=== PATIENT | female | born 1970 | race Caucasian/White ===

== ENCOUNTER 2017-11-25 00:37 | Emergency (ER) | payer OTHER, SELFPAY ==
[2017-11-25 00:40] VITALS: BP 124/89; PULSE 50; RESP 16; TEMP 36.8; O2SAT 100
--- NOTE | 2017-11-25 00:48 | EKG12_ITS ---
Test Reason : CP Blood Pressure : / mmHG Vent. Rate : 053 BPM Atrial Rate : 053 BPM P-R Int : 156 ms QRS Dur : 078 ms QT Int : 462 ms P-R-T Axes : 051 024 029 degrees QTc Int : 433 ms Sinus bradycardia Otherwise normal ECG Confirmed by SUZI AGUAYO, TULIO ([id number]), editor newspaper NAS WESLEY ([id number]) on 11/30/2017 3:16:07 PM Referred By: KENYON Confirmed By:TULIO ARCHER MD
--- NOTE | 2017-11-25 00:48 | RAD_ITS ---
STUDY: X-RAY CHEST REASON FOR EXAM: Female, 47 years old. Chest pain TECHNIQUE: Single frontal view of the chest. COMPARISON: 11/16/2016 FINDINGS: The lungs are clear and expanded. There is no demonstrated pleural abnormality. Normal size heart. Normal mediastinum and sandy. Normal visualized pulmonary arteries. Normal visualized aortic arch and descending thoracic aorta. Normal visualized thoracic spine. Normal visualized ribs, clavicles, and shoulders. There is no demonstrated abnormality of the visualized soft tissue structures of the upper abdomen. RAD/Chest 1 View (Portable) IMPRESSION: Normal x-ray examination of the chest. Electronically Signed: Chris Gaston MD at 2:32 EDT Tel , Service support ,
[2017-11-25 00:55] LABS: Absolute Lymphocyte Count 3.39 X10^3/ul (0.83-4.51); Absolute Neutrophil Count 5.1 X10^3/uL (2.0-7.7); Basophil# 0.03 X10^3/uL; Basophil% 0.3 % (0-1); Eosinophil# 0.18 X10^3/uL; Eosinophils% 1.9 % (0-5); Hematocrit 39.1 % (37-47); Hemoglobin 12.8 g/dl (12.0-15.0); Lymphocyte # 3.39 X10^3/ul (4.0); Lymphocyte % 35.8 % (19-41); Mean Corp Hgb Conc 32.7 g/gl (32-36); Mean Corpuscular Hgb 29.8 pg (27.0-32.0); Mean Corpuscular Volume 91.1 fL (81-99); Mean Platelet Vol. 9.3 fl (6.2-12.0); Monocyte# 0.71 X10^3/uL; Monocyte% 7.5 % (0-10); Neutrophil # 5.13 X10^3/uL (2.7-7.7); Neutrophil % 54.1 % (47-70); Platelet Count 265 K/mm3 (150-450); RBC Distribution Width CV 13.3 % (11.6-14.6); RBC Distribution Width SD 43.9 fl (35.1-43.9); Red Blood Count 4.29 M/mm3 (4.2-5.4); White Blood Count 9.5 K/mm3 (4.4-11.0)
[2017-11-25 00:56] LABS: POSITIVE COUNT NO; POSITIVE DIFFERENTIAL NO; POSITIVE MORPHOLOGY NO
--- NOTE | 2017-11-25 01:08 | ED.DCSUM_ITS ---
- ER Visit Summary Date of Service: 11/25/17 Chief Complaint: [] Chest pain with possible anxiety attack History of Present Illness: The patient is a 47 F presents with chest squeezing left-sided for last 7 hours. 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 She has had continuous discomfort that is mild. Worsened by nothing. Associated some mild dyspnea and mild cough. She has mild anxiety. She has had this multiple times in the past. She had a pulmonary embolism in 2006 postsurgical. She has had multiple ER visits for chest pain including an admission. Her last stress test was -3 years ago. Her last 2 CTAs of her chest in the last couple years have been negative. She also feels some discomfort in her back. She denies any cardiac risk factors except for occasional smoking. She took 2 baby aspirin at home. Physical Examination: Vital signs reviewed General: Well-nourished well-developed Head: Normocephalic atraumatic Eyes: Pupils equal round and reactive to light extraocular movements intact ENT: TMs clear no hemotympanum no trauma Neck: Nontender full range of motion Cardiovascular: Regular rate rhythm no murmurs normal S1-S2 Respiratory: No distress clear to auscultation bilaterally chest nontender Abdomen: Soft nontender nondistended normal bowel sounds no masses Back: Nontender no CVA tenderness Extremities: Nontender active range of motion ?4 extremities no trauma Skin: Normal color no trauma Neuro alert oriented cranial nerves II through XII intact normal strength sensation reflexes Test Results: [] Emergency Department Course and Treatment: [] EKG shows sinus at 53 with T-wave inversion V2. D-dimer elevated at 1.2. However this is always elevated. Her previous was 2.6 and 1.8 respectively. Troponin negative. Chemistry normal. CBC normal. Chest x-ray and CT of the chest show nothing acute. At this time I noticed that the patient's d-dimer is always elevated. I think this will be always elevated likely secondary to her MS. She has had multiple cardiac rule outs with positive D-dimers. I feel we should probably stop checking this as it will always be negative causing her to get an unnecessary CT angios. She has not had tachycardia or hypoxia. I feel this could be costochondritis or pleurisy. On reevaluation she feels much better. She will be discharged. I do not feel this is cardiac. She has had pain for multiple hours with a normal troponin. Treatment Plan: [] Disposition: [] Impression: [] Noncardiac chest pain This note was generated with [employer] dictation software. It may contain incorrect words, spelling, and punctuation that were not noted in review of the chart prior to signing ED Disposition - Plan for ED Patient: Chief Complaint: Chest Pain Referrals: Morelia Denton MD [Primary Care Provider] -
--- NOTE | 2017-11-25 01:09 | ED.RN ---
DR. PRESCOTT AWARE OF ELEVATED DDIMER OF 1.2
[2017-11-25 01:19] LABS: Anion Gap 7 (5-15); BUN 15 mg/dL (7-18); BUN/Creat Ratio 19.9 RATIO (10-20); Calcium,Total 9.1 mg/dL (8.5-10.1); Chloride 107 mmol/L (98-107); Creatinine, Serum 0.75 mg/dL (0.55-1.02); EST Glomerular Filtration Rate 88 mL/min (>60); Est Glom Filt Rate - Afr Amer 107 mL/min (>60); Glucose 97 mg/dL (74-106); Potassium 3.6 mmol/L (3.5-5.1); Sodium Level 141 mmol/L (136-145)
[2017-11-25] MEDS: Morphine 4 MG/ML Syringe IV (01:22)
--- NOTE | 2017-11-25 01:24 | CT_ITS ---
STUDY: CTA CHEST REASON FOR EXAM: Female, 47 years old. Chest pain RADIATION DOSAGE (If Supplied By Facility): CTDIvol = ( 11.76 ) mGy, DLP = ( 426.94 ) mGycm TECHNIQUE: The examination was performed with the intravenous administration of 100 ml of Isovue 370 contrast material. Post-processing of the angiographic images was performed, with multiplanar reformation and 3D reconstruction. Individualized dose optimization techniques were used for this CT. COMPARISON: 01/29/2016 FINDINGS: Normal enhancement of the main pulmonary artery and right and left pulmonary arteries. Normal enhancement of the bilateral peripheral pulmonary arteries. There is no demonstrated pulmonary embolism. Normal thoracic aorta and visualized great vessels. There is no demonstrated aortic dissection. Normal heart and pericardium. Normal mediastinum. Normal hilar regions. Normal visualized trachea and bronchi. The lungs are well expanded. Normal pulmonary parenchyma. Normal pleura. Normal chest wall structures. Normal osseous structures. Normal visualized upper abdomen. CT/CTA Chest W/WO Contrast IMPRESSION: Normal CTA chest examination, without a demonstrated pulmonary embolism or arterial dissection. Electronically Signed: Chris Gaston MD at 2:45 EDT Tel , Service support ,
--- NOTE | 2017-11-25 03:10 | ED.DEP ---
ED Disposition - Plan for ED Patient: Disposition: Home or Assisted Living Chief Complaint: Chest Pain Instructions: ED Chest Pain NonCardiac Referrals: Morelia Denton MD [Primary Care Provider] -
[2017-11-25 03:35] VITALS: BP 109/78; PULSE 54; RESP 15; O2SAT 95
== END 2017-11-25 03:36 | disposition home or self-care (01) ==
PROVIDERS: Emergency Provider Emergency Medicine; Family Provider Internal Medicine; PCP Internal Medicine
DX: R07.89 Other chest pain (principal); F41.9 Anxiety disorder, unspecified; R74.8 Abnormal levels of other serum enzymes; Z79.899 Other long term (current) drug therapy; F17.200 Nicotine dependence, unspecified, uncomplicated; Z86.711 Personal history of pulmonary embolism
CPT/HCPCS: 71045; 71275; 80048; 84484; 85025; 85379; 93005; 96374; 99284; Q9967; A4216

== ENCOUNTER 2018-03-18 16:53 | Emergency (ER) | payer OTHER, SELFPAY ==
[2018-03-18 16:54] VITALS: BP 127/73; PULSE 87; RESP 17; TEMP 37.1; O2SAT 96; BMI 33.3
--- NOTE | 2018-03-18 17:23 | ED.VISSUMM ---
- ER Visit Summary Date of Service: 03/18/18 Chief Complaint: Cough, sore throat, dysuria History of Present Illness: The patient is a 47 F who presents the above symptoms. She states she has had 2 weeks of cough, shortness of breath, cold-like symptoms. She has been trying Mucinex, NyQuil and albuterol inhaler at home but not getting any better. She has had nasal congestion. Her cough is productive. She is been on antibiotics for 1 week for urinary tract infection. She states that this is ciprofloxacin. She has not had a fever. Physical Examination: Vital signs reviewed. HEENT exam unremarkable. Heart is regular rate and rhythm. Lungs have faint expiratory wheezing. Abdomen soft and nontender. Neurologic exam normal. Test Results: Chest x-ray reveals cardiomegaly with no other acute findings. Urinalysis is negative for infection Emergency Department Course and Treatment: Patient has no evidence of pneumonia. Her UTI is clearing. She was given albuterol here. I will give her a dose of Decadron to help with her symptoms. Patient's antibiotics will be changed from ciprofloxacin to doxycycline. She will follow-up with her primary care physician. Treatment Plan: [] Disposition: Discharge Impression: Acute bronchitis This note was generated with [employer]) dictation software. It may contain incorrect words, spelling, and punctuation that were not noted in review of the chart prior to signing ED Disposition - Plan for ED Patient: Disposition: Home or Assisted Living Chief Complaint: Cold Sx Instructions: ED Upper Resp Infec Abx Tx Prescriptions: Doxycycline Monohydrate 100 mg PO BID #14 cap Referrals: Morelia Denton MD [Primary Care Provider] -
--- NOTE | 2018-03-18 17:25 | RAD_ITS ---
STUDY: X-RAY CHEST REASON FOR EXAM: Female, 47 years old. Chest pain with cough and shortness of breath. TECHNIQUE: Frontal and lateral views of the chest. COMPARISON: November 25, 2017 FINDINGS: The lungs are clear and expanded. There is no demonstrated pleural abnormality. There is stable borderline cardiomegaly. Normal mediastinum and sandy. Normal visualized pulmonary arteries. Normal visualized aortic arch and descending thoracic aorta. Normal visualized thoracic spine. Normal visualized ribs, clavicles, and shoulders. There is no demonstrated abnormality of the visualized soft tissue structures of the upper abdomen. RAD/Chest PA and Lateral IMPRESSION: Stable borderline cardiomegaly. No acute pathology. Electronically Signed: Carlos Faustin MD at 17:54 EDT , Service support ,
[2018-03-18] MEDS: Albuterol 2.5 MG/3 ML VIAL.NEB. INHALATION (17:41)
[2018-03-18 17:42] LABS: Bacteria 0 SEEN /hpf (None Seen); Mucous, Urine 0 SEEN /hpf (<or=2+); Red Blood Cells-Urine 0 SEEN /hpf (0-5); Squamous Epithelial Cells - UA 0 SEEN /hpf (5-10); White Blood Cells 0 SEEN /hpf (0-5)
[2018-03-18 17:43] VITALS: PULSE 76; RESP 20
[2018-03-18 17:48] LABS: Color, Urine Yellow (Yellow); Glucose, Dipstick Normal (Normal); Ketone-Dipstick Negative (Negative); Leukocyte Esterase-Dipstick 25 /ul (Negative); Nitrite-Dipstick Negative (Negative); Occult Blood-Urine Negative /ul (Negative); Protein-Dipstick Negative (Negative); Urine Bilirubin Dipstick Negative (Negative); Urine Clarity Clear (Clear); Urine Urobilinogen Normal (Normal)
--- NOTE | 2018-03-18 18:08 | ED.DEP ---
ED Disposition - Plan for ED Patient: Disposition: Home or Assisted Living Chief Complaint: Cold Sx Instructions: ED Upper Resp Infec Abx Tx Prescriptions: Doxycycline Monohydrate 100 mg PO BID #14 cap Referrals: Morelia Denton MD [Primary Care Provider] -
== END 2018-03-18 18:46 | disposition home or self-care (01) ==
PROVIDERS: Emergency Provider Emergency Medicine; Family Provider Internal Medicine; PCP Internal Medicine
DX: J20.9 Acute bronchitis, unspecified (principal); N39.0 Urinary tract infection, site not specified; I51.7 Cardiomegaly; Z72.0 Tobacco use; Z79.899 Other long term (current) drug therapy
CPT/HCPCS: 71046; 81001; 94640; 99283

== ENCOUNTER 2018-11-06 01:43 | Emergency (ER) | payer BC, SELFPAY ==
[2018-11-06 01:44] VITALS: BP 138/84; PULSE 94; RESP 18; TEMP 36.8; O2SAT 97; BMI 36.6
--- NOTE | 2018-11-06 02:01 | EKG12_ITS ---
Test Reason : CP Blood Pressure : / mmHG Vent. Rate : 062 BPM Atrial Rate : 062 BPM P-R Int : 156 ms QRS Dur : 086 ms QT Int : 422 ms P-R-T Axes : 030 013 020 degrees QTc Int : 428 ms Normal sinus rhythm Normal ECG Confirmed by SUZI AGUAYO, TULIO ([id number]), telegraph editor BENJAMIN PRADO ([id number]) on 11/08/2018 9:15:51 AM Referred By: CHEN Confirmed By:TULIO ARCHER MD
[2018-11-06 02:05] VITALS: O2SAT 97
--- NOTE | 2018-11-06 02:08 | RAD_ITS ---
HISTORY: CHEST PAIN EXAM: XR Chest 1 View COMPARISON: 03/18/18 CXR FINDINGS: LINES/DEVICES: None. LUNGS: No consolidation, edema or effusion. No pneumothorax. Mild elevation right hemidiaphragm unchanged. MEDIASTINUM AND CARDIOVASCULAR STRUCTURES: Cardiac silhouette not enlarged. Central airways and mediastinal contour are unremarkable. BONES AND SOFT TISSUES: Unremarkable. RAD/Chest 1 View (Portable) IMPRESSION: No radiographic evidence of acute cardiopulmonary disease. at 0234 Reported and signed by: Rafael Waldron MD Electronically Signed: Rafael Waldron, at 2:33 EDT Tel , Service support ,
[2018-11-06] MEDS: Ketorolac 30 MG/ML Syringe IV (02:11)
--- NOTE | 2018-11-06 02:11 | ED.DCSUM_ITS ---
- ER Visit Summary Date of Service: 11/06/18 Chief Complaint: Right lower chest pain History of Present Illness: The patient is a 48 F history of MS, pleurisy and prior pulmonary emboli after surgery. Patient states she has right lower chest pain for approximately last week. Plan shortness of breath. Denies any hemoptysis. The triage complaint was abdominal pain patient states that not abdominal pain it is right lower chest pain. She denies any fever. She denies any food intolerances. Physical Examination: Vital signs are stable and afebrile. Pulse ox 97%. No distress. HEENT exam unremarkable. Neck nontender. No lymphadenopathy. No JVD. Lungs clear to auscultation bilaterally. Heart regular rate and rhythm no murmur. Rate about 90. Abdomen is soft and nontender. Normal bowel sounds no peritoneal signs. No Hutchison sign. Patient moving all 4 extremities. Calves are nontender without edema or cords. Both upper and lower extremities neurovascular intact. Normal range of motion. Neurologically she is awake alert with no focal motor deficits. Test Results: Chest x-ray portable one view no acute abnormality read by myself and radiologist. EKG sinus rhythm rate 62 no acute signs of [place] or ischemia. CBC normal. Chemistry normal. Liver enzymes and lipase normal. Troponin normal. D-dimer slightly elevated at 1.29. A CTA of the chest has been ordered. CTA chest was read as normal. No PE no dissection. No acute abnormalities. Read by the radiologist reviewed by me. Emergency Department Course and Treatment: Patient has right lower chest pain that may be something simple as pleurisy. She is very concerned that the PET she had PE postoperatively before. She has had 2 CTAs in the last several years which were negative. Her d-dimer is typically elevated. She will be given Toradol for pain. Repeat exam patient is doing well at 2:51 AM. She was still having right-sided chest pain so she was also given morphine and Zofran. Repeat exam at 03 50 9 AM patient is doing well. As I suspected the work-up was negative. Clinically I do not think she has a pulmonary embolus. She has had a history of pleurisy in the past and will be treated with anti-inflammatories. Treatment Plan: Motrin for pain 600 mg 3 times a day with food. Follow-up if not improving. Disposition: Discharge Impression: Right chest pain of uncertain etiology History of pulmonary emboli and history of prior pleurisy This note was generated with [employer] dictation software. It may contain incorrect words, spelling, and punctuation that were not noted in review of the chart prior to signing ED Disposition - Plan for ED Patient: Referrals: Morelia Denton MD [Primary Care Provider] -
[2018-11-06 02:25] VITALS: BP 114/69; PULSE 73; RESP 20; O2SAT 98
[2018-11-06 02:42] LABS: Absolute Lymphocyte Count 3.51 X10^3/ul (0.83-4.51); Absolute Neutrophil Count 4.6 X10^3/uL (2.0-7.7); Basophil# 0.05 X10^3/uL; Basophil% 0.5 % (0-1); D-Dimer Quantitative (DVT/PE) 1.29 FEU/ug/m (0.27-0.49); Eosinophil# 0.27 X10^3/uL; Eosinophils% 2.9 % (0-5); Hemoglobin 13.1 g/dl (12.0-15.0); Lymphocyte # 3.51 X10^3/ul (4.0); Mean Corp Hgb Conc 33.6 g/gl (32-36); Mean Corpuscular Hgb 29.4 pg (27.0-32.0); Mean Corpuscular Volume 87.6 fL (81-99); Mean Platelet Vol. 9.9 fl (6.2-12.0); Monocyte# 0.76 X10^3/uL; Monocyte% 8.2 % (0-10); Neutrophil # 4.63 X10^3/uL (2.7-7.7); Neutrophil % 50.2 % (47-70); Platelet Count 275 K/mm3 (150-450); RBC Distribution Width CV 13.4 % (11.6-14.6); RBC Distribution Width SD 43.1 fl (35.1-43.9); Red Blood Count 4.45 M/mm3 (4.2-5.4); White Blood Count 9.2 K/mm3 (4.4-11.0)
[2018-11-06 02:44] LABS: Differential Indicated SCAN CRITERIA MET; POSITIVE COUNT NO; POSITIVE DIFFERENTIAL NO; POSITIVE MORPHOLOGY YES
[2018-11-06 02:48] LABS: AST(SGOT) 20 U/L (15-37); Alanine Aminotransfer ALT/SGPT 26 U/L (13-56); Alkaline Phosphatase 79 U/L (45-117); Anion Gap 9 (5-15); BUN 20 mg/dL (7-18); BUN/Creat Ratio 28.3 RATIO (10-20); Bilirubin, Direct 0.09 mg/dL (0.00-0.30); Calcium,Total 9.1 mg/dL (8.5-10.1); Chloride 104 mmol/L (98-107); Creatinine, Serum 0.71 mg/dL (0.55-1.02); EST Glomerular Filtration Rate 94 mL/min (>60); Est Glom Filt Rate - Afr Amer 114 mL/min (>60); Globulin 3.9 g/dL (2.2-4.2); Glucose 89 mg/dL (74-106); Lipase 107 U/L (73-393); Potassium 3.7 mmol/L (3.5-5.1); Protein, Total 7.9 g/dL (6.4-8.2); Sodium Level 138 mmol/L (136-145)
--- NOTE | 2018-11-06 02:49 | CT_ITS ---
HISTORY: RT LOWER CP, ELEVATED D-DIMER, HX PE EXAMINATION: CTA Chest WO/W Contrast TECHNIQUE: Helically acquired images were obtained of the chest following IV contrast as per pulmonary angiogram protocol with 3D reconstructions. A radiation dose optimization technique was used for this scan. IV Contrast dosage and agent: 100 Isovue 370 COMPARISON: 11/25/17 CTA chest. FINDINGS: UPPER ABDOMEN: No acute pathology. PULMONARY ARTERIES: Normal in caliber. No pulmonary embolism. AORTA AND GREAT VESSELS: Normal in caliber. No evidence of dissection. HEART AND PERICARDIUM: Heart size is normal. There is no pericardial effusion. No signs of right heart strain. MEDIASTINUM AND ALAN: There is no mediastinal or hilar adenopathy. Esophagus is unremarkable. There is no hiatal hernia. OTHER SOFT TISSUES: Included thyroid gland is unremarkable. There is no axillary, supraclavicular or lower cervical adenopathy. LUNGS AND LARGE AIRWAYS: No pneumonia, pulmonary edema, or pneumothorax. Mild dependent atelectasis lung bases, subsegmental and incidental. Mild elevation right hemidiaphragm. Mild subpleural emphysema lung apices. PLEURA: Unremarkable. No pleural effusion or thickening. BONES: No suspicious lytic or blastic abnormality observed. CT/CTA Chest W/WO Contrast IMPRESSION: No pulmonary embolus or acute finding. Individualized dose optimization techniques were used for this CT. at 0340 Reported and signed by: Rafael Waldron MD Electronically Signed: Rafael Waldron, at 3:39 EDT Tel , Service support ,
[2018-11-06] MEDS: 0.9% Normal Saline 1,000 ML 999 ML IV (03:02)
[2018-11-06] MEDS: Ondansetron 4 MG/2 ML Vial IV (03:02)
[2018-11-06] MEDS: morphine 8 MG/ML Syringe 6 MG IV (03:03)
[2018-11-06 03:05] VITALS: BP 107/67; PULSE 68; RESP 15; O2SAT 98
[2018-11-06 03:09] LABS: Differential Comment SCANNED; Platelet Estimate ADEQUATE (ADEQ)
--- NOTE | 2018-11-06 04:02 | DCINST.ED_ITS ---
ED Disposition - Plan for ED Patient: Disposition: Home or Assisted Living Instructions: ED Chest Pain Pleurisy Referrals: Morelia Denton MD [Primary Care Provider] - 1 Week if not improving Additional Instructions: All your labs, chest x-ray, EKG and CAT scan chest were normal. No signs of a blood clot. I suspect your chest pain is secondary to pleurisy. Motrin 600 mg 3 times a day with food for pain. Otherwise follow-up with your stacie teague.
[2018-11-06 04:23] VITALS: BP 111/59; PULSE 62; RESP 15; O2SAT 97
== END 2018-11-06 04:24 | disposition home or self-care (01) ==
PROVIDERS: Emergency Provider Emergency Medicine; Family Provider Internal Medicine; PCP Internal Medicine
DX: R07.89 Other chest pain (principal); Z86.711 Personal history of pulmonary embolism; F17.210 Nicotine dependence, cigarettes, uncomplicated
CPT/HCPCS: 71045; 71275; 80048; 80076; 83690; 84484; 85025; 85379; 93005; 96361; 96374; 96375; 99284; J7030; Q9967; A4216; J2405

== ENCOUNTER → 2020-03-10 17:35 | Outpatient (CLI) | payer SELFPAY | LOC: MTDU 17:35 | PROVIDERS: PCP Internal Medicine; Referring Provider Internal Medicine; Visit Provider Internal Medicine | DX: B34.9 Viral infection, unspecified (principal) | CPT/HCPCS: 87635; C9803; U0003 ==

== ENCOUNTER → 2025-01-30 | Outpatient (CLI) | payer OTHER, SELFPAY ==
--- NOTE | 2025-01-30 06:48 | MRI_ITS ---
PROCEDURE: SPINE THORACIC W/WO CONTRAST 01/30/2025 REASON FOR EXAM: MS TECHNIQUE: Thoracic spine MRI without and with intravenous gadolinium-based contrast. Multiplanar and multisequence images were obtained. CONTRAST: Clariscan VOLUME: 17 mLGauge IV COMPARISON: none FINDINGS: Multilvele intramedullary areas of high T2/STIR signal seen within the thoracic and examined cervical cord. No obvious enhancement or cord expansion. Preserved thoracic curve. The vertebral body heights and marrow signal are normal with normal alignment. No vertebral dislocation or fractures visualized. No obvious marrow degenerative changes. Modic 0. T1-T2: No significant disc herniation, lateral recesses or neural foraminal narrowing. Transiting and exiting nerve roots are unremarkable. Facet joints and ligamentum flavum show normal configuration. T2-T3: No significant disc herniation, lateral recesses or neural foraminal narrowing. Transiting and exiting nerve roots are unremarkable. Facet joints and ligamentum flavum show normal configuration. T3-T4: No significant disc herniation, lateral recesses or neural foraminal narrowing. Transiting and exiting nerve roots are unremarkable. Facet joints and ligamentum flavum show normal configuration. T4-T5: No significant disc herniation, lateral recesses or neural foraminal narrowing. Transiting and exiting nerve roots are unremarkable. Facet joints and ligamentum flavum show normal configuration. T5-T6: No significant disc herniation, lateral recesses or neural foraminal narrowing. Transiting and exiting nerve roots are unremarkable. Facet joints and ligamentum flavum show normal configuration. T6-T7: No significant disc herniation, lateral recesses or neural foraminal narrowing. Transiting and exiting nerve roots are unremarkable. Facet joints and ligamentum flavum show normal configuration. T7-T8: No significant disc herniation, lateral recesses or neural foraminal narrowing. Transiting and exiting nerve roots are unremarkable. Facet joints and ligamentum flavum show normal configuration. T8-T9: No significant disc herniation, lateral recesses or neural foraminal narrowing. Transiting and exiting nerve roots are unremarkable. Facet joints and ligamentum flavum show normal configuration. T9-T10: No significant disc herniation, lateral recesses or neural foraminal narrowing. Transiting and exiting nerve roots are unremarkable. Facet joints and ligamentum flavum show normal configuration. T10-11: No significant disc herniation, lateral recesses or neural foraminal narrowing. Transiting and exiting nerve roots are unremarkable. Facet joints and ligamentum flavum show normal configuration. T11-12: No significant disc herniation, lateral recesses or neural foraminal narrowing. Transiting and exiting nerve roots are unremarkable. Facet joints and ligamentum flavum show normal configuration. T12-L1: No significant disc herniation, lateral recesses or neural foraminal narrowing. Transiting and exiting nerve roots are unremarkable. Facet joints and ligamentum flavum show normal configuration. No marrow infiltrative lesions No paraspinal soft tissue abnormalities. MRI/Spine Thoracic W/WO Contrast IMPRESSION: Multilvele intramedullary areas of altered signal seen within the thoracic and examined cervical cord, possibly demyelinating. No vertebral fractures. No significant disc herniation, lateral recesses or neural foraminal narrowing. [facility]
--- NOTE | 2025-01-30 06:48 | MRI_ITS ---
PROCEDURE: SPINE CERVICAL W/WO CONTRAST 01/30/2025 REASON FOR EXAM: MS TECHNIQUE: SPINE CERVICAL W/WO CONTRAST Multiplanar and multisequence images were obtained with intravenous gadolinium-based contrast administration. CONTRAST:Clariscan VOLUME: 17 mL COMPARISON: none FINDINGS: Multilvele intramedullary areas of high T2/STIR signal seen within the cranio- cervical junction, cervical and examined thoracic cord. No obvious enhancement or cord expansion. Straightening of cervical curve denoting myospasm. No vertebral fracture/acute dislocation noted. The vertebral body heights are normal. The examined vertebral bodies and posterior neural elements appear intact with no fractures. Normal craniometric measures of the craniovertebral junction No obvious marrow degenerative signal. Modio 0. Variable degrees of reduced height and bright T2 signal of the intervertebral discs denoting their desiccation. C1-C2: Atlantodens interval is preserved. Odontoid process and atlantoaxial joint appear normal. C2-C3: There is no significant disc pathology. Normal morphology of the ligamentum flava. No arthropathy of the uncovertebral and zygapophyseal joints. No significant spinal canal stenosis noted. C3-C4: There is no significant disc pathology. Normal morphology of the ligamentum flava. No arthropathy of the uncovertebral and zygapophyseal joints. No significant spinal canal stenosis noted. C4-C5: a 2 mm central focal posterior disc protrusion indenting the theca. No neuroforaminal stenosis. C5-C6: a 3.2 mm diffuse disc bulge seen indenting the cord encroaching upon the related neural exit foramina inducing moderate exiting nerve roots compression. C6-C7: a 4 mm diffuse disc bulge seen indenting the cord encroaching upon the related neural exit foramina inducing moderate exiting nerve roots compression. C7-T1: There is no significant disc pathology. Normal morphology of the ligamentum flava. No arthropathy of the uncovertebral and zygapophyseal joints. No significant spinal canal stenosis noted. No marrow infiltrative lesions. No paraspinal soft tissue masses. MRI/Spine Cervical W/WO Contrast IMPRESSION: Multilvele intramedullary areas of altered signal seen within the cranio-cervic al junction, cervical and examined thoracic cord, possibly demyelinating. Straightening of cervical curve denoting myospasm. C4-C5: a 2 mm central focal posterior disc protrusion. No neuroforaminal stenos is. C5-C6: a 3.2 mm diffuse disc bulge inducing moderate exiting nerve roots compre ssion. C6-C7: a 4 mm diffuse disc bulge inducing moderate exiting nerve roots compress ion. [facility]
--- NOTE | 2025-01-30 07:05 | MRI_ITS ---
PROCEDURE: MR BRAIN W/WO CONTRAST 01/30/2025 REASON FOR EXAM: Multiple sclerosis diagnosed in 1996. Left leg weakness, memory issues. TECHNIQUE: MRI BRAIN W/WO CONTRAST. Multiplanar and multisequence images were obtained. CONTRAST: Clariscan VOLUME: 17 mL COMPARISON: Brain MRI dated 08/01/2006. FINDINGS: Compared with the prior exam dated 08/01/2006, redemonstrated multiple small patchy foci of T2 FLAIR hyperintensity in the supratentorial periventricular and juxtacortical white matter, compatible with demyelinating disease. Particularly the perpendicularly oriented periventricular lesions which are typical for multiple sclerosis. No lesions are seen within the brainstem or cerebellum. Overall the lesions are minimally progressed in number since 2006, particularly a focus in the right frontal montes radiata however there are none with associated pathologic gadolinium enhancement or abnormal restricted diffusion to indicate active demyelination. Mild generalized brain parenchymal volume loss. No evidence of intracranial hemorrhage, extra-axial collection, mass-effect, or hydrocephalus. Preserved major intracranial vascular flow voids. Grossly unremarkable orbits. Well-aerated paranasal sinuses and mastoid air cells. MRI/Brain W/WO Contrast IMPRESSION: No acute intracranial abnormality. Slightly progressed burden of intracranial chronic demyelinating plaque since 07/2006, but no evidence for any active demyelinating lesion. Reading Location: [id number]
--- OUTSIDE RECORDS SUMMARY | 2025-01-30 07:07 | XMS RPT_ITS | CCD ---
Author Organization [facility] Care Team Providers Care Wood Finisher Name Role Phone Lina Hernandez MD Primary Care Provider Lina Hernandez MD Primary Care Provider Castellanos FIELD MAP TECHNICIAN.BUILDING ARCHITECTURAL DESIGNER, Mary Unavailable Guilherme FIELD MAP TECHNICIAN.LIBRARY MANAGER, Allison Unavailable Guilherme FIELD MAP TECHNICIAN.LIBRARY MANAGER, Allison Unavailable DAVID AGUAYO, DR MILLS Primary Care Unavailable JET ALVAREZ, DR EUGENE Kate Attending Unavailabl e Guilherme FIELD MAP TECHNICIAN.LIBRARY MANAGER, Allison Unavailable Castellanos FIELD MAP TECHNICIAN.BUILDING ARCHITECTURAL DESIGNER, Mary Unavailable Castellanos FIELD MAP TECHNICIAN.BUILDING ARCHITECTURAL DESIGNER, Mary Unavailable TALAMPAS, LINA D Primary Care Unavailable ALLISON ESQUEDA Attending Unavailable TALAMPAS, LINA D Primary Care Unavailable TALAMPAS, LINA D Primary Care Unavailable ALLISON ESQUEDA Attending Unavailable TALAMPAS, LINA D Referring Unavailable TALAMPAS, LINA D Primary Care Unavailable TALAMPAS, LINA D Primary Care Unavailable TALAMPAS, LINA D Primary Care Unavailable SELF Referring Unavailable TALAMPAS, LINA D Attending Unavailable SELF Referring Unavailable TALAMPAS, LINA D Primary Care Unavailable CASTELLANOS, MARY Attending Unavailable TALAMPAS, LINA D Primary Care Unavailable NAHID PASTOR Referring Unavailable TALAMPAS, LINA D Primary Care Unavailable TALAMPAS, LINA D Referring Unavailable GILEBRTO DURAND Referring Unavailable TALAMPAS, LINA D Primary Care Unavailable TALAMPAS, LINA D Primary Care Unavailable TALAMPAS, LINA D Primary Care Unavailable TALAMPAS, LINA D Primary Care Unavailable TALAMPAS, LINA D Primary Care Unavailable TALAMPAS, LINA D Attending Unavailable TALAMPAS, LINA D Primary Care Unavailable ALLISON ESQUEDA Referring Unavailable Allergies Allergy Classification Reported Allergen(s) Allergy Type Date of Onset Reaction(s) Facility Adrenergic Agonists (1 source) Pseudoephedrine Drug Allergy 10-13-19 Intolerance [facility] Work Phone: Aminoketones (1 source) buPROPion Drug Allergy 05-26-20 Mental Status Change [facility] Sulfonamides (antibiotic) (1 source) Sulfonamides (Antibiotic) Drug Allergy 03-18-20 [facility] (20 sources) buPROPion; Translations: [BUPROPION] Drug Allergy 05-26-20 Mental Status Change [facility] (20 sources) Pseudoephedrine; Translations: [PSEUDOEPHEDRINE HCL] Drug Allergy 10-13-19 Intolerance [facility] Work Phone: (20 sources) Sulfonamides (Antibiotic); Translations: [SULFA (SULFONAMIDE ANTIBIOTICS)] Propensity to adverse reactions 03-18-20 [facility] Medications Current Medications Medication Drug Class(es) Dates Sig (Normalized) Sig (Original) acetaminophen 325 mg / HYDROcodone bitartrate 5 mg oral tablet (20 sources) Opioid Agonist Start: 11-12-2024 End: 12-12-2024 HYDROcodone-acetami nophen (NORCO) 5-325 mg per tablet Indications: Multiple sclerosis (HCC) , Detrusor sphincter dyssynergia Take 1 tablet by mouth every 6 hours as needed for pain for up to 30 days. Patient should start on November 12, 2024. 110 tablet 11/12/2024 Active Start: 08-14-2024 End: 10-09-2024 HYDROcodone-acetaminophen (N ORCO) 5-325 mg per tablet Indications: Detrusor sphincter dyssynergia , Multiple sclerosis (HCC) Take 1 tablet by mouth every 6 hours as needed for pain for up to 30 days. Patient should start on August 14, 2024. 110 tablet 08/14/2024 10/09/2024 Discontinued Start: 07-15-2024 End: 04-11-2025 take 1 tablet by mouth four times daily as needed for pain HYDROcodone-acetaminophen (NORCO) 5-325 mg per tablet Indications: Multiple sclerosis (HCC) Take 1 tablet by mouth four times a day as needed for pain for up to 30 days. Patient should start on March 12, 2025. 110 tablet 03/12/2025 04/11/2025 Active Start: 06-13-2024 End: 07-13-2024 HYDROcodone-acetaminophen (N ORCO) 5-325 mg per tablet Indications: Detrusor sphincter dyssynergia , Multiple sclerosis (HCC) Take 1 tablet by mouth every 6 hours as needed for pain for up to 30 days. Patient should start on June 13, 2024. 110 tablet 06/13/2024 07/10/2024 Discontinued Start: 01-18-2024 End: 07-10-2024 take 1 tablet by mouth four times daily as needed for pain HYDROcodone-acetaminophen (NORCO) 5-325 mg per tablet Indications: Multiple sclerosis (HCC) , Detrusor sphincter dyssynergia Take 1 tablet by mouth four times a day as needed for pain for up to 30 days. 110 tablet 05/17/2024 07/10/2024 Discontinued Start: 12-18-2023 End: 04-10-2024 take 1 tablet by mouth every six hours as needed for pain HYDROcodone-acetaminophen (NORCO) 5-325 mg per tablet Indications: Detrusor sphincter dyssynergia , Multiple sclerosis (HCC) Take 1 tablet by mouth every 6 hours as needed for pain for up to 30 days. 110 tablet 12/19/2023 04/10/2024 Discontinued Start: 07-21-2023 End: 12-28-2023 HYDROcodone-acetaminophen (N ORCO) 5-325 mg per tablet Indications: Multiple sclerosis (HCC) , Detrusor sphincter dyssynergia Take 1 tablet by mouth four times a day as needed for pain for up to 30 days. Do not start before October 19, 2023. 110 tablet 10/19/2023 12/28/2023 Discontinued Start: 05-23-2023 End: 09-27-2023 take 1 tablet by mouth every six hours as needed for pain HYDROcodone-acetaminophen (NORCO) 5-325 mg per tablet Indications: Detrusor sphincter dyssynergia , Multiple sclerosis (HCC) Take 1 tablet by mouth every 6 hours as needed for pain for up to 30 days. Do not start before May 23, 2023. 110 tablet 0 05/23/2023 09/27/2023 Discontinued Start: 04-23-2023 End: 05-23-2023 take 1 tablet by mouth four times daily as needed for pain HYDROcodone-acetaminophen (NORCO) 5-325 mg per tablet Indications: Multiple sclerosis (HCC) , Detrusor sphincter dyssynergia Take 1 tablet by mouth four times a day as needed for pain for up to 30 days. Do not start before April 23, 2023. 110 tablet 0 04/23/2023 05/23/2023 Active Start: 03-24-2023 End: 03-22-2023 take 1 tablet by mouth four times daily as needed for pain HYDROcodone-acetaminophen (NORCO) 5-325 mg per tablet Indications: Multiple sclerosis (HCC) , Detrusor sphincter dyssynergia Take 1 tablet by mouth four times a day as needed for pain for up to 30 days. Do not start before March 24, 2023. 110 tablet 0 03/24/2023 03/22/2023 Discontinued Start: 02-22-2023 End: 03-22-2023 take 1 tablet by mouth four times daily as needed for pain HYDROcodone-acetaminophen (NORCO) 5-325 mg per tablet Indications: Multiple sclerosis (HCC) , Detrusor sphincter dyssynergia Take 1 tablet by mouth four times daily as needed for pain for up to 30 days. 110 tablet 0 02/22/2023 03/22/2023 Discontinued Start: 01-20-2023 End: 02-19-2023 take 1 tablet by mouth four times daily as needed for pain HYDROcodone-acetaminophen (NORCO) 5-325 mg per tablet Indications: Multiple sclerosis (HCC) , Detrusor sphincter dyssynergia Take 1 tablet by mouth four times daily as needed for pain for up to 30 days. Do not start before January 20, 2023. 110 tablet 0 01/20/2023 02/19/2023 Active Start: 12-25-2022 End: 12-21-2022 take 1 tablet by mouth four times daily as needed for pain HYDROcodone-acetaminophen (NORCO) 5-325 mg per tablet Indications: Multiple sclerosis (HCC) , Detrusor sphincter dyssynergia Take 1 tablet by mouth four times daily as needed for pain for up to 30 days. Do not start before December 25, 2022. 110 tablet 0 12/25/2022 12/21/2022 Discontinued Start: 10-01-2021 End: 02-24-2023 take 1 tablet by mouth four times daily as needed for pain HYDROcodone-acetaminophen (NORCO) 5-325 mg per tablet Indications: Multiple sclerosis (HCC) , Detrusor sphincter dyssynergia Take 1 tablet by mouth four times daily as needed for pain for up to 30 days. 110 tablet 0 12/21/2022 02/24/2023 Discontinued Start: 06-25-2021 End: 09-28-2021 take 1 tablet by mouth four times daily as needed for pain HYDROcodone-acetaminophen (NORCO) 5-325 mg per tablet Indications: Multiple sclerosis (HCC) , Detrusor sphincter dyssynergia Take 1 tablet by mouth four times daily as needed for pain for up to 30 days. 110 tablet 0 09/01/2021 09/28/2021 Discontinued Start: 03-31-2021 End: 11-26-2021 take 1 tablet by mouth three times daily as needed for pain HYDROcodone-acetaminophen (NORCO) 5-325 mg per tablet Indications: Multiple sclerosis (HCC) , Detrusor sphincter dyssynergia Take 1 tablet by mouth three times daily as needed for pain for up to 30 days. 90 tablet 0 03/31/2021 11/26/2021 Discontinued Comment on above: Take 1 tablet by arleth th four times daily as needed for pain for up to 30 days. Take 1 tablet by arleth th four times daily as needed for pain for up to 30 days. Do not start before October 01, 2021. Take 1 tablet by arleth th four times daily as needed for pain for up to 30 days. Do not start before October 31, 2021. Take 1 tablet by arleth th three times daily as needed for pain for up to 30 days. Take 1 tablet by arleth th four times daily as needed for pain for up to 30 days. Do not start before November 30, 2021. Take 1 tablet by arleth th four times daily as needed for pain for up to 30 days. Do not start before February 28, 2022. Take 1 tablet by arleth th four times daily as needed for pain for up to 30 days. Do not start before June 28, 2022. Take 1 tablet by arleth th four times daily as needed for pain for up to 30 days. Do not start before May 29, 2022. Take 1 tablet by arleth th four times daily as needed for pain for up to 30 days. Do not start before April 29, 2022. Take 1 tablet by arleth th four times daily as needed for pain for up to 30 days. Do not start before July 28, 2022. Take 1 tablet by arleth th four times daily as needed for pain for up to 30 days. Do not start before August 27, 2022. Take 1 tablet by arleth th four times daily as needed for pain for up to 30 days. Do not start before September 26, 2022. Take 1 tablet by arleth th four times daily as needed for pain for up to 30 days. Do not start before October 26, 2022. Take 1 tablet by arleth th four times daily as needed for pain for up to 30 days. Do not start before November 25, 2022. Take 1 tablet by arleth th four times daily as needed for pain for up to 30 days. Do not start before December 25, 2022. Take 1 tablet by arleth th four times daily as needed for pain for up to 30 days. Do not start before January 20, 2023. Take 1 tablet by arleth th four times a day as needed for pain for up to 30 days. Do not start before March 24, 2023. Take 1 tablet by arleth th four times a day as needed for pain for up to 30 days. Do not start before April 23, 2023. Take 1 tablet by arleth th every 6 hours as needed for pain for up to 30 days. Do not start before May 23, 2023. Take 1 tablet by arleth th four times a day as needed for pain for up to 30 days. Do not start before July 21, 2023. Take 1 tablet by arleth th four times a day as needed for pain for up to 30 days. Do not start before August 20, 2023. Take 1 tablet by arleth th four times a day as needed for pain for up to 30 days. Do not start before September 19, 2023. Take 1 tablet by arleth th every 6 hours as needed for pain for up to 30 days. Do not start before December 18, 2023. Take 1 tablet by arleth th four times a day as needed for pain for up to 30 days. Do not start before November 18, 2023. Take 1 tablet by arleth th four times a day as needed for pain for up to 30 days. Do not start before October 19, 2023. [id number] 200 actuat albuterol 0.09 mg/actuat metered dose inhaler (20 sources) beta2-Adrenergic Agonist Start: 07-18-19 take 2 puff(s) by inhalation every four hours as needed for wheezing albuterol HFA (PROVENTIL HFA, VENTOLIN HFA) 90 mcg/actuation inhaler Indications: Wheeze Inhale 2 Puffs as instructed every 4 hours as needed for wheezing/shortness of breath. 8 g 07/18/2024 Active ARIPiprazole 2 mg oral tablet (20 sources) Atypical Antipsychotic Start: 06-28-19 End: 01-08-20 take 1 tablet by mouth once daily ARIPiprazole (ABILIFY) 5 mg tablet Indications: Reactive depression Take 1 tablet by mouth once daily. Take this in addition to 2 mg daily for a total of 7 mg daily 30 tablet 5 01/08/2025 Active Start: 06-28-2023 End: 01-07-2025 take 1 tablet by mouth once daily ARIPiprazole (ABILIFY) 2 mg tablet Indications: Reactive depression Take 1 tablet by mouth once daily. Take this in addition to 5 mg daily for a total of 7 mg daily 30 tablet 5 01/08/2025 Active Start: 12-21-2022 End: 03-22-2023 take 1 tablet by mouth once daily ARIPiprazole (ABILIFY) 2 mg tablet Indications: Reactive depression Take 1 tablet by mouth once daily. Take this in addition to 5 mg daily for a total of 7 mg daily 30 tablet 2 03/22/2023 Active Start: 09-28-2022 End: 03-22-2023 take 1 tablet by mouth once daily ARIPiprazole (ABILIFY) 5 mg tablet Indications: Reactive depression Take 1 tablet by mouth once daily. Take this in addition to 2 mg daily for a total of 7 mg daily 30 tablet 2 03/22/2023 Active Comment on above: Take 1 tablet by arleth th once daily. Take 1 tablet by arleth th once daily. Take this in addition to 2 mg daily for a total of 7 mg daily Take 1 tablet by arleth th once daily. Take this in addition to 5 mg daily for a total of 7 mg daily cephalexin 500 mg oral capsule (20 sources) Cephalosporin Antibacterial Start: End: take 1 capsule by mouth four times daily cephALEXin (KEFLEX) 500 mg capsule Indications: Acute UTI Take 1 capsule by mouth four times daily for 7 days. 28 capsule 09/14/2024 09/21/2024 Active Start: 12-29-2020 End: 12-28-2023 take 1 capsule by mouth once daily for urinary tract infection cephALEXin (KEFLEX) 250 mg capsule Take 1 capsule by mouth once daily. For UTI prevention. 90 capsule 3 01/21/2023 12/28/2023 Discontinued Comment on above: Take 1 capsule by mo [facility] once daily. For UTI prevention. cholecalciferol 0.125 mg oral tablet (20 sources) Vitamin D Start: 06-28-19 End: 06-27-19 take 1 tablet by mouth once daily cholecalciferol (VITAMIN D-3) 5,000 unit tab Indications: Demyelinating disease of central nervous system (HCC) , Other symptoms and signs involving the nervous system , Numbness in left leg Take 1 tablet by mouth once daily. 06/28/2023 Active Start: 03-16-2022 End: 03-16-2023 take 1 tablet by mouth once daily cholecalciferol (VITAMIN D-3) 5,000 unit tab Indications: Demyelinating disease of central nervous system (HCC) , Other symptoms and signs involving the nervous system , Multiple sclerosis (HCC) , Acute pain of left knee , Numbness in left leg Take 1 tablet by mouth once daily. 90 tablet 3 03/16/2022 Active Start: 03-02-2017 End: 03-16-2022 take 2 capsules by mouth once daily Cholecalciferol, Vitamin D3, 2,000 unit cap Take 4,000 Units by mouth once daily. 0 03/02/2017 03/16/2022 Discontinued Comment on above: Take 4,000 Units by mouth once daily. [facility] c[facility]floxacin 500 mg oral tablet (1 source) Quinolone Antimicrobial Start: 02-22-20 End: 02-29-20 take 1 tablet by mouth twice daily ciprofloxacin HCl (CIPRO) 500 mg tablet Indications: Acute cystitis with hematuria Take 1 tablet by mouth two times a day for 7 days. 14 tablet 02/22/2024 02/29/2024 Active citalopram 40 mg oral tablet (20 sources) Serotonin Reuptake Inhibitor Start: 01-29-20 take 1 tablet by mouth once citalopram (CELEXA) 40 mg tablet Indications: Insomnia secondary to depression with anxiety Take 1 tablet by mouth every afternoon. 90 tablet 3 01/28/2025 Active Start: 12-29-2020 End: 01-26-2025 take 1 tablet by mouth once citalopram (CELEXA) 40 mg tablet Indications: Insomnia secondary to depression with anxiety Take 1 tablet by mouth every afternoon. 90 tablet 3 12/28/2023 01/26/2025 Discontinued Comment on above: Take 1 tablet by arleth once daily. doxycycline monohydrate 100 mg oral tablet (2 sources) Tetracycline-cla ss Drug Start: 07-18-2024 End: 07-25-2024 take 1 tablet by mouth twice daily doxycycline monohydrate 100 mg tablet Indications: Community acquired pneumonia, unspecified laterality Take 1 tablet by mouth two times a day for 7 days. 14 tablet 07/18/2024 07/25/2024 Active Start: 03-21-2024 End: 03-28-2024 take 1 tablet by mouth twice daily doxycycline (VIBRA-TABS) 100 mg tablet Indications: Respiratory infection Take 1 tablet by mouth two times a day for 7 days. 14 tablet 03/21/2024 03/28/2024 Active ibuprofen 200 mg oral tablet (20 sources) Nonsteroidal Anti-inflammatory Drug Start: 10-01-2014 ibuprofen (MOTRIN) 200 mg tablet Indications: Pleurisy Take 3-4 tablets by mouth four times daily as needed for Pain (Take with food.). Maximum 2400 mg per day 10/01/2014 Active Comment on above: Take 3-4 tablets by mouth four times shahana ly as needed for Pain (Take with food.). Maximum 2400 mg per day L.acidophilus-L .rhamnosus (FLORAJEN WOMEN) 15 billion cell capsule (14 sources) Start: 09-24-2024 take 1 capsule by mouth once daily L.acidophilus-L.rh amnosus (FLORAJEN WOMEN) 15 billion cell capsule Indications: Recurrent UTI (urinary tract infection) Take 1 capsule by mouth once daily. 30 capsule 11 09/24/2024 Active LORazepam 1 mg oral tablet (20 sources) Benzodiazepine Start: 01-06-2025 End: 03-07-2025 take 1-2 tablets by mouth once daily LORazepam (ATIVAN) 1 mg tablet Indications: Insomnia secondary to depression with anxiety Take 1-2 tablets by mouth once daily for 30 days. 60 tablet 01/08/2025 02/07/2025 Active Start: 12-07-2024 End: 01-06-2025 LORazepam (ATIVAN) 1 mg tabl et Indications: Insomnia secondary to depression with anxiety Take 1-2 tablets by mouth once daily for 30 days. Patient should start on December 07, 2024. 60 tablet 12/07/2024 01/04/2025 Discontinued Start: 07-06-2024 End: 01-02-2025 take 1-2 tablets by mouth once daily LORazepam (ATIVAN) 1 mg tablet Indications: Insomnia secondary to depression with anxiety Take 1-2 tablets by mouth once daily for 30 days. 60 tablet 11/07/2024 12/05/2024 Discontinued Start: 01-11-2024 End: 07-03-2024 take 1-2 tablets by mouth once daily LORazepam (ATIVAN) 1 mg tablet Indications: Insomnia secondary to depression with anxiety Take 1-2 tablets by mouth once daily for 90 days. 60 tablet 2 04/04/2024 07/03/2024 Active Start: 10-20-2022 End: 12-26-2023 take 1-2 tablets by mouth once daily LORazepam (ATIVAN) 1 mg tablet Indications: Insomnia secondary to depression with anxiety Take 1-2 tablets by mouth once daily for 90 days. 60 tablet 2 09/27/2023 12/26/2023 Active Start: 07-23-2022 End: 10-21-2022 take 10 tablets by mouth once daily as needed LORazepam (ATIVAN) 1 mg tablet Indications: Insomnia secondary to depression with anxiety Take 1-2 tablets by mouth once daily as needed for anxiety for up to 90 days. Do not start before July 23, 2022. 60 tablet 2 07/23/2022 10/20/2022 Discontinued Start: 04-25-2022 End: 07-24-2022 LORazepam (ATIVAN) 1 mg tabl et Indications: Insomnia secondary to depression with anxiety Take 1-2 tablets by mouth once daily as needed for anxiety for up to 90 days. Do not start before April 25, 2022. 60 tablet 2 04/25/2022 07/06/2022 Discontinued Start: 01-25-2022 End: 04-25-2022 LORazepam (ATIVAN) 1 mg tabl et Indications: Insomnia secondary to depression with anxiety Take 1-2 tablets by mouth once daily as needed for anxiety for up to 90 days. Do not start before January 25, 2022. 60 tablet 2 01/25/2022 04/25/2022 Active Start: 07-31-2021 End: 01-25-2022 take 1-2 tablets by mouth once daily as needed for anxiety LORazepam (ATIVAN) 1 mg tablet Indications: Insomnia secondary to depression with anxiety Take 1-2 tablets by mouth once daily as needed for anxiety for up to 90 days. 60 tablet 2 10/27/2021 01/05/2022 Discontinued Comment on above: Take 1-2 tablets by mouth once daily as needed for anxiety for up to 90 days. Take 1-2 tablets by mouth once daily as needed for anxiety for up to 90 days. Do not start before January 25, 2022. Take 1-2 tablets by mouth once daily as needed for anxiety for up to 90 days. Do not start before April 25, 2022. Take 1-2 tablets by mouth once daily as needed for anxiety for up to 90 days. Do not start before July 23, 2022. Take 1-2 tablets by mouth once daily for 90 days. Do not start before April 19, 2023. Take 1-2 tablets by mouth once daily for 90 days. Do not start before July 17, 2023. Take 1-2 tablets by mouth once daily for 90 days. modafinil 200 mg oral tablet (20 sources) Sympathomimetic-lik e Agent Start: 01-08-2025 End: 01-23-2025 take 1 tablet by mouth twice daily modafinil (PROVIGIL) 200 mg tablet Indications: Excessive daytime sleepiness , Multiple sclerosis (HCC) Take 1 tablet by mouth two times a day for 15 days. 30 tablet 01/08/2025 01/23/2025 Active Start: 07-31-2021 End: 01-02-2025 take 1 tablet by mouth twice daily modafinil (PROVIGIL) 200 mg tablet Indications: Excessive daytime sleepiness , Multiple sclerosis (HCC) Take 1 tablet by mouth two times a day for 180 days. 60 tablet 5 07/06/2024 01/02/2025 Active Comment on above: Take 1 tablet by arleth th twice daily for 180 days. Take 1 tablet by arleth th two times a day for 180 days. nitrofurantoin, macrocrystals 25 mg / nitrofurantoin, monohydrate 75 mg oral capsule (4 sources) Nitrofuran Antibacterial Start: End: take 1 capsule by mouth twice daily at mealtime nitrofurantoin monohydrate and macrocrystal (MACROBID) 100 mg capsule Indications: Recurrent UTI (urinary tract infection) Take 1 capsule by mouth two times a day with meals for 7 days. 14 capsule 09/24/2024 10/01/2024 Active Start: 04-20-2023 End: 04-25-2023 take 1 capsule by mouth twice daily nitrofurantoin monohydrate and macrocrystal (MACROBID) 100 mg capsule Indications: Recurrent UTI (urinary tract infection) Take 1 capsule by mouth two times a day for 5 days. 10 capsule 0 04/20/2023 04/25/2023 Active Comment on above: Take 1 capsule by mo [facility] two times a day for 5 days. perflutren lipid microspheres 1.3 mL in NaCl (PF) 0.9% 10 mL injection (DEFINITY) (20 sources) Start: 01-06-20 End: 04-06-20 perflutren lipid microspheres 1.3 mL in NaCl (PF) 0.9% 10 mL injection (DEFINITY) phenazopyridine hydrochloride 100 mg oral tablet (18 sources) Start: 09-15-19 25 End: 09-20-19 take 1 tablet by mouth three times daily as needed phenazopyridine (PYRIDIUM) 100 mg tablet Indications: Acute UTI Take 1 tablet by mouth three times a day as needed for up to 5 days. 15 tablet 09/14/2024 09/19/2024 Active Start: 04-20-2023 End: 02-22-2024 take 1 tablet by mouth three times daily as needed phenazopyridine (PYRIDIUM) 200 mg tablet Indications: Recurrent UTI (urinary tract infection) Take 1 tablet by mouth three times a day as needed. 9 tablet 12/28/2023 02/22/2024 Discontinued Comment on above: [facility] a day as needed. predniSONE 10 mg oral tablet (2 sources) Start: 03-21-2024 End: 03-29-2024 take 3 tablets by mouth once daily, then take 2 tablets by mouth once daily, then take 1 tablet by mouth once daily predniSONE (DELTASONE) 10 mg tablet Indications: Acute cough Take 3 tablets by mouth once daily for 3 days, THEN 2 tablets once daily for 3 days, THEN 1 tablet once daily for 3 days. 18 tablet 03/21/2024 03/29/2024 Active Start: 03-03-2022 End: 03-15-2022 predniSONE (DELTASONE) 10 mg tablet Take 4 tabs daily x 3 days, then 3 tabs x 3 days, 2 tabs x 3 days, then 1 tab x3 days with food. 30 tablet 0 03/03/2022 03/15/2022 Active Comment on above: Take 4 tabs daily x 3 days, then 3 tabs x 3 days, 2 tabs x 3 days, then 1 tab x3 days with food. 125 ml sodium chloride 9 mg/ml prefilled syringe (20 sources) Start: 01-05-2022 End: 04-06-2023 sodium chloride 0.9 % (flush) 10 mL (BD POSIFLUSH) terazosin 5 mg oral capsule (20 sources) alpha-Adrenergic Jarod Start: 06-28-2023 End: 02-10-2024 take 1 capsule by mouth once daily at bedtime terazosin (HYTRIN) 5 mg capsule Indications: Detrusor sphincter dyssynergia Take 1 capsule by mouth daily at bedtime. 90 capsule 3 02/10/2024 Active Start: 07-31-2021 End: 07-22-2022 take 1 capsule by mouth once daily at bedtime terazosin (HYTRIN) 5 mg capsule Indications: Detrusor sphincter dyssynergia Take 1 capsule by mouth daily at bedtime. 90 capsule 3 07/22/2022 Active Comment on above: Take 1 capsule by [facility] daily at bedtime. triamcinolone acetonide 1 mg/ml topical cream (20 sources) Corticosteroid Start: 11-23-2019 End: 03-22-2023 triamcinolone acetonide (KENALOG) 0.1 % cream Apply 1 application to affected area three times a day as needed. Apply sparingly to area for rash/itching, to affected ears 80 g 03/22/2023 Active Comment on above: Apply 1 application to affected area three times daily as needed. Apply sparingly to area for rash/itching, to affected ears Apply 1 application to affected area three times a day as needed. Apply sparingly to area for rash/itching, to affected ears Completed/Discontinued Medications Medication Drug Class(es) Dates Sig (Normalized) Sig (Original) aspirin 81 mg chewable tablet (18 sources) Platelet Aggregation Inhibitor, Nonsteroidal Anti-inflammatory Drug End: 04-10-2024 take 1 tablet by mouth once daily aspirin (ASPIRIN CHILDRENS) 81 mg chewable tablet Take 81 mg by mouth once daily. 04/10/2024 Discontinued Comment on above: Take 81 mg by mouth once daily. iv contrast (will be provided with radiology test) (20 sources) Start: 03-16-2022 End: 04-10-2024 inject 1 dose intravenously once iv contrast (will be provided with radiology test) Indications: Demyelinating disease of central nervous system (HCC) , Other symptoms and signs involving the nervous system , Multiple sclerosis (HCC) , Acute pain of left knee , Numbness in left leg MRI Brain Inject, intravenously, once for 1 dose.No IV access, insert saline lock prior to beginning of sedation, infusion, injection of imaging exam.Discontinue saline lock post exam. If Pt. has a central line or IVAD, may access for administration according to line specific nursing protocol.Once exam is complete flush line and de-access according to line specific nursing protocol in the MR contrast administration guidelines link 1 Each 03/16/2022 04/10/2024 Discontinued Start: 03-16-2022 inject 1 dose intravenously on ce iv contrast (will be provided with radiology test) Indications: Demyelinating disease of central nervous system (HCC) , Other symptoms and signs involving the nervous system , Multiple sclerosis (HCC) , Acute pain of left knee , Numbness in left leg MRI Brain Inject, intravenously, once for 1 dose.No IV access, insert saline lock prior to beginning of sedation, infusion, injection of imaging exam.Discontinue saline lock post exam. If Pt. has a central line or IVAD, may access for administration according to line specific nursing protocol.Once exam is complete flush line and de-access according to line specific nursing protocol in the MR contrast administration guidelines link 1 Each 03/16/2022 Active Start: 03-16-2022 End: 12-28-2023 iv contrast (will be provide d with radiology test) Indications: Demyelinating disease of central nervous system (HCC) , Other symptoms and signs involving the nervous system , Multiple sclerosis (HCC) , Acute pain of left knee , Numbness in left leg MRI CSP Inject, intravenously, once for 1 dose. No IV access, insert saline lock prior to the beginning of sedation, infusion, injection of imaging exam. Discontinue saline lock post exam. If Pt. has a central line or IVAD, may access for administration according to line specific nursing protocol. Once exam is complete flush line and de-access according to line specific nursing protocol in the MR contrast administration guidelines link. 1 Each 03/16/2022 12/28/2023 Discontinued Start: 03-16-2022 inject 1 dose intravenously on ce iv contrast (will be provided with radiology test) Indications: Demyelinating disease of central nervous system (HCC) , Other symptoms and signs involving the nervous system , Multiple sclerosis (HCC) , Acute pain of left knee , Numbness in left leg MRI Brain Inject, intravenously, once for 1 dose.No IV access, insert saline lock prior to beginning of sedation, infusion, injection of imaging exam.Discontinue saline lock post exam. If Pt. has a central line or IVAD, may access for administration according to line specific nursing protocol.Once exam is complete flush line and de-access according to line specific nursing protocol in the MR contrast administration guidelines link 1 Each 0 03/16/2022 Active Start: 03-16-2022 iv contrast (w ill be provided with radiology test) Indications: Demyelinating disease of central nervous system (HCC) , Other symptoms and signs involving the nervous system , Multiple sclerosis (HCC) , Acute pain of left knee , Numbness in left leg MRI CSP Inject, intravenously, once for 1 dose. No IV access, insert saline lock prior to the beginning of sedation, infusion, injection of imaging exam. Discontinue saline lock post exam. If Pt. has a central line or IVAD, may access for administration according to line specific nursing protocol. Once exam is complete flush line and de-access according to line specific nursing protocol in the MR contrast administration guidelines link. 1 Each 0 03/16/2022 Active Comment on above: MRI Brain Inject, in travenously, once for 1 dose.No IV access, insert saline lock prior to beginning of sedation, infusion, injection of imaging exam.Discontinue saline lock post exam. If Pt. has a central line or IVAD, may access for administration according to line specific nursing protocol.Once exam is complete flush line and de-access according to line specific nursing protocol in the MR contrast administration guidelines link MRI CSP Inject, intr avenously, once for 1 dose. No IV access, insert saline lock prior to the beginning of sedation, infusion, injection of imaging exam. Discontinue saline lock post exam. If Pt. has a central line or IVAD, may access for administration according to line specific nursing protocol. Once exam is complete flush line and de-access according to line specific nursing protocol in the MR contrast administration guidelines link. meloxicam 15 mg oral tablet (15 sources) Nonsteroidal Anti-inflammatory Drug Start: 12-22-19 End: 12-28-19 24 take 1 tablet by mouth once daily as needed for pain meloxicam (MOBIC) 15 mg tablet Take 1 tablet by mouth once daily as needed for pain. for pain. Take with food. 30 tablet 12/21/2022 12/28/2023 Discontinued Comment on above: Take 1 tablet by arleth th once daily as needed for pain. for pain. Take with food. tiZANidine 4 mg oral tablet (20 sources) Central alpha-2 Adrenergic Agonist Start: 03-30-20 End: 04-10-20 24 take 1 tablet by mouth every eight hours as needed tiZANidine (ZANAFLEX) 4 mg tablet Take 1 tablet by mouth every 8 hours as needed (muscle spasms). 30 tablet 12/21/2022 04/10/2024 Discontinued Start: 03-03-2022 End: 03-27-2022 take 1 tablet by mouth every eight hours as needed tiZANidine (ZANAFLEX) 4 mg tablet Take 1 tablet by mouth every 8 hours as needed (muscle spasms). 30 tablet 0 03/03/2022 03/27/2022 Discontinued Comment on above: Take 1 tablet by arleth th every 8 hours as needed (muscle spasms). Problems Active Problems Problem Classification Problem Date Documented Date Episodic/Chronic Adjustment disorders (3 sources) Grief finding; Translations: [Adjustment disorder with depressed mood] Chronic Anxiety disorders (5 sources) Panic attack; Translations: [Panic disorder [episodic paroxysmal anxiety]] Onset: 01-09-2025 Chronic Disorders of lipid metabolism (3 sources) Raised low density lipoprotein cholesterol; Translations: [Pure hypercholesterolemia, unspecified] Onset: 07-10-2024 07-06-2024 Chronic Genitourinary symptoms and ill-defined conditions (20 sources) Female stress incontinence; Translations: [Stress incontinence (female) (male)] Onset: 11-16-2006 11-16-2006 Chronic Genitourinary symptoms and ill-defined conditions (2 sources) H/O: kidney infection; Translations: [Personal history of other diseases of urinary system] 02-22-2024 Episodic Miscellaneous mental health disorders (18 sources) Insomnia disorder related to another mental disorder; Translations: [Insomnia due to other mental disorder] Onset: 01-09-2025 Chronic Mood disorders (20 sources) Depressive disorder; Translations: [Depression, unspecified depression type] Onset: 03-05-2008 Chronic Multiple sclerosis (20 sources) Multiple sclerosis; Translations: [Multiple sclerosis] Onset: 05-20-2005 Chronic Nutritional deficiencies (4 sources) Vitamin D deficiency; Translations: [Vitamin D deficiency, unspecified] Onset: 07-10-2024 Chronic Other aftercare (20 sources) Patient encounter status; Translations: [Other retirement (current) drug therapy] Episodic Other aftercare (1 source) Long-term current use of drug therapy; Translations: [Other termite treater (current) drug therapy] 07-06-2024 Episodic Other aftercare (1 source) Long-term current use of opiate analgesic drug; Translations: [MCC (current) use of opiate analgesic] 10-09-2024 Episodic Other connective tissue disease (1 source) Weakness of left leg; Translations: [Other symptoms and signs involving the musculoskeletal system] Episodic Other connective tissue disease (2 sources) Neurological symptom; Translations: [Other symptoms and signs involving the nervous system] Episodic Other connective tissue disease (1 source) Other symptoms and signs involving the musculoskeletal system; Translations: [Other musculoskeletal symptoms referable to limbs] 03-03-2022 Episodic Other diseases of bladder and urethra (20 sources) Detrusor and sphincter dyssynergia; 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] Onset: 11-16-2006 Chronic Other diseases of bladder and urethra (1 source) Neurogenic bladder; Translations: [Neuromuscular dysfunction of bladder, unspecified] 04-10-2024 Chronic Other diseases of bladder and urethra (1 source) Muscular disorders of urethra; 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] Onset: 11-16-2006 Chronic Other diseases of bladder and urethra (1 source) Neuromuscular dysfunction of bladder, unspecified; Translations: [Neurogenic bladder] Onset: 04-10-2024 Chronic Other lower respiratory disease (2 sources) Dyspnea on exertion; Translations: [Shortness of breath] Episodic Other lower respiratory disease (2 sources) Cough; Translations: [Acute cough] 03-21-2024 Episodic Other lower respiratory disease (1 source) Respiratory tract infection; Translations: [Other specified respiratory disorders] 03-21-2024 Episodic Other lower respiratory disease (1 source) Wheezing; Translations: [Wheezing] 07-18-2024 Episodic Other nervous system disorders (2 sources) Demyelinating disease of central nervous system; Translations: [Demyelinating disease of central nervous system, unspecified] Chronic Other nervous system disorders (2 sources) Numbness; Translations: [Anesthesia of skin] Episodic Other nutritional; endocrine; and metabolic disorders (1 source) Obesity; Translations: [Obesity, unspecified] 02-04-2024 Chronic Other screening for suspected conditions (not mental disorders or infectious disease) (2 sources) Encounter for screening for malignant neoplasm of colon; Translations: [Encounter for screening mammogram for malignant neoplasm of breast] Onset: 10-09-2024 Episodic Other upper respiratory disease (1 source) Nasal congestion; Translations: [Nasal congestion] 10-09-2024 Episodic Pneumonia (except that caused by tuberculosis or sexually transmitted disease) (1 source) Community acquired pneumonia; Translations: [Pneumonia, unspecified organism] 07-18-2024 Episodic Residual codes; unclassified (10 sources) Daytime somnolence; Translations: [Other hypersomnia] Chronic Residual codes; unclassified (1 source) Pain; Translations: [Pain, unspecified] 08-25-2024 Episodic Spondylosis; intervertebral disc disorders; other back problems (4 sources) Acute back pain with sciatica; Translations: [Lumbago with sciatica, left side] Episodic Substance-related disorders (20 sources) Tobacco user; Translations: [Nicotine dependence, unspecified, uncomplicated] Onset: 03-15-2007 03-15-2007 Chronic Unclassified (1 source) APPOINTMENT CANCELLED Unclassified (1 source) Acute cough; Translations: [Acute cough] Onset: 03-21-2024 Urinary tract infections (5 sources) Recurrent urinary tract infection; Translations: [Urinary tract infection, site not specified] 02-04-2024 Episodic Past or Other Problems Problem Classification Problem Date Documented Da te Episodic/Chronic Allergic reactions (20 sources) Contact dermatitis; Translations: [Unspecified contact dermatitis, unspecified cause] Onset: 07-03-2008 07-03-2008 Episodic Diabetes mellitus without complication (4 sources) Increased glucose level; Translations: [Other abnormal glucose] Onset: 07-10-2024 Episodic Immunizations and screening for infectious disease (2 sources) Viral screening status; Translations: [Encounter for screening for other viral diseases] Onset: 04-10-2024 Episodic Nonspecific chest pain (4 sources) Chest pain; Translations: [Chest pain, unspecified] Onset: 07-10-2024 Episodic Other aftercare (1 source) Other termite treater (current) drug therapy; Translations: [Encounter for long-term current use of medication] Onset: 07-10-2024 Episodic Other infections; including parasitic (20 sources) Infestation by Sarcoptes scabiei rekha hominis; Translations: [Scabies] Onset: 07-03-2008 Resolved: 04-29-2014 04-29-2014 Episodic Other injuries and conditions due to external causes (20 sources) Superficial injury; Translations: [Unspecified multiple injuries, initial encounter] Onset: 07-03-2008 Resolved: 04-29-2014 04-29-2014 Episodic Other lower respiratory disease (1 source) Other forms of dyspnea; Translations: [CORTES (dyspnea on exertion)] Onset: 07-10-2024 Episodic Other nervous system disorders (20 sources) Numbness of lower limb ; Translations: [Anesthesia of skin] Onset: 03-29-2022 Episodic Other non-traumatic joint disorders (20 sources) Pain in left knee; Translations: [Pain in joint, lower leg] Onset: 03-29-2022 Episodic Screening and history of mental health and substance abuse codes (1 source) Encounter for screening examination for other mental health and behavioral disorders; Translations: [Encounter for screening examination for other mental health and behavioral disorders] Onset: 04-10-2024 Episodic Unclassified (2 sources) Patient encounter status 07-31-2024 Results Test Name Value Interpretation Reference Range Facility STRESS ECHO TREADMILLon 05- STRESS ECHO TREADMILL Stress ECG Report: Stress Echo [facility] Date of service: 10/22/2024 1:44:41 PM 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 SHOSHANA TAMAYO Age: 54 years Gender: F Height: 162.60 cm BSA: 2.00 m Weight: 88.30 kg BMI: 33.4 kg/m Indication: Chest pressure / Chest tightness and Shortness of breath Stress ECG Conclusion: Conclusion: Normal with exception due to low chronotropic response index and abnormal Stanley treadmill score Prior exam comparison: No prior CC exam Stress ECG Summary: The patient's resting heart rate was 70 bpm and blood pressure was 116/72 mmHg. The patient exercised according to the Meyers Chuck 10% protocol. The estimated end-exercise MET level achieved using the FRIEND equation was 6.5, which is within the 25th to 50th percentile for age and sex. The estimated end-exercise MET level achieved using the previous ACSM equation was 7.6. The test was terminated due to general fatigue and the total exercise time was 6 minutes and 38 seconds. No symptoms provoked during stress. The maximum heart rate was 147 bpm, which is 88% of the predicted heart rate for age. This is an adequate heart rate response. Peak blood pressure was 146/74 mmHg. The double product achieved was 768[address]. Resting ECG: Normal Sinus Rhythm and Nonspecific St-T Wave Changes Symptoms at rest: No symptoms Exercise Protocol: Meyers Chuck 10% Stress Exercise Table: +-----+ +--- -----+ +---+- --+---+----+---+----+ Stage Speed (MPH) Grade(%) Time (min) HR SYS GERSON RPE SOB METS +-----+ +--- -----+ +---+- --+---+----+---+----+ 1 1.7 10.0 2.0 113 126 78 12.0 3.0 4.2 +-----+ +--- -----+ +---+- --+---+----+---+----+ 2 2.1 11.0 4.0 127 140 80 15.0 5.0 5.1 +-----+ +--- -----+ +---+- --+---+----+---+----+ 3 2.5 12.0 6.0 141 146 74 17.0 7.0 6.1 +-----+ +--- -----+ +---+- --+---+----+---+----+ +-----+ +--- ------+ +---+ ---+---+----+---+----+ Speed (MPH) Grade (%) Time (min) HR SYS GERSON RPE SOB METS +-----+ +--- ------+ +---+ ---+---+----+---+----+ Final 3.0 13.0 6.63 147 146 74 19.0 8.0 6.5 +-----+ +--- ------+ +---+ ---+---+----+---+----+ Recovery Table: +------+---+---+---+ Stage HR SYS GERSON +------+---+---+---+ 1 111 +------+---+---+---+ 2 98 +------+---+---+---+ 3 114 +------+---+---+---+ 4 95 124 68 +------+---+---+---+ +-----+ --+ Stage Arrhythmias +-----+ --+ 2 Rare PAC (<3/min) +-----+ --+ Stress Observations: Resting HR: 70 bpm Peak HR: 147 bpm (88% MPHR) Resting BP: 116 / 72 mmHg Peak BP: 146 / 74 mmHg Total exercise time: 6 minutes 38 seconds METS achieved: 6.5 Chronotropic response index (CRI): 0.79 Heart rate recovery (HRR): 36 bpm Rate Pressure Product (RPP): 68266 Stress Exercise Observations: Reason for test termination: general fatigue, Symptoms during test: No symptoms provoked during stress, Heart rate response: Adequate heart rate response, Abnormal CRI (<= 0.8 Not on B Jarod) and Normal HRR (>12 or >[address]/EC), Blood pressure response: Normal BP response, ST segment and T wave changes: No ST changes, Stanley Treadmill Score: Abnormal Stanley Treadmill Score (<5 but >= -10) and Arrhythmias: PACs Metabolic Exercise Data Variable: Observed value [Expected Range] HGI: 1.6 [>1.06 bpm/mmHg] IMPORTANT NOTE REGARDING ESTIMATED MET VALUES: Effective 03/30/2020, the reference equation for determining estimated MET values for [facility] stress tests changed. Comparison of test results before and after that date may show a change in estimated MET values for peak/max exercise despite a test duration that is similar in length. The validity of the new FRIEND equation for exercise METS is endorsed by the [place] [employer]. Iker P, Vahid LA, Dakota R, Bossman J, Jyotsna J. New Generalized Equation for Predicting Maximal Oxygen Uptake (from the Fitness Registry and the Importance of Exercise National Database). The [place] Journal of Cardiology. 2017;120(4):688-692). 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 SHOSHANA TAMAYO : 1970 Age: 54 years Gender: F Primary rhythm: sinus. Height: 162.60 cm BSA: 2.00 m Weight: 88.30 kg BM (more content not included)... Normal [facility] CNOVon 10-09-2024 CNOV Office Visit (INTMWS ) BELKISSHOSHANA DÍAZ ([id number]) 1970 F Date Time Provider Department 10/09/24 10:00 AM ALLISON ESQUEDA INTLatiaWS During your visit today, we recorded the following information about you: Temperature Pulse Blood pressure Weight 97.9 degrees 92/minute 110/82 88.4 kg Allison Esqueda APRN.[email or web address] 10/09/2024 12:19 PM Signed SUBJECTIVE Shoshana Tamayo is a 54 year old female here today for a check up on her medical problems. Chief Complaint Patient presents with: Recheck: stuffy nose for about 1 week with moist productive cough has been trying mucinex and saline nose spray. Did find that Aki rub does help HPI Shoshana is a 54-year-old female, with a history of MS, presenting for a 3-month follow-up. Shoshana reports experiencing recurrent UTIs over the past few months, for which she sought treatment at an [facility] and was prescribed antibiotics. She notes that the initial UTI resolved, but she developed a second episode characterized by severe pain. She was prescribed Pyridium, which she believes may have affected the accuracy of her urine culture results. She was subsequently treated with Macrobid, which effectively resolved her symptoms. She also reports persistent nasal congestion, which she describes as horrible. The congestion is particularly bothersome at night, causing her to breathe through her mouth and resulting in xerostomia. She has tried various treatments, including Vicks, saline nasal spray, Mucinex, and Claritin, but has not found significant relief. She has not used a humidifier. Shoshana reports intermittent chest pain, which she attributes to emotional stress following the of her daughter nearly 4 years ago. She describes the pain as a manifestation of a broken heart. She has scheduled a stress test and notes that her blood pressure is well-controlled. She is aware of her elevated cholesterol levels, with a recent total cholesterol of 249 mg/dL, up from 233 mg/dL, and an LDL of 174 mg/dL, up from 165 mg/dL. 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 Shoshana has a history of MS, reports a recent exacerbation characterized by leg numbness. She expresses dissatisfaction with her previous neurologist, who reportedly dismissed her symptoms and refused to prescribe steroids. She has since scheduled an appointment with a different neurologist at [facility]. She manages her MS-related pain with Clinton, which she finds effective, and requests a refill. She also takes Ativan, modafinil, and Abilify, with recent refills for Ativan and Abilify. She is due for a mammogram and expresses apprehension about the procedure, describing a fear of the machine malfunctioning. She has also attempted Cologuard testing for colon cancer screening three times, but each attempt was unsuccessful due to issues with sample handling and DNA extraction. She has a family history of colon cancer, with her father reportedly diagnosed during surgery. Shoshana continues to grieve the loss of her daughter, stating that she no longer cries daily but still experiences significant emotional distress. She finds solace in spending time with her daughter's three sons and reports that she no longer has suicidal ideation. Recording using Quigo software for draft documentation of the visit was discussed with the patient/authorized field service representative; all questions welcomed and answered. Patient/authorized field service representative agreed to proceed The 10-year ASCVD risk score (Kirstin LOVE, et al., 2019) is: 4% Values used to calculate the score: Age: 54 years Sex: Female Is Non- : No Diabetic: No Tobacco smoker: Yes Systolic Blood Pressure: 110 mmHg Is BP treated: No HDL Cholesterol: 54 mg/dL Total Cholesterol: 249 mg/dL Her medications were reviewed today and her list is now up to date. Medications Current Outpatient Medications Medication Sig LORazepam (ATIVAN) 1 mg tablet Take 1-2 tablets by mouth once daily for 90 days. L.acidophilus-L.rhamno jeaneth (FLORAJEN WOMEN) 15 billion cell capsule Take 1 capsule by mouth once daily. albuterol HFA (PROVENTIL HFA, VENTOLIN HFA) 90 mcg/actuation inhaler Inhale 2 Puffs as instructed every 4 hours as needed for wheezing/shortness of breath. ARIPiprazole (ABILIFY) 5 mg tablet Take 1 tablet by mouth once daily. Take this in addition to 2 mg daily for a total of 7 mg daily ARIPiprazole (ABILIFY) 2 mg tablet Take 1 tablet by mouth once daily. Take this in addition to 5 mg daily for a total of 7 mg daily modafinil (PROVIGIL) 200 mg tablet Take 1 tablet by mouth two times a day for 180 days. terazosin (HYTRIN) 5 mg capsule Take 1 capsule by mouth daily at bedtime. citalopram (CELEXA) 40 mg tablet Take 1 tablet by mouth every after (more content not included)... Normal [facility] SCREENING W Shabnam 10-09 [facility] SCREENING [facility] * * *Final Report* * * DATE OF EXAM: Oct 09 2024 2:18PM [id number] - [facility] SCREENING W [facility] / PROCEDURE REASON: Encounter for screening mammogram for breast cancer * * * * Physician Interpretation * * * * RESULT: [address] [address] [place] [address] #[id number] - KENDALL SCREENING W KIERRA HISTORY: 54 year-old patient seen for screening. Patient is asymptomatic in both breasts. Patient states no personal history of breast cancer. The patient has a family history of breast cancer. COMPARISON STUDIES: The present examination has been compared to a prior imaging study dated 10/17/2015 (mammogram). MAMMOGRAM TECHNIQUE: The study was acquired using full field digital technology and interpreted from soft copy. Digital Breast Tomosynthesis (DBT) images were obtained and used to assist in the interpretation of this examination. MAMMOGRAM FINDINGS: The breasts are almost entirely fatty. No suspicious masses, calcifications or other abnormalities are seen in either breast. There are no significant interval changes. IMPRESSION: There is no mammographic evidence of malignancy in either breast. Routine screening mammogram is recommended. Annual mammogram will be due in 1 year. BI-RADS Category 1: Negative RISK: Based on the Tyrer-Cuzick (TC) risk assessment model, this patient has a 3.6% lifetime risk of developing breast cancer, meaning they are at average risk for developing breast cancer. However, this is only an estimate based on available history provided on the patient's questionnaire. We encourage all patients to talk with their providers about these results, further recommendations for managing breast health, and appropriate supplemental screening options if the patient has dense breast tissue. Interpreting Radiologist: Spencer Paez M.D. Electronically signed on: 10/11/2024 Set Staff Fitter: MEETA Transcribe Date/Time: Oct 09 2024 1:57P Dictated by: SPENCER PAEZ MD This examination was interpreted and the report reviewed and electronically signed by: SPENCER PAEZ MD on Oct 11 2024 8:19AM EST [id number] Normal [facility] Bacteria Ur Culton 5 Bacteria identified Cx Nom (U) ORGANISM ID: 1 10,000 -<50,000 CFU/ml Mixed microbiota No further workup. Mixed microbiota can be due to???urine???contamina tion with skin bacteria at time of collection or presence of a long-term urinary catheter. If a new culture is needed, please consider re-education of the patient on proper midstream collection technique or straight catheterization for???urine???collecti on. Normal [facility] Comment on above: Performed By: #### 6 30-4 ####[facility]CLIA [id number] [address] CNOVon 09-24-2024 CNOV Office Visit (UCWSTR ) SHOSHANA TAMAYO ([id number]) 1970 F Date Time Provider Department 09/24/24 7:45 PM ENRRIQUE WESLEY [facility] During your visit today, we recorded the following information about you: Temperature Pulse Respiration Blood pressure 98 degrees 79/minute 16/minute 108/82 Weight 90.7 kg Enrrique Wesley APRN.CNP 09/24/2024 8:07 PM Signed [facility] NOTE Subjective Shoshana Pari Belkis is a 54 year old year old who presents to [facility] care today with complaint of C/o Frequency, urgency, burning with urination. Presence of blood in urine none. Color is dark yellow (took AZO) in appearance without odor. Denies suprapubic pain, flank pain or back pain. History of UTI's over the past year 4+, denies any history of kidney/renal or genital health issues in the past. History of MS with urinary retention. Denies headaches, fever, sore throat, cough, shortness of breath, chest pains, Nausea, vomiting, changes in bowel or skin rashes. No current medication treatments. Aside from symptoms as described above, patient has no other complaints at this time. HPI: see above Review of Systems Constitutional: Negative for chills, fatigue and fever. Respiratory: Negative for cough, shortness of breath and wheezing. Cardiovascular: Negative for chest pain, palpitations and leg swelling. Gastrointestinal: Negative for diarrhea, nausea and vomiting. Genitourinary: Positive for dysuria, frequency and urgency. Negative for hematuria and vaginal discharge. Musculoskeletal: Negative for myalgias. Skin: Negative for rash. Neurological: Negative for headaches. ALLERGIES Allergen Reactions Sudafed [Pseudoephe* Intolerance Jittery Sulfa (Sulfonamide * Hives elevated BP Wellbutrin [Bupropi* Mental Status Change Current Outpatient Medications on File Prior to Visit Medication Sig albuterol HFA (PROVENTIL HFA, VENTOLIN HFA) 90 mcg/actuation inhaler Inhale 2 Puffs as instructed every 4 hours as needed for wheezing/shortness of breath. HYDROcodone-acetaminop hen (NORCO) 5-325 mg per tablet Take 1 tablet by mouth four times a day as needed for pain for up to 30 days. Patient should start on September 13, 2024. ARIPiprazole (ABILIFY) 5 mg tablet Take 1 tablet by mouth once daily. Take this in addition to 2 mg daily for a total of 7 mg daily ARIPiprazole (ABILIFY) 2 mg tablet Take 1 tablet by mouth once daily. Take this in addition to 5 mg daily for a total of 7 mg daily modafinil (PROVIGIL) 200 mg tablet Take 1 tablet by mouth two times a day for 180 days. LORazepam (ATIVAN) 1 mg tablet Take 1-2 tablets by mouth once daily for 90 days. terazosin (HYTRIN) 5 mg capsule Take 1 capsule by mouth daily at bedtime. citalopram (CELEXA) 40 mg tablet Take 1 tablet by mouth every afternoon. triamcinolone acetonide (KENALOG) 0.1 % cream Apply 1 application to affected area three times a day as needed. Apply sparingly to area for rash/itching, to affected ears ibuprofen (MOTRIN) 200 mg tablet Take 3-4 tablets by mouth four times daily as needed for Pain (Take with food.). Maximum 2400 mg per day HYDROcodone-acetaminop hen (NORCO) 5-325 mg per tablet Take 1 tablet by mouth every 6 hours as needed for pain for up to 30 days. Patient should start on August 14, 2024. HYDROcodone-acetaminop hen (NORCO) 5-325 mg per tablet Take 1 tablet by mouth four times a day as needed for pain for up to 30 days. Patient should start on July 15, 2024. cholecalciferol (VITAMIN D-3) 5,000 unit tab Take 1 tablet by mouth once daily. No current facility-administered medications on file prior to visit. 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 Stress Incontinence Tobacco Use Disorder Reactive Depression Contact Dermatitis and Other Eczema, Due to Unspecified Cause Acute Pain of Left Knee Numbness in Left Leg Social History Tobacco Use Smoking status: Every Day Current packs/day: 0.25 Average packs/day: 0.3 packs/day for 1.3 years (0.3 ttl pk-yrs) Types: Cigarettes Start date: 2023 Last attempt to quit: 2017 Smokeless tobacco: Never Tobacco comments: less than one half pack Vaping Use Vaping status: Never Used Substance Use Topics Alcohol use: Yes Comment: very rare Drug use: No Objective BP 108/82 Pulse 79 Temp 36.7 ?C (98 ?F) (Left Tympanic) Resp 16 Wt 90.7 kg (199 lb 15.3 oz) SpO2 95% BMI 34.32 kg/m? Physical Exam Constitutional: General: She is not in acute distress. Appearance: Normal appearance. She is not ill-appearing or toxic-appearing. Cardiovascular: Rate and Rhythm: Normal rate and regular rhythm. Pulses: Normal pulses. Heart sounds: Normal heart sounds. No murmur heard. Pulmonary: Effort: Pulmonary effort is normal. Breath sounds: Normal breath sounds. Abdominal: General: Bowel sounds are normal. T (more content not included)... Normal [facility] SH[facility] ([id number]) 1970 F Date Time Provider Department 09/24/24 LINA HERNANDEZ During your visit today, we recorded the following information about you: Kellie Torres RN 09/24/2024 10:14 AM Signed Patient calls and states that she was seen in [facility] for UTI on 09/14/2024. Patient was prescribed Keflex for this x 7 days. Patient states that her last dose of Keflex was Tuesday. Patient reports that she continues with pain with urination and urinary frequency. Patient asking if more antibiotics can be ordered? Please review and advise, STEVIE Walker Rosa, APRN.LIBRARY MANAGER 09/25/2024 8:04 AM Signed Seen yesterday in . Allergies As of Date: 09/24/2024 Noted Allergy Reaction SUDAFED (PSEUDOEPHEDRINE HCL) 10/12/2005 5 - Intolerance Comments: Jittery SULFA (SULFONAMIDE ANTIBIOTICS) 03/18/2005 4 - Hives Comments: elevated BP WELLBUTRIN (BUPROPION) 05/26/2020 1 - Mental Status Change Date Reviewed: 09/24/2024 Reviewed by: Enrrique Wesley APRN.LIBRARY MANAGER - Fully Assessed Reason for Visit: Patient Update [1234] Prescriptions as of 09/25/2024 - nitrofurantoin monohydrate and macrocrystal (MACROBID) 100 mg capsule Take 1 capsule by mouth two times a day with meals for 7 days. - L.acidophilus-L.rhamno jeaneth (FLORAJEN WOMEN) 15 billion cell capsule Take 1 capsule by mouth once daily. - albuterol HFA (PROVENTIL HFA, VENTOLIN HFA) 90 mcg/actuation inhaler Inhale 2 Puffs as instructed every 4 hours as needed for wheezing/shortness of breath. - HYDROcodone-acetaminop hen (NORCO) 5-325 mg per tablet Take 1 tablet by mouth four times a day as needed for pain for up to 30 days. Patient should start on September 13, 2024. - HYDROcodone-acetaminop hen (NORCO) 5-325 mg per tablet Take 1 tablet by mouth every 6 hours as needed for pain for up to 30 days. Patient should start on August 14, 2024. - HYDROcodone-acetaminop hen (NORCO) 5-325 mg per tablet Take 1 tablet by mouth four times a day as needed for pain for up to 30 days. Patient should start on July 15, 2024. - ARIPiprazole (ABILIFY) 5 mg tablet Take 1 tablet by mouth once daily. Take this in addition to 2 mg daily for a total of 7 mg daily - ARIPiprazole (ABILIFY) 2 mg tablet Take 1 tablet by mouth once daily. Take this in addition to 5 mg daily for a total of 7 mg daily - modafinil (PROVIGIL) 200 mg tablet Take 1 tablet by mouth two times a day for 180 days. - LORazepam (ATIVAN) 1 mg tablet Take 1-2 tablets by mouth once daily for 90 days. - terazosin (HYTRIN) 5 mg capsule Take 1 capsule by mouth daily at bedtime. - citalopram (CELEXA) 40 mg tablet Take 1 tablet by mouth every afternoon. - cholecalciferol (VITAMIN D-3) 5,000 unit tab Take 1 tablet by mouth once daily. - triamcinolone acetonide (KENALOG) 0.1 % cream Apply 1 application to affected area three times a day as needed. Apply sparingly to area for rash/itching, to affected ears - ibuprofen (MOTRIN) 200 mg tablet Take 3-4 tablets by mouth four times daily as needed for Pain (Take with food.). 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] 11/16/2006 FEMALE STRESS INCONTINENCE [N39.3] 11/16/2006 TOBACCO USE DISORDER [F17.200] 03/15/2007 Reactive depression [F32.9] 03/05/2008 EXCORIATIONS//SUPERFIC IAL INJURY NEC [T07.XXXA] 07/03/2008 04/29/2014 DERMATITIS NOS [L25.9] 07/03/2008 Scabies [B86] 07/03/2008 04/29/2014 Acute pain of left knee [M25.562] 03/29/2022 Numbness in left leg [R20.0] 03/29/2022 Encounter Status:Closed by ALLISON ESQUEDA on 09/25/24 Normal [facility] UA DIP, URINE (POC)on 2024 BILIRUBIN UA (POCT) Small Abnormal Negative [facility] CLARITY UA (POCT) Clear [facility] COLOR UA (POCT) [place] [facility] GLUCOSE UA (POCT) 100 mg/dL Abnormal Negative [facility] Hemoglobin Ql (U) Moderate Abnormal Negative [facility] Interpretation and review of laboratory results Abnormal [facility] KETONE UA (POCT) Trace Negative mg/dL [facility] LEUKOCYTES UA (POCT) Large Abnormal Negative [facility] NITRITE UA (POCT) Positive Abnormal Negative [facility] PH UA (POCT) 5 4.5 - 8.0 [facility] Protein Ql (U) >=300 Abnormal Negative mg/dL [facility] SPECIFIC GRAVITY UA (POCT) 1.015 1.005 - 1.030 [facility] UROBILINOGEN UA (POCT) 4 Abnormal Normal E.U./dL [facility] Location:[address], [place], [place], [address] [place] [address] POINT OF CARE [facility] Bacteria Ur Culton 5 Bacteria identified Cx Nom (U) ORGANISM ID: 1 >=100,000 CFU/ml Escherichia coli ORGANISM ID: 1 (ESCHERICHIA COLI) -- ANTIBIOTIC INTERPRETATION JUANJOSE STATUS REFERENCE RANGE -- Ampicillin S <=2 F Susceptible <=8 , Intermediate >8 , Resistant >16 Cefazolin S <=4 F Susceptible 0-16 , Intermediate <0 or >16 , Resistant >16 For uncomplicated urinary tract infections, cefazolin results can be used to predict susceptibility or resistance to cephalexin. Ceftriaxone S <=1 F Susceptible <=1 , Intermediate >1 , Resistant >=4 Cefepime S <=1 F Susceptible <=2 , Susceptible-Dose Dependent >2 , Resistant >=16 Ertapenem S <=0.5 F Susceptible <=0.5 , Intermediate >.5 , Resistant >1 Meropenem S <=0.25 F Susceptible <=1 , Intermediate >1 , Resistant >2 Ampicillin/Sulbact S <=2 F Susceptible <=8 , Intermediate >8 , Resistant >16 Piperacillin/Tazobac S <=4 F Susceptible <16 , Susceptible-Dose Dependent >=16 , Resistant >=32 Gentamicin S <=1 F Susceptible <=2 , Intermediate >2 , Resistant >=8 Tobramycin S <=1 F Susceptible <4 , Intermediate >=4 , Resistant >=8 Trimeth sulfameth S <=20 F Susceptible <=40 , Resistant >40 Ciprofloxacin S <=0.25 F Susceptible <0.5 , Intermediate >=.5 , Resistant >=1 Nitrofurantoin S <=16 F Susceptible <=32 , Intermediate >32 , Resistant >64 Abnormal [facility] Comment on above: Performed By: #### 6 30-4 ####[facility] [id number] [address] STATES OF [facility] CNOVon 09-14-2024 CNOV Office Visit (UCWSTR ) SHOSHANA TAMAYO ([id number]) 1970 F Date Time Provider Department 09/14/24 12:15 PM ANTHONY CARTER [facility] During your visit today, we recorded the following information about you: Temperature Pulse Respiration Blood pressure 98.3 degrees 92/minute 18/minute 119/80 Weight 89.1 kg Anthony Carter PA-C 09/14/2024 12:39 PM Signed This note was created using Magixriter. Subjective Shoshana Tamayo is a 54 year old female. Patient is a 54-year-old female who complains of dysuria, urinary urgency and urinary frequency that she has been experiencing for the past 2 days. Patient denies fever, chills, hematuria, flank pain, nausea or other symptoms. Patient does have multiple sclerosis and states that she develops frequent urinary tract infections. Patient reports that her current symptoms are consistent with same. Review of Systems Genitourinary: Positive for dysuria, frequency and urgency. All other systems reviewed and are negative. Objective BP 119/80 Pulse 92 Temp 36.8 ?C (98.3 ?F) Resp 18 Wt 89.1 kg (196 lb 6.9 oz) SpO2 97% BMI 33.72 kg/m? Physical Exam Vitals and nursing note reviewed. Constitutional: Appearance: Normal appearance. She is normal weight. HENT: Head: Normocephalic and atraumatic. Right Ear: External ear normal. Left Ear: External ear normal. Nose: Nose normal. Mouth/Throat: Mouth: Mucous membranes are moist. Pharynx: Oropharynx is clear. Eyes: Extraocular Movements: Extraocular movements intact. Conjunctiva/sclera: Conjunctivae normal. Pupils: Pupils are equal, round, and reactive to light. Cardiovascular: Rate and Rhythm: Normal rate. Pulses: Normal pulses. Heart sounds: Normal heart sounds. Pulmonary: Effort: Pulmonary effort is normal. Breath sounds: Normal breath sounds. Abdominal: General: Abdomen is flat. Palpations: Abdomen is soft. Musculoskeletal: Cervical back: Normal range of motion and neck supple. Skin: General: Skin is warm and dry. Capillary Refill: Capillary refill takes less than 2 seconds. Neurological: General: No focal deficit present. Mental Status: She is alert and oriented to person, place, and time. Psychiatric: Mood and Affect: Mood normal. Behavior: Behavior normal. Thought Content: Thought content normal. Judgment: Judgment normal. Assessment and Plan Physical exam findings as noted above. Urinalysis shows large leukocyte esterase with nitrite and large blood. Urine culture was ordered. Patient was provided with prescriptions for Keflex 500 mg and Pyridium 100 mg. Patient was advised that results of the urine culture will be available in 2 days and she will be contacted if there is need to change her medication based on the sensitivity report. Patient verbalizes clear understanding of the above instructions. CLINICAL IMPRESSION: Acute UTI ASSESSMENT/PLAN: 1. Urinary frequency - ICD9: 788.41, ICD10: R35.0 (primary diagnosis) - UA DIP, URINE (POC) 2. Acute UTI - ICD9: 599.0, ICD10: N39.0 - BACTERIAL CULTURE, URINE - CEPHALEXIN 500 MG CAPSULE - PHENAZOPYRIDINE 100 MG TABLET MDM Amount and/or Complexity of Data Reviewed Clinical lab tests: ordered and reviewed Risk of Complications, Morbidity, and/or Mortality Presenting problems: low Diagnostic procedures: low Management options: nitesh Carter PA-C Allergies As of Date: 09/14/2024 Noted Allergy Reaction SUDAFED (PSEUDOEPHEDRINE HCL) 10/12/2005 5 - Intolerance Comments: Jittery SULFA (SULFONAMIDE ANTIBIOTICS) 03/18/2005 4 - Hives Comments: elevated BP WELLBUTRIN (BUPROPION) 05/26/2020 1 - Mental Status Change Date Reviewed: 09/14/2024 Reviewed by: Emma Birmingham MA - Fully Assessed Reason for Visit: Urinary Frequency [1086] Cmt: Low back pain x2 days Primary Visit Diagnosis:Urinary frequency [R35.0] Other Visit Diagnosis:Acute UTI [N39.0] Order(s):UA DIP, URINE (POC) [1509832] Order #: [id number]. #:[id number] BACTERIAL CULTURE, URINE [SQURCUL] Order #: [id number]. #:[id number] cephALEXin (KEFLEX) 500 mg capsuleTake 1 capsule by mouth four times daily for 7 days.Disp: 28 capsuleRfl: 0 phenazopyridine (PYRIDIUM) 100 mg tabletTake 1 tablet by mouth three times a day as needed for up to 5 days.Disp: 15 tabletRfl: 0 Prescriptions as of 09/14/2024 - cephALEXin (KEFLEX) 500 mg capsule Take 1 capsule by mouth four times daily for 7 days. - phenazopyridine (PYRIDIUM) 100 mg tablet Take 1 tablet by mouth three times a day as needed for up to 5 days. - albuterol HFA (PROVENTIL HFA, VENTOLIN HFA) 90 mcg/actuation inhaler Inhale 2 Puffs as instructed every 4 hours as needed for wheezing/shortness of breath. - HYDROcodone-acetaminop hen (NORCO) 5-325 mg per tablet Take 1 tablet by mouth four times a day as needed for pain for up to 30 days. Patient shoul (more content not included)... Normal [facility] UA DIP, URINE (POC)on 2024 BILIRUBIN UA (POCT) Negative Negative [facility] CLARITY UA (POCT) Cloudy [facility] COLOR UA (POCT) Yellow [facility] GLUCOSE UA (POCT) Negative Negative mg/dL [facility] Hemoglobin Ql (U) Large Abnormal Negative [facility] Interpretation and review of laboratory results Abnormal [facility] KETONE UA (POCT) Negative Negative mg/dL [facility] LEUKOCYTES UA (POCT) Large Abnormal Negative [facility] NITRITE UA (POCT) Positive Abnormal Negative [facility] PH UA (POCT) 6 4.5 - 8.0 [facility] Protein Ql (U) 100 mg/dL Abnormal Negative [facility] SPECIFIC GRAVITY UA (POCT) 1.02 1.005 - 1.030 [facility] UROBILINOGEN UA (POCT) 0.2 Normal E.U./dL [facility] Location:[facility], [address] [place] [address], [place], [place], [id number] [place] [address] POINT OF CARE [place] 09-12-2024 CNPN Telephone (CARDWS) SHOSHANA TAMAYO ([id number]) 1970 F Date Time Provider Department 09/12/24 NURSE CARD WSTR CARDWS During your visit today, we recorded the following information about you: Karena Baez RN 09/12/2024 10:52 AM Signed Patient called and the below instructions reviewed. Karena Baez RN You are scheduled for a stress test on 09/17/24. Please follow below instructions: *NOTHING BY MOUTH 4 HOURS prior to this test. (you may have sips of water) *NO CAFFEINE FOR 24 HOURS PRIOR TO TESTING (including TEA even decaf, COFFEE- even decaf, CHOCOLATE, SOHAM- even decaf) *Do NOT take MEDICATIONS CONTAINING CAFFEINE/XANTHINE for 24 HOURS prior to testing: Theophylline, Trental, Excedrin, Anacin, Goody Powders, No Doz, Vivarin, Midol, Diurex, Fiorinal, Fioricet, Esgic (butalbital) *Do NOT take Calcium Channel Blockers 24 HOURS prior to test. *Do NOT take Beta blockers 24 HOURS prior to test UNLESS your doctor tells you otherwise. *Do NOT use the following medications 48 HOURS prior to this test: Viagra(Sildenafil citrate), Cialis(Tadalafil), Vardenafil (Levitra, Stanyx), Avanfil (Stendra). *Do not take any of these meds prior to test unless provider directs you otherwise; Nitroglycerine (ex:Deponit, Nitrostat) Isosorbide (ex:Isordil, Sorbitrate,Imdur,Ismo) . Medications on your list you should hold for 24 HOURS: None *All other medications may be taken as you normally would. *Guidelines for Diabetics: If you take insulin to control your blood sugar, ask you physician what amount you should take the day of the test. If you take pills to control blood sugar, on the day of the test, do NOT take them until AFTER the test. *FAILURE TO FOLLOW THESE INSTRUCTIONS WILL RESULT IN HAVING TO RESCHEDULE THE TEST. *Please wear comfortable clothes with a short-sleeved shirt and comfortable walking shoes. You will be on the treadmill for this test. *If you use an inhaler, bring it along with you just in case. Please check in on the first floor at Radiology: [address]; [place] [address] * If you need to cancel or reschedule this test or have any questions regarding this test, please call [phone]. Allergies As of Date: 09/12/2024 Noted Allergy Reaction SUDAFED (PSEUDOEPHEDRINE HCL) 10/12/2005 5 - Intolerance Comments: Desean PIERCE (SULFONAMIDE ANTIBIOTICS) 03/18/2005 4 - Hives Comments: elevated BP WELLBUTRIN (BUPROPION) 05/26/2020 1 - Mental Status Change Date Reviewed: 07/18/2024 Reviewed by: Mis Omer MA - Fully Assessed Reason for Visit: Stress Test Instructions for 09/17/24 [Other] Prescriptions as of 09/12/2024 - albuterol HFA (PROVENTIL HFA, VENTOLIN HFA) 90 mcg/actuation inhaler Inhale 2 Puffs as instructed every 4 hours as needed for wheezing/shortness of breath. - HYDROcodone-acetaminop hen (NORCO) 5-325 mg per tablet Take 1 tablet by mouth four times a day as needed for pain for up to 30 days. Patient should start on September 13, 2024. - HYDROcodone-acetaminop hen (NORCO) 5-325 mg per tablet Take 1 tablet by mouth every 6 hours as needed for pain for up to 30 days. Patient should start on August 14, 2024. - HYDROcodone-acetaminop hen (NORCO) 5-325 mg per tablet Take 1 tablet by mouth four times a day as needed for pain for up to 30 days. Patient should start on July 15, 2024. - ARIPiprazole (ABILIFY) 5 mg tablet Take 1 tablet by mouth once daily. Take this in addition to 2 mg daily for a total of 7 mg daily - ARIPiprazole (ABILIFY) 2 mg tablet Take 1 tablet by mouth once daily. Take this in addition to 5 mg daily for a total of 7 mg daily - modafinil (PROVIGIL) 200 mg tablet Take 1 tablet by mouth two times a day for 180 days. - LORazepam (ATIVAN) 1 mg tablet Take 1-2 tablets by mouth once daily for 90 days. - terazosin (HYTRIN) 5 mg capsule Take 1 capsule by mouth daily at bedtime. - citalopram (CELEXA) 40 mg tablet Take 1 tablet by mouth every afternoon. - cholecalciferol (VITAMIN D-3) 5,000 unit tab Take 1 tablet by mouth once daily. - triamcinolone acetonide (KENALOG) 0.1 % cream Apply 1 application to affected area three times a day as needed. Apply sparingly to area for rash/itching, to affected ears - ibuprofen (MOTRIN) 200 mg tablet Take 3-4 tablets by mouth four times daily as needed for Pain (Take with food.). 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 Normal [facility] CNOVon 08-25-2024 CNOV Office Visit (UCWSTR ) SHOSHANA TAMAYO ([id number]) 1970 F Date Time Provider Department 08/25/24 12:30 PM NAHID PASTOR [facility] During your visit today, we recorded the following information about you: Nahid Pastor APRN.LIBRARY MANAGER 08/25/2024 12:31 PM Signed Patient came in with complaints of pain in front of her left ear and behind her left ear. Patient says there is a rash. Patient says there is also swelling. Patient says it hurts deep down inside. Patient denies any other symptoms. Patient says been about 3 days. Upon examination patient does have pain over the mastoid. At this time I do suspect shingles but cannot rule out mastoiditis. Patient was referred to the emergency room for an evaluation. Patient agreeable to care plan. Allergies As of Date: 08/25/2024 Noted Allergy Reaction SUDAFED (PSEUDOEPHEDRINE HCL) 10/12/2005 5 - Intolerance Comments: Desean SULFA (SULFONAMIDE ANTIBIOTICS) 03/18/2005 4 - Hives Comments: elevated BP WELLBUTRIN (BUPROPION) 05/26/2020 1 - Mental Status Change Date Reviewed: 07/18/2024 Reviewed by: Mis Omer MA - Fully Assessed Primary Visit Diagnosis:Pain [R52] Prescriptions as of 08/25/2024 - albuterol HFA (PROVENTIL HFA, VENTOLIN HFA) 90 mcg/actuation inhaler Inhale 2 Puffs as instructed every 4 hours as needed for wheezing/shortness of breath. - HYDROcodone-acetaminop hen (NORCO) 5-325 mg per tablet Take 1 tablet by mouth four times a day as needed for pain for up to 30 days. Patient should start on September 13, 2024. - HYDROcodone-acetaminop hen (NORCO) 5-325 mg per tablet Take 1 tablet by mouth every 6 hours as needed for pain for up to 30 days. Patient should start on August 14, 2024. - HYDROcodone-acetaminop hen (NORCO) 5-325 mg per tablet Take 1 tablet by mouth four times a day as needed for pain for up to 30 days. Patient should start on July 15, 2024. - ARIPiprazole (ABILIFY) 5 mg tablet Take 1 tablet by mouth once daily. Take this in addition to 2 mg daily for a total of 7 mg daily - ARIPiprazole (ABILIFY) 2 mg tablet Take 1 tablet by mouth once daily. Take this in addition to 5 mg daily for a total of 7 mg daily - modafinil (PROVIGIL) 200 mg tablet Take 1 tablet by mouth two times a day for 180 days. - LORazepam (ATIVAN) 1 mg tablet Take 1-2 tablets by mouth once daily for 90 days. - terazosin (HYTRIN) 5 mg capsule Take 1 capsule by mouth daily at bedtime. - citalopram (CELEXA) 40 mg tablet Take 1 tablet by mouth every afternoon. - cholecalciferol (VITAMIN D-3) 5,000 unit tab Take 1 tablet by mouth once daily. - triamcinolone acetonide (KENALOG) 0.1 % cream Apply 1 application to affected area three times a day as needed. Apply sparingly to area for rash/itching, to affected ears - ibuprofen (MOTRIN) 200 mg tablet Take 3-4 tablets by mouth four times daily as needed for Pain (Take with food.). 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] 11/16/2006 FEMALE STRESS INCONTINENCE [N39.3] 11/16/2006 TOBACCO USE DISORDER [F17.200] 03/15/2007 Reactive depression [F32.9] 03/05/2008 EXCORIATIONS//SUPERFIC IAL INJURY NEC [T07.XXXA] 07/03/2008 04/29/2014 DERMATITIS NOS [L25.9] 07/03/2008 Scabies [B86] 07/03/2008 04/29/2014 Acute pain of left knee [M25.562] 03/29/2022 Numbness in left leg [R20.0] 03/29/2022 Encounter Status:Closed by NAHID PASTOR on 08/25/24 [facility] CNOVon 07-18-2024 CNOV Office Visit (UCWSTR ) SHOSHANA TAMAYO ([id number]) 1970 F Date Time Provider Department 07/18/24 12:15 PM GILBERTO DURAND [facility] During your visit today, we recorded the following information about you: Temperature Pulse Respiration Blood pressure 97.5 degrees 74/minute 16/minute 102/70 Weight 88.3 kg Gilberto Durand APRN.LIBRARY MANAGER 07/18/2024 1:22 PM Signed Subjective HPI HPI Shoshana Yañez Belkis is a 54 year old female who presents today for CC of cough, fever, chills. This started 3 days ago. Has tried otc medication for relief. Symptoms are worsened by nothing. Risk factors exposed to flu. smoker. .Patient presents with: Chest Congestion: cough, fever and chills x 3 days PAST MEDICAL HISTORY Diagnosis Date Anxiety state, unspecified 05/27/2005 Depression Detrusor sphincter dyssynergia Excessive daytime sleepiness 04/02/2014 Provigil was effective Female stress incontinence Lump or mass in breast 04/26/2009 Multiple sclerosis (HCC) Onset and diagnosis 1996 Phlebitis and thrombophlebitis of unspecified site Pulmonary embolus (HCC) Unspecified pruritic disorder 07/03/2008 XEROSIS///SEBACEOUS GLAND DIS NEC 07/03/2008 PAST SURGICAL HISTORY Procedure Laterality Date SECTION HX TONSILLECTOMY AND ADENOIDECTOMY HX TOTAL ABDOMINAL HYSTERECT W/WO RMVL TUBE OVARY 03/2005 BSO ALLERGIES Sudafed [Pseudoephedrine Hcl], Sulfa (Sulfonamide Antibiotics), and Wellbutrin [Bupropion] MEDICATIONS [START ON 09/13/2024] HYDROcodone-acetaminop hen (NORCO) 5-325 mg per tablet Take 1 tablet by mouth four times a day as needed for pain for up to 30 days. Patient should start on September 13, 2024. [START ON 08/14/2024] HYDROcodone-acetaminop hen (NORCO) 5-325 mg per tablet Take 1 tablet by mouth every 6 hours as needed for pain for up to 30 days. Patient should start on August 14, 2024. HYDROcodone-acetaminop hen (NORCO) 5-325 mg per tablet Take 1 tablet by mouth four times a day as needed for pain for up to 30 days. Patient should start on July 15, 2024. ARIPiprazole (ABILIFY) 5 mg tablet Take 1 tablet by mouth once daily. Take this in addition to 2 mg daily for a total of 7 mg daily ARIPiprazole (ABILIFY) 2 mg tablet Take 1 tablet by mouth once daily. Take this in addition to 5 mg daily for a total of 7 mg daily modafinil (PROVIGIL) 200 mg tablet Take 1 tablet by mouth two times a day for 180 days. LORazepam (ATIVAN) 1 mg tablet Take 1-2 tablets by mouth once daily for 90 days. terazosin (HYTRIN) 5 mg capsule Take 1 capsule by mouth daily at bedtime. citalopram (CELEXA) 40 mg tablet Take 1 tablet by mouth every afternoon. cholecalciferol (VITAMIN D-3) 5,000 unit tab Take 1 tablet by mouth once daily. triamcinolone acetonide (KENALOG) 0.1 % cream Apply 1 application to affected area three times a day as needed. Apply sparingly to area for rash/itching, to affected ears ibuprofen (MOTRIN) 200 mg tablet Take 3-4 tablets by mouth four times daily as needed for Pain (Take with food.). Maximum 2400 mg per day doxycycline monohydrate 100 mg tablet Take 1 tablet by mouth two times a day for 7 days. albuterol HFA (PROVENTIL HFA, VENTOLIN HFA) 90 mcg/actuation inhaler Inhale 2 Puffs as instructed every 4 hours as needed for wheezing/shortness of breath. FAMILY HISTORY Problem Relation Age of Onset Hypertension Mother other (Crohns [Other]) Sister other (Pancreatic cancer [Other]) Maternal Grandfather other (Throat cancer [Other]) Paternal Grandfather other (Rheumatoid arthritis [Other]) Paternal Grandmother other (Scleroderma [Other]) Paternal Grandmother Multiple Sclerosis No Family History Social History Tobacco Use Smoking status: Every Day Current packs/day: 0.25 Average packs/day: 0.3 packs/day for 1.1 years (0.3 ttl pk-yrs) Types: Cigarettes Start date: 2023 Last attempt to quit: 2017 Smokeless tobacco: Never Tobacco comments: less than one half pack Vaping Use Vaping status: Never Used Substance Use Topics Alcohol use: Yes Comment: very rare Drug use: No Review of Systems Constitutional: Positive for fever. HENT: Positive for congestion. Negative for ear pain, nosebleeds and sore throat. Respiratory: Positive for cough. Negative for shortness of breath and wheezing. Musculoskeletal: Negative for neck pain. Objective Blood pressure 102/70, pulse 74, temperature 36.4 ?C (97.5 ?F), resp. rate 16, weight 88.3 kg (194 lb 10.7 oz), SpO2 95%. Physical Exam Constitutional: General: She is not in acute distress. Appearance: She is not toxic-appearing or diaphoretic. HENT: Head: Normocephalic and atraumatic. Cardiovascular: Rate and Rhythm: Normal rate and regular rhythm. Heart sounds: Normal heart sounds, S1 normal and S2 normal. Pulmonary: Effort: Pulmonary effort is normal. Breath sounds: Wheezing (scattered bilat) present. No decreased b (more content not included)... Normal [facility] XR CHEST 2V FRONTAL/LATon XR CHEST 2V FRONTAL/LAT * * *Final Report* * * DATE OF EXAM: Jul 18 2024 12:58PM WOX [id number] - XR CHEST 2V FRONTAL/LAT / PROCEDURE REASON: Wheeze * * * * Physician Interpretation * * * * EXAMINATION: CHEST RADIOGRAPH (2 VIEW FRONTAL and LATERAL) CLINICAL HISTORY: Wheeze MQ: XC2_6 EXAM DATE/TIME: 07/18/2024 12:58 PM COMPARISON: Chest x-ray dated 03/21/2024 RESULT: Lines, tubes, and devices: None. Lungs and pleura: Mild airspace opacity in the lateral right middle lobe. No pleural effusion. No pneumothorax. Cardiomediastinal silhouette: Normal cardiomediastinal silhouette. Bones and soft tissues: Mild degenerative changes. IMPRESSION: Mild right middle lobe airspace opacity, atelectasis versus bronchopneumonia in the appropriate clinical setting. Set Staff Fitter: [employer] Transcribe Date/Time: Jul 18 2024 1:00P Dictated by : ABRAHAM KAHN MD This examination was interpreted and the report reviewed and electronically signed by: ABRAHAM KAHN MD on Jul 18 2024 1:01PM EST [id number] Normal [facility] XR Chest PA and Lateralon IMPRESSION: Mild right middle lobe airspace opacity, atelectasis versus bronchopneumonia in the appropriate clinical setting. Set Staff Fitter: [employer] Transcribe Date/Time: Jul 18 2024 1:00P Dictated by : ABRAHAM KAHN MD This examination was interpreted and the report reviewed and electronically signed by: ABRAHAM KAHN MD on Jul 18 2024 1:01PM EST DIVISION OF RADIOLOGY * * *Final Report* * * DATE OF EXAM: Jul 18 2024 12:58PM WOX [id number] - XR CHEST 2V FRONTAL/LAT / PROCEDURE REASON: Wheeze * * * * Physician Interpretation * * * * EXAMINATION: CHEST RADIOGRAPH (2 VIEW FRONTAL & LATERAL) CLINICAL HISTORY: Wheeze MQ: XC2_6 EXAM DATE/TIME: 07/18/2024 12:58 PM COMPARISON: Chest x-ray dated 03/21/2024 RESULT: Lines, tubes, and devices: None. Lungs and pleura: Mild airspace opacity in the lateral right middle lobe. No pleural effusion. No pneumothorax. Cardiomediastinal silhouette: Normal cardiomediastinal silhouette. Bones and soft tissues: Mild degenerative changes. DIVISION OF RADIOLOGY Provider, Margaret Liat [facility] - 07/18/2024 * * *Final Report* * * DATE OF EXAM: Jul 18 2024 12:58PM WOX [id number] - XR CHEST 2V FRONTAL/LAT / PROCEDURE REASON: Wheeze * * * * Physician Interpretation * * * * EXAMINATION: CHEST RADIOGRAPH (2 VIEW FRONTAL & LATERAL) CLINICAL HISTORY: Wheeze MQ: XC2_6 EXAM DATE/TIME: 07/18/2024 12:58 PM COMPARISON: Chest x-ray dated 03/21/2024 RESULT: Lines, tubes, and devices: None. Lungs and pleura: Mild airspace opacity in the lateral right middle lobe. No pleural effusion. No pneumothorax. Cardiomediastinal silhouette: Normal cardiomediastinal silhouette. Bones and soft tissues: Mild degenerative changes. IMPRESSION IMPRESSION: Mild right middle lobe airspace opacity, atelectasis versus bronchopneumonia in the appropriate clinical setting. Set Staff Fitter: [employer] Transcribe Date/Time: Jul 18 2024 1:00P Dictated by : ABRAHAM KAHN MD This examination was interpreted and the report reviewed and electronically signed by: ABRAHAM KANH MD on Jul 18 2024 1:01PM EST [facility] Radiology Study observation (narrative) [facility] XR Chest PA and LateralOrder ed By: Cc Provider on 07-18-2024 [facility] Brian 07-17-2024 CNPN Telephone (INTMWS) SHOSHANA TAMAYO ([id number]) 1970 F Date Time Provider Department 07/17/24 LINA HERNANDEZ During your visit today, we recorded the following information about you: Bernadette Gonzalez LPN 07/17/2024 8:45 AM Signed Wellness form completed and mailed to address listed on form. Allergies As of Date: 07/17/2024 Noted Allergy Reaction SUDAFED (PSEUDOEPHEDRINE HCL) 10/12/2005 5 - Intolerance Comments: Jittery SULFA (SULFONAMIDE ANTIBIOTICS) 03/18/2005 4 - Hives Comments: elevated BP WELLBUTRIN (BUPROPION) 05/26/2020 1 - Mental Status Change Date Reviewed: 07/10/2024 Reviewed by: Bernadette Gonzalez LPN - Fully Assessed Reason for Visit: Forms [913] Cmt: Wellness form Prescriptions as of 07/17/2024 - HYDROcodone-acetaminop hen (NORCO) 5-325 mg per tablet Take 1 tablet by mouth four times a day as needed for pain for up to 30 days. Patient should start on September 13, 2024. - HYDROcodone-acetaminop hen (NORCO) 5-325 mg per tablet Take 1 tablet by mouth every 6 hours as needed for pain for up to 30 days. Patient should start on August 14, 2024. - HYDROcodone-acetaminop hen (NORCO) 5-325 mg per tablet Take 1 tablet by mouth four times a day as needed for pain for up to 30 days. Patient should start on July 15, 2024. - ARIPiprazole (ABILIFY) 5 mg tablet Take 1 tablet by mouth once daily. Take this in addition to 2 mg daily for a total of 7 mg daily - ARIPiprazole (ABILIFY) 2 mg tablet Take 1 tablet by mouth once daily. Take this in addition to 5 mg daily for a total of 7 mg daily - modafinil (PROVIGIL) 200 mg tablet Take 1 tablet by mouth two times a day for 180 days. - LORazepam (ATIVAN) 1 mg tablet Take 1-2 tablets by mouth once daily for 90 days. - terazosin (HYTRIN) 5 mg capsule Take 1 capsule by mouth daily at bedtime. - citalopram (CELEXA) 40 mg tablet Take 1 tablet by mouth every afternoon. - cholecalciferol (VITAMIN D-3) 5,000 unit tab Take 1 tablet by mouth once daily. - triamcinolone acetonide (KENALOG) 0.1 % cream Apply 1 application to affected area three times a day as needed. Apply sparingly to area for rash/itching, to affected ears - ibuprofen (MOTRIN) 200 mg tablet Take 3-4 tablets by mouth four times daily as needed for Pain (Take with food.). 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] 11/16/2006 FEMALE STRESS INCONTINENCE [N39.3] 11/16/2006 TOBACCO USE DISORDER [F17.200] 03/15/2007 Reactive depression [F32.9] 03/05/2008 EXCORIATIONS//SUPERFIC IAL INJURY NEC [T07.XXXA] 07/03/2008 04/29/2014 DERMATITIS NOS [L25.9] 07/03/2008 Scabies [B86] 07/03/2008 04/29/2014 Acute pain of left knee [M25.562] 03/29/2022 Numbness in left leg [R20.0] 03/29/2022 Encounter Status:Closed by BERNADETTE GONZALEZ on 07/17/24 Normal [facility] 25-hydroxyvitamin D3 [Mass/Vol] 29.7 ng/mL Low 31.0-80.0 [facility] Comment on above: Order Comment: Speci men Type: BLOOD SPECIMEN Ordering Facility: [facility] Address: [address] [place] [address] Result Comment: Clas sification of 25 [place] Vitamin D status: Deficiency/Insufficiency: < or = 30 ng/ml. Sufficiency/Optimal Levels: 31-80 ng/mL Toxicity: > 100 ng/mL. Test performed by chemiluminescent immunoassay. Performed By: #### 2 4331-1, 34715-9 #### [facility] CLIA [id number] [address] [place] [address] [place] CBC W Auto Differential pane l (Bld)on 07-10-2024 Basophils (Bld) [#/Vol] 0.07 10*3/uL Normal <0.11 [facility] Comment on above: Order Comment: Speci men Type: BLOOD SPECIMEN Ordering Facility: [facility] Address: [address] [place] [address] Performed By: #### 5 7021-8 #### [facility] CLIA [id number] [address] [place] [address] [place] Basophils/100 WBC (Bld) 0.7 % Normal [facility] Comment on above: Order Comment: Speci men Type: BLOOD SPECIMEN Ordering Facility: [facility] Address: [address] [place] [address] Performed By: #### 5 7021-8 #### [facility] CLIA [id number] [address] [place] [address] [place] Differential cell count method Nom (Bld) Auto Normal [facility] Comment on above: Order Comment: Speci men Type: BLOOD SPECIMEN Ordering Facility: [facility] Address: [address] [place] [address] Performed By: #### 5 7021-8 #### [facility] CLIA [id number] [address] [place] [address] [place] Eosinophils (Bld) [#/Vol] 0.25 10*3/uL Normal <0.46 [facility] Comment on above: Order Comment: Speci men Type: BLOOD SPECIMEN Ordering Facility: [facility] Address: [address] [place] [address] Performed By: #### 5 7021-8 #### [facility] CLIA [id number] [address] [place] [address] [place] Eosinophils/100 WBC (Bld) 2.5 % Normal [facility] Comment on above: Order Comment: Speci men Type: BLOOD SPECIMEN Ordering Facility: [facility] Address: [address] [place] [address] Performed By: #### 5 7021-8 #### [facility] CLIA [id number] [address] [place] [address] [place] Erythrocyte distribution width (RBC) [Ratio] 13.0 % Normal 11.5-15.0 [facility] Comment on above: Order Comment: Speci men Type: BLOOD SPECIMEN Ordering Facility: [facility] Address: [address] [place] [address] Performed By: #### 5 7021-8 #### [facility] CLIA [id number] [address] [place] [address] [place] Hematocrit (Bld) [Volume fraction] 42.0 % Normal 36.0-46.0 [facility] Comment on above: Order Comment: Speci men Type: BLOOD SPECIMEN Ordering Facility: [facility] Address: [address] [place] [address] Performed By: #### 5 7021-8 #### [facility] CLIA [id number] [address] [place] [address] [place] Hemoglobin (Bld) [Mass/Vol] 13.4 g/dL Normal 11.5-15.5 [facility] Comment on above: Order Comment: Speci men Type: BLOOD SPECIMEN Ordering Facility: [facility] Address: [address] [place] [address] Performed By: #### 5 7021-8 #### [facility] CLIA [id number] [address] [place] [address] [place] Immature granulocytes (Bld) [#/Vol] 0.04 10*3/uL Normal <0.10 [facility] Comment on above: Order Comment: Speci men Type: BLOOD SPECIMEN Ordering Facility: [facility] Address: [address] [place] [address] Performed By: #### 5 7021-8 #### [facility] CLIA [id number] [address] [place] [address] [place] Immature granulocytes/100 WBC (Bld) 0.4 % Normal [facility] Comment on above: Order Comment: Speci men Type: BLOOD SPECIMEN Ordering Facility: [facility] Address: [address] [place] [address] Performed By: #### 5 7021-8 #### [facility] CLIA [id number] [address] [place] [address] [place] Lymphocytes (Bld) [#/Vol] 2.54 10*3/uL Normal 1.00-4.00 [facility] Comment on above: Order Comment: Speci men Type: BLOOD SPECIMEN Ordering Facility: [facility] Address: [address] [place] [address] Performed By: #### 5 7021-8 #### [facility] CLIA [id number] [address] [place] [address] [place] Lymphocytes/100 WBC (Bld) 25.7 % Normal [facility] Comment on above: Order Comment: Speci men Type: BLOOD SPECIMEN Ordering Facility: [facility] Address: [address] [place] [address] Performed By: #### 5 7021-8 #### [facility] CLIA [id number] [address] [place] [address] [place] MCH (RBC) [Entitic mass] 29.5 pg Normal 26.0-34.0 [facility] Comment on above: Order Comment: Speci men Type: BLOOD SPECIMEN Ordering Facility: [facility] Address: [address] [place] [address] Performed By: #### 5 7021-8 #### [facility] CLIA [id number] [address] [place] [address] [place] MCHC (RBC) [Mass/Vol] 31.9 g/dL Normal 30.5-36.0 [facility] Comment on above: Order Comment: Speci men Type: BLOOD SPECIMEN Ordering Facility: [facility] Address: [address] [place] [address] Performed By: #### 5 7021-8 #### [facility] CLIA [id number] [address] [place] [address] [place] MCV (RBC) [Entitic vol] 92.3 fL Normal 80.0-100.0 [facility] Comment on above: Order Comment: Speci men Type: BLOOD SPECIMEN Ordering Facility: [facility] Address: [address] [place] [address] Performed By: #### 5 7021-8 #### [facility] CLIA [id number] [address] [place] [address] [place] Monocytes (Bld) [#/Vol] 0.78 10*3/uL Normal <0.87 [facility] Comment on above: Order Comment: Speci men Type: BLOOD SPECIMEN Ordering Facility: [facility] Address: [address] [place] [address] Performed By: #### 5 7021-8 #### [facility] CLIA [id number] [address] [place] [address] [place] Monocytes/100 WBC (Bld) 7.9 % Normal [facility] Comment on above: Order Comment: Speci men Type: BLOOD SPECIMEN Ordering Facility: [facility] Address: [address] [place] [address] Performed By: #### 5 7021-8 #### [facility] CLIA [id number] [address] [place] [address] [place] Neutrophils (Bld) [#/Vol] 6.19 10*3/uL Normal 1.45-7.50 [facility] Comment on above: Order Comment: Speci men Type: BLOOD SPECIMEN Ordering Facility: [facility] Address: [address] [place] [address] Performed By: #### 5 7021-8 #### [facility] CLIA [id number] [address] [place] [address] [place] Neutrophils/100 WBC (Bld) 62.8 % Normal [facility] Comment on above: Order Comment: Speci men Type: BLOOD SPECIMEN Ordering Facility: [facility] Address: [address] [place] [address] Performed By: #### 5 7021-8 #### [facility] CLIA [id number] [address] [place] [address] [place] Nucleated RBC (Bld) [#/Vol] 10*3/uL Normal <0.01 [facility] Comment on above: Order Comment: Speci men Type: BLOOD SPECIMEN Ordering Facility: [facility] Address: [address] [place] [address] Performed By: #### 5 7021-8 #### [facility] CLIA [id number] [address] [place] [address] [place] Nucleated RBC/100 WBC (Bld) [Ratio] 0.0 /100 WBC Normal [facility] Comment on above: Order Comment: Speci men Type: BLOOD SPECIMEN Ordering Facility: [facility] Address: [address] [place] [address] Performed By: #### 5 7021-8 #### [facility] CLIA [id number] [address] [place] [address] [place] Platelet mean volume (Bld) [Entitic vol] 9.8 fL Normal 9.0-12.7 [facility] Comment on above: Order Comment: Speci men Type: BLOOD SPECIMEN Ordering Facility: [facility] Address: [address] [place] [address] Performed By: #### 5 7021-8 #### [facility] CLIA [id number] [address] [place] [address] [place] Platelets (Bld) [#/Vol] 274 10*3/uL Normal 150-400 [facility] Comment on above: Order Comment: Speci men Type: BLOOD SPECIMEN Ordering Facility: [facility] Address: [address] [place] [address] Performed By: #### 5 7021-8 #### [facility] CLIA [id number] [address] [place] [address] [place] RBC (Bld) [#/Vol] 4.55 10*6/uL Normal 3.90-5.20 [facility] Comment on above: Order Comment: Speci men Type: BLOOD SPECIMEN Ordering Facility: [facility] Address: [address] [place] [address] Performed By: #### 5 7021-8 #### [facility] CLIA [id number] [address] [place] [address] [place] WBC (Bld) [#/Vol] 9.87 10*3/uL Normal 3.70-11.00 [facility] Comment on above: Order Comment: Speci men Type: BLOOD SPECIMEN Ordering Facility: [facility] Address: [address] [place] [address] Performed By: #### 5 7021-8 #### [facility] CLIA [id number] [address] [place] [address] [place] CNOVon 07-10-2024 CNOV Office Visit (INTMWS ) SHOSHANA TAMAYO ([id number]) 1970 F Date Time Provider Department 07/10/24 9:40 AM LINA HERNANDEZ INTMWS During your visit today, we recorded the following information about you: Pulse Blood pressure Weight 90/minute 110/70 88.5 kg Lina Hernandez MD 07/10/2024 11:08 AM Signed This note was created using Magixriter. Subjective Shoshana Tamayo is a 54 year old female. Patient presents with: F/U 3 Month SUBJECTIVE: Shoshana Tamayo is a 54 year old year old lady here today for 3 month follow up appointment for review of medical conditions. Shoshana Tamayo is a 54-year-old female with a history of MS, presenting for a yearly visit. Shoshana reports new onset of left leg numbness extending from the lower leg to the distal thigh over the past 2 weeks. She also reports intermittent chest pain and dyspnea on exertion for the past few months, which she attributes to anxiety. The chest pain radiates to her back and lasts approximately 30 minutes per episode. She notes that the pain and dyspnea occur both during periods of anxiety and physical activity, such as walking at her job, necessitating frequent breaks. She denies any tenderness upon palpation of the chest or back. She also reports occasional urinary incontinence, stating she has about 2 minutes to reach the bathroom once she feels the urge to urinate. She denies any issues with diarrhea. She is currently taking hydrocodone without experiencing constipation or feeling loopy. She is also taking ibuprofen, lorazepam, modafinil, and mirtazapine. She recently refilled her prescriptions for lorazepam and modafinil, and has a 3-month supply of mirtazapine from January. She is attempting to transition from smoking cigarettes to vaping. She received the 3-series hepatitis B vaccine in 1989. PAST MEDICAL HISTORY Diagnosis Date Anxiety state, unspecified 05/27/2005 Depression Detrusor sphincter dyssynergia Excessive daytime sleepiness 04/02/2014 Provigil was effective Female stress incontinence Lump or mass in breast 04/26/2009 Multiple sclerosis (HCC) Onset and diagnosis 1996 Phlebitis and thrombophlebitis of unspecified site Pulmonary embolus (HCC) Unspecified pruritic disorder 07/03/2008 XEROSIS///SEBACEOUS GLAND DIS NEC 07/03/2008 Current Outpatient Medications Medication Sig ARIPiprazole (ABILIFY) 5 mg tablet Take 1 tablet by mouth once daily. Take this in addition to 2 mg daily for a total of 7 mg daily ARIPiprazole (ABILIFY) 2 mg tablet Take 1 tablet by mouth once daily. Take this in addition to 5 mg daily for a total of 7 mg daily modafinil (PROVIGIL) 200 mg tablet Take 1 tablet by mouth two times a day for 180 days. LORazepam (ATIVAN) 1 mg tablet Take 1-2 tablets by mouth once daily for 90 days. HYDROcodone-acetaminop hen (NORCO) 5-325 mg per tablet Take 1 tablet by mouth every 6 hours as needed for pain for up to 30 days. Patient should start on June 13, 2024. terazosin (HYTRIN) 5 mg capsule Take 1 capsule by mouth daily at bedtime. citalopram (CELEXA) 40 mg tablet Take 1 tablet by mouth every afternoon. cholecalciferol (VITAMIN D-3) 5,000 unit tab Take 1 tablet by mouth once daily. triamcinolone acetonide (KENALOG) 0.1 % cream Apply 1 application to affected area three times a day as needed. Apply sparingly to area for rash/itching, to affected ears ibuprofen (MOTRIN) 200 mg tablet Take 3-4 tablets by mouth four times daily as needed for Pain (Take with food.). Maximum 2400 mg per day HYDROcodone-acetaminop hen (NORCO) 5-325 mg per tablet Take 1 tablet by mouth four times a day as needed for pain for up to 30 days. HYDROcodone-acetaminop hen (NORCO) 5-325 mg per tablet Take 1 tablet by mouth four times a day as needed for pain for up to 30 days. Do not start before March 18, 2024. No current facility-administered medications for this visit. Review of Systems Objective BP 112/84 Pulse 90 Wt 88.5 kg (195 lb 1.7 oz) SpO2 98% BMI 33.49 kg/m? Waist circumference 41 Last 5 Encounter Wt Readings: Date: Wt: 07/10/2024 88.5 kg (195 lb 1.7 oz) 04/10/2024 87.5 kg (192 lb 14.4 oz) 03/21/2024 89.1 kg (196 lb 6.9 oz) 02/22/2024 89.1 kg (196 lb 6.9 oz) 12/28/2023 88.9 kg (196 lb) No waist measurement recorded Estimated body mass index is 33.49 kg/m? as calculated from the following: Height as of 10/4/22: 162.6 cm (5' 4). Weight as of this encounter: 88.5 kg (195 lb 1.7 oz). Last 5 Encounter BP Readings: Date: BP: 07/10/2024 112/84 04/10/2024 108/74 03/21/2024 118/80 02/22/2024 90/60 12/28/2023 122/82 07/10/24 1005 07/10/24 1011 07/10/24 1039 BP: 116/82 112/84 110/70 Pulse: 90 SpO2: 98% Weight: 88.5 kg (195 lb 1.7 oz) Physical Exam Labs ordered, not yet done. Labs on way out for employee health plan form completion Based on last labs: The 10- (more content not included)... Normal [facility] Comprehensive metabolic 2000 panelon 07-10-2024 Albumin [Mass/Vol] 4.6 g/dL Normal 3.9-4.9 [facility] Comment on above: Order Comment: Speci men Type: BLOOD SPECIMEN Ordering Facility: [facility] Address: [address] [place] [address] Performed By: #### 2 4331-1, 49204-6 #### [facility] CLIA [id number] [address] [place] [address] [place] ALP [Catalytic activity/Vol] 78 U/L Normal 34-123 [facility] Comment on above: Order Comment: Speci men Type: BLOOD SPECIMEN Ordering Facility: [facility] Address: [address] [place] [address] Performed By: #### 2 4331-1, 40367-4 #### [facility] CLIA [id number] [address] [place] [address] [place] ALT [Catalytic activity/Vol] 23 U/L Normal 7-38 [facility] Comment on above: Order Comment: Speci men Type: BLOOD SPECIMEN Ordering Facility: [facility] Address: [address] [place] [address] Performed By: #### 2 4331-1, 58191-1 #### [facility] CLIA [id number] [address] [place], [place] [id number] [place] Anion gap [Moles/Vol] 11 mmol/L Normal 8-15 [facility] Comment on above: Order Comment: Speci men Type: BLOOD SPECIMEN Ordering Facility: [facility] Address: [address] [place] [address] Performed By: #### 2 4331-1, 38213-2 #### [facility] CLIA [id number] [address] [place] [address] [place] AST [Catalytic activity/Vol] 24 U/L Normal 13-35 [facility] Comment on above: Order Comment: Speci men Type: BLOOD SPECIMEN Ordering Facility: [facility] Address: [address] [place] [address] Performed By: #### 2 4331-, 89400-0 #### [facility] CLIA [id number] [address] [place] [address] [place] Bilirubin [Mass/Vol] 0.2 mg/dL Normal 0.2-1.3 [facility] Comment on above: Order Comment: Speci men Type: BLOOD SPECIMEN Ordering Facility: [facility] Address: [address] [place] [address] Performed By: #### 2 4331-1, 37350-4 #### [facility] CLIA [id number] [address] [place] [address] [place] Calcium [Mass/Vol] 9.8 mg/dL Normal 8.5-10.2 [facility] Comment on above: Order Comment: Speci men Type: BLOOD SPECIMEN Ordering Facility: [facility] Address: [address] [place] [address] Performed By: #### 2 4331-1, 61335-2 #### [facility] CLIA [id number] [address] [place] [address] [place] Chloride [Moles/Vol] 104 mmol/L Normal 98-107 [facility] Comment on above: Order Comment: Lesliei raghavendra Type: BLOOD SPECIMEN Ordering Facility: [facility] Address: [address] [place] [address] Performed By: #### 2 4331-1, 77064-9 #### [facility] CLIA [id number] [address] [place] [address] [place] CO2 [Moles/Vol] 26 mmol/L Normal 22-30 [facility] Comment on above: Order Comment: Speci men Type: BLOOD SPECIMEN Ordering Facility: [facility] Address: [address] [place] [address] Performed By: #### 2 4331-1, 60666-4 #### [facility] CLIA [id number] [address] [place] [address] [place] Creatinine [Mass/Vol] 0.74 mg/dL Normal 0.58-0.96 [facility] Comment on above: Order Comment: Lesliei men Type: BLOOD SPECIMEN Ordering Facility: [facility] Address: [address] [place] [address] Performed By: #### 2 4331-1, 09067-3 #### [facility] CLIA [id number] [address] [place] [address] [place] Creatinine and Glomerular filtration rate.predicted panel (S/P/Bld) 97 mL/min/1.73m??? Normal >=60 [facility] Comment on above: Order Comment: Lesliei raghavendra Type: BLOOD SPECIMEN Ordering Facility: [facility] Address: [address] [place] [address] Result Comment: Kailyn mated Glomerular Filtration Rate (eGFR) is calculated using the 2020 CKD-EPI creatinine equation. This equation utilizes serum creatinine, sex, and age as parameters. The creatinine assay has traceable calibration to isotope dilution-mass spectrometry. Refer to KDIGO guidelines for clinical interpretation. In patients with unstable renal function, e.g. those with acute kidney injury, the eGFR may not accurately reflect actual GFR. Performed By: #### 2 4331-1, 92111-2 #### [facility] CLIA [id number] [address] [place] [address] [place] Glucose [Mass/Vol] 77 mg/dL Normal 74-99 [facility] Comment on above: Order Comment: Chari mabry Type: BLOOD SPECIMEN Ordering Facility: [facility] Address: [address] [place] [address] Result Comment: The [place] Diabetes Association (ADA) provides guidance for cutoff values for fasting glucose and random glucose. The ADA defines fasting as no caloric intake for at least 8 hours. Fasting plasma glucose results between 100 to 125 mg/dL indicate increased risk for diabetes (prediabetes). Fasting plasma glucose results greater than or equal to 126 mg/dL meet the criteria for diagnosis of diabetes. In the absence of unequivocal hyperglycemia, results should be confirmed by repeat testing. In a patient with classic symptoms of hyperglycemia or hyperglycemic crisis, random plasma glucose results greater than or equal to 200 mg/dL meet the criteria for diagnosis of diabetes. Reference: Standards of Medical Care in Diabetes 2016, [place] Diabetes Association. Diabetes Care. 2016.39(Suppl 1). Performed By: #### 2 4331-1, 25128-4 #### [facility] CLIA [id number] [address] [place] [address] [place] Potassium [Moles/Vol] 4.8 mmol/L Normal 3.7-5.1 [facility] Comment on above: Order Comment: Chari mabry Type: BLOOD SPECIMEN Ordering Facility: [facility] Address: [address] [place] [address] Performed By: #### 2 4331-1, 05286-5 #### [facility] CLIA [id number] [address] [place] [address] [place] Protein [Mass/Vol] 7.4 g/dL Normal 6.3-8.0 [facility] Comment on above: Order Comment: Chari mabry Type: BLOOD SPECIMEN Ordering Facility: [facility] Address: [address] [place], [place] [address] Performed By: #### 2 4331-1, 46651-3 #### [facility] CLIA [id number] [address] [place] [address] [place] Sodium [Moles/Vol] 141 mmol/L Normal 136-144 [facility] Comment on above: Order Comment: Speci men Type: BLOOD SPECIMEN Ordering Facility: [facility] Address: [address] [place] [address] Performed By: #### 2 4331-1, 97495-6 #### [facility] CLIA [id number] [address] [place] [address] [place] Urea nitrogen [Mass/Vol] 17 mg/dL Normal 7-21 [facility] Comment on above: Order Comment: Speci men Type: BLOOD SPECIMEN Ordering Facility: [facility] Address: [address] [place] [address] Performed By: #### 2 4331-1, 74531-3 #### [facility] CLIA [id number] [address] [place] [address] [place] ECG COMPLETEon 07-10-2024 ECG COMPLETE Ventricular Rate : 6 7 BPM Atrial Rate : 67 BPM P-R Interval : 136 ms QRS Duration : 84 ms Q-T Interval : 432 ms QTC Calculation(Bazett) : 456 ms Calculated P Amonate : 22 degrees Calculated R Amonate : 6 degrees Calculated T Amonate : 32 degrees NORMAL SINUS RHYTHM NORMAL ECG Confirmed by MD MARQUEZ QARAB ([id number]) on 07/10/2024 4:06:01 PM NAME : SHOSHANA TAMAYO PID : [id number] : 1970 Gender : Female Race : ORD : [id number] Procedure Date : Jul 10 2024 10:51:54 Edit Date : Jul 10 2024 16:06:05 Diagnosis: NORMAL SINUS RHYTHM NORMAL ECG Confirmed by MD MARQUEZ QARAB ([id number]) on 07/10/2024 4:06:01 PM Test Reason : R07.2 Precordial pain Location : 185 : [facility] Overread By : MD MARQUEZ QARAB Edited By : MD MARQUEZ QARAB Referred By : SELF, Acquired by : bernadette Gonzalez LPN, Normal [facility] HbA1c (Bld)on 07-10-2024 Average glucose Estimated from glycated hemoglobin (Bld) [Mass/Vol] 105 mg/dL Normal [facility] Comment on above: Order Comment: Chari mabry Type: BLOOD SPECIMEN Ordering Facility: [facility] Address: [address] [place] [address] Result Comment: eAG: (Estimated average glucose) is a calculated value from HgbA1c and is field service representative of the average blood glucose level in the last 2-3 month period. Performed By: #### 2 4331-1, 96716-5 #### [facility] CLIA [id number] [address] [place] [address] [place] HbA1c (Bld) [Mass fraction] 5.3 % Normal 4.3-5.6 [facility] Comment on above: Order Comment: Chari mabry Type: BLOOD SPECIMEN Ordering Facility: [facility] Address: [address] [place] [address] Result Comment: [place] Diabetes Association guidelines indicate that patients with HgbA1c in the range 5.7-6.4% are at increased risk for development of diabetes, and intervention by lifestyle modification may be beneficial. HgbA1c greater or equal to 6.5% is considered diagnostic of diabetes. Performed By: #### 2 4331-1, 98870-0 #### [facility] CLIA [id number] [address] [place] [address] [place] Lipid 1996 panelon 5 Cholesterol [Mass/Vol] 249 mg/dL High <200 [facility] Comment on above: Order Comment: Chari mabry Type: BLOOD SPECIMEN Ordering Facility: [facility] Address: [address] [place] [address] Result Comment: <200 mg/dL, Desirable 200-239 mg/dL, Borderline high >239 mg/dL, High Performed By: #### 2 4331-, 59339-6 #### [facility] CLIA [id number] [facility] [address] [place] Cholesterol in HDL [Mass/Vol] 54 mg/dL Normal >39 [facility] Comment on above: Order Comment: Chari mabry Type: BLOOD SPECIMEN Ordering Facility: [facility] Address: [address] [place] [address] Result Comment: 40-5 9 mg/dL, Acceptable >59 mg/dL, High: Negative risk factor for coronary heart disease <40 mg/dL, Low: Positive risk factor for coronary heart disease Performed By: #### 2 4331-1, 62766-7 #### [facility] CLIA [id number] [address] [place] [address] [place] [facility] Cholesterol in LDL [Mass/Vol] 174 mg/dL High <100 [facility] Comment on above: Order Comment: Chari mabry Type: BLOOD SPECIMEN Ordering Facility: [facility] Address: [address] [place] [address] Result Comment: <100 mg/dL, Optimal 100-129 mg/dL, Near optimal/above optimal 130-159 mg/dL, Borderline high 160-189 mg/dL, High >189 mg/dL, Very high Secondary prevention optimal LDL Cholesterol levels are recommended to be < 70 mg/dL Performed By: #### 2 4331-1, 35673-7 #### [facility] CLIA [id number] [address] [place] [address] [place] Cholesterol in LDL/Cholesterol in HDL [Mass ratio] 3.22 {ratio} High <2.54 [facility] Comment on above: Order Comment: Chari raghavendra Type: BLOOD SPECIMEN Ordering Facility: [facility] Address: [address] [place] [address] Result Comment: Leonarda montes: 1. National Cholesterol Education Program ATP III Guideline At-A-Glance Quick Desk Reference: National Heart, Lung, and Blood [place]. National Institutes of Health. 2001: NIH Publication No. 01-3305. 2. An International Atherosclerosis Society position paper: global recommendations for the management of dyslipidemia: executive summary, Atherosclerosis. 2014: 232(2):410-413. Performed By: #### 2 4331-1, 19014-6 #### [facility] CLIA [id number] [address] [place] [address] [place] Cholesterol in VLDL [Mass/Vol] 21 mg/dL Normal <30 [facility] Comment on above: Order Comment: Speci men Type: BLOOD SPECIMEN Ordering Facility: [facility] Address: [address] [place] [address] Performed By: #### 2 4331-1, #### [facility] CLIA [id number] [address] [place] [address] [place] Cholesterol non HDL [Mass/Vol] 195 mg/dL High <130 [facility] Comment on above: Order Comment: Speci men Type: BLOOD SPECIMEN Ordering Facility: [facility] Address: [address] [place] [address] Result Comment: <130 mg/dL, Optimal 130-159 mg/dL, Near optimal/above optimal 160-189 mg/dL, Borderline high 190-219 mg/dL, High >219 mg/dL, Very high Secondary prevention optimal non HDL Cholesterol levels are recommended to be <100 mg/dL Performed By: #### 2 4331-1, #### [facility] CLIA [id number] [address] [place] [address] [place] Cholesterol.total/Ch olesterol in HDL [Mass ratio] 4.61 {ratio} Normal <5.10 [facility] Comment on above: Order Comment: Speci men Type: BLOOD SPECIMEN Ordering Facility: [facility] Address: [address] [place] [address] Performed By: #### 2 4331-1, #### [facility] CLIA [id number] [address] [place] [address] [place] FASTING TIME 12 hrs Normal [facility] Comment on above: Order Comment: Speci men Type: BLOOD SPECIMEN Ordering Facility: [facility] Address: [address] [place] [address] Performed By: #### 2 4331-1, 52636-0 #### [facility] CLIA [id number] [address] [place] [address] [place] Triglyceride [Mass/Vol] 105 mg/dL Normal <150 [facility] Comment on above: Order Comment: Speci men Type: BLOOD SPECIMEN Ordering Facility: [facility] Address: [address] [place] [address] Result Comment: <150 mg/dL, Normal 150-199 mg/dL, Borderline high 200-499 mg/dL, High >499 mg/dL, Very high Performed By: #### 2 4331-1, 73543-2 #### [facility] CLIA [id number] [address] [place] [address] [place] Brian [facility]-17-2024 [facility]) SHOSHANA TAMAYO ([id number]) 1970 F Date Time Provider Department 05/17/24 MRAY CASTELLANOS INTWS During your visit today, we recorded the following information about you: Victoria Panda LPN 05/17/2024 2:52 PM Signed Patient calling [facility] will not fill her [place] rx. Pharmacy wants office to call them. She said she is out of medication. I phoned [facility] and spoke to Benitez and he said the [place] Board has been watching them with termite treater chronic pain patients getting controlled substance rx for long time from that office PCP and [facility]. He said patient needs to go to pain management and have PT. PCP and [facility] should not be giving retirement rx. He will not fill the rx, he would only give the patient one week amount of the [place] until something else is done. Aware PCP is out of the office. Please advise Estrella Bustos LPN 05/17/2024 4:23 PM Signed Pt called and wanted prescription to be sent to [facility] since [facility] is giving her a hard time. Please advise pt when this has been sent. NING Shah Terri, APRN.BUILDING ARCHITECTURAL DESIGNER 05/17/2024 4:52 PM Signed Rx sent. Defer to PCP review when returns to office Allergies As of Date: 05/17/2024 Noted Allergy Reaction SUDAFED (PSEUDOEPHEDRINE HCL) 10/12/2005 5 - Intolerance Comments: Jittery SULFA (SULFONAMIDE ANTIBIOTICS) 03/18/2005 4 - Hives Comments: elevated BP WELLBUTRIN (BUPROPION) 05/26/2020 1 - Mental Status Change Date Reviewed: 04/10/2024 Reviewed by: Mary Castellanos APRN.BUILDING ARCHITECTURAL DESIGNER - Fully Assessed Reason for Visit: Medication Problem [65] Visit Diagnoses:MULTIPLE SCLEROSIS [G35] Comment:Overall stable. Should follow up with specialist at some point. 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 Continue present management Order(s):HYDROcodone-a cetaminophen (NORCO) 5-325 mg per tabletTake 1 tablet by mouth four times a day as needed for pain for up to 30 days.Disp: 110 tabletRfl: 0 Prescriptions as of 05/17/2024 - HYDROcodone-acetaminop hen (NORCO) 5-325 mg per tablet Take 1 tablet by mouth four times a day as needed for pain for up to 30 days. - HYDROcodone-acetaminop hen (NORCO) 5-325 mg per tablet Take 1 tablet by mouth every 6 hours as needed for pain for up to 30 days. Patient should start on June 13, 2024. - LORazepam (ATIVAN) 1 mg tablet Take 1-2 tablets by mouth once daily for 90 days. - terazosin (HYTRIN) 5 mg capsule Take 1 capsule by mouth daily at bedtime. - modafinil (PROVIGIL) 200 mg tablet Take 1 tablet by mouth two times a day for 180 days. - ARIPiprazole (ABILIFY) 5 mg tablet Take 1 tablet by mouth once daily. Take this in addition to 2 mg daily for a total of 7 mg daily - ARIPiprazole (ABILIFY) 2 mg tablet Take 1 tablet by mouth once daily. Take this in addition to 5 mg daily for a total of 7 mg daily - citalopram (CELEXA) 40 mg tablet Take 1 tablet by mouth every afternoon. - HYDROcodone-acetaminop hen (NORCO) 5-325 mg per tablet Take 1 tablet by mouth four times a day as needed for pain for up to 30 days. Do not start before March 18, 2024. - cholecalciferol (VITAMIN D-3) 5,000 unit tab Take 1 tablet by mouth once daily. - triamcinolone acetonide (KENALOG) 0.1 % cream Apply 1 application to affected area three times a day as needed. Apply sparingly to area for rash/itching, to affected ears - ibuprofen (MOTRIN) 200 mg tablet Take 3-4 tablets by mouth four times daily as needed for Pain (Take with food.). Maximum 2400 mg per day Problem List As Of Date 05/17/2024 Noted Resolved MULTIPLE SCLEROSIS [G35] DETRUSOR SPHINCTER DYSSYNERGIA [N36.44] 11/16/2006 FEMALE STRESS INCONTINENCE [N39.3] 11/16/2006 TOBACCO USE DISORDER [F17.200] 03/15/2007 Reactive depression [F32.9] 03/05/2008 EXCORIATIONS//SUPERFIC IAL INJURY NEC [T07.XXXA] 07/03/2008 04/29/2014 DERMATITIS NOS [L25.9] 07/03/2008 Scabies [B86] 07/03/2008 04/29/2014 Acute pain of left knee [M25.562] 03/29/2022 Numbness in left leg [R20.0] 03/29/2022 Prescriptions ordered this encounter Disp Refills Start End HYDROCODONE 5 MG-ACETAMINOPHEN 325 M* 110 * 0 05/17/2024 06/16/2024 Route: ORAL Sig: Take 1 tablet by mouth four times a day as needed for pain for up to 30 days. Medications Discontinued During This Encounter Prescriptions - HYDROcodone-acetaminop hen (NORCO) 5-325 mg per tablet (Discontinued) Take 1 tablet by mouth four times a day as needed for pain for up to 30 days. Please fill on this date due to going out of town on this date. Patient should start on April 16, 2024. - HYDROcodone-acetaminop hen (NORCO) 5-325 mg per tablet (Discontinued) Take 1 tablet by mouth four times a day as needed for pain for up to 30 days. Patient should start on May 16, 2024. Encounter Status:Closed by MARY CASTELLANOS on (more content not included)... Normal [facility] CNOVon 04-10-2024 CNOV Office Visit (INTMWS ) SHOSHANA TAMAYO ([id number]) 1970 F Date Time Provider Department 04/10/24 9:40 AM MARY CASTELLANOS INTMWS During your visit today, we recorded the following information about you: Pulse Respiration Blood pressure Weight 81/minute 16/minute 108/74 87.5 kg Mary Castellanos, LISA.BUILDING ARCHITECTURAL DESIGNER 04/10/2024 11:16 AM Signed SUBJECTIVE: Pneumococcal Vaccine(1 of 2 - PCV) Never done Anxiety Screening Never done Mammogram Screening due on 10/16/2016 Colorectal Cancer Screening Never done HPI Shoshana Yañez Belkis is a 53 year old female. PMH significant for 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 Stress Incontinence Tobacco Use Disorder Reactive Depression Contact Dermatitis and Other Eczema, Due to Unspecified Cause Acute Pain of Left Knee Numbness in Left Leg Presents for routine follow-up visit. She notes that she is in her usual state of health. She notes that her medications seem to be doing well for her. No adverse effects. She reports continued fatigue, Provigil seems to help. Lorazepam for anxiety has been helpful. No adverse effects. She notes Abilify has helped with her mood, would like to continue current dose. No adverse effects are noted. Continues with [place] for chronic pain. No AEs noted. Has been effective. Notes took additional doses recently after canoeing due to discomfort. Continues to be interested in [facility] for MS but did not feel that the last provider was a good match for her. She notes neurogenic bladder, no recent urology visit, does note stress. She underwent bilateral oophorectomy for endometriosis and a ruptured ovarian cyst with acute abdominal pain in 2004. Surgical menopausal with postoperative pulmonary embolus. Estrogen treatment was not recommended at that time per PRODUCT DEVELOPER Dr Gonzalez. No current topical estrogen use. Has not been able to straight cath due to pain with cathing in the past, attributed to MS. Review of Systems Constitutional: Positive for fatigue. Negative for appetite change. Gastrointestinal: Negative for abdominal pain. Musculoskeletal: Positive for arthralgias and back pain. Psychiatric/Behavioral : Positive for dysphoric mood. The patient is not nervous/anxious. Objective BP 108/74 Pulse 81 Resp 16 Wt 87.5 kg (192 lb 14.4 oz) BMI 33.11 kg/m? Physical Exam Vitals and nursing note reviewed. Constitutional: Appearance: Normal appearance. HENT: Head: Normocephalic and atraumatic. Eyes: Conjunctiva/sclera: Conjunctivae normal. Neck: Thyroid: No thyroid mass or thyromegaly. Vascular: Normal carotid pulses. No JVD. Cardiovascular: Rate and Rhythm: Normal rate and regular rhythm. Pulses: Normal pulses. Carotid pulses are 2+ on the right side and 2+ on the left side. Radial pulses are 2+ on the right side and 2+ on the left side. Heart sounds: Normal heart sounds. Pulmonary: Effort: Pulmonary effort is normal. Breath sounds: Normal breath sounds. Abdominal: General: Bowel sounds are normal. Palpations: Abdomen is soft. Musculoskeletal: Right lower leg: No edema. Left lower leg: No edema. Skin: General: Skin is warm and dry. Neurological: Mental Status: She is alert. Mental status is at baseline. Psychiatric: Mood and Affect: Mood is depressed. Affect is tearful. ALLERGIES Allergen Reactions Sudafed [Pseudoephe* Intolerance Jittery Sulfa (Sulfonamide * Hives elevated BP Wellbutrin [Bupropi* Mental Status Change MEDICATIONS LORazepam (ATIVAN) 1 mg tablet Take 1-2 tablets by mouth once daily for 90 days. terazosin (HYTRIN) 5 mg capsule Take 1 capsule by mouth daily at bedtime. modafinil (PROVIGIL) 200 mg tablet Take 1 tablet by mouth two times a day for 180 days. ARIPiprazole (ABILIFY) 5 mg tablet Take 1 tablet by mouth once daily. Take this in addition to 2 mg daily for a total of 7 mg daily ARIPiprazole (ABILIFY) 2 mg tablet Take 1 tablet by mouth once daily. Take this in addition to 5 mg daily for a total of 7 mg daily citalopram (CELEXA) 40 mg tablet Take 1 tablet by mouth every afternoon. HYDROcodone-acetaminop hen (NORCO) 5-325 mg per tablet Take 1 tablet by mouth four times a day as needed for pain for up to 30 days. Do not start before March 18, 2024. cholecalciferol (VITAMIN D-3) 5,000 unit tab Take 1 tablet by mouth once daily. triamcinolone acetonide (KENALOG) 0.1 % cream Apply 1 application to affected area three times a day as needed. Apply sparingly to area for rash/itching, to affected ears ibuprofen (MOTRIN) 200 mg tablet Take 3-4 tablets by mouth four times daily as needed for Pain (Take with food.). Maximum 2400 mg per day HYDROcodone-acetaminop hen (NORCO) 5-325 mg per tablet Take 1 tablet by mouth four times a day as needed for pain for up to 30 days. Do not start before January 18, 2024. HYDROcodone-dara (more content not included)... Normal [facility] CNOVon 03-21-2024 [facility] Office Visit (UCWSTR ) SHOSHANA TAMAYO ([id number]) 1970 F Date Time Provider Department 03/21/24 12:15 PM NAHID PASTOR [facility] During your visit today, we recorded the following information about you: Temperature Pulse Respiration Blood pressure 98.4 degrees 108/minute 20/minute 118/80 Weight 89.1 kg Nahid Pastor APRN.XIOMARA 03/21/2024 12:58 PM Signed CC: Patient presents with: Chest Congestion: cough, sob and fatigue x 8 days HPI: Shoshana Tamayo is a 53 year old female who presents to the office with complaint of chest congestion and cough, productive for 8 days. Symptoms are staying the same. Associated symptoms includes wheezing and dyspnea. Denies nausea, vomiting , and diarrhea. Treatments tried include nothing so far. with no relief of symptoms. Sick contacts: unknown. History of asthma, frequent episodes of bronchitis, chronic bronchitis, bronchiectasis or COPD: No Smoker: No Seasonal/environmental allergies: No The ROS is otherwise negative. The patient's pmh, medications, allergies, and past visits are reviewed. PHYSICAL EXAM: BP 118/80 Pulse 108 Temp 36.9 ?C (98.4 ?F) Resp 20 Wt 89.1 kg (196 lb 6.9 oz) SpO2 96% BMI 33.72 kg/m? General appearance: alert, cooperative, pleasant, in no acute distress Head: Normocephalic Eyes: EOM's intact, conjunctiva pink and moist, no icterus, sclera white, non-injected Ears: Right ear: External ear/canal- Normal, TM - clear with good landmarks. Left ear: External ear/canal- Normal, TM - clear with good landmarks Oropharynx:moist without lesions, No erythema, exudates or tonsillar hypertrophy. Heart: Negative. RRR without obvious murmur, gallop, or rubs. No ectopy. Lungs: mild wheezing diffusely PAST MEDICAL HISTORY Diagnosis Date Anxiety state, unspecified 05/27/2005 Depression Detrusor sphincter dyssynergia Excessive daytime sleepiness 04/02/2014 Provigil was effective Female stress incontinence Lump or mass in breast 04/26/2009 Multiple sclerosis (HCC) Onset and diagnosis 1996 Phlebitis and thrombophlebitis of unspecified site Pulmonary embolus (HCC) Unspecified pruritic disorder 07/03/2008 XEROSIS///SEBACEOUS GLAND DIS NEC 07/03/2008 PAST SURGICAL HISTORY Procedure Laterality Date SECTION HX TONSILLECTOMY AND ADENOIDECTOMY HX TOTAL ABDOMINAL HYSTERECT W/WO RMVL TUBE OVARY 03/2005 BSO ALLERGIES Sudafed [Pseudoephedrine Hcl], Sulfa (Sulfonamide Antibiotics), and Wellbutrin [Bupropion] MEDICATIONS terazosin (HYTRIN) 5 mg capsule Take 1 capsule by mouth daily at bedtime. LORazepam (ATIVAN) 1 mg tablet Take 1-2 tablets by mouth once daily for 90 days. modafinil (PROVIGIL) 200 mg tablet Take 1 tablet by mouth two times a day for 180 days. ARIPiprazole (ABILIFY) 5 mg tablet Take 1 tablet by mouth once daily. Take this in addition to 2 mg daily for a total of 7 mg daily ARIPiprazole (ABILIFY) 2 mg tablet Take 1 tablet by mouth once daily. Take this in addition to 5 mg daily for a total of 7 mg daily citalopram (CELEXA) 40 mg tablet Take 1 tablet by mouth every afternoon. HYDROcodone-acetaminop hen (NORCO) 5-325 mg per tablet Take 1 tablet by mouth four times a day as needed for pain for up to 30 days. Do not start before March 18, 2024. cholecalciferol (VITAMIN D-3) 5,000 unit tab Take 1 tablet by mouth once daily. triamcinolone acetonide (KENALOG) 0.1 % cream Apply 1 application to affected area three times a day as needed. Apply sparingly to area for rash/itching, to affected ears ibuprofen (MOTRIN) 200 mg tablet Take 3-4 tablets by mouth four times daily as needed for Pain (Take with food.). Maximum 2400 mg per day HYDROcodone-acetaminop hen (NORCO) 5-325 mg per tablet Take 1 tablet by mouth four times a day as needed for pain for up to 30 days. Do not start before January 18, 2024. HYDROcodone-acetaminop hen (NORCO) 5-325 mg per tablet Take 1 tablet by mouth four times a day as needed for pain for up to 30 days. Do not start before February 17, 2024. HYDROcodone-acetaminop hen (NORCO) 5-325 mg per tablet Take 1 tablet by mouth every 6 hours as needed for pain for up to 30 days. aspirin (ASPIRIN CHILDRENS) 81 mg chewable tablet Take 81 mg by mouth once daily. (Patient not taking: Reported on 03/21/2024) tiZANidine (ZANAFLEX) 4 mg tablet Take 1 tablet by mouth every 8 hours as needed (muscle spasms). (Patient not taking: Reported on 02/22/2024) iv contrast (will be provided with radiology test) MRI Brain Inject, intravenously, once for 1 dose.No IV access, insert saline lock prior to beginning of sedation, infusion, injection of imaging exam.Discontinue saline lock post exam. If Pt. has a central line or IVAD, may access for administration according to line specific nursing protocol.Once exam is complete flush line and de-access according to line specific nursing protoco (more content not included)... Normal [facility] XR CHEST 2V FRONTAL/LATon XR CHEST 2V FRONTAL/LAT * * *Final Report* * * DATE OF EXAM: Mar 21 2024 12:51PM WOX [id number] - XR CHEST 2V FRONTAL/LAT / PROCEDURE REASON: Acute cough * * * * Physician Interpretation * * * * EXAMINATION: CHEST RADIOGRAPH (2 VIEW FRONTAL and LATERAL) CLINICAL HISTORY: Acute cough MQ: XC2_6 EXAM DATE/TIME: 03/21/2024 12:51 PM COMPARISON: Chest x-ray dated 06/28/2018 RESULT: Lines, tubes, and devices: None. Lungs and pleura: No consolidation. No lung mass. No pleural effusion. No pneumothorax. Cardiomediastinal silhouette: Stable cardiomediastinal silhouette. Bones and soft tissues: Unremarkable. IMPRESSION: No acute radiographic abnormality. Set Staff Fitter: GRADY Transcribe Date/Time: Mar 21 2024 12:52P Dictated by : ABRAHAM KAHN MD This examination was interpreted and the report reviewed and electronically signed by: ABRAHAM KAHN MD on Mar 21 2024 12:52PM EST [id number] Normal [facility] XR Chest PA and Lateralon IMPRESSION: No acute radiographic abnormality. Set Staff Fitter: GRADY Transcribe Date/Time: Mar 21 2024 12:52P Dictated by : ABRAHAM KAHN MD This examination was interpreted and the report reviewed and electronically signed by: ABRAHAM KAHN MD on Mar 21 2024 12:52PM EST DIVISION OF RADIOLOGY * * *Final Report* * * DATE OF EXAM: Mar 21 2024 12:51PM WOX [id number] - XR CHEST 2V FRONTAL/LAT / PROCEDURE REASON: Acute cough * * * * Physician Interpretation * * * * EXAMINATION: CHEST RADIOGRAPH (2 VIEW FRONTAL & LATERAL) CLINICAL HISTORY: Acute cough MQ: XC2_6 EXAM DATE/TIME: 03/21/2024 12:51 PM COMPARISON: Chest x-ray dated 06/28/2018 RESULT: Lines, tubes, and devices: None. Lungs and pleura: No consolidation. No lung mass. No pleural effusion. No pneumothorax. Cardiomediastinal silhouette: Stable cardiomediastinal silhouette. Bones and soft tissues: Unremarkable. DIVISION OF RADIOLOGY Provider, [facility] - 03/21/2024 * * *Final Report* * * DATE OF EXAM: Mar 21 2024 12:51PM WOX [id number] - XR CHEST 2V FRONTAL/LAT / PROCEDURE REASON: Acute cough * * * * Physician Interpretation * * * * EXAMINATION: CHEST RADIOGRAPH (2 VIEW FRONTAL & LATERAL) CLINICAL HISTORY: Acute cough MQ: XC2_6 EXAM DATE/TIME: 03/21/2024 12:51 PM COMPARISON: Chest x-ray dated 06/28/2018 RESULT: Lines, tubes, and devices: None. Lungs and pleura: No consolidation. No lung mass. No pleural effusion. No pneumothorax. Cardiomediastinal silhouette: Stable cardiomediastinal silhouette. Bones and soft tissues: Unremarkable. IMPRESSION IMPRESSION: No acute radiographic abnormality. Set Staff Fitter: GRADY Transcribe Date/Time: Mar 21 2024 12:52P Dictated by : ABRAHAM KAHN MD This examination was interpreted and the report reviewed and electronically signed by: ABRAHAM KAHN MD on Mar 21 2024 12:52PM EST [facility] Radiology Study observation (narrative) [facility] XR Chest PA and LateralOrder ed By: [facility] Provider on 03-21-2024 [facility] Bacteria Ur Culton 4 Bacteria identified Cx Nom (U) ORGANISM ID: 1 50,000-<100,000 CFU/ml Mixed microbiota No further workup. Mixed microbiota can be due to???urine???contamina tion with skin bacteria at time of collection or presence of a long-term urinary catheter. If a new culture is needed, please consider re-education of the patient on proper midstream collection technique or straight catheterization for???urine???collecti on. Normal [facility] Comment on above: Performed By: #### 6 30-4 ####[facility] [id number] [address] [place] [place] [id number] [place] CNOVon 02-22-2024 CNOV Office Visit (INTMWS ) SHOSHANA TAMAYO ([id number]) 1970 F Date Time Provider Department 02/22/24 9:40 AM ALLISON ESQUEDA INTMWS During your visit today, we recorded the following information about you: Temperature Pulse Blood pressure Weight 98 degrees 92/minute 90/60 89.1 kg Allison Esqueda APRN.LIBRARY MANAGER 02/22/2024 10:12 AM Signed SUBJECTIVE Shoshana Tamayo is a 53 year old female here today for acute concerns. Chief Complaint Patient presents with: Flank Pain: right side HPI Shoshana Tamayo is a 53 year old female. She is an established patient of Lina Hernandez MD. Presents today acutely for concerns of possible urine infection. Onset about 4 days ago, not getting better. History of pyelonephritis. Dull aching. Constant pain. Feels like prior infections. Prone to infection with her MS. Notes trouble starting urine stream, frequency. Allergies to sulfas. Her medications were reviewed today and her list is now up to date. Medications Current Outpatient Medications Medication Sig terazosin (HYTRIN) 5 mg capsule Take 1 capsule by mouth daily at bedtime. LORazepam (ATIVAN) 1 mg tablet Take 1-2 tablets by mouth once daily for 90 days. modafinil (PROVIGIL) 200 mg tablet Take 1 tablet by mouth two times a day for 180 days. ARIPiprazole (ABILIFY) 5 mg tablet Take 1 tablet by mouth once daily. Take this in addition to 2 mg daily for a total of 7 mg daily ARIPiprazole (ABILIFY) 2 mg tablet Take 1 tablet by mouth once daily. Take this in addition to 5 mg daily for a total of 7 mg daily citalopram (CELEXA) 40 mg tablet Take 1 tablet by mouth every afternoon. HYDROcodone-acetaminop hen (NORCO) 5-325 mg per tablet Take 1 tablet by mouth four times a day as needed for pain for up to 30 days. Do not start before February 17, 2024. aspirin (ASPIRIN CHILDRENS) 81 mg chewable tablet Take 81 mg by mouth once daily. cholecalciferol (VITAMIN D-3) 5,000 unit tab Take 1 tablet by mouth once daily. triamcinolone acetonide (KENALOG) 0.1 % cream Apply 1 application to affected area three times a day as needed. Apply sparingly to area for rash/itching, to affected ears ibuprofen (MOTRIN) 200 mg tablet Take 3-4 tablets by mouth four times daily as needed for Pain (Take with food.). Maximum 2400 mg per day ciprofloxacin HCl (CIPRO) 500 mg tablet Take 1 tablet by mouth two times a day for 7 days. HYDROcodone-acetaminop hen (NORCO) 5-325 mg per tablet Take 1 tablet by mouth four times a day as needed for pain for up to 30 days. Do not start before January 18, 2024. [START ON 03/18/2024] HYDROcodone-acetaminop hen (NORCO) 5-325 mg per tablet Take 1 tablet by mouth four times a day as needed for pain for up to 30 days. Do not start before March 18, 2024. HYDROcodone-acetaminop hen (NORCO) 5-325 mg per tablet Take 1 tablet by mouth every 6 hours as needed for pain for up to 30 days. tiZANidine (ZANAFLEX) 4 mg tablet Take 1 tablet by mouth every 8 hours as needed (muscle spasms). (Patient not taking: Reported on 02/22/2024) iv contrast (will be provided with radiology test) MRI Brain Inject, intravenously, once for 1 dose.No IV access, insert saline lock prior to beginning of sedation, infusion, injection of imaging exam.Discontinue saline lock post exam. If Pt. has a central line or IVAD, may access for administration according to line specific nursing protocol.Once exam is complete flush line and de-access according to line specific nursing protocol in the MR contrast administration guidelines link (Patient not taking: Reported on 12/28/2023) No current facility-administered medications for this visit. 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 Cardiovascular: Negative. Genitourinary: Positive for dysuria, flank pain and frequency. Negative for hematuria. OBJECTIVE BP 90/60 Pulse 92 Temp (Src) 98 (Temporal) Wt 196 lb 6.9 oz (89.1kg) SpO2 97% Physical Exam Vitals and nursing note reviewed. Constitutional: General: She is awake. She is not in ac (more content not included)... Normal [facility] UA DIP, URINE (POC)on 2023 BILIRUBIN UA (POCT) Negative Negative [facility] CLARITY UA (POCT) Clear [facility] COLOR UA (POCT) Yellow [facility] GLUCOSE UA (POCT) Negative Negative mg/dL [facility] Hemoglobin Ql (U) Trace-intact Abnormal Negative [facility] Interpretation and review of laboratory results Abnormal [facility] KETONE UA (POCT) Negative Negative mg/dL [facility] LEUKOCYTES UA (POCT) Negative Negative [facility] NITRITE UA (POCT) Negative Negative [facility] PH UA (POCT) 6.0 4.5 - 8.0 [facility] Protein Ql (U) Negative Negative mg/dL [facility] SPECIFIC GRAVITY UA (POCT) 1.015 1.005 - 1.030 [facility] UROBILINOGEN UA (POCT) 0.2 Normal E.U./dL [facility] Location:[facility], [address] [place] [address], [place], [address] [facility] POINT OF CARE [facility] CNPNon 04-15-2022 CNPN Telephone ([facility]) SHOSHANA TAMAYO ([id number]) 1970 F Date Time Provider Department 04/15/22 DORON ESTRELLA [facility] During your visit today, we recorded the following information about you: Maisha Smith [place] 04/15/2022 8:32 AM Signed Left VM cancelling today's OT visit. Patient has an order for FCE and will need to reschedule with an FCE provider. Patient's information is being sent to [place]'s FCE provider and will be contacted with possible dates and time for evaluation. Maisha Smith Pss 04/15/2022 9:12 AM Signed Per FCE provider at [place]: refer her to either [facility] or [facility]. Here are the therapists that do these exams at those locations: either Ayesha Small, OT at [place], or Keo Quiroz, OT at the [facility] at [facility]. Please have her schedule with either one of these practitioners. Usually, I try to go for the [facility] with these patients because they have special testing that they complete specifically for MS patients. Maisha Smith Pss 04/15/2022 1:07 PM Signed Left VM for the patient with message below. Scheduling information was given. Allergies As of Date: 04/15/2022 Noted Allergy Reaction SUDAFED (PSEUDOEPHEDRINE HCL) 10/12/2005 5 - Intolerance Comments: Jittery SULFA (SULFONAMIDE ANTIBIOTICS) 03/18/2005 4 - Hives Comments: elevated BP WELLBUTRIN (BUPROPION) 05/26/2020 1 - Mental Status Change Date Reviewed: 04/13/2022 Reviewed by: Columba Casey LPN - Fully Assessed Reason for Visit: Appointment Cancelled [1023] Prescriptions as of 04/15/2022 - HYDROcodone-acetaminop hen (NORCO) 5-325 mg per tablet Take 1 tablet by mouth four times daily as needed for pain for up to 30 days. Do not start before June 28, 2022. - HYDROcodone-acetaminop hen (NORCO) 5-325 mg per tablet Take 1 tablet by mouth four times daily as needed for pain for up to 30 days. Do not start before May 29, 2022. - HYDROcodone-acetaminop hen (NORCO) 5-325 mg per tablet Take 1 tablet by mouth four times daily as needed for pain for up to 30 days. Do not start before April 29, 2022. - LORazepam (ATIVAN) 1 mg tablet Take 1-2 tablets by mouth once daily as needed for anxiety for up to 90 days. Do not start before April 25, 2022. - HYDROcodone-acetaminop hen (NORCO) 5-325 mg per tablet Take 1 tablet by mouth four times daily as needed for pain for up to 30 days. - tiZANidine (ZANAFLEX) 4 mg tablet Take 1 tablet by mouth every 8 hours as needed (muscle spasms). - cholecalciferol (VITAMIN D-3) 5,000 unit tab Take 1 tablet by mouth once daily. - iv contrast (will be provided with radiology test) MRI Brain Inject, intravenously, once for 1 dose.No IV access, insert saline lock prior to beginning of sedation, infusion, injection of imaging exam.Discontinue saline lock post exam. If Pt. has a central line or IVAD, may access for administration according to line specific nursing protocol.Once exam is complete flush line and de-access according to line specific nursing protocol in the MR contrast administration guidelines link - iv contrast (will be provided with radiology test) MRI CSP Inject, intravenously, once for 1 dose. No IV access, insert saline lock prior to the beginning of sedation, infusion, injection of imaging exam. Discontinue saline lock post exam. If Pt. has a central line or IVAD, may access for administration according to line specific nursing protocol. Once exam is complete flush line and de-access according to line specific nursing protocol in the MR contrast administration guidelines link. - cephALEXin (KEFLEX) 250 mg capsule Take 1 capsule by mouth once daily. For UTI prevention. - modafinil (PROVIGIL) 200 mg tablet Take 1 tablet by mouth twice daily for 180 days. - citalopram (CELEXA) 40 mg tablet Take 1 tablet by mouth once daily. - terazosin (HYTRIN) 5 mg capsule Take 1 capsule by mouth daily at bedtime. - triamcinolone acetonide (KENALOG) 0.1 % cream Apply 1 application to affected area three times daily as needed. Apply sparingly to area for rash/itching, to affected ears - ibuprofen (MOTRIN) 200 mg tablet Take 3-4 tablets by mouth four times daily as needed for Pain (Take with food.). Maximum 2400 mg per day Facility-Administered Medications as of 04/15/2022 - perflutren lipid microspheres 1.3 mL in NaCl (PF) 0.9% 10 mL injection (DEFINITY) - sodium chloride 0.9 % (flush) 10 mL (BD POSIFLUSH) Problem List As Of Date 04/15/2022 Noted Resolved MULTIPLE SCLEROSIS [G35] DETRUSOR SPHINCTER DYSSYNERGIA [N36.44] 11/16/2006 FEMALE STRESS INCONTINENCE [N39.3] 11/16/2006 TOBACCO USE DISORDER [F17.200] 03/15/2007 Reactive depression [F32.9] 03/05/2008 EXCORIATIONS//SUPERFIC IAL INJURY NEC [T07.XXXA] 07/03/2008 04/29/2014 DERMATITIS NOS [L25.9] 07/03/2008 Scabies [B86] 07/03/2008 04/29/2014 Acute pain of left knee [M (more content not included)... Normal [facility] MRI BRAIN WO/W IVCONon 04-15 [facility] XR Lumbar spine 3 Viewson IMPRESSION: Lumbar spine mild degenerative changes. Set Staff Fitter: GRADY Transcribe Date/Time: Mar 04 2022 11:23A Dictated by : DEVANG MORSE MD This examination was interpreted and the report reviewed and electronically signed by: DEVANG MORSE MD on Mar 04 2022 11:27AM [facility] DIVISION OF RADIOLOGY * * *Final Report* * * DATE OF EXAM: Mar 03 2022 5:23PM WOX [id number] - XR LUMBAR 3V AP/LAT/L5-S1 / PROCEDURE REASON: multiple diagnoses * * * * Physician Interpretation * * * * EXAM TITLE: XR LUMBAR 3V AP/LAT/L5-S1 EXAM DATE/TIME: 03/03/2022 5:23 PM COMPARISON: None. CLINICAL INDICATION/HISTORY: Back pain. TECHNIQUE: AP, lateral and cone down lateral views of the lumbar spine are presented. FINDINGS: There are five [id number] lumbar vertebrae. No fracture or subluxations are noted. There is left-sided curvature on AP view. The disc spaces are well preserved. There is minimal osteophyte formation. Kissing spine seen on lateral view. DIVISION OF RADIOLOGY Provider, Wing Wright - 03/04/2022 * * *Final Report* * * DATE OF EXAM: Mar 03 2022 5:23PM WOX [id number] - XR LUMBAR 3V AP/LAT/L5-S1 / PROCEDURE REASON: multiple diagnoses * * * * Physician Interpretation * * * * EXAM TITLE: XR LUMBAR 3V AP/LAT/L5-S1 EXAM DATE/TIME: 03/03/2022 5:23 PM COMPARISON: None. CLINICAL INDICATION/HISTORY: Back pain. TECHNIQUE: AP, lateral and cone down lateral views of the lumbar spine are presented. FINDINGS: There are five knf-ftv-xjswzlf lumbar vertebrae. No fracture or subluxations are noted. There is left-sided curvature on AP view. The disc spaces are well preserved. There is minimal osteophyte formation. Kissing spine seen on lateral view. IMPRESSION IMPRESSION: Lumbar spine mild degenerative changes. Set Staff Fitter: PSCB Transcribe Date/Time: Mar 04 2022 11:23A Dictated by : DEVANG MORSE MD This examination was interpreted and the report reviewed and electronically signed by: DEVANG MORSE MD on Mar 04 2022 11:27AM EST [facility] XR Lumbar spine 3 ViewsOrder ed By: [facility] Provider on 03-04-2022 [facility] XR Lumbar spine 3 Viewson Radiology Study observation (narrative) [facility] Vital Signs Date Time Vital Sign Value Performing Clinician Fany ojeda 10-09-2024 09:40-0400 Body mass index (BMI) [Ratio] 33.45 kg/m2 Allison Guilherme FIELD MAP TECHNICIAN.LIBRARY MANAGER Work Phone: [facility] 10-09-2024 09:40-0400 Body temperature 97.9 [degF] Allison Guilherme FIELD MAP TECHNICIAN.LIBRARY MANAGER Work Phone: [facility] 10-09-2024 09:40-0400 Body weight 88.4 kg Allison Guilherme FIELD MAP TECHNICIAN.LIBRARY MANAGER Work Phone: [facility] 10-09-2024 09:40-0400 Diastolic blood pressure 82 mm[Hg] Allison Guilherme FIELD MAP TECHNICIAN.LIBRARY MANAGER Work Phone: [facility] 10-09-2024 09:40-0400 Heart rate 92 /min Allison Guilherme FIELD MAP TECHNICIAN.LIBRARY MANAGER Work Phone: [facility] 10-09-2024 09:40-0400 SaO2% (BldA) [Mass fraction] 98 % Allison Guilherme FIELD MAP TECHNICIAN.LIBRARY MANAGER Work Phone: [facility] 10-09-2024 09:40-0400 Systolic blood pressure 110 mm[Hg] Allison Guilherme FIELD MAP TECHNICIAN.LIBRARY MANAGER Work Phone: [facility] 09-24-2024 19:50-0400 Body mass index (BMI) [Ratio] 34.32 kg/m2 Enrrique Wesley FIELD MAP TECHNICIAN.LIBRARY MANAGER Work Phone: [facility] 09-24-2024 19:50-0400 Body temperature 98.01 [degF] Enrrique Wesley APRN.LIBRARY MANAGER Work Phone: [facility] 09-24-2024 19:50-0400 Body weight 90.7 kg Enrrique Wesley FIELD MAP TECHNICIAN.LIBRARY MANAGER Work Phone: [facility] 09-24-2024 19:50-0400 Diastolic blood pressure 82 mm[Hg] Enrrique Wesley FIELD MAP TECHNICIAN.LIBRARY MANAGER Work Phone: [facility] 09-24-2024 19:50-0400 Heart rate 79 /min Enrrique Wesley FIELD MAP TECHNICIAN.LIBRARY MANAGER Work Phone: [facility] 09-24-2024 19:50-0400 Respiratory rate 16 /min Enrrique Wesley APRN.LIBRARY MANAGER Work Phone: [facility] 09-24-2024 19:50-0400 SaO2% (BldA) [Mass fraction] 95 % Enrrique Wesley APRN.LIBRARY MANAGER Work Phone: [facility] 09-24-2024 19:50-0400 Systolic blood pressure 108 mm[Hg] Enrrique Wesley APRN.LIBRARY MANAGER Work Phone: [facility] 09-14-2024 12:19-0400 Body mass index (BMI) [Ratio] 33.72 kg/m2 Anthony Clutter PA-C Work Phone: [facility] 09-14-2024 12:19-0400 Body temperature 98.29 [degF] Anthony Clutter PA-C Work Phone: [facility] 09-14-2024 12:19-0400 Body weight 89.1 kg Anthony Clutter PA-C Work Phone: [facility] 09-14-2024 12:19-0400 Diastolic blood pressure 80 mm[Hg] Anthony Clutter PA-C Work Phone: [facility] 09-14-2024 12:19-0400 Heart rate 92 /min Anthony Clutter PA-C Work Phone: [facility] 09-14-2024 12:19-0400 Respiratory rate 18 /min Anthony Clutter PA-C Work Phone: [facility] 09-14-2024 12:19-0400 SaO2% (BldA) [Mass fraction] 97 % Anthony Clutter PA-C Work Phone: [facility] 09-14-2024 12:19-0400 Systolic blood pressure 119 mm[Hg] Anthony Clutter PA-C Work Phone: [facility] 07-18-2024 12:13-0500 Body mass index (BMI) [Ratio] 33.41 kg/m2 Gilberto Durand APRN.LIBRARY MANAGER Work Phone: [facility] 07-18-2024 12:13-0500 Body temperature 97.5 [degF] Gilberto Durand FIELD MAP TECHNICIAN.LIBRARY MANAGER Work Phone: [facility] 07-18-2024 12:13-0500 Body weight 88.3 kg Gilberto Durand FIELD MAP TECHNICIAN.LIBRARY MANAGER Work Phone: [facility] 07-18-2024 12:13-0500 Diastolic blood pressure 70 mm[Hg] Gilberto Durand FIELD MAP TECHNICIAN.LIBRARY MANAGER Work Phone: [facility] 07-18-2024 12:13-0500 Heart rate 74 /min Gilberto Durand FIELD MAP TECHNICIAN.LIBRARY MANAGER Work Phone: [facility] 07-18-2024 12:13-0500 Respiratory rate 16 /min Gilberto Durand FIELD MAP TECHNICIAN.LIBRARY MANAGER Work Phone: [facility] 07-18-2024 12:13-0500 SaO2% (BldA) [Mass fraction] 95 % Gilberto Durand FIELD MAP TECHNICIAN.LIBRARY MANAGER Work Phone: [facility] 07-18-2024 12:13-0500 Systolic blood pressure 102 mm[Hg] Gilberto Durand FIELD MAP TECHNICIAN.LIBRARY MANAGER Work Phone: [facility] 07-10-2024 10:39-0500 Diastolic blood pressure 70 mm[Hg] Lina Hernandez MD Work Phone: [facility] 07-10-2024 10:39-0500 Systolic blood pressure 110 mm[Hg] Lina Hernandez MD Work Phone: [facility] 07-10-2024 10:05-0500 Body mass index (BMI) [Ratio] 33.49 kg/m2 Lina Hernandez MD Work Phone: [facility] 07-10-2024 10:05-0500 Body weight 88.5 kg Lina Hernandez MD Work Phone: [facility] 07-10-2024 10:05-0500 Heart rate 90 /min Lina Hernandez MD Work Phone: [facility] 07-10-2024 10:05-0500 SaO2% (BldA) [Mass fraction] 98 % Lina Hernandez MD Work Phone: [facility] 04-10-2024 10:02-0400 Body mass index (BMI) [Ratio] 33.11 kg/m2 Mary Castellanos FIELD MAP TECHNICIAN.BUILDING ARCHITECTURAL DESIGNER Work Phone: [facility] 04-10-2024 10:02-0400 Body weight 87.5 kg Mary Castellanos FIELD MAP TECHNICIAN.BUILDING ARCHITECTURAL DESIGNER Work Phone: [facility] 04-10-2024 10:02-0400 Diastolic blood pressure 74 mm[Hg] Mary Castellanos FIELD MAP TECHNICIAN.BUILDING ARCHITECTURAL DESIGNER Work Phone: [facility] 04-10-2024 10:02-0400 Heart rate 81 /min Mary Castellanos FIELD MAP TECHNICIAN.BUILDING ARCHITECTURAL DESIGNER Work Phone: [facility] 04-10-2024 10:02-0400 Respiratory rate 16 /min Mary Castellanos FIELD MAP TECHNICIAN.BUILDING ARCHITECTURAL DESIGNER Work Phone: [facility] 04-10-2024 10:02-0400 Systolic blood pressure 108 mm[Hg] Mary Castellanos FIELD MAP TECHNICIAN.BUILDING ARCHITECTURAL DESIGNER Work Phone: [facility] 03-21-2024 12:16-0400 Body mass index (BMI) [Ratio] 33.72 kg/m2 Nahid Pastor APRN.LIBRARY MANAGER Work Phone: [facility] 03-21-2024 12:16-0400 Body temperature 98.4 [degF] Nahid Pastor APRN.LIBRARY MANAGER Work Phone: [facility] 03-21-2024 12:16-0400 Body weight 89.1 kg Nahid Pastor APRN.LIBRARY MANAGER Work Phone: [facility] 03-21-2024 12:16-0400 Diastolic blood pressure 80 mm[Hg] Nahid Pastor APRN.LIBRARY MANAGER Work Phone: [facility] 03-21-2024 12:16-0400 Heart rate 108 /min Nahid Pastor APRN.LIBRARY MANAGER Work Phone: [facility] 03-21-2024 12:16-0400 Respiratory rate 20 /min Nahid Pastor FIELD MAP TECHNICIAN.LIBRARY MANAGER Work Phone: [facility] 03-21-2024 12:16-0400 SaO2% (BldA) [Mass fraction] 96 % Nahid Pastor FIELD MAP TECHNICIAN.LIBRARY MANAGER Work Phone: [facility] 03-21-2024 12:16-0400 Systolic blood pressure 118 mm[Hg] Nahid Pastor FIELD MAP TECHNICIAN.LIBRARY MANAGER Work Phone: [facility] 02-22-2024 09:43-0400 Body mass index (BMI) [Ratio] 33.72 kg/m2 Allison Guilherme FIELD MAP TECHNICIAN.LIBRARY MANAGER Work Phone: [facility] 02-22-2024 09:43-0400 Body temperature 98.01 [degF] Allison Guilherme FIELD MAP TECHNICIAN.LIBRARY MANAGER Work Phone: [facility] 02-22-2024 09:43-0400 Body weight 89.1 kg Allison Guilherme FIELD MAP TECHNICIAN.LIBRARY MANAGER Work Phone: [facility] 02-22-2024 09:43-0400 Diastolic blood pressure 60 mm[Hg] Allison Guilherme FIELD MAP TECHNICIAN.LIBRARY MANAGER Work Phone: [facility] 02-22-2024 09:43-0400 Heart rate 92 /min Allison Guilherme FIELD MAP TECHNICIAN.LIBRARY MANAGER Work Phone: [facility] 02-22-2024 09:43-0400 SaO2% (BldA) [Mass fraction] 97 % Allison Guilherme FIELD MAP TECHNICIAN.LIBRARY MANAGER Work Phone: [facility] 02-22-2024 09:43-0400 Systolic blood pressure 90 mm[Hg] Allison Guilherme FIELD MAP TECHNICIAN.LIBRARY MANAGER Work Phone: [facility] 12-28-2023 11:33-0400 Body mass index (BMI) [Ratio] 33.64 kg/m2 Lina Hernandez MD Work Phone: [facility] 12-28-2023 11:33-0400 Body temperature 96.69 [degF] Lina Hernandez MD Work Phone: [facility] 12-28-2023 11:33-0400 Body weight 88.91 kg Lina Hernandez MD Work Phone: [facility] 12-28-2023 11:33-0400 Diastolic blood pressure 82 mm[Hg] Lina Hernandez MD Work Phone: [facility] 12-28-2023 11:33-0400 Heart rate 71 /min Lina Hernandez MD Work Phone: [facility] 12-28-2023 11:33-0400 Respiratory rate 18 /min Lina Hernandez MD Work Phone: [facility] 12-28-2023 11:33-0400 SaO2% (BldA) [Mass fraction] 99 % Lina Hernandez MD Work Phone: [facility] 12-28-2023 11:33-0400 Systolic blood pressure 122 mm[Hg] Lina Hernandez MD Work Phone: [facility] 09-27-2023 10:57-0400 Body weight 87.09 kg Mary Castellanos FIELD MAP TECHNICIAN.BUILDING ARCHITECTURAL DESIGNER Work Phone: [facility] 09-27-2023 10:57-0400 Diastolic blood pressure 70 mm[Hg] Mary Castellanos FIELD MAP TECHNICIAN.BUILDING ARCHITECTURAL DESIGNER Work Phone: [facility] 09-27-2023 10:57-0400 Heart rate 84 /min Mary Castellanos FIELD MAP TECHNICIAN.BUILDING ARCHITECTURAL DESIGNER Work Phone: [facility] 09-27-2023 10:57-0400 Respiratory rate 16 /min Mary Castellanos FIELD MAP TECHNICIAN.BUILDING ARCHITECTURAL DESIGNER Work Phone: [facility] 09-27-2023 10:57-0400 Systolic blood pressure 104 mm[Hg] Mary Castellanos FIELD MAP TECHNICIAN.BUILDING ARCHITECTURAL DESIGNER Work Phone: [facility] 03-22-2023 11:05-0400 Diastolic blood pressure 71 mm[Hg] Mary Castellanos FIELD MAP TECHNICIAN.BUILDING ARCHITECTURAL DESIGNER Work Phone: [facility] 03-22-2023 11:05-0400 Systolic blood pressure 109 mm[Hg] Mary Castellanos FIELD MAP TECHNICIAN.BUILDING ARCHITECTURAL DESIGNER Work Phone: [facility] 03-22-2023 11:04-0400 Body weight 78.02 kg Mary Castellanos FIELD MAP TECHNICIAN.BUILDING ARCHITECTURAL DESIGNER Work Phone: [facility] 03-22-2023 11:04-0400 Heart rate 80 /min Mary Castellanos FIELD MAP TECHNICIAN.BUILDING ARCHITECTURAL DESIGNER Work Phone: [facility] 03-22-2023 11:04-0400 Respiratory rate 16 /min Mary Castellanos FIELD MAP TECHNICIAN.BUILDING ARCHITECTURAL DESIGNER Work Phone: [facility] 12-21-2022 10:54-0400 Body weight 76.2 kg Mary Castellanos FIELD MAP TECHNICIAN.BUILDING ARCHITECTURAL DESIGNER Work Phone: [facility] 12-21-2022 10:54-0400 Diastolic blood pressure 80 mm[Hg] Mary Castellanos FIELD MAP TECHNICIAN.BUILDING ARCHITECTURAL DESIGNER Work Phone: [facility] 12-21-2022 10:54-0400 Heart rate 78 /min Mary Castellanos FIELD MAP TECHNICIAN.BUILDING ARCHITECTURAL DESIGNER Work Phone: [facility] 12-21-2022 10:54-0400 Respiratory rate 16 /min Mary Castellanos FIELD MAP TECHNICIAN.BUILDING ARCHITECTURAL DESIGNER Work Phone: [facility] 12-21-2022 10:54-0400 SaO2% (BldA) [Mass fraction] 98 % Mary Castellanos FIELD MAP TECHNICIAN.BUILDING ARCHITECTURAL DESIGNER Work Phone: [facility] 12-21-2022 10:54-0400 Systolic blood pressure 102 mm[Hg] Mary Csatellanos FIELD MAP TECHNICIAN.BUILDING ARCHITECTURAL DESIGNER Work Phone: [facility] 09-28-2022 10:06-0400 Body weight 76.2 kg Lina Hernandez MD Work Phone: [facility] 09-28-2022 10:06-0400 Diastolic blood pressure 70 mm[Hg] Lina Hernandez MD Work Phone: [facility] 09-28-2022 10:06-0400 Heart rate 77 /min Lina Hernandez MD Work Phone: [facility] 09-28-2022 10:06-0400 Respiratory rate 16 /min Lina Hernandez MD Work Phone: [facility] 09-28-2022 10:06-0400 SaO2% (BldA) [Mass fraction] 97 % Lina Hernandez MD Work Phone: [facility] 09-28-2022 10:06-0400 Systolic blood pressure 106 mm[Hg] Lina Hernandez MD Work Phone: [facility] 07-06-2022 14:30-0500 Body weight 77.11 kg Lina Hernandez MD Work Phone: [facility] 07-06-2022 14:30-0500 Diastolic blood pressure 76 mm[Hg] Lina Hernandez MD Work Phone: [facility] 07-06-2022 14:30-0500 Heart rate 88 /min Lina Hernandez MD Work Phone: [facility] 07-06-2022 14:30-0500 Respiratory rate 12 /min Lina Hernandez MD Work Phone: [facility] 07-06-2022 14:30-0500 Systolic blood pressure 102 mm[Hg] Lina Hernandez MD Work Phone: [facility] 03-16-2022 14:18-0400 Body height 162.6 cm Mele Recinos MD Work Phone: [facility] 03-16-2022 14:18-0400 Body weight 78.93 kg Mele Recinos MD Work Phone: [facility] 03-16-2022 14:18-0400 Diastolic blood pressure 69 mm[Hg] Mele Recinos MD Work Phone: [facility] 03-16-2022 14:18-0400 Heart rate 78 /min Mele Recinos MD Work Phone: [facility] 03-16-2022 14:18-0400 Systolic blood pressure 100 mm[Hg] Mele Recinos MD Work Phone: [facility] 03-03-2022 16:32-0400 Body weight 80.29 kg Suzie Older FIELD MAP TECHNICIAN.LIBRARY MANAGER Work Phone: [facility] 03-03-2022 16:32-0400 Diastolic blood pressure 72 mm[Hg] Suzie Older FIELD MAP TECHNICIAN.LIBRARY MANAGER Work Phone: [facility] 03-03-2022 16:32-0400 Heart rate 80 /min Suzie Older FIELD MAP TECHNICIAN.LIBRARY MANAGER Work Phone: [facility] 03-03-2022 16:32-0400 Respiratory rate 16 /min Suzie Older FIELD MAP TECHNICIAN.LIBRARY MANAGER Work Phone: [facility] 03-03-2022 16:32-0400 Systolic blood pressure 122 mm[Hg] Suzie Older FIELD MAP TECHNICIAN.LIBRARY MANAGER Work Phone: [facility] 01-05-2022 09:48-0400 Body weight 77.47 kg Mary Castellanos FIELD MAP TECHNICIAN.BUILDING ARCHITECTURAL DESIGNER Work Phone: [facility] 01-05-2022 09:48-0400 Diastolic blood pressure 80 mm[Hg] Mary Castellanos FIELD MAP TECHNICIAN.BUILDING ARCHITECTURAL DESIGNER Work Phone: [facility] 01-05-2022 09:48-0400 Heart rate 68 /min Mary Castellanos FIELD MAP TECHNICIAN.BUILDING ARCHITECTURAL DESIGNER Work Phone: [facility] 01-05-2022 09:48-0400 Respiratory rate 16 /min Mary Castellanos FIELD MAP TECHNICIAN.BUILDING ARCHITECTURAL DESIGNER Work Phone: [facility] 01-05-2022 09:48-0400 Systolic blood pressure 122 mm[Hg] Mary Castellanos FIELD MAP TECHNICIAN.BUILDING ARCHITECTURAL DESIGNER Work Phone: [facility] 09-28-2021 08:28-0400 Body weight 79.38 kg Mary Castellanos FIELD MAP TECHNICIAN.BUILDING ARCHITECTURAL DESIGNER Work Phone: [facility] 09-28-2021 08:28-0400 Diastolic blood pressure 78 mm[Hg] Mary Castellanos FIELD MAP TECHNICIAN.BUILDING ARCHITECTURAL DESIGNER Work Phone: [facility] 09-28-2021 08:28-0400 Heart rate 56 /min Mary Castellanos FIELD MAP TECHNICIAN.BUILDING ARCHITECTURAL DESIGNER Work Phone: [facility] 09-28-2021 08:28-0400 SaO2% (BldA) [Mass fraction] 99 % Mary Castellanos FIELD MAP TECHNICIAN.BUILDING ARCHITECTURAL DESIGNER Work Phone: [facility] 09-28-2021 08:28-0400 Systolic blood pressure 118 mm[Hg] Mary Castellanos FIELD MAP TECHNICIAN.BUILDING ARCHITECTURAL DESIGNER Work Phone: [facility] Encounters Encounter Date Encounter Type Care Provider Facility Start: 01-26-2025 End: 01-28-2025 Refill Lina Hernandez MD Work Phone: [facility] Comment on above: Refill Request Start: 01-14-2025 End: 01-14-2025 Admission to same day surgery center Lina Hernandez MD Work Phone: Ambulatory Surgery Comment on above: Outpatient [place] py (Patient is overdue for colorectal cancer screening. She has a + family history of colon cancer, and has never had a colonoscopy.. Patient will need consult with Bradford Max CNP prior to colorectal cancer screening./) Start: 01-14-2025 End: 01-14-2025 ambulatory Lina Hernandez MD Work Phone: Ambulatory Surgery Start: 01-09-2025 End: 01-09-2025 ambulatory LINA HERNANDEZ Facility:[facility] Start: 01-08-2025 End: 01-09-2025 Refill Lina Hernandez MD Work Phone: [facility] [place] Comment on above: Refill Request Start: 01-07-2025 End: 01-08-2025 Refill Lina Hernandez MD Work Phone: [facility] Comment on above: Refill Request Start: 01-04-2025 End: 01-08-2025 Refill Lina Hernnadez MD Work Phone: [facility] Comment on above: Refill Request Start: 12-05-2024 End: 12-07-2024 Refill Lina Hernandez MD Work Phone: [facility] [place] Comment on above: Refill Request Start: 11-03-2024 End: 11-07-2024 Refill Mary Castellanos APRN.CNS Work Phone: [facility] Comment on above: Refill Request Start: 10-22-2024 End: 10-22-2024 ambulatory LINA HERNANDEZ Facility:[facility] Start: 10-17-2024 End: 10-17-2024 ambulatory Nurse Card Wstr Work Phone: Cardiology Comment on above: Stress Test Instruct ions for 10/22/24 Start: 10-17-2024 End: 10-17-2024 E-mail encounter from caregiver Nurse Card Wstr Work Phone: Cardiology Start: 10-12-2024 End: 12-12-2024 Follow-up encounter Allison Esqueda APRN.CNP Work Phone: [facility] Start: 10-09-2024 ambulatory LINA HERNANDEZ Facilit y:[facility] Start: 10-09-2024 End: 10-09-2024 Subsequent hospital visit by physician Screen Mammo [facility] Comment on above: Encounter for screen ing mammogram for breast cancer [Z12.31] Start: 10-09-2024 End: 10-09-2024 Patient encounter procedure Allison Esqueda APRN.CNP Work Phone: [facility] Comment on above: MULTIPLE SCLEROSIS ( Primary Dx); Encounter for screening mammogram for breast cancer; Detrusor sphincter dyssynergia; medical terminologist (current) use of opiate analgesic; Moderate mixed hyperlipidemia not requiring statin therapy; Acute cystitis without hematuria; Chronic nasal congestion Start: 10-09-2024 End: 10-09-2024 ambulatory LINA HERNANDEZ Facility:[facility] Start: 09-25-2024 End: 09-26-2024 Follow-up encounter Florian RAMACHANDRAN Work Phone: [facility] Start: 09-24-2024 End: 09-24-2024 ambulatory LINA HERNANDEZ Facility:[facility] Start: 09-24-2024 End: 09-24-2024 Patient encounter procedure Enrrique Medhat JORDANLIBRARY MANAGER Work Phone: [facility] Comment on above: Recurrent UTI (urina ry tract infection) (Primary Dx) Start: 09-24-2024 End: 09-25-2024 Telephone encounter Lina Hernandez MD Work Phone: [facility] [place] Comment on above: Patient Update Start: 09-16-2024 End: 09-16-2024 Follow-up encounter Collin Pettit APRN.LIBRARY MANAGER Work Phone: [facility] Start: 09-14-2024 End: 09-14-2024 ambulatory LINA HERNANDEZ Facility:[facility] Start: 09-14-2024 End: 09-14-2024 Office outpatient new 30 minutes Anthony Carter PA-C Work Phone: [facility] Comment on above: Urinary frequency (P rimary Dx); Acute UTI Start: 09-12-2024 End: 09-25-2024 ambulatory Lina Hernandez MD Work Phone: [facility] [place] Comment on above: UTI Start: 09-12-2024 End: 09-12-2024 Telephone encounter Nurse Card Wstr Work Phone: Cardiology Comment on above: Stress Test Instruct ions for 09/17/24 Start: 09-11-2024 End: 10-12-2024 Admission to same day surgery center Lina Hernandez MD Work Phone: Ambulatory Surgery Comment on above: Outpatient [place] py (.colonconPatient is overdue for colorectal cancer screening (has never done). Patient will need consult with Bradford Max CNP prior to colorectal cancer screening. ) Start: 09-11-2024 End: 10-12-2024 ambulatory Lina Hernandez MD Work Phone: Ambulatory Surgery Start: 08-25-2024 End: 08-25-2024 Emergency department patient visit DR LINA HERNANDEZ MD Facility:[facility] Start: 08-25-2024 End: 08-25-2024 ambulatory LINA HERNANDEZ Facility:[facility] Start: 08-25-2024 End: 08-25-2024 Patient encounter procedure Nahid Pastor APRN.LIBRARY MANAGER Work Phone: [facility] Comment on above: Pain (Primary Dx) Start: 07-31-2024 End: 08-31-2024 ambulatory Lina Hernandez MD Work Phone: [facility] [place] Start: 07-18-2024 End: 07-18-2024 Subsequent hospital visit by physician Xr [facility] Work Phone: Radiology Comment on above: Wheeze [R06.2] Start: 07-18-2024 End: 07-18-2024 ambulatory LINA HERNANDEZ Facility:[facility] Start: 07-18-2024 End: 07-18-2024 Patient encounter procedure Gilberto Durand APRN.LIBRARY MANAGER Work Phone: [facility] Comment on above: Community acquired p neumonia, unspecified laterality (Primary Dx); Wheeze Start: 07-17-2024 End: 07-17-2024 Telephone encounter Lina Hernandez MD Work Phone: [facility] [place] Comment on above: Forms (Wellness form ) Start: 07-10-2024 End: 07-10-2024 ambulatory LINA HERNANDEZ Facility:[facility] Start: 07-10-2024 End: 07-10-2024 Patient encounter status Lina Hernandez MD Work Phone: [facility] Work Phone: Start: 07-10-2024 End: 07-10-2024 Periodic preventive med est patient 40-64yrs Lina Hernandez MD Work Phone: [facility] [place] Comment on above: Routine medical exam (Primary Dx); Precordial pain; MULTIPLE SCLEROSIS; Detrusor sphincter dyssynergia; Detrusor sphincter dyssynergia; Multiple sclerosis (HCC); CORTES (dyspnea on exertion); Nicotine dependence, cigarettes, uncomplicated Start: 07-10-2024 End: 07-10-2024 ambulatory LINA HERNANDEZ Facility:[facility] Start: 07-10-2024 Encounter for genera l adult medical examination without abnormal findings LINA HERNANDEZ [facility] Start: 07-05-2024 End: 07-06-2024 Refill Allison Esqueda APRN.LIBRARY MANAGER Work Phone: [facility] [place] Comment on above: Refill Request Start: 05-17-2024 End: 05-17-2024 Telephone encounter Mary Castellanos APRN.BUILDING ARCHITECTURAL DESIGNER Work Phone: [facility] [place] Comment on above: Medication Problem Start: 05-16-2024 End: 05-17-2024 ambulatory Lina Hernandez MD Work Phone: [facility] [place] Comment on above: Drugmart Start: 04-10-2024 End: 04-10-2024 Office outpatient visit 25 minutes Mary Castellanos APRN.BUILDING ARCHITECTURAL DESIGNER Work Phone: [facility] [place] Comment on above: Neurogenic bladder ( Primary Dx); Encounter for immunization; Encounter for screening examination for other mental health and behavioral disorders; Detrusor sphincter dyssynergia; Multiple sclerosis (HCC); MULTIPLE SCLEROSIS; Detrusor sphincter dyssynergia Start: 04-10-2024 End: 04-10-2024 ambulatory SELF Facility:[facility] Start: 04-04-2024 End: 04-04-2024 Refill Lina Hernandez MD Work Phone: [facility] [place] Comment on above: Refill Request Start: 03-21-2024 End: 03-21-2024 Subsequent hospital visit by physician Lauren [facility] Work Phone: Radiology Comment on above: Acute cough [R05.1] Start: 03-21-2024 End: 03-21-2024 ambulatory LIAN HERNANDEZ Facility:[facility] Start: 03-21-2024 End: 03-21-2024 Patient encounter procedure Nahid Pastor APRN.LIBRARY MANAGER Work Phone: [facility] Comment on above: Acute cough (Primary Dx); Respiratory infection Start: 02-22-2024 End: 02-22-2024 ambulatory Ana M Gorman RN NURSE FOUNDRY ENGINEER Comment on above: Flank Pain Start: 02-22-2024 End: 02-22-2024 Patient encounter procedure Allison Esqueda APRN.LIBRARY MANAGER Work Phone: [facility] [place] Comment on above: Acute cystitis with hematuria (Primary Dx); History of pyelonephritis Start: 02-10-2024 End: 02-10-2024 Refill Lina Hernandez MD Work Phone: [facility] [place] Comment on above: Refill Request Start: 01-18-2024 Refill Lina grant MD Work Phone: [facility] [place] Comment on above: Refill Request Start: 01-11-2024 Refill Lina grant MD Work Phone: [facility] [place] Comment on above: Refill Request Start: 12-28-2023 End: 12-28-2023 Office outpatient visit 25 minutes Lina Hernandez MD Work Phone: [facility] [place] Comment on above: Detrusor sphincter d yssynergia (Primary Dx); Class 1 obesity without serious comorbidity with body mass index (BMI) of 33.0 to 33.9 in adult, unspecified obesity type; Reactive depression; Recurrent UTI (urinary tract infection); Insomnia secondary to depression with anxiety; MULTIPLE SCLEROSIS; Screening for colon cancer Start: 12-19-2023 Refill Mary Dus A PRN.BUILDING ARCHITECTURAL DESIGNER Work Phone: [facility] [place] Comment on above: Refill Request Start: 12-16-2023 Refill Mary Dus A PRN.BUILDING ARCHITECTURAL DESIGNER Work Phone: [facility] [place] Comment on above: Refill Request Start: 10-17-2023 Refill Allison Santacruz PRN.LIBRARY MANAGER Work Phone: [facility] [place] Comment on above: Refill Request Start: 09-27-2023 Telephone encounter Lina benson MD Work Phone: [facility] [place] Comment on above: Insurance Authorizat ion Start: 09-27-2023 End: 09-27-2023 Office outpatient visit 25 minutes Mary Castellanos FIELD MAP TECHNICIAN.BUILDING ARCHITECTURAL DESIGNER Work Phone: [facility] [place] Comment on above: MULTIPLE SCLEROSIS ( Primary Dx); Screening for colon cancer; Excessive daytime sleepiness; Detrusor sphincter dyssynergia; Multiple sclerosis (HCC); Insomnia secondary to depression with anxiety Start: 09-19-2023 Admission to [facility] Lina Hernandez MD Work Phone: Ambulatory Surgery Comment on above: colorectal cancer sc reening Start: 09-19-2023 ambulatory Lina grant MD Work Phone: Ambulatory Surgery Start: 08-24-2023 ambulatory Lina grant MD Work Phone: [facility] [place] Start: 07-20-2023 Orders Only Lina grant MD Work Phone: [facility] [place] Start: 2023 Telephone encounter Geeta butler FIELD MAP TECHNICIAN.LIBRARY MANAGER Work Phone: [facility] Comment on above: Results Start: 03-22-2023 End: 03-22-2023 Office outpatient visit 25 minutes Mary Castellanos FIELD MAP TECHNICIAN.BUILDING ARCHITECTURAL DESIGNER Work Phone: [facility] [place] Comment on above: Encounter for immuni zation (Primary Dx); Screening for colon cancer; Screening for lipid disorders; MULTIPLE SCLEROSIS; Detrusor sphincter dyssynergia; Reactive depression; Medication monitoring encounter; Multiple sclerosis (HCC); Insomnia secondary to depression with anxiety Start: 02-21-2023 Telephone encounter Lina benson MD Work Phone: Orthopaedics Comment on above: Orders Start: 01-20-2023 Refill Lina grant MD Work Phone: [facility] [place] Comment on above: Refill Request Start: 01-15-2023 Refill Allison Santacruz PRBarbaraLIBRARY MANAGER Work Phone: [facility] [place] Comment on above: Refill Request Start: 12-21-2022 End: 12-21-2022 Office outpatient visit 25 minutes Mary Castellanos FIELD MAP TECHNICIAN.BUILDING ARCHITECTURAL DESIGNER Work Phone: [facility] [place] Comment on above: Chest wall discomfor t (Primary Dx); Reactive depression; MULTIPLE SCLEROSIS; Detrusor sphincter dyssynergia Start: 10-20-2022 Refill Lina grant MD Work Phone: [facility] [place] Comment on above: Refill Request Start: 10-09-2022 ambulatory Lina grant MD Work Phone: [facility] [place] Comment on above: Abilfy Start: 09-28-2022 End: 09-28-2022 Office outpatient visit 40 minutes Lina Hernandez MD Work Phone: [facility] [place] Comment on above: MULTIPLE SCLEROSIS ( Primary Dx); Detrusor sphincter dyssynergia; Reactive depression; Panic attack Start: 09-23-2022 Refill Lina grant MD Work Phone: [facility] [place] Comment on above: Refill Request Start: 08-27-2022 End: 08-27-2022 Patient encounter procedure Sherita Rapp APRN.LIBRARY MANAGER Work Phone: Psychiatry Comment on above: APPOINTMENT CANCELLE D (Primary Dx) Start: 08-27-2022 End: 08-27-2022 Telemedicine consultation with patient Sherita Terri Rapp APRN.LIBRARY MANAGER Work Phone: [facility] [place] Start: 07-22-2022 Refill Mary Castellanos A PRN.BUILDING ARCHITECTURAL DESIGNER Work Phone: [facility] [place] Comment on above: Refill Request Start: 07-06-2022 Chart abstracting Marii CooperW Work Phone: Adult Psychology Comment on above: Behavioral Health So cial Work Start: 07-06-2022 End: 07-06-2022 Office outpatient visit 40 minutes Lina Hernandez MD Work Phone: [facility] [place] Comment on above: Reactive depression (Primary Dx); Insomnia secondary to depression with anxiety; MULTIPLE SCLEROSIS; Detrusor sphincter dyssynergia Start: 06-23-2022 Refill Mary Castellanos A PRN.BUILDING ARCHITECTURAL DESIGNER Work Phone: [facility] [place] Comment on above: Refill Request Start: 06-21-2022 ambulatory Lina grant MD Work Phone: [facility] [place] Comment on above: Counselor Start: 05-27-2022 Refill Mary AYOUBN.BUILDING ARCHITECTURAL DESIGNER Work Phone: [facility] [place] Comment on above: Refill Request Start: 04-23-2022 End: 04-23-2022 ambulatory Spencer Grant PT [facility] Comment on above: Numbness in left leg (Primary Dx); Multiple sclerosis (HCC); Acute pain of left knee Start: 04-15-2022 Telephone encounter Doron cole OTR/L Work Phone: [facility] Out[facility] Occupational [facility] Comment on above: Appointment Cancelle d Start: 04-15-2022 End: 04-15-2022 Subsequent hospital visit by physician Mri Radio [facility] (I-Stat/1.5t) Work Phone: Radiology Comment on above: Demyelinating diseas e of central nervous system (HCC) [G37.9] Start: 04-13-2022 End: 04-13-2022 ambulatory Spencer Grant PT [facility] Comment on above: Numbness in left leg (Primary Dx); Multiple sclerosis (HCC); Acute pain of left knee Start: 04-06-2022 ambulatory Mele moon MD Work Phone: [facility] Comment on above: Left leg Start: 04-05-2022 End: 04-05-2022 ambulatory Karie Guy PT Work Phone: [facility] Comment on above: Numbness in left leg (Primary Dx); Acute left-sided low back pain with left-sided sciatica; Multiple sclerosis (HCC); Acute pain of left knee Start: 04-05-2022 Chart abstracting Mele yoder MD Work Phone: [facility] Comment on above: Forms (Kait Arguelles ns Statement) Start: 03-27-2022 Refill Suzie ArndtLIBRARY MANAGER Work Phone: [facility] [place] Comment on above: Refill Request Start: 03-22-2022 ambulatory Mele moon MD Work Phone: [facility] Comment on above: Time off Start: 03-16-2022 End: 03-16-2022 Patient encounter procedure Mele Recinos MD Work Phone: [facility] Comment on above: Multiple sclerosis ( HCC) (Primary Dx); Demyelinating disease of central nervous system (HCC); Other symptoms and signs involving the nervous system; Acute pain of left knee; Numbness in left leg Start: 03-05-2022 Telephone encounter Suzie Ray APRN.LIBRARY MANAGER Work Phone: [facility] [place] Comment on above: Results Start: 03-03-2022 End: 03-03-2022 Subsequent hospital visit by physician Lauren [facility] Work Phone: Radiology Comment on above: Acute left-sided low back pain with left-sided sciatica [M54.42] Start: 03-03-2022 End: 03-03-2022 Patient encounter procedure Suzie Ray APRN.LIBRARY MANAGER Work Phone: [facility] [place] Comment on above: Acute left-sided low back pain with left-sided sciatica (Primary Dx); Left leg weakness; Numbness; Multiple sclerosis (HCC) Start: 02-24-2022 Refill Lina grant MD Work Phone: [facility] [place] Comment on above: Refill Request Start: 01-28-2022 Refill Lina grant MD Work Phone: [facility] [place] Comment on above: Refill Request Start: 01-22-2022 Refill Lina grant MD Work Phone: [facility] [place] Comment on above: Refill Request Start: 01-05-2022 End: 01-05-2022 Patient encounter procedure Mary Castellanos APRN.BUILDING ARCHITECTURAL DESIGNER Work Phone: [facility] [place] Comment on above: Reactive depression (Primary Dx); Grief reaction; Excessive daytime sleepiness; Special screening examination for viral disease; MULTIPLE SCLEROSIS; Encounter for immunization; Screening for HIV (human immunodeficiency virus); Insomnia secondary to depression with anxiety; Chest pain, unspecified type; SOBOE (shortness of breath on exertion) Start: 12-29-2021 Refill Lina grant MD Work Phone: [facility] [place] Comment on above: Refill Request Start: 11-26-2021 Refill Mary SALAZAR.BUILDING ARCHITECTURAL DESIGNER Work Phone: [facility] [place] Comment on above: Refill Request Start: 10-28-2021 Patient Msg [facility] Provider [facility] [place] Comment on above: Refill request Start: 10-26-2021 E-mail encounter fro m caregiver Lina Hernandez MD Work Phone: [facility] [place] Start: 10-26-2021 Patient encounter procedure Lina Hernandez MD Work Phone: [facility] [place] Comment on above: Appointments Refill Request Start: 10-07-2021 ambulatory Lina rgant MD Work Phone: [facility] [place] Start: 10-02-2021 Telephone encounter Lina benson MD Work Phone: [facility] [place] Comment on above: Insurance Authorizat ion Start: 09-28-2021 End: 09-28-2021 Patient encounter procedure Mary Castellanos APRN.BUILDING ARCHITECTURAL DESIGNER Work Phone: [facility] [place] Comment on above: Grief reaction (Prim lisa Dx); Excessive daytime sleepiness; Insomnia secondary to depression with anxiety; Vitamin D deficiency; Elevated glucose; Encounter for long-term (current) use of medications; Panic attack; Multiple sclerosis (HCC); Encounter for screening mammogram for malignant neoplasm of breast; Depression, unspecified depression type; Anxiety; Screening for lipid disorders; MULTIPLE SCLEROSIS; Detrusor sphincter dyssynergia Start: 07-31-2021 End: 07-31-2021 ambulatory Lina Hernandez MD Work Phone: [facility] [place] Comment on above: Grief reaction (Prim lisa Dx); Detrusor sphincter dyssynergia; Multiple sclerosis (HCC); Excessive daytime sleepiness; Insomnia secondary to depression with anxiety; Panic attack; Encounter for long-term current use of medication; Vitamin D deficiency; Elevated glucose Start: 07-31-2021 End: 07-31-2021 Telemedicine consultation with patient Lina Hernandez MD Work Phone: [facility] [place] Procedures Date Procedure Procedure Detail Performing Clinician Start: 09-24-2024 Urnls dip stick/tabl et rgnt auto w/o microscopy Enrrique Wesley FIELD MAP TECHNICIAN.LIBRARY MANAGER Work Phone: Start: 09-14-2024 Urnls dip stick/tabl et rgnt auto w/o microscopy Cara Jamison FIELD MAP TECHNICIAN.LIBRARY MANAGER Work Phone: Start: 07-18-2024 Radiologic exam ches t 2 views Gilberto Durand FIELD MAP TECHNICIAN.LIBRARY MANAGER Work Phone: Start: 07-10-2024 Ecg routine ecg w/le ast 12 lds i&r only Lina Hernandez MD Work Phone: Start: 07-10-2024 Lipid 1996 panel - S lucinda or Plasma Lina Hernandez MD Work Phone: Start: 03-21-2024 Radiologic exam ches t 2 views Nahid Pastor FIELD MAP TECHNICIAN.LIBRARY MANAGER Work Phone: Start: 02-22-2024 Urnls dip stick/tabl et rgnt auto w/o microscopy Allison Esqueda FIELD MAP TECHNICIAN.LIBRARY MANAGER Work Phone: Start: 06-28-2023 Lipid 1996 panel - S lucinda or Plasma Lina Hernandez MD Work Phone: Start: 04-15-2022 Mri brain brain stem w/o w/contrast material Dulce Lorenzo DO Work Phone: Start: 03-03-2022 Radex spine lumbosac ral 2/3 views Suzie Ray FIELD MAP TECHNICIAN.LIBRARY MANAGER Work Phone: Start: 05-23-2017 Lipid 1996 panel - S lucinda or Plasma Lina Hernandez MD Work Phone: Start: 10-17-2015 Mammography Mary Meyer ks FIELD MAP TECHNICIAN.BUILDING ARCHITECTURAL DESIGNER Work Phone: Plan of Treatment Date Care Activity Detail Author Start: 07-10-2029 Lipid panel Lipid Screening [facility] Start: 06-28-2028 Lipid panel Lipid Screening [facility] Start: 07-10-2027 Diabetes Screening Diabetes Screening [facility] Start: 06-28-2026 Diabetes Screening Diabetes Screening [facility] Start: 01-09-2026 Shingrix Vaccine (1 of 2) Shingrix Vaccine (1 of 2) [facility] Comment on above: Postponed from 2022 (Declined at t his time) Start: 10-09-2025 Screening for malignant neoplasm of breast Mammogram Screening [facility] Start: 07-10-2025 Hepatitis B Vaccine (1 of 3 - 19+ 3-dose series) Hepatitis B Vaccine (1 of 3 - 19+ 3-dose series) [facility] Comment on above: Postponed from 1991 (Declined at t his time) Start: 07-10-2025 Pneumococcal Vaccine: 50+ (1 of 2 - PCV) Pneumococcal Vaccine: 50+ (1 of 2 - PCV) [facility] Comment on above: Postponed from 1991 (Declined at t his time) Start: 07-09-2025 End: 07-09-2025 Patient encounter procedure 07/09/2025 5:40 PM EST Office Visit [facility] [place] [address] [place] [address] Lina Hernandez MD [address] [place] [address] 3 MONTH [facility] [place] Comment on above: 3 MONTH Start: 04-10-2025 Anxiety Screening Anxiety Screening [facility] Start: 04-10-2025 Pneumococcal vaccination Pneumococcal Vaccine (1 of 2 - PCV) [facility] Comment on above: Postponed from 1978 (Declined at t his time) Start: 04-09-2025 End: 04-09-2025 Patient encounter procedure 04/09/2025 10:20 AM EDT Office Visit [facility] [place] [address] [place], [place] [id number] Mary Castellanos APRN.BUILDING ARCHITECTURAL DESIGNER [address] [place] [address] 3 month [facility] [place] Comment on above: 3 month Start: 03-22-2025 DIABETES SCREEN DIABETES SCREEN [facility] Start: 03-22-2025 Diabetes Screening Diabetes Screening [facility] Start: 01-09-2025 End: 01-09-2025 Patient encounter procedure 01/09/2025 10:40 AM EDT Office Visit [facility] [place] [address] [place] [address] Lina Hernandez MD [address] [place] [address] 3 month follow up [facility] [place] Comment on above: 3 month follow up Start: 12-27-2024 Shingrix Vaccine (1 of 2) Shingrix Vaccine (1 of 2) [facility] Comment on above: Postponed from 2022 (Declined at t his time) Start: 10-22-2024 End: 10-22-2024 Patient encounter procedure 10/22/2024 1:50 PM EDT Office Visit Cardiology [address] [place] [address] Wstr, Nurse Card [address] [place] [address] Precordial pain [R07.2]; CORTES (dyspnea on exertion) [R06.09] Cardiology Comment on above: Precordial pain [R07.2]; CORTES (dyspnea on exertion) [R06.09] Start: 10-09-2024 End: 10-09-2024 Patient encounter procedure [facility] [place] Comment on above: 3 month follow up 3 month follow up/pt due for colonoscopy Start: 09-17-2024 End: 09-17-2024 Nursing evaluation of patient and report 09/17/2024 3:40 PM EDT Nurse Visit Cardiology [address] [place] [address] Wstr, Nurse Card [address] [place] [address] Precordial pain [R07.2]; CORTES (dyspnea on exertion) [R06.09] Cardiology Comment on above: Precordial pain [R07.2]; CORTES (dyspnea on exertion) [R06.09] Start: 07-10-2024 End: 07-10-2024 Patient encounter procedure 07/10/2024 9:40 AM EST Office Visit [facility] [place] [address] [facility] [place] [address] Lina Hernandez MD [address] [facility] [place] [address] 3 month follow up [facility] [place] Comment on above: 3 month follow up Start: 07-06-2024 End: 10-05-2024 25-hydroxyvitamin D3 [Mass/volume] in Serum or Plasma VITAMIN D 25 HYDROXY Lab Routine Vitamin D deficiency Expected: 07/06/2024, Expires: 10/05/2024 [facility] Work Phone: Comment on above: Expected: 07/06/2024, Expires: Start: 07-06-2024 End: 10-05-2024 CBC W Auto Differential panel - Blood COMPLETE BLOOD COUNT AND DIFFERENTIAL Lab Routine Encounter for long-term current use of medication Expected: 07/06/2024, Expires: 10/05/2024 [facility] Comment on above: Expected: 07/06/2024, Expires: Start: 07-06-2024 End: 10-05-2024 Comprehensive metabolic 2000 panel - Serum or Plasma COMPREHENSIVE METABOLIC PANEL Lab Routine Elevated glucose Encounter for long-term current use of medication Expected: 07/06/2024, Expires: 10/05/2024 [facility] Comment on above: Expected: 07/06/2024, Expires: Start: 07-06-2024 End: 10-05-2024 Hemoglobin A1c in Blood HEMOGLOBIN A1C Lab Routine Elevated glucose Encounter for long-term current use of medication Expected: 07/06/2024, Expires: 10/05/2024 [facility] Comment on above: Expected: 07/06/2024, Expires: Start: 07-06-2024 End: 10-05-2024 Lipid 1996 panel - Serum or Plasma LIPID PANEL BASIC Lab Routine Encounter for long-term current use of medication Elevated LDL cholesterol level Expected: 07/06/2024, Expires: 10/05/2024 [facility] Comment on above: Expected: 07/06/2024, Expires: Start: 06-28-2024 Hepatitis B Vaccine (1 of 3 - 19+ 3-dose series) Hepatitis B Vaccine (1 of 3 - 19+ 3-dose series) [facility] Comment on above: Postponed from 1991 (Declined at t his time) Start: 06-28-2024 Hepatitis B Vaccine (1 of 3 - 3-dose series) Hepatitis B Vaccine (1 of 3 - 3-dose series) [facility] Comment on above: Postponed from 1972 (Declined at t his time) Start: 06-26-2024 End: 06-26-2024 Patient encounter procedure 06/26/2024 2:45 PM EST Office Visit Urology [address] [address] Keo House Jr., MD [address] [place] [address] Neurogenic bladder [N31.9] Urology Comment on above: Neurogenic bladder [N31.9] Start: 04-10-2024 End: 04-10-2024 Patient encounter procedure 04/10/2024 9:40 AM EDT Office Visit [facility] [place] [address] [place] [address] Lina Hernandez MD [address] [place] [address] 3 Month follow up [facility] [place] Comment on above: 3 Month follow up Start: 12-28-2023 End: 12-28-2023 Patient encounter procedure 12/28/2023 11:00 AM EDT Office Visit [facility] [place] [address] [place] [address] Lina Hernandez MD [address] [place] [address] 3 month follow up [facility] [place] Comment on above: 3 month follow up Start: 09-29-2023 SHINGRIX VACCINE (1 of 2) SHINGRIX VACCINE (1 of 2) [facility] Comment on above: Postponed from 2022 (Declined at t his time) Start: 06-02-2023 DIABETES SCREEN DIABETES SCREEN [facility] Start: 03-22-2023 End: 05-22-2023 Lipid 1996 panel - Serum or Plasma LIPID PANEL BASIC Lab Routine Screening for lipid disorders Expected: 03/22/2023, Expires: 05/22/2023 [facility] Work Phone: Comment on above: Expected: 03/22/2023, Expires: 3 Start: 03-22-2023 End: 05-22-2023 PAIN PANEL, UR QUANT PAIN PANEL, UR QUANT Lab Routine Medication monitoring encounter Expected: 03/22/2023, Expires: 05/22/2023 [facility] Work Phone: Comment on above: Expected: 03/22/2023, Expires: 3 Start: 03-22-2023 End: 05-22-2023 TOX SCREEN ROUT UR TOX SCREEN ROUT UR Lab Routine Medication monitoring encounter Expected: 03/22/2023, Expires: 05/22/2023 [facility] Work Phone: Comment on above: Expected: 03/22/2023, Expires: 3 Start: 09-28-2022 COLORECTAL CANCER SCREENING COLORECTAL CANCER SCREENING [facility] Comment on above: Postponed from 2017 (Declined at t his time) Start: 05-23-2022 Lipid 1996 panel - Serum or Plasma Lipid Screening [facility] Start: 05-23-2022 LIPID SCREEN LIPID SCREEN [facility] Start: 2022 SHINGRIX VACCINE (1 of 2) SHINGRIX VACCINE (1 of 2) [facility] Start: 03-30-2022 End: 04-15-2023 Mri brain brain stem w/o w/contrast material MRI BRAIN WO/W IVCON Radiology Routine Demyelinating disease of central nervous system (HCC) Other symptoms and signs involving the nervous system Multiple sclerosis (HCC) Acute pain of left knee Numbness in left leg Expected: 03/30/2022 (Approximate), Expires: 04/15/2023 [facility] Work Phone: Comment on above: Expected: 03/30/2022 (Approximate), Expi res: 04/15/2023 Start: 03-30-2022 End: 04-15-2023 Mri spinal canal cervical w/o & w/contr matrl MRI CERVICAL SPINE WO/W IVCON Radiology Routine Demyelinating disease of central nervous system (HCC) Other symptoms and signs involving the nervous system Multiple sclerosis (HCC) Acute pain of left knee Numbness in left leg Expected: 03/30/2022 (Approximate), Expires: 04/15/2023 [facility] Work Phone: Comment on above: Expected: 03/30/2022 (Approximate), Expi res: 04/15/2023 Start: 03-16-2022 End: 05-16-2022 25-hydroxyvitamin D3 [Mass/volume] in Serum or Plasma VITAMIN D 25 HYDROXY Lab Routine Demyelinating disease of central nervous system (HCC) Other symptoms and signs involving the nervous system Multiple sclerosis (HCC) Acute pain of left knee Numbness in left leg Expected: 03/16/2022 (Approximate), Expires: 05/16/2022 [facility] Work Phone: Comment on above: Expected: 03/16/2022 (Approximate), Expi res: 05/16/2022 Start: 03-16-2022 End: 05-16-2022 BLOOD TB SCREEN BLOOD TB SCREEN Lab Routine Demyelinating disease of central nervous system (HCC) Other symptoms and signs involving the nervous system Multiple sclerosis (HCC) Acute pain of left knee Numbness in left leg Expected: 03/16/2022 (Approximate), Expires: 05/16/2022 [facility] Work Phone: Comment on above: Expected: 03/16/2022 (Approximate), Expi res: 05/16/2022 Start: 03-16-2022 End: 05-16-2022 CBC W Auto Differential panel - Blood CBC + DIFF Lab Routine Demyelinating disease of central nervous system (HCC) Other symptoms and signs involving the nervous system Multiple sclerosis (HCC) Acute pain of left knee Numbness in left leg Expected: 03/16/2022 (Approximate), Expires: 05/16/2022 [facility] Work Phone: Comment on above: Expected: 03/16/2022 (Approximate), Expi res: 05/16/2022 Start: 03-16-2022 End: 05-16-2022 Chronic hepatitis differentiation between hepatitis B and C virus panel - Serum or Plasma HEP REMOTE PANEL BL Lab Routine Demyelinating disease of central nervous system (HCC) Other symptoms and signs involving the nervous system Multiple sclerosis (HCC) Acute pain of left knee Numbness in left leg Expected: 03/16/2022 (Approximate), Expires: 05/16/2022 [facility] Work Phone: Comment on above: Expected: 03/16/2022 (Approximate), Expi res: 05/16/2022 Start: 03-16-2022 End: 05-16-2022 Cobalamin (Vitamin B12) [Mass/volume] in Serum or Plasma VITAMIN B12 BLOOD Lab Routine Demyelinating disease of central nervous system (HCC) Other symptoms and signs involving the nervous system Multiple sclerosis (HCC) Acute pain of left knee Numbness in left leg Expected: 03/16/2022 (Approximate), Expires: 05/16/2022 [facility] Work Phone: Comment on above: Expected: 03/16/2022 (Approximate), Expi res: 05/16/2022 Start: 03-16-2022 End: 05-16-2022 Comprehensive metabolic 2000 panel - Serum or Plasma COMP METABOLIC PANEL Lab Routine Demyelinating disease of central nervous system (HCC) Other symptoms and signs involving the nervous system Multiple sclerosis (HCC) Acute pain of left knee Numbness in left leg Expected: 03/16/2022 (Approximate), Expires: 05/16/2022 [facility] Work Phone: Comment on above: Expected: 03/16/2022 (Approximate), Expi res: 05/16/2022 Start: 03-16-2022 End: 05-16-2022 HIV 1+2 Ab [Presence] in Serum or Plasma by Immunoassay HIV 1 2 COMBO(AG/AB),WITH REFLEX TO DIFFERENTIATION Lab Routine Demyelinating disease of central nervous system (HCC) Other symptoms and signs involving the nervous system Multiple sclerosis (HCC) Acute pain of left knee Numbness in left leg Expected: 03/16/2022 (Approximate), Expires: 05/16/2022 [facility] Work Phone: Comment on above: Expected: 03/16/2022 (Approximate), Expi res: 05/16/2022 Start: 03-16-2022 End: 05-16-2022 IMMUNOGLOBULINS LUCIA IMMUNOGLOBULINS LUCIA Lab Routine Demyelinating disease of central nervous system (HCC) Other symptoms and signs involving the nervous system Multiple sclerosis (HCC) Acute pain of left knee Numbness in left leg Expected: 03/16/2022 (Approximate), Expires: 05/16/2022 [facility] Work Phone: Comment on above: Expected: 03/16/2022 (Approximate), Expi res: 05/16/2022 Start: 03-16-2022 End: 05-16-2022 JCV ANTIBODY & INDEX WITH REFLEX JCV ANTIBODY & INDEX WITH REFLEX Lab Routine Demyelinating disease of central nervous system (HCC) Other symptoms and signs involving the nervous system Multiple sclerosis (HCC) Acute pain of left knee Numbness in left leg Expected: 03/16/2022 (Approximate), Expires: 05/16/2022 [facility] Work Phone: Comment on above: Expected: 03/16/2022 (Approximate), Expi res: 05/16/2022 Start: 03-16-2022 End: 05-16-2022 Thyrotropin [Units/volume] in Serum or Plasma TSH BLD Lab Routine Demyelinating disease of central nervous system (HCC) Other symptoms and signs involving the nervous system Multiple sclerosis (HCC) Acute pain of left knee Numbness in left leg Expected: 03/16/2022 (Approximate), Expires: 05/16/2022 [facility] Work Phone: Comment on above: Expected: 03/16/2022 (Approximate), Expi res: 05/16/2022 Start: 03-16-2022 End: 05-16-2022 VARICELLA ZOSTER IGG VARICELLA ZOSTER IGG Lab Routine Demyelinating disease of central nervous system (HCC) Other symptoms and signs involving the nervous system Multiple sclerosis (HCC) Acute pain of left knee Numbness in left leg Expected: 03/16/2022 (Approximate), Expires: 05/16/2022 [facility] Work Phone: Comment on above: Expected: 03/16/2022 (Approximate), Expi res: 05/16/2022 Start: 01-05-2022 End: 03-07-2022 Hepatitis C virus Ab [Presence] in Serum HEP C AB IA W/CONF SCRN Lab Routine Special screening examination for viral disease Expected: 01/05/2022, Expires: 03/07/2022 [facility] Work Phone: Comment on above: Expected: 01/05/2022, Expires: 2 Start: 01-05-2022 End: 03-07-2022 HIV 1+2 Ab [Presence] in Serum or Plasma by Immunoassay HIV 1 2 COMBO(AG/AB),WITH REFLEX TO DIFFERENTIATION Lab Routine Screening for HIV (human immunodeficiency virus) Expected: 01/05/2022, Expires: 03/07/2022 [facility] Work Phone: Comment on above: Expected: 01/05/2022, Expires: 2 Start: 09-28-2021 End: 11-28-2021 CBC W Auto Differential panel - Blood CBC + DIFF Lab Routine Grief reaction Excessive daytime sleepiness Depression, unspecified depression type Anxiety Expected: 09/28/2021, Expires: 11/28/2021 [facility] Work Phone: Comment on above: Expected: 09/28/2021, Expires: 2 Start: 09-28-2021 End: 11-28-2021 Comprehensive metabolic 2000 panel - Serum or Plasma COMP METABOLIC PANEL Lab Routine Grief reaction Excessive daytime sleepiness Depression, unspecified depression type Anxiety Expected: 09/28/2021, Expires: 11/28/2021 [facility] Work Phone: Comment on above: Expected: 09/28/2021, Expires: 2 Start: 09-28-2021 End: 11-28-2021 Hemoglobin A1c/Hemoglobin.total in Blood HGB A1C Lab Routine Elevated glucose Expected: 09/28/2021, Expires: 11/28/2021 [facility] Work Phone: Comment on above: Expected: 09/28/2021, Expires: 2 Start: 09-28-2021 End: 11-28-2021 LIPID PANEL BASIC LIPID PANEL BASIC Lab Routine Screening for lipid disorders Expected: 09/28/2021, Expires: 11/28/2021 [facility] Work Phone: Comment on above: Expected: 09/28/2021, Expires: 2 Start: 09-28-2021 End: 11-28-2021 PAIN PANEL, UR QUANT PAIN PANEL, UR QUANT Lab Routine Grief reaction Encounter for long-term (current) use of medications Panic attack Depression, unspecified depression type Anxiety Expected: 09/28/2021, Expires: 11/28/2021 [facility] Work Phone: Comment on above: Expected: 09/28/2021, Expires: 2 Start: 09-28-2021 End: 11-28-2021 T3 FREE BLD T3 FREE BLD Lab Routine Excessive daytime sleepiness Expected: 09/28/2021, Expires: 11/28/2021 [facility] Work Phone: Comment on above: Expected: 09/28/2021, Expires: 2 Start: 09-28-2021 End: 11-28-2021 T4 FREE/FREE THYROX T4 FREE/FREE THYROX Lab Routine Excessive daytime sleepiness Expected: 09/28/2021, Expires: 11/28/2021 [facility] Work Phone: Comment on above: Expected: 09/28/2021, Expires: 2 Start: 09-28-2021 End: 11-28-2021 Thyrotropin [Units/volume] in Serum or Plasma TSH BLD Lab Routine Excessive daytime sleepiness Expected: 09/28/2021, Expires: 11/28/2021 [facility] Work Phone: Comment on above: Expected: 09/28/2021, Expires: 2 Start: 09-28-2021 End: 11-28-2021 TOX SCREEN ROUT UR TOX SCREEN ROUT UR Lab Routine Grief reaction Encounter for long-term (current) use of medications Panic attack Depression, unspecified depression type Anxiety Expected: 09/28/2021, Expires: 11/28/2021 [facility] Work Phone: Comment on above: Expected: 09/28/2021, Expires: 2 Start: 09-28-2021 End: 11-28-2021 VITAMIN D 25 HYDROXY VITAMIN D 25 HYDROXY Lab Routine Vitamin D deficiency Multiple sclerosis (HCC) Expected: 09/28/2021, Expires: 11/28/2021 [facility] Work Phone: Comment on above: Expected: 09/28/2021, Expires: 2 Start: 07-31-2021 End: 07-31-2022 CBC panel - Blood by Automated count CBC Lab Routine Panic attack Encounter for long-term current use of medication Expected: 07/31/2021, Expires: 07/31/2022 [facility] Work Phone: Comment on above: Expected: 07/31/2021, Expires: 3 Start: 07-31-2021 End: 07-31-2022 Comprehensive metabolic 2000 panel - Serum or Plasma COMP METABOLIC PANEL Lab Routine Panic attack Encounter for long-term current use of medication Elevated glucose Expected: 07/31/2021, Expires: 07/31/2022 [facility] Work Phone: Comment on above: Expected: 07/31/2021, Expires: 3 Start: 07-31-2021 End: 07-31-2022 Hemoglobin A1c/Hemoglobin.total in Blood HGB A1C Lab Routine Panic attack Encounter for long-term current use of medication Elevated glucose Expected: 07/31/2021, Expires: 07/31/2022 [facility] Work Phone: Comment on above: Expected: 07/31/2021, Expires: 3 Start: 07-31-2021 End: 07-31-2022 Magnesium [Mass/volume] in Serum or Plasma MAGNESIUM BLD Lab Routine Panic attack Encounter for long-term current use of medication Expected: 07/31/2021, Expires: 07/31/2022 [facility] Work Phone: Comment on above: Expected: 07/31/2021, Expires: 3 Start: 07-31-2021 End: 07-31-2022 T3 FREE BLD T3 FREE BLD Lab Routine Panic attack Encounter for long-term current use of medication Expected: 07/31/2021, Expires: 07/31/2022 [facility] Work Phone: Comment on above: Expected: 07/31/2021, Expires: 3 Start: 07-31-2021 End: 07-31-2022 T4 FREE/FREE THYROX T4 FREE/FREE THYROX Lab Routine Panic attack Encounter for long-term current use of medication Expected: 07/31/2021, Expires: 07/31/2022 [facility] Work Phone: Comment on above: Expected: 07/31/2021, Expires: 3 Start: 07-31-2021 End: 07-31-2022 Thyrotropin [Units/volume] in Serum or Plasma TSH BLD Lab Routine Panic attack Encounter for long-term current use of medication Expected: 07/31/2021, Expires: 07/31/2022 [facility] Work Phone: Comment on above: Expected: 07/31/2021, Expires: 3 Start: 07-31-2021 End: 07-31-2022 VITAMIN D 25 HYDROXY VITAMIN D 25 HYDROXY Lab Routine Panic attack Encounter for long-term current use of medication Vitamin D deficiency Expected: 07/31/2021, Expires: 07/31/2022 [facility] Work Phone: Comment on above: Expected: 07/31/2021, Expires: Start: 2017 COLOGUARD (FIT-DNA) COLOGUARD (FIT-DNA) [facility] Start: 2017 Colonoscopy COLONOSCOPY [facility] Start: 2017 COLORECTAL CANCER SCREENING COLORECTAL CANCER SCREENING [facility] Start: [address] COLONOGRAPHY [facility] Start: 2017 FECAL OCCULT BLOOD FECAL OCCULT BLOOD [facility] Start: 2017 Screening for malignant neoplasm of colon [facility] Start: 2017 SIGMOIDOSCOPY SIGMOIDOSCOPY [facility] Start: 10-16-2016 Mammography [facility] Start: 10-16-2016 Screening for malignant neoplasm of breast Mammogram Screening [facility] Start: 1991 Hepatitis B Vaccine (1 of 3 - 19+ 3-dose series) Hepatitis B Vaccine (1 of 3 - 19+ 3-dose series) [facility] Start: 1991 Pneumococcal Vaccine: 50+ (1 of 2 - PCV) Pneumococcal Vaccine: 50+ (1 of 2 - PCV) [facility] Start: 1990 Anxiety Screening Anxiety Screening [facility] Start: 1990 HEPATITIS C SCREENING HEPATITIS C SCREENING [facility] Start: 1990 HIV SCREENING HIV SCREENING [facility] Start: 1978 PNEUMOCOCCAL (1 - PCV) PNEUMOCOCCAL (1 - PCV) [facility] ic Start: 1978 Pneumococcal vaccination [facility] c Start: 1972 HEPATITIS B (1 of 3 - 3-dose series) HEPATITIS B (1 of 3 - 3-dose series) [facility] Start: 1972 Hepatitis B Vaccine (1 of 3 - 3-dose series) Hepatitis B Vaccine (1 of 3 - 3-dose series) [facility] Bacteria identified in Urine by Culture URINE CULTURE Microbiology Routine Acute cystitis with hematuria 02/22/2024 10:03 AM EDT [facility] Work Phone: Bacteria identified in Urine by Culture BACTERIAL CULTURE, URINE Microbiology Routine Acute UTI Ordered: 09/14/2024 [facility] Work Phone: Comment on above: Ordered: 09/14/2024 Bacteria identified in Urine by Culture BACTERIAL CULTURE, URINE Microbiology Routine Recurrent UTI (urinary tract infection) Ordered: 09/24/2024 [facility] Work Phone: Comment on above: Ordered: 09/24/2024 COLOGUARD COLOGUARD Lab Ro utine Screening for colon cancer Ordered: 09/27/2023 [facility] Work Phone: Comment on above: Ordered: 09/27/2023 End: 08-30-2025 DBT Breast - bilateral screening [facility] Radiology Routine Encounter for screening mammogram for breast cancer 1 Occurrences starting 07/31/2024 until 08/30/2025 [facility] Work Phone: Comment on above: 1 Occurrences starting 07/31/2024 until 08/30/2025 End: 11-08-2025 DBT Breast - bilateral screening [facility] SCRE[facility] Radiology Routine Encounter for screening mammogram for breast cancer 1 Occurrences starting 10/09/2024 until 11/08/2025 [facility] Work Phone: Comment on above: 1 Occurrences starting 10/09/2024 until 11/08/2025 DBT Breast - bilater al screening [facility]CRE[facility] Radiology Routine Encounter for screening mammogram for breast cancer 10/09/2024 2:19 PM EDT [facility] ECG COMPLETE ECG COMPLETE ECG Routine Precordial pain CORTES (dyspnea on exertion) 07/10/2024 10:51 AM EST [facility] End: 01-05-2023 Echocardiography ECHO Cardiology Routine Chest pain, unspecified type SOBOE (shortness of breath on exertion) 1 Occurrences starting 01/05/2022 until 01/05/2023 [facility] Work Phone: Comment on above: 1 Occurrences starting 01/05/2022 until 01/05/2023 Hemoglobin.gastroint estin al.lower [Presence] in Stool by Immunoassay IMMUNOCHEMICAL FECAL OCCULT BLOOD TEST Lab Routine Screening for colon cancer Ordered: 12/28/2023 [facility] Work Phone: Comment on above: Ordered: 12/28/2023 End: 09-22-2024 MG Breast Screening [facility] SCRE[facility]ING Radiology Routine Encounter for screening mammogram for breast cancer 1 Occurrences starting 08/24/2023 until 09/22/2024 [facility] Work Phone: Comment on above: 1 Occurrences starting 08/24/2023 until 09/22/2024 Physical performance test/babar w/reprt ea 15 min PHYSICAL PERFORMANCE TEST Procedures Routine Multiple sclerosis (HCC) Ordered: 04/07/2022 [facility] Work Phone: Comment on above: Ordered: 04/07/2022 Pneumococcal vaccination PNEUMOC OCCAL VACCINE (PREVNAR 20) Immunization/Injection Routine Encounter for immunization 1 Occurrences starting 01/05/2022 [facility] Work Phone: Comment on above: 1 Occurrences starting 01/05/2022 Pneumococcal vaccination PNEUMOC OCCAL VACCINE (PREVNAR 20) Immunization/Injection Routine Encounter for immunization Ordered: 03/22/2023 [facility] Work Phone: Comment on above: Ordered: 03/22/2023 End: 04-02-2023 Radex spine lumbosacral 2/3 views XR LUMBAR GENERAL 3V AP/LAT/L5-S1 Radiology Routine Acute left-sided low back pain with left-sided sciatica Left leg weakness Numbness 1 Occurrences starting 03/03/2022 until 04/02/2023 [facility] Work Phone: Comment on above: 1 Occurrences starting 03/03/2022 until 04/02/2023 Radex spine lumbosac ral 2/3 views XR LUMBAR GENERAL 3V AP/LAT/L5-S1 Radiology Routine Acute left-sided low back pain with left-sided sciatica Left leg weakness Numbness 03/03/2022 5:23 PM EDT [facility] Work Phone: End: 11-06-2022 Screening mammography bi 2-view breast inc cad [facility] Radiology Routine Encounter for screening mammogram for breast cancer 1 Occurrences starting 10/07/2021 until 11/06/2022 [facility] Work Phone: Comment on above: 1 Occurrences starting 10/07/2021 until 11/06/2022 End: 07-10-2025 STRESS ECHO TREADMILL STRESS ECHO TREADMILL Cardiology Routine Precordial pain CORTES (dyspnea on exertion) 1 Occurrences starting 07/10/2024 until 07/10/2025 [facility] Comment on above: 1 Occurrences starting 07/10/2024 until 07/10/2025 End: 08-09-2025 XR Chest PA and Lateral XR CHEST 2V FRONTAL/LAT Radiology Routine Precordial pain CORTES (dyspnea on exertion) 1 Occurrences starting 07/10/2024 until 08/09/2025 [facility] Work Phone: Comment on above: 1 Occurrences starting 07/10/2024 until 08/09/2025 End: 04-15-2023 XR KNEE INJURY 4V AP/LAT/OBLS LEFT XR KNEE INJURY 4V AP/LAT/OBLS LEFT Radiology Routine Acute pain of left knee 1 Occurrences starting 03/16/2022 until 04/15/2023 [facility] Work Phone: Comment on above: 1 Occurrences starting 03/16/2022 until 04/15/2023 [facility] Immunizations Immunization Date Immunization Notes Care Provider Alesia liu 11-17-2007 tuberculin skin test ; purified protein derivative solution, intradermal Lina Hernandez MD Work Phone: [facility] Work Phone: 12-26-2006 tuberculin skin test ; purified protein derivative solution, intradermal Lina Hernandez MD Work Phone: [facility] 12-21-2006 tuberculin skin test ; purified protein derivative solution, intradermal Lina Hernandez MD Work Phone: [facility] 12-12-2006 tetanus toxoid, reduced diphtheria toxoid, and acellular pertussis vaccine, adsorbed Mary Castellanos FIELD MAP TECHNICIAN.BUILDING ARCHITECTURAL DESIGNER Work Phone: [facility] 12-12-2006 tuberculin skin test ; purified protein derivative solution, intradermal Lina Hernandez MD Work Phone: [facility] NEGATED: Highlighted row has not occurred!03-22-2023 pneumococcal (PCV20) vaccine, 20 valent (PREVNAR 20) Mary Castellanos FIELD MAP TECHNICIAN.BUILDING ARCHITECTURAL DESIGNER Work Phone: [facility] Work Phone: Comment on above: Deferred: Postponed Payers Date Payer Category Payer Private Health Insurance [id number] 2021 Private Health Insurance [facility] CHOICE PLUS [id number] 2021-Present [phone] [address] [address] [place] [address] HMO [id number] 2021 Private Health Insurance [id number] 1972 Unknown [id number] Social History Date Type Detail Facility Start: 06-25-2020 End: 04-10-2024 Tobacco smoking status NHIS Smokes tobacco daily [facility] Start: 06-13-2023 End: 2017 History of tobacco use Cigarette Smoker [facility] Start: 06-25-2020 End: 12-21-2022 Cigarettes smoked current (pack per day) - Reported 1 [facility] Start: 06-25-2020 End: 04-10-2024 Tobacco use and exposure Smokeless tobacco non-user [facility] Start: 09-28-2021 End: 01-09-2025 Alcohol intake Current drinker of alcohol (finding) [facility] Start: 04-14-2009 History SDOH Alcohol Comment very rare [facility] Start: 1970 Sex Assigned At Not on file [facility] Start: 09-18-2021 End: 04-13-2022 Exposure to SARS-CoV-2 (event) Not sure [facility] Start: 02-21-2022 End: 03-03-2022 Exposure to SARS-CoV-2 (event) Unable to assess [facility] Work Phone: Start: 03-16-2022 Tobacco Comment less than one half pack [facility] Start: 12-21-2022 End: 09-26-2023 Tobacco use panel [facility] Start: 05-14-2012 Adult Depression Screening Assessment 6 [facility] Functional Status Date Assessment Result Facility 12-16-2014 Are you deaf, or do you have serious difficulty hearing No 12/16/2014 3:58 PM EDT [facility] No [facility] 12-16-2014 Are you blind, or do you have serious difficulty seeing, even when wearing glasses No 12/16/2014 3:58 PM EDT [facility] No [facility] 12-16-2014 Do you have serious difficulty walking or climbing stairs No 12/16/2014 3:58 PM EDT Robby Ordoñez Bailey No [facility] 12-16-2014 Do you have difficul ty dressing or bathing No 12/16/2014 3:58 PM EDT Robby OrdoñezBailey No [facility] 12-16-2014 Because of a physica l, mental, or emotional condition, do you have difficulty doing errands alone such as visiting a physician's office or shopping No 12/16/2014 3:58 PM EDT [facility] No [facility] Mental Status Date Assessment Result Facility 12-16-2014 Because of a physica l, mental, or emotional condition, do you have serious difficulty concentrating, remembering, or making decisions No 12/16/2014 3:58 PM EDT Robby Ordoñez Bailey No [facility] Clinical Notes 07-03-2008 to 01-28-2025 Telephone Encounter - Columba Bolanos LPN - 01/28/2025 9:27 AM EDTTelephone Encounter - Columba Bolanos LPN - 01/28/2025 9:27 AM Chayito Strong - 01/14/2025 12:26 PM EDT Note Date & Type Note Facility 01-28-2025 Telephone encounter Note Prescription Refill Information The patient has been identified by name and date of : Yes Caregiver verified no other encounters exist for this prescription request: Yes Caregiver confirmed with patient/requestor that no other refills are due, in the near future, with this provider at this time: Yes The last office visit in the department: 01/09/25 Does the patient have a future office visit with this provider/department: Yes Requested Prescriptions Pending Prescriptions Disp Refills citalopram (CELEXA) 40 mg tablet 90 tablet 3 Sig: Take 1 tablet by mouth every afternoon. Columba Bolanos LPN January 28, 2025 9:27 AM [facility] 01-28-2025 Miscellaneous Notes Prescription Refill Information The patient has been identified by name and date of : Yes Caregiver verified no other encounters exist for this prescription request: Yes Caregiver confirmed with patient/requestor that no other refills are due, in the near future, with this provider at this time: Yes The last office visit in the department: 01/09/25 Does the patient have a future office visit with this provider/department: Yes Requested Prescriptions Pending Prescriptions Disp Refills citalopram (CELEXA) 40 mg tablet 90 tablet 3 Sig: Take 1 tablet by mouth every afternoon. Columba Bolanos LPN January 28, 2025 9:27 AM documented in this encounter [facility] 01-14-2025 Note HNO ID: [id number] Author: ?, ?, ? Service: ? Author Type: ? Type: Progress Notes Filed: 01/14/2025 12:26 Note Text: Patient was contacted on 10/25/24 and she stated she will call back when she is ready to schedule. [facility] 01-14-2025 History of Present illness Narrative Patient was contacted on 10/25/24 and she stated she will call back when she is ready to schedule. documented in this encounter [facility] 01-14-2025 Note Patient Outreach ( [facility]) SHOSHANA TAMAYO ([id number]) 1970 F Date Time Provider Department 01/14/25 LINA HERNANDEZ During your visit today, we recorded the following information about you: Chayito Coombs 01/14/2025 12:26 PM Signed Patient was contacted on 10/25/24 and she stated she will call back when she is ready to schedule. Allergies As of Date: 01/14/2025 Noted Allergy Reaction SUDAFED (PSEUDOEPHEDRINE HCL) 10/12/2005 5 - Intolerance Comments: Jittgeraldine SULFA (SULFONAMIDE ANTIBIOTICS) 03/18/2005 4 - Hives Comments: elevated BP WELLBUTRIN (BUPROPION) 05/26/2020 1 - Mental Status Change Date Reviewed: 01/09/2025 Reviewed by: Jennyfer Whittaker MA - Fully Assessed Reason for Visit: Outpatient Colonoscopy [482] Cmt: Patient is overdue for colorectal cancer screening. She has a + family history of colon cancer, and has never had a colonoscopy.. Patient will need consult with Bradford Max CNP prior to colorectal cancer screening. Primary Visit Diagnosis:Screening for colorectal cancer [Z12.11, Z12.12] Prescriptions as of 01/14/2025 - HYDROcodone-acetaminophen (NORCO) 5-325 mg per tablet Take 1 tablet by mouth four times a day as needed for pain for up to 30 days. Patient should start on January 11, 2025. - HYDROcodone-acetaminophen (NORCO) 5-325 mg per tablet Take 1 tablet by mouth four times a day as needed for pain for up to 30 days. Patient should start on February 10, 2025. - HYDROcodone-acetaminophen (NORCO) 5-325 mg per tablet Take 1 tablet by mouth four times a day as needed for pain for up to 30 days. Patient should start on March 12, 2025. - LORazepam (ATIVAN) 1 mg tablet Take 1-2 tablets by mouth once daily for 60 days. - LORazepam (ATIVAN) 1 mg tablet Take 1-2 tablets by mouth once daily for 30 days. - ARIPiprazole (ABILIFY) 5 mg tablet Take 1 tablet by mouth once daily. Take this in addition to 2 mg daily for a total of 7 mg daily - ARIPiprazole (ABILIFY) 2 mg tablet Take 1 tablet by mouth once daily. Take this in addition to 5 mg daily for a total of 7 mg daily - modafinil (PROVIGIL) 200 mg tablet Take 1 tablet by mouth two times a day for 15 days. - HYDROcodone-acetaminophen (NORCO) 5-325 mg per tablet Take 1 tablet by mouth four times a day as needed for pain for up to 30 days. Patient should start on October 13, 2024. - HYDROcodone-acetaminophen (NORCO) 5-325 mg per tablet Take 1 tablet by mouth every 6 hours as needed for pain for up to 30 days. Patient should start on November 12, 2024. - L.acidophilus-L.rhamnosus (FLORAJEN WOMEN) 15 billion cell capsule Take 1 capsule by mouth once daily. - albuterol HFA (PROVENTIL HFA, VENTOLIN HFA) 90 mcg/actuation inhaler Inhale 2 Puffs as instructed every 4 hours as needed for wheezing/shortness of breath. - terazosin (HYTRIN) 5 mg capsule Take 1 capsule by mouth daily at bedtime. - citalopram (CELEXA) 40 mg tablet Take 1 tablet by mouth every afternoon. - cholecalciferol (VITAMIN D-3) 5,000 unit tab Take 1 tablet by mouth once daily. - triamcinolone acetonide (KENALOG) 0.1 % cream Apply 1 application to affected area three times a day as needed. Apply sparingly to area for rash/itching, to affected ears - ibuprofen (MOTRIN) 200 mg tablet Take 3-4 tablets by mouth four times daily as needed for Pain (Take with food.). 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] 11/16/2006 FEMALE STRESS INCONTINENCE [N39.3] 11/16/2006 TOBACCO USE DISORDER [F17.200] 03/15/2007 Reactive depression [F32.9] 03/05/2008 EXCORIATIONS//SUPERFICIAL INJURY NEC [T07.XXXA] 07/03/2008 04/29/2014 DERMATITIS NOS [L25.9] 07/03/2008 Scabies [B86] 07/03/2008 04/29/2014 Acute pain of left knee [M25.562] 03/29/2022 Numbness in left leg [R20.0] 03/29/2022 Encounter Status:Closed by CHAYITO COOMBS on 01/14/25 [facility] 01-09-2025 Telephone encounter Note Taken care of at appointment [facility] 01-09-2025 Miscellaneous Notes Taken care of at appointment Patient has been identified by name and date of : Yes Patient phones for refill(s): Requested Prescriptions Pending Prescriptions Disp Refills HYDROcodone-acetaminophen (NORCO) 5-325 mg per tablet 110 tablet 0 Sig: Take 1 tablet by mouth four times a day as needed for pain for up to 30 days. Patient should start on January 11, 2025. Date of last office visit in primary care: 10/09/2024 Date of next office visit in primary care: 01/09/2025 Please advise. Thank you. Mary Ellen Trimble LPN. documented in this encounter [facility] 01-08-2025 Telephone encounter Note Patient has been identified by name and date of : Yes Patient phones for refill(s): Requested Prescriptions Pending Prescriptions Disp Refills HYDROcodone-acetaminophen (NORCO) 5-325 mg per tablet 110 tablet 0 Sig: Take 1 tablet by mouth four times a day as needed for pain for up to 30 days. Patient should start on January 11, 2025. Date of last office visit in primary care: 10/09/2024 Date of next office visit in primary care: 01/09/2025 Please advise. Thank you. Mary Ellen Trimble LPN. [facility] 01-08-2025 Telephone encounter Note ok [facility] 01-08-2025 Miscellaneous Notes ok Patient has been identified by name and date of : yes Patient phones for refill(s): Requested Prescriptions Pending Prescriptions Disp Refills ARIPiprazole (ABILIFY) 5 mg tablet 30 tablet 5 Sig: Take 1 tablet by mouth once daily. Take this in addition to 2 mg daily for a total of 7 mg daily ARIPiprazole (ABILIFY) 2 mg tablet 30 tablet 5 Sig: Take 1 tablet by mouth once daily. Take this in addition to 5 mg daily for a total of 7 mg daily modafinil (PROVIGIL) 200 mg tablet 60 tablet 5 Sig: Take 1 tablet by mouth two times a day for 180 days. Date of last office visit in primary care: 10/09/2024 Date of next office visit in primary care: 01/09/2025 Please advise. Thank you. Sarika Laughlin MA. documented in this encounter [facility] 01-08-2025 Telephone encounter Note ok [facility] 01-08-2025 Miscellaneous Notes ok Prescription Refill Information The patient has been identified by name and date of : Yes Caregiver verified no other encounters exist for this prescription request: Yes Caregiver confirmed with patient/requestor that no other refills are due, in the near future, with this provider at this time: Yes The last office visit in the department: 10/09/2024 Does the patient have a future office visit with this provider/department: Yes Requested Prescriptions Pending Prescriptions Disp Refills LORazepam (ATIVAN) 1 mg tablet 60 tablet 0 Sig: Take 1-2 tablets by mouth once daily for 30 days. Jennyfer Whittaker MA January 08, 2025 10:38 AM documented in this encounter [facility] 01-08-2025 Telephone encounter Note Prescription Refill Information The patient has been identified by name and date of : Yes Caregiver verified no other encounters exist for this prescription request: Yes Caregiver confirmed with patient/requestor that no other refills are due, in the near future, with this provider at this time: Yes The last office visit in the department: 10/09/2024 Does the patient have a future office visit with this provider/department: Yes Requested Prescriptions Pending Prescriptions Disp Refills LORazepam (ATIVAN) 1 mg tablet 60 tablet 0 Sig: Take 1-2 tablets by mouth once daily for 30 days. Jennyfer Whittaker MA January 08, 2025 10:38 AM [facility] 01-08-2025 Telephone encounter Note Patient has been identified by name and date of : yes Patient phones for refill(s): Requested Prescriptions Pending Prescriptions Disp Refills ARIPiprazole (ABILIFY) 5 mg tablet 30 tablet 5 Sig: Take 1 tablet by mouth once daily. Take this in addition to 2 mg daily for a total of 7 mg daily ARIPiprazole (ABILIFY) 2 mg tablet 30 tablet 5 Sig: Take 1 tablet by mouth once daily. Take this in addition to 5 mg daily for a total of 7 mg daily modafinil (PROVIGIL) 200 mg tablet 60 tablet 5 Sig: Take 1 tablet by mouth two times a day for 180 days. Date of last office visit in primary care: 10/09/2024 Date of next office visit in primary care: 01/09/2025 Please advise. Thank you. Sarika Laughlin MA. [facility] 12-06-2024 Telephone encounter Note The following approved medication requests have been transmitted electronically. Requested Prescriptions Signed Prescriptions Disp Refills LORazepam (ATIVAN) 1 mg tablet 60 tablet 0 Sig: Take 1-2 tablets by mouth once daily for 30 days. Patient should start on December 07, 2024. Authorizing Provider: LINA HERNANDEZ MD [facility] 12-06-2024 Miscellaneous Notes The following approved medication requests have been transmitted electronically. Requested Prescriptions Signed Prescriptions Disp Refills LORazepam (ATIVAN) 1 mg tablet 60 tablet 0 Sig: Take 1-2 tablets by mouth once daily for 30 days. Patient should start on December 07, 2024. Authorizing Provider: LINA HERNANDEZ MD Patient has been identified by name and date of : Yes Patient phones for refill(s): Requested Prescriptions Pending Prescriptions Disp Refills LORazepam (ATIVAN) 1 mg tablet 60 tablet 0 Sig: Take 1-2 tablets by mouth once daily for 30 days. Patient should start on December 07, 2024. Date of last office visit in primary care: 10/09/2024 Date of next office visit in primary care: 01/09/2025 Please advise. Thank you. Mary Ellen Trimble LPN. documented in this encounter [facility] 12-05-2024 Telephone encounter Note Patient has been identified by name and date of : Yes Patient phones for refill(s): Requested Prescriptions Pending Prescriptions Disp Refills LORazepam (ATIVAN) 1 mg tablet 60 tablet 0 Sig: Take 1-2 tablets by mouth once daily for 30 days. Patient should start on December 07, 2024. Date of last office visit in primary care: 10/09/2024 Date of next office visit in primary care: 01/09/2025 Please advise. Thank you. Mary Ellen Trimble LPN. [facility] 11-07-2024 Telephone encounter Note The patient has been identified by name and date of : Yes Caregiver verified no other encounters exist for this prescription request: Yes Caregiver confirmed with patient/requestor that no other refills are due, in the near future, with this provider at this time: Yes The last office visit in the department: 10/09/2024 Does the patient have a future office visit with this provider/department: 01/09/2025 Requested Prescriptions Pending Prescriptions Disp Refills LORazepam (ATIVAN) 1 mg tablet 60 tablet 0 Sig: Take 1-2 tablets by mouth once daily for 90 days. Melissa Carpio RN November 07, 2024 10:43 AM [facility] 11-07-2024 Miscellaneous Notes The patient has been identified by name and date of : Yes Caregiver verified no other encounters exist for this prescription request: Yes Caregiver confirmed with patient/requestor that no other refills are due, in the near future, with this provider at this time: Yes The last office visit in the department: 10/09/2024 Does the patient have a future office visit with this provider/department: 01/09/2025 Requested Prescriptions Pending Prescriptions Disp Refills LORazepam (ATIVAN) 1 mg tablet 60 tablet 0 Sig: Take 1-2 tablets by mouth once daily for 90 days. Melissa Carpio RN November 07, 2024 10:43 AM documented in this encounter [facility] 10-25-2024 Note HNO ID: [id number] Author: ?, ?, ? Service: ? Author Type: ? Type: Progress Notes Filed: 10/25/2024 09:50 Note Text: Spoke with patient and she stated she will call back when she is ready to schedule. [facility] 10-09-2024 History of Present illness Narrative Radiology Service Progress Note PATIENT NAME: Shoshana Tamayo DATE OF SERVICE: October 09, 2024 TIME: 2:15 PM PATIENT IDENTITY VERIFICATION COMPLETED USING TWO (2) IDENTIFIERS: Name and Date of confirmed by patient verbally. FALL SCREENING: Has the patient had 2 falls in the last year or 1 fall with injury or currently using an Ambulatory Assistive Device (Walker, Cane, Wheelchair, Crutches, etc.)? No PATIENT GENDER DATA: Assigned female at . status: : No status: NO. PATIENT RELEVANT IMPLANT DATA REVIEWED: Not Applicable PATIENT PRESENTS WITH AN IMPLANTABLE OR ATTACHED GUM SCORING MACHINE OPERATOR: No RADIOLOGY DEPARTMENT: Mammography PERIPHERAL IV DATA: Not applicable SIGNED BY: Akshat Arauz October 09, 2024 2:15 PM documented in this encounter [facility] 10-09-2024 Note HNO ID: [id number] Author: KRAIG RENTERIA Mammo Tech Service: ? Author Type: Technologist Type: Progress Notes Filed: 10/09/2024 14:15 Note Text: Radiology Service Progress Note PATIENT NAME: Shoshana Tamayo DATE OF SERVICE: October 09, 2024 TIME: 2:15 PM PATIENT IDENTITY VERIFICATION COMPLETED USING TWO (2) IDENTIFIERS: Name and Date of confirmed by patient verbally. FALL SCREENING: Has the patient had 2 falls in the last year or 1 fall with injury or currently using an Ambulatory Assistive Device (Walker, Cane, Wheelchair, Crutches, etc.)? No PATIENT GENDER DATA: Assigned female at . status: : No status: NO. PATIENT RELEVANT IMPLANT DATA REVIEWED: Not Applicable PATIENT PRESENTS WITH AN IMPLANTABLE OR ATTACHED GUM SCORING MACHINE OPERATOR: No RADIOLOGY DEPARTMENT: Mammography PERIPHERAL IV DATA: Not applicable SIGNED BY: Kraig Renteria Vaccibodyo [employer] October 09, 2024 2:15 PM [facility] 10-09-2024 History of Present illness Narrative SUBJECTIVE Shoshana Tamayo is a 54 year old female here today for a check up on her medical problems. Chief Complaint Patient presents with: Recheck: stuffy nose for about 1 week with moist productive cough has been trying mucinex and saline nose spray. Did find that Aki rub does help HPI Shoshana is a 54-year-old female, with a history of MS, presenting for a 3-month follow-up. Shoshana reports experiencing recurrent UTIs over the past few months, for which she sought treatment at an [facility] and was prescribed antibiotics. She notes that the initial UTI resolved, but she developed a second episode characterized by severe pain. She was prescribed Pyridium, which she believes may have affected the accuracy of her urine culture results. She was subsequently treated with Macrobid, which effectively resolved her symptoms. She also reports persistent nasal congestion, which she describes as horrible. The congestion is particularly bothersome at night, causing her to breathe through her mouth and resulting in xerostomia. She has tried various treatments, including Vicks, saline nasal spray, Mucinex, and Claritin, but has not found significant relief. She has not used a humidifier. Shoshana reports intermittent chest pain, which she attributes to emotional stress following the of her daughter nearly 4 years ago. She describes the pain as a manifestation of a broken heart. She has scheduled a stress test and notes that her blood pressure is well-controlled. She is aware of her elevated cholesterol levels, with a recent total cholesterol of 249 mg/dL, up from 233 mg/dL, and an LDL of 174 mg/dL, up from 165 mg/dL. 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 Shoshana has a history of MS, reports a recent exacerbation characterized by leg numbness. She expresses dissatisfaction with her previous neurologist, who reportedly dismissed her symptoms and refused to prescribe steroids. She has since scheduled an appointment with a different neurologist at [facility]. She manages her MS-related pain with Clinton, which she finds effective, and requests a refill. She also takes Ativan, modafinil, and Abilify, with recent refills for Ativan and Abilify. She is due for a mammogram and expresses apprehension about the procedure, describing a fear of the machine malfunctioning. She has also attempted Cologuard testing for colon cancer screening three times, but each attempt was unsuccessful due to issues with sample handling and DNA extraction. She has a family history of colon cancer, with her father reportedly diagnosed during surgery. Shoshana continues to grieve the loss of her daughter, stating that she no longer cries daily but still experiences significant emotional distress. She finds solace in spending time with her daughter's three sons and reports that she no longer has suicidal ideation. Recording using Quigo software for draft documentation of the visit was discussed with the patient/authorized field service representative; all questions welcomed and answered. Patient/authorized field service representative agreed to proceed The 10-year ASCVD risk score (Kirstin LOVE, et al., 2019) is: 4% Values used to calculate the score: Age: 54 years Sex: Female Is Non- : No Diabetic: No Tobacco smoker: Yes Systolic Blood Pressure: 110 mmHg Is BP treated: No HDL Cholesterol: 54 mg/dL Total Cholesterol: 249 mg/dL Her medications were reviewed today and her list is now up to date. Medications Current Outpatient Medications Medication Sig LORazepam (ATIVAN) 1 mg tablet Take 1-2 tablets by mouth once daily for 90 days. L.acidophilus-L.rhamnosus (FLORAJEN WOMEN) 15 billion cell capsule Take 1 capsule by mouth once daily. albuterol HFA (PROVENTIL HFA, VENTOLIN HFA) 90 mcg/actuation inhaler Inhale 2 Puffs as instructed every 4 hours as needed for wheezing/shortness of breath. ARIPiprazole (ABILIFY) 5 mg tablet Take 1 tablet by mouth once daily. Take this in addition to 2 mg daily for a total of 7 mg daily ARIPiprazole (ABILIFY) 2 mg tablet Take 1 tablet by mouth once daily. Take this in addition to 5 mg daily for a total of 7 mg daily modafinil (PROVIGIL) 200 mg tablet Take 1 tablet by mouth two times a day for 180 days. terazosin (HYTRIN) 5 mg capsule Take 1 capsule by mouth daily at bedtime. citalopram (CELEXA) 40 mg tablet Take 1 tablet by mouth every afternoon. triamcinolone acetonide (KENALOG) 0.1 % cream Apply 1 application to affected area three times a day as needed. Apply sparingly to area for rash/itching, to affected ears ibuprofen (MOTRIN) 200 mg tablet Take 3-4 tablets by mouth four times daily as needed for Pain (Take with food.). Maximum 2400 mg per day [START ON 10/13/2024] HYDROcodone-acetaminophen (NORCO) 5-325 mg per tablet Take 1 tablet by mouth four times a day as needed for pain for up to 30 days. Patient should start on October 13, 2024. [START ON 11/12/2024] HYDROcodone-acetaminophen (NORCO) 5-325 mg per tablet Take 1 tablet by mouth every 6 hours as needed for pain for up to 30 days. Patient should start on November 12, 2024. [START ON 12/12/2024] HYDROcodone-acetaminophen (NORCO) 5-325 mg per tablet Take 1 tablet by mouth four times a day as needed for pain for up to 30 days. Patient should start on December 12, 2024. cholecalciferol (VITAMIN D-3) 5,000 unit tab Take 1 tablet by mouth once daily. No current facility-administered medications for this visit. 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 Respiratory: Negative. OBJECTIVE BP 110/82 Pulse 92 Temp (Src) 97.9 (Tympanic) Wt 194 lb 14.2 oz (88.4kg) SpO2 98% Physical Exam Vitals and nursing note reviewed. Constitutional: General: She is awake. She is not in acute distress. Appearance: Normal appearance. She is well-developed and well-groomed. She is not ill-appearing, toxic-appearing or diaphoretic. HENT: Head: Normocephalic. Right Ear: External ear normal. Left Ear: External ear normal. Nose: Nose normal. Eyes: General: Vision grossly intact. Conjunctiva/sclera: Conjunctivae normal. Pupils: Pupils are equal, round, and reactive to light. Neck: Vascular: No JVD. Trachea: Trachea normal. Cardiovascular: Rate and Rhythm: Normal rate and regular rhythm. Pulses: Normal pulses. Heart sounds: Normal heart sounds. No murmur heard. Pulmonary: Effort: Pulmonary effort is normal. No accessory muscle usage, prolonged expiration or respiratory distress. Breath sounds: Normal breath sounds. Musculoskeletal: Cervical back: Neck supple. Skin: General: Skin is warm and dry. Capillary Refill: Capillary refill takes less than 2 seconds. Neurological: General: No focal deficit present. Mental Status: She is alert and oriented to person, place, and time. Mental status is at baseline. Psychiatric: Attention and Perception: Attention and perception normal. Mood and Affect: Mood and affect normal. Speech: Speech normal. Behavior: Behavior normal. Behavior is cooperative. Thought Content: Thought content normal. Cognition and Memory: Cognition and memory normal. Judgment: Judgment normal. ASSESSMENT/PLAN: 1. Multiple sclerosis (HCC) (G35) Patient experiences periodic exacerbations with associated pain and numbness. Dissatisfied with previous neurologist; has scheduled an appointment with [facility]. - Continue current management. - Refill Clinton for pain management. - Follow-up with [facility] for further evaluation and management. 2. Encounter for screening mammogram for breast cancer (Z12.31) Due for screening mammogram. - Ordered mammogram. 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 [facility] (current) use of opiate analgesic (Z79.891) Patient is on Clinton for pain management related to MS. - Refill Clinton for the next 3 months. 5. Moderate mixed hyperlipidemia not requiring statin therapy (E78.2) Recent labs show total cholesterol at 249 mg/dL, HDL at 54 mg/dL, and LDL at 174 mg/dL. 10-year cardiovascular risk calculated at 4%. - Discussed importance of a healthy lifestyle to manage cholesterol levels. - Monitor lipid levels and cardiovascular risk. 6. Acute cystitis without hematuria (N30.00) Recent episodes treated with antibiotics, including Macrobid, which was effective. 7. Chronic nasal congestion (R09.81) Persistent nasal congestion causing difficulty breathing at night and xerostomia. Current treatments include saline nasal spray, Mucinex, and Claritin with limited relief. - Recommended use of a humidifier at night to alleviate symptoms. - Continue current medications. Portions of this note have been entered by ancillary staff. I have reviewed and when necessary edited, so that they are an adequate record of my encounter with this patient Please note that parts of this document were created using voice recognition software and therefore may contain grammatical errors. Patient verbalizes understanding of instructions from today's visit and in agreement with treatment plan. Questions answered. Agrees to call the office if questions, concerns of issues with acute symptoms not improving or if they worsen. See diagnoses and orders for additional plan(s). Allergies and medications were reviewed, list was updated, and refills given if needed. Past medical, surgical, social, and family history reviewed and updated as appropriate. Encouraged proper diet & exercise as well as compliance with taking medications. Age-appropriate health preventative measures were discussed. Return if symptoms worsen or fail to improve, for Keep next scheduled appointment.. Allison Esqueda APRN-XIOMARA documented in this encounter [facility] 10-09-2024 Note HNO ID: [id number] Author: ALLISON ESQUEDA APRN.CNP Service: ? Author Type: Nurse Practitioner Type: Progress Notes Filed: 10/09/2024 12:19 Note Text: SUBJECTIVE Shoshana Tamayo is a 54 year old female here today for a check up on her medical problems. Chief Complaint Patient presents with: Recheck: stuffy nose for about 1 week with moist productive cough has been trying mucinex and saline nose spray. Did find that Aki rub does help HPI Shoshana is a 54-year-old female, with a history of MS, presenting for a 3-month follow-up. Shoshana reports experiencing recurrent UTIs over the past few months, for which she sought treatment at an [facility] and was prescribed antibiotics. She notes that the initial UTI resolved, but she developed a second episode characterized by severe pain. She was prescribed Pyridium, which she believes may have affected the accuracy of her urine culture results. She was subsequently treated with Macrobid, which effectively resolved her symptoms. She also reports persistent nasal congestion, which she describes as horrible. The congestion is particularly bothersome at night, causing her to breathe through her mouth and resulting in xerostomia. She has tried various treatments, including Vicks, saline nasal spray, Mucinex, and Claritin, but has not found significant relief. She has not used a humidifier. Shoshana reports intermittent chest pain, which she attributes to emotional stress following the of her daughter nearly 4 years ago. She describes the pain as a manifestation of a broken heart. She has scheduled a stress test and notes that her blood pressure is well-controlled. She is aware of her elevated cholesterol levels, with a recent total cholesterol of 249 mg/dL, up from 233 mg/dL, and an LDL of 174 mg/dL, up from 165 mg/dL. 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 Shoshana has a history of MS, reports a recent exacerbation characterized by leg numbness. She expresses dissatisfaction with her previous neurologist, who reportedly dismissed her symptoms and refused to prescribe steroids. She has since scheduled an appointment with a different neurologist at [facility]. She manages her MS-related pain with Clinton, which she finds effective, and requests a refill. She also takes Ativan, modafinil, and Abilify, with recent refills for Ativan and Abilify. She is due for a mammogram and expresses apprehension about the procedure, describing a fear of the machine malfunctioning. She has also attempted Cologuard testing for colon cancer screening three times, but each attempt was unsuccessful due to issues with sample handling and DNA extraction. She has a family history of colon cancer, with her father reportedly diagnosed during surgery. Shoshana continues to grieve the loss of her daughter, stating that she no longer cries daily but still experiences significant emotional distress. She finds solace in spending time with her daughter's three sons and reports that she no longer has suicidal ideation. Recording using Quigo software for draft documentation of the visit was discussed with the patient/authorized field service representative; all questions welcomed and answered. Patient/authorized field service representative agreed to proceed The 10-year ASCVD risk score (Kirstin DK, et al., 2019) is: 4% Values used to calculate the score: Age: 54 years Sex: Female Is Non- : No Diabetic: No Tobacco smoker: Yes Systolic Blood Pressure: 110 mmHg Is BP treated: No HDL Cholesterol: 54 mg/dL Total Cholesterol: 249 mg/dL Her medications were reviewed today and her list is now up to date. Medications Current Outpatient Medications Medication Sig LORazepam (ATIVAN) 1 mg tablet Take 1-2 tablets by mouth once daily for 90 days. L.acidophilus-L.rhamnosus (FLORAJEN WOMEN) 15 billion cell capsule Take 1 capsule by mouth once daily. albuterol HFA (PROVENTIL HFA, VENTOLIN HFA) 90 mcg/actuation inhaler Inhale 2 Puffs as instructed every 4 hours as needed for wheezing/shortness of breath. ARIPiprazole (ABILIFY) 5 mg tablet Take 1 tablet by mouth once daily. Take this in addition to 2 mg daily for a total of 7 mg daily ARIPiprazole (ABILIFY) 2 mg tablet Take 1 tablet by mouth once daily. Take this in addition to 5 mg daily for a total of 7 mg daily modafinil (PROVIGIL) 200 mg tablet Take 1 tablet by mouth two times a day for 180 days. terazosin (HYTRIN) 5 mg capsule Take 1 capsule by mouth daily at bedtime. citalopram (CELEXA) 40 mg tablet Take 1 tablet by mouth every afternoon. triamcinolone acetonide (KENALOG) 0.1 % cream Apply 1 application to affected area three times a day as needed. Apply sparingly to area for rash/itching, to affected ears ibuprofen (MOTRIN) 200 mg tablet Take 3-4 tablets by mouth four times daily as (more content not included)... [facility] 10-01-2024 Instructions Connie Alfred RN - 10/01/2024 11:35 AM EDT COLONOSCOPY BOWEL PREPARATION INSTRUCTIONS MiraLAX Your doctor has scheduled you for a colonoscopy. To have a successful colonoscopy, you must have a clean colon, that is empty. A clean colon allows your doctor to see the entire colon & diagnose issues like polyps or cancer. For doctors, a clean colon is like driving on a parveen day; a dirty colon like driving in a storm. It is very important that you follow these instructions exactly, or your colonoscopy may not be as effective, could be canceled, and you may need to do the bowel prep and colonoscopy again. TRANSPORTATION REQUIREMENTS You are receiving IV sedation. For your safety, a responsible adult escort must accompany you to and from your procedure: Your adult escort MUST be present with you at check-in for your colonoscopy. Your adult escort MUST remain in the endoscopy area until you are discharged. Your adult escort MUST transport you home once you are discharged. You are NOT allowed to operate any form of transportation (i.e. drive a car, bicycle, etc) or leave the Endoscopy Center ALONE. It is not safe to do so. If you cannot meet these requirements, your procedure will be canceled. MEDICATION REQUIREMENTS For your safety, certain medications will need to be stopped or adjusted before you can have your procedure: BLOOD THINNERS: If you take blood thinners, such as Coumadin (warfarin), Plavix (clopidogrel), Ticlid (ticlopidine hydrochloride), Agrylin (anagrelide), Xarelto (Rivaroxaban), Pradaxa (Dabigatran), Eliquis (Apixaban), or Effient (Prasugrel), contact the physician who is prescribing these medications at least 2 weeks prior to your procedure to discuss any necessary adjustments. DIABETES: If you take medications for diabetes, your dosage may need to be adjusted. If you are being treated for diabetes with insulin, diabetic pills, or other injectable medications do not take your REGULAR dose after midnight on the day of your procedure. If you are taking any other types of insulin such as Lantus, Humalog, NPH (long-acting insulin), or 70/30 insulin, take half your normal dose the day before your procedure. DIABETES/WEIGHT MANAGEMENT: If you take medications for weight-loss, your dosage may need to be adjusted Contact the doctor who prescribes this medication for further instructions. If you take medications for weight-loss like semaglutide (Ozempic, Wegovy, Rybelsus), dulaglutide (Trulicity), liraglutide (Victoza, Saxenda), exenatide (Byetta, Bydureon), or lixisenatide (Adylyxin), stop your medication 1 week prior to your procedure. If you take medications like canagliflozin (Invokana), dapagliflozin (Farxiga, Forxiga), empagliflozin (Jardiance), stop your medication 3 days prior to your procedure. If you take ertugliflozin (Steglatro) stop your medication 4 days prior to your procedure. IRON: If you take iron pills, STOP them 1 week BEFORE your procedure, may resume after. OTHER MEDS: May take all other medications (including aspirin, antibiotics, water pills / diuretics like Lasix or Metolozone, blood pressure meds, etc.) at their usual scheduled time with water. DIET REQUIREMENTS The day before your colonoscopy, you may have a clear liquid diet (see below). The day of your colonoscopy, you may continue a clear liquid diet until 3 hours before your colonoscopy. Within 3 hours of your colonoscopy, take only any medications (as above) with a sip of water. Clear Liquid Diet Broth (chicken, beef or vegetable broth or bullion. Just the broth, no solids). Water Coffee or Tea (NO milk or creamer), but sugar and sugar substitutes are allowed. Clear liquids including clear, yellow, green, blue (NO red, NO orange, NO purple) Sodas / soft drinks; Gatorade or other sports drinks Fruit juice (strained; no-pulp); Moise-Aid or flavored drinks Plain Jell-O or other gelatins Popsicles or hard candy Bowel prep can work differently from person to person. Some people's bowels move slowly and they may need different instructions. Please see your doctor in office or virtually for personalized bowel prep instructions if you have: BOWEL PREPARATION (MIRALAX/GATORADE) Split Dosing Bowel Prep: This means drinking your bowel prep in two doses. Split dosing helps clean your colon better and makes it less likely that your procedure will be canceled. You will need to purchase the following (no prescriptions are needed): 64 ounces Gatorade, Propel, Crystal Lite or other noncarbonated clear liquid sports drink (NOT red, orange, or purple). Diabetic patients buy sugar-free, e.g. Gatorade G2 4 Dulcolax laxative tablets containing 5mg bisacodyl each (do not buy the stool softener) 8.3 oz MiraLAX (238g) powder or generic polyethylene glycol 3350 (find in laxative aisle) The day before your colonoscopy mix 64 oz of the sports drink with 8.3 oz MiraLAX (238 g) in a pitcher. Stir or shake until MiraLAX completely dissolved. Chill if desired. On the evening before your colonoscopy: 5 PM take 4 Dulcolax laxative tablets with water by mouth. 6 PM drink the first half of the Gatorade/MiraLAX solution Drink one 8-ounce glass every 15 minutes. Six hours before your colonoscopy, drink the second half of the solution. Drink one 8-ounce glass every 15 minutes. You may continue a clear liquid diet until 3 hours before your colonoscopy. Bowel prep can work differently from person to person. Some people's bowels move slowly and they may need different instructions. Please see your doctor in office or virtually for personalized bowel prep instructions if you have: Medical condition that needs special accommodations Had a poor bowel prep results or failed bowel prep attempts in the past. Had difficulty with anesthesia during the procedure. FREQUENTLY ASKED QUESTIONS Q: What if I suffer from constipation? A: Recommend taking extra laxatives to resolve your constipation days prior to entering the bowel prep day. Q: What if have had prior poor preps results in past? A: Contact your physician as you will likely need additional bowel prep instructions. Q: What if I have motility issues like Parkinson's, MS (multiple sclerosis), wheelchair dependent, etc.? or on medications that slow colonic transit times (narcotics, gabapentin, anticholinergic medications etc.) A: Contact your physician as you will likely need extra time and additional laxatives to complete your bowel prep. Q: What if I cannot drink large volume of liquid? A: Start your prep 2-3 hours earlier to allow yourself more time to complete the entire prep. Q: What if I had bariatric surgery? Do I still have to complete the entire prep? A: Yes, gastric bypass surgery involves the stomach & small bowel. You may need to drink smaller amounts, slower (may need more time to complete your bowel prep). Gastric bypass does not alter the length of your colon so you will need to complete the entire bowel prep, it may just take longer time to complete it. Q: What if I am on dialysis? A: Please consult your glass block installer prior to scheduling to get instructions pertinent to you. In general, dialysis patients take the Golytely bowel prep and have the procedure same day of their dialysis (colonoscopy in AM, dialysis in PM). Q: How do I know if something is considered as clear liquid diet? A: If you can pour it in a glass and you can see through it, it is considered clear liquid Q: Can I eat nuts, seeds, beans, popcorn, dried fruits, vegetables & fruits that have skin peel? A: No, you will need to not eat these items starting 3 days prior to procedure. Q: Can I take Uber/Lyft/taxi/bus home? A: An adult MUST be present with you at check-in for your colonoscopy and remain in the endoscopy area until you are discharged. You can take Uber home only if this adult escort is with you at check in, remain in the endoscopy area until you are discharged, and takes the Uber with you to home. Q: Can I sleep it off here and drive myself home? A: No, you must have an adult with you at time of procedure check in, remain in the endoscopy center during your procedure, and drive you home. You cannot drive a vehicle after your procedure the rest of the day. Q: What if I can't finish my bowel prep? A: If you cannot complete your entire bowel prep, there is high likelihood that your colonoscopy will need to be rescheduled due to inadequate prep quality. documented in this encounter [facility] 09-26-2024 Telephone encounter Note Patient notified of results, verbalized understanding of instructions given. Emma Birmingham MA [facility] 09-26-2024 Miscellaneous Notes Patient notified of results, verbalized understanding of instructions given. Emma Birmingham MA Please let patient know urine culture revealed mixed bacteria which may indicate contamination during collection. No clear evidence of UTI. May continue antibiotic if it is helping. If symptoms are persistent, needs follow-up with PCP. documented in this encounter [facility] 09-25-2024 Telephone encounter Note Please let patient know urine culture revealed mixed bacteria which may indicate contamination during collection. No clear evidence of UTI. May continue antibiotic if it is helping. If symptoms are persistent, needs follow-up with PCP. [facility] Work Phone: 09-25-2024 Telephone encounter Note Seen yesterday in [facility]. [facility] Work Phone: 09-25-2024 Miscellaneous Notes Seen yesterday in [facility]. Patient calls and states that she was seen in [facility] for UTI on 09/14/2024. Patient was prescribed Keflex for this x 7 days. Patient states that her last dose of Keflex was Tuesday. Patient reports that she continues with pain with urination and urinary frequency. Patient asking if more antibiotics can be ordered? Please review and advise, Kellie Torres RN documented in this encounter [facility] 09-24-2024 Instructions Enrrique Wesley APRN.XIOMARA - 09/24/2024 8:07 PM EDT Patient Education for Female Urinary Tract Infections Possible complications: Pyelonehritis Renal abscess Expected course/prognosis: * symptoms resolve within 2-3 days after starting treatment in almost all patients * one-fourth of women with simple UTI experience a second UTI within 6 months, and half at some time during lifetime. * patients with multiple recurrent UTI and no underlying urinary tract abnormality may receive long-term prophylactic antibioitic treatment. Trimethoprim-sulfamethoxazole and nitrofurantoin common used. * women with frequent or intercourse-related UTI should empty bladder immediately before and following intercourse and consider postcoital antibiotic treament Instructions: * Maintain good hydration * Avoid sexual intercourse when symptoms present *Take antibiotic as directed * Return if symptoms not resolved or markedly improved within 48 hours * Return if fever, chills, or flank pain develop * If taking prophylactic antiobiotics, take at bedtime * Take showers instead of tub baths * Avoid feminine hygiene sprays and scented douches * Wipe urethra from front to back Please call or return to the office if you are not feeling better in 5-7 days. You can try taking OTC Uristat (pyridium) if needed for burning. Beware that it will turn your urine orange/red. documented in this encounter [facility] 09-24-2024 Note HNO ID: [id number] Author: ENRRIQUE WESLEY APRN.XIOMARA Service: ? Author Type: Nurse Practitioner Type: Progress Notes Filed: 09/24/2024 20:07 Note Text: [facility] NOTE Subjective Shoshana Tamayo is a 54 year old year old who presents to express care today with complaint of C/o Frequency, urgency, burning with urination. Presence of blood in urine none. Color is dark yellow (took AZO) in appearance without odor. Denies suprapubic pain, flank pain or back pain. History of UTI's over the past year 4+, denies any history of kidney/renal or genital health issues in the past. History of MS with urinary retention. Denies headaches, fever, sore throat, cough, shortness of breath, chest pains, Nausea, vomiting, changes in bowel or skin rashes. No current medication treatments. Aside from symptoms as described above, patient has no other complaints at this time. HPI: see above Review of Systems Constitutional: Negative for chills, fatigue and fever. Respiratory: Negative for cough, shortness of breath and wheezing. Cardiovascular: Negative for chest pain, palpitations and leg swelling. Gastrointestinal: Negative for diarrhea, nausea and vomiting. Genitourinary: Positive for dysuria, frequency and urgency. Negative for hematuria and vaginal discharge. Musculoskeletal: Negative for myalgias. Skin: Negative for rash. Neurological: Negative for headaches. ALLERGIES Allergen Reactions Sudafed [Pseudoephe* Intolerance Jittery Sulfa (Sulfonamide * Hives elevated BP Wellbutrin [Bupropi* Mental Status Change Current Outpatient Medications on File Prior to Visit Medication Sig albuterol HFA (PROVENTIL HFA, VENTOLIN HFA) 90 mcg/actuation inhaler Inhale 2 Puffs as instructed every 4 hours as needed for wheezing/shortness of breath. HYDROcodone-acetaminophen (NORCO) 5-325 mg per tablet Take 1 tablet by mouth four times a day as needed for pain for up to 30 days. Patient should start on September 13, 2024. ARIPiprazole (ABILIFY) 5 mg tablet Take 1 tablet by mouth once daily. Take this in addition to 2 mg daily for a total of 7 mg daily ARIPiprazole (ABILIFY) 2 mg tablet Take 1 tablet by mouth once daily. Take this in addition to 5 mg daily for a total of 7 mg daily modafinil (PROVIGIL) 200 mg tablet Take 1 tablet by mouth two times a day for 180 days. LORazepam (ATIVAN) 1 mg tablet Take 1-2 tablets by mouth once daily for 90 days. terazosin (HYTRIN) 5 mg capsule Take 1 capsule by mouth daily at bedtime. citalopram (CELEXA) 40 mg tablet Take 1 tablet by mouth every afternoon. triamcinolone acetonide (KENALOG) 0.1 % cream Apply 1 application to affected area three times a day as needed. Apply sparingly to area for rash/itching, to affected ears ibuprofen (MOTRIN) 200 mg tablet Take 3-4 tablets by mouth four times daily as needed for Pain (Take with food.). Maximum 2400 mg per day HYDROcodone-acetaminophen (NORCO) 5-325 mg per tablet Take 1 tablet by mouth every 6 hours as needed for pain for up to 30 days. Patient should start on August 14, 2024. HYDROcodone-acetaminophen (NORCO) 5-325 mg per tablet Take 1 tablet by mouth four times a day as needed for pain for up to 30 days. Patient should start on July 15, 2024. cholecalciferol (VITAMIN D-3) 5,000 unit tab Take 1 tablet by mouth once daily. No current facility-administered medications on file prior to visit. 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 Stress Incontinence Tobacco Use Disorder Reactive Depression Contact Dermatitis and Other Eczema, Due to Unspecified Cause Acute Pain of Left Knee Numbness in Left Leg Social History Tobacco Use Smoking status: Every Day Current packs/day: 0.25 Average packs/day: 0.3 packs/day for 1.3 years (0.3 ttl pk-yrs) Types: Cigarettes Start date: 2023 Last attempt to quit: 2017 Smokeless tobacco: Never Tobacco comments: less than one half pack Vaping Use Vaping status: Never Used Substance Use Topics Alcohol use: Yes Comment: very rare Drug use: No Objective BP 108/82 Pulse 79 Temp 36.7 ?C (98 ?F) (Left Tympanic) Resp 16 Wt 90.7 kg (199 lb 15.3 oz) SpO2 95% BMI 34.32 kg/m? Physical Exam Constitutional: General: She is not in acute distress. Appearance: Normal appearance. She is not ill-appearing or toxic-appearing. Cardiovascular: Rate and Rhythm: Normal rate and regular rhythm. Pulses: Normal pulses. Heart sounds: Normal heart sounds. No murmur heard. Pulmonary: Effort: Pulmonary effort is normal. Breath sounds: Normal breath sounds. Abdominal: General: Bowel sounds are normal. There is no distension. Palpations: Abdomen is soft. Tenderness: There is no abdominal tenderness (no suprapubic tenderness). There is no right CVA tenderness, left CVA tenderness or rebound. Skin: General: Skin is warm and dry. Capillary Refill: Capillary refill takes less than 2 (more content not included)... [facility] 09-24-2024 History of Present illness Narrative Images from the original note were not included. [facility] NOTE Subjective Shoshana Tamayo is a 54 year old year old who presents to [facility] care today with complaint of C/o Frequency, urgency, burning with urination. Presence of blood in urine none. Color is dark yellow (took AZO) in appearance without odor. Denies suprapubic pain, flank pain or back pain. History of UTI's over the past year 4+, denies any history of kidney/renal or genital health issues in the past. History of MS with urinary retention. Denies headaches, fever, sore throat, cough, shortness of breath, chest pains, Nausea, vomiting, changes in bowel or skin rashes. No current medication treatments. Aside from symptoms as described above, patient has no other complaints at this time. HPI: see above Review of Systems Constitutional: Negative for chills, fatigue and fever. Respiratory: Negative for cough, shortness of breath and wheezing. Cardiovascular: Negative for chest pain, palpitations and leg swelling. Gastrointestinal: Negative for diarrhea, nausea and vomiting. Genitourinary: Positive for dysuria, frequency and urgency. Negative for hematuria and vaginal discharge. Musculoskeletal: Negative for myalgias. Skin: Negative for rash. Neurological: Negative for headaches. ALLERGIES Allergen Reactions Sudafed [Pseudoephe* Intolerance Jittery Sulfa (Sulfonamide * Hives elevated BP Wellbutrin [Bupropi* Mental Status Change Current Outpatient Medications on File Prior to Visit Medication Sig albuterol HFA (PROVENTIL HFA, VENTOLIN HFA) 90 mcg/actuation inhaler Inhale 2 Puffs as instructed every 4 hours as needed for wheezing/shortness of breath. HYDROcodone-acetaminophen (NORCO) 5-325 mg per tablet Take 1 tablet by mouth four times a day as needed for pain for up to 30 days. Patient should start on September 13, 2024. ARIPiprazole (ABILIFY) 5 mg tablet Take 1 tablet by mouth once daily. Take this in addition to 2 mg daily for a total of 7 mg daily ARIPiprazole (ABILIFY) 2 mg tablet Take 1 tablet by mouth once daily. Take this in addition to 5 mg daily for a total of 7 mg daily modafinil (PROVIGIL) 200 mg tablet Take 1 tablet by mouth two times a day for 180 days. LORazepam (ATIVAN) 1 mg tablet Take 1-2 tablets by mouth once daily for 90 days. terazosin (HYTRIN) 5 mg capsule Take 1 capsule by mouth daily at bedtime. citalopram (CELEXA) 40 mg tablet Take 1 tablet by mouth every afternoon. triamcinolone acetonide (KENALOG) 0.1 % cream Apply 1 application to affected area three times a day as needed. Apply sparingly to area for rash/itching, to affected ears ibuprofen (MOTRIN) 200 mg tablet Take 3-4 tablets by mouth four times daily as needed for Pain (Take with food.). Maximum 2400 mg per day HYDROcodone-acetaminophen (NORCO) 5-325 mg per tablet Take 1 tablet by mouth every 6 hours as needed for pain for up to 30 days. Patient should start on August 14, 2024. HYDROcodone-acetaminophen (NORCO) 5-325 mg per tablet Take 1 tablet by mouth four times a day as needed for pain for up to 30 days. Patient should start on July 15, 2024. cholecalciferol (VITAMIN D-3) 5,000 unit tab Take 1 tablet by mouth once daily. No current facility-administered medications on file prior to visit. 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 Stress Incontinence Tobacco Use Disorder Reactive Depression Contact Dermatitis and Other Eczema, Due to Unspecified Cause Acute Pain of Left Knee Numbness in Left Leg Social History Tobacco Use Smoking status: Every Day Current packs/day: 0.25 Average packs/day: 0.3 packs/day for 1.3 years (0.3 ttl pk-yrs) Types: Cigarettes Start date: 2023 Last attempt to quit: 2017 Smokeless tobacco: Never Tobacco comments: less than one half pack Vaping Use Vaping status: Never Used Substance Use Topics Alcohol use: Yes Comment: very rare Drug use: No Objective BP 108/82 Pulse 79 Temp 36.7 C (98 F) (Left Tympanic) Resp 16 Wt 90.7 kg (199 lb 15.3 oz) SpO2 95% BMI 34.32 kg/m Physical Exam Constitutional: General: She is not in acute distress. Appearance: Normal appearance. She is not ill-appearing or toxic-appearing. Cardiovascular: Rate and Rhythm: Normal rate and regular rhythm. Pulses: Normal pulses. Heart sounds: Normal heart sounds. No murmur heard. Pulmonary: Effort: Pulmonary effort is normal. Breath sounds: Normal breath sounds. Abdominal: General: Bowel sounds are normal. There is no distension. Palpations: Abdomen is soft. Tenderness: There is no abdominal tenderness (no suprapubic tenderness). There is no right CVA tenderness, left CVA tenderness or rebound. Skin: General: Skin is warm and dry. Capillary Refill: Capillary refill takes less than 2 seconds. Neurological: Mental Status: She is alert and oriented to person, place, and time. Assessment/Plan 1. Recurrent UTI (urinary tract infection) (Primary) - UA DIP, URINE (POC) - nitrofurantoin monohydrate and macrocrystal (MACROBID) 100 mg capsule; Take 1 capsule by mouth two times a day with meals for 7 days. Dispense: 14 capsule; Refill: 0 - L.acidophilus-L.rhamnosus (FLORAJEN WOMEN) 15 billion cell capsule; Take 1 capsule by mouth once daily. Dispense: 30 capsule; Refill: 11 - BACTERIAL CULTURE, URINE Patient advised to drink fluids, get rest and take all meds as prescribed. Patient given educational materials - see instructions. Discussed use, benefit, and side effects of prescribed medications. All questions answered. Patient advised to follow up with PCP in one week, or sooner if symptoms worsen or persist. If symptoms become severe- GO TO ED. Patient verbalized understanding and agreeable with treatment plan. Enrrique Wesley APRN, CNP 09/24/2024 8:04 PM documented in this encounter [facility] 09-24-2024 Telephone encounter Note Patient calls and states that she [facility]/2024. Patient was prescribed Keflex for this x 7 days. Patient states that her last dose of Keflex was Tuesday. Patient reports that she continues with pain with urination and urinary frequency. Patient asking if more antibiotics can be ordered? Please review and advise, Kellie Torres RN [facility] 09-21-2024 Telephone encounter Note Patient went to UC on 09/14 treated with kefelx but UTI symptoms are still present Sarika Laughlin MA [facility] 09-21-2024 Miscellaneous Notes Patient went to UC on 09/14 treated with kefelx but UTI symptoms are still present Sarika Laughlin MA documented in this encounter [facility] 09-16-2024 Telephone encounter Note Patient notified of results, verbalized understanding of instructions given. Emma Birmingham MA [facility] 09-16-2024 Miscellaneous Notes Patient notified of results, verbalized understanding of instructions given. Emma Birmingham MA Please call patient let her know she is on the correct antibiotic according to urine culture. Patient symptoms should be improving if they are not follow-up with primary care. documented in this encounter [facility] 09-16-2024 Telephone encounter Note Please call patient let her know she is on the correct antibiotic according to urine culture. Patient symptoms should be improving if they are not follow-up with primary care. [facility] Work Phone: 09-14-2024 Note HNO ID: [id number] Author: ANTHONY CARTER PA-C Service: ? Author Type: Physician Psychiatric Nursing Aide Type: Progress Notes Filed: 09/14/2024 12:39 Note Text: This note was created using Magixriter. Subjective Shoshana Tamayo is a 54 year old female. Patient is a 54-year-old female who complains of dysuria, urinary urgency and urinary frequency that she has been experiencing for the past 2 days. Patient denies fever, chills, hematuria, flank pain, nausea or other symptoms. Patient does have multiple sclerosis and states that she develops frequent urinary tract infections. Patient reports that her current symptoms are consistent with same. Review of Systems Genitourinary: Positive for dysuria, frequency and urgency. All other systems reviewed and are negative. Objective BP 119/80 Pulse 92 Temp 36.8 ?C (98.3 ?F) Resp 18 Wt 89.1 kg (196 lb 6.9 oz) SpO2 97% BMI 33.72 kg/m? Physical Exam Vitals and nursing note reviewed. Constitutional: Appearance: Normal appearance. She is normal weight. HENT: Head: Normocephalic and atraumatic. Right Ear: External ear normal. Left Ear: External ear normal. Nose: Nose normal. Mouth/Throat: Mouth: Mucous membranes are moist. Pharynx: Oropharynx is clear. Eyes: Extraocular Movements: Extraocular movements intact. Conjunctiva/sclera: Conjunctivae normal. Pupils: Pupils are equal, round, and reactive to light. Cardiovascular: Rate and Rhythm: Normal rate. Pulses: Normal pulses. Heart sounds: Normal heart sounds. Pulmonary: Effort: Pulmonary effort is normal. Breath sounds: Normal breath sounds. Abdominal: General: Abdomen is flat. Palpations: Abdomen is soft. Musculoskeletal: Cervical back: Normal range of motion and neck supple. Skin: General: Skin is warm and dry. Capillary Refill: Capillary refill takes less than 2 seconds. Neurological: General: No focal deficit present. Mental Status: She is alert and oriented to person, place, and time. Psychiatric: Mood and Affect: Mood normal. Behavior: Behavior normal. Thought Content: Thought content normal. Judgment: Judgment normal. Assessment and Plan Physical exam findings as noted above. Urinalysis shows large leukocyte esterase with nitrite and large blood. Urine culture was ordered. Patient was provided with prescriptions for Keflex 500 mg and Pyridium 100 mg. Patient was advised that results of the urine culture will be available in 2 days and she will be contacted if there is need to change her medication based on the sensitivity report. Patient verbalizes clear understanding of the above instructions. CLINICAL IMPRESSION: Acute UTI ASSESSMENT/PLAN: 1. Urinary frequency - ICD9: 788.41, ICD10: R35.0 (primary diagnosis) - UA DIP, URINE (POC) 2. Acute UTI - ICD9: 599.0, ICD10: N39.0 - BACTERIAL CULTURE, URINE - CEPHALEXIN 500 MG CAPSULE - PHENAZOPYRIDINE 100 MG TABLET MDM Amount and/or Complexity of Data Reviewed Clinical lab tests: ordered and reviewed Risk of Complications, Morbidity, and/or Mortality Presenting problems: low Diagnostic procedures: low Management options: nitesh Carter PA-C [facility] 09-14-2024 History of Present illness Narrative This note was created using Magixriter. Subjective Shoshana Tamayo is a 54 year old female. Patient is a 54-year-old female who complains of dysuria, urinary urgency and urinary frequency that she has been experiencing for the past 2 days. Patient denies fever, chills, hematuria, flank pain, nausea or other symptoms. Patient does have multiple sclerosis and states that she develops frequent urinary tract infections. Patient reports that her current symptoms are consistent with same. Review of Systems Genitourinary: Positive for dysuria, frequency and urgency. All other systems reviewed and are negative. Objective BP 119/80 Pulse 92 Temp 36.8 C (98.3 F) Resp 18 Wt 89.1 kg (196 lb 6.9 oz) SpO2 97% BMI 33.72 kg/m Physical Exam Vitals and nursing note reviewed. Constitutional: Appearance: Normal appearance. She is normal weight. HENT: Head: Normocephalic and atraumatic. Right Ear: External ear normal. Left Ear: External ear normal. Nose: Nose normal. Mouth/Throat: Mouth: Mucous membranes are moist. Pharynx: Oropharynx is clear. Eyes: Extraocular Movements: Extraocular movements intact. Conjunctiva/sclera: Conjunctivae normal. Pupils: Pupils are equal, round, and reactive to light. Cardiovascular: Rate and Rhythm: Normal rate. Pulses: Normal pulses. Heart sounds: Normal heart sounds. Pulmonary: Effort: Pulmonary effort is normal. Breath sounds: Normal breath sounds. Abdominal: General: Abdomen is flat. Palpations: Abdomen is soft. Musculoskeletal: Cervical back: Normal range of motion and neck supple. Skin: General: Skin is warm and dry. Capillary Refill: Capillary refill takes less than 2 seconds. Neurological: General: No focal deficit present. Mental Status: She is alert and oriented to person, place, and time. Psychiatric: Mood and Affect: Mood normal. Behavior: Behavior normal. Thought Content: Thought content normal. Judgment: Judgment normal. Assessment and Plan Physical exam findings as noted above. Urinalysis shows large leukocyte esterase with nitrite and large blood. Urine culture was ordered. Patient was provided with prescriptions for Keflex 500 mg and Pyridium 100 mg. Patient was advised that results of the urine culture will be available in 2 days and she will be contacted if there is need to change her medication based on the sensitivity report. Patient verbalizes clear understanding of the above instructions. CLINICAL IMPRESSION: Acute UTI ASSESSMENT/PLAN: 1. Urinary frequency - ICD9: 788.41, ICD10: R35.0 (primary diagnosis) - UA DIP, URINE (POC) 2. Acute UTI - ICD9: 599.0, ICD10: N39.0 - BACTERIAL CULTURE, URINE - CEPHALEXIN 500 MG CAPSULE - PHENAZOPYRIDINE 100 MG TABLET MDM Amount and/or Complexity of Data Reviewed Clinical lab tests: ordered and reviewed Risk of Complications, Morbidity, and/or Mortality Presenting problems: low Diagnostic procedures: low Management options: low Anthony Carter PA-C documented in this encounter [facility] 09-13-2024 Note HNO ID: [id number] Author: ?, ?, ? Service: ? Author Type: ? Type: Progress Notes Filed: 10/12/2024 03:10 Note Text: Patient has appt with PCP on 10/09-added to note to discuss [facility] 09-13-2024 History of Present illness Narrative Patient has appt with PCP on 10/09-added to note to discuss documented in this encounter [facility] 09-12-2024 Telephone encounter Note Patient called and the below instructions reviewed. Karena Baez RN You are scheduled for a stress test on 09/17/24. Please follow below instructions: *NOTHING BY MOUTH 4 HOURS prior to this test. (you may have sips of water) *NO CAFFEINE FOR 24 HOURS PRIOR TO TESTING (including TEA even decaf, COFFEE- even decaf, CHOCOLATE, SOHAM- even decaf) *Do NOT take MEDICATIONS CONTAINING CAFFEINE/XANTHINE for 24 HOURS prior to testing: Theophylline, Trental, Excedrin, Anacin, Goody Powders, No Doz, Vivarin, Midol, Diurex, Fiorinal, Fioricet, Esgic (butalbital) *Do NOT take Calcium Channel Blockers 24 HOURS prior to test. *Do NOT take Beta blockers 24 HOURS prior to test UNLESS your doctor tells you otherwise. *Do NOT use the following medications 48 HOURS prior to this test: Viagra(Sildenafil citrate), Cialis(Tadalafil), Vardenafil (Levitra, Stanyx), Avanfil (Stendra). *Do not take any of these meds prior to test unless provider directs you otherwise; Nitroglycerine (ex:Deponit, Nitrostat) Isosorbide (ex:Isordil, Sorbitrate,Imdur,Ismo). Medications on your list you should hold for 24 HOURS: None *All other medications may be taken as you normally would. *Guidelines for Diabetics: If you take insulin to control your blood sugar, ask you physician what amount you should take the day of the test. If you take pills to control blood sugar, on the day of the test, do NOT take them until AFTER the test. *FAILURE TO FOLLOW THESE INSTRUCTIONS WILL RESULT IN HAVING TO RESCHEDULE THE TEST. *Please wear comfortable clothes with a short-sleeved shirt and comfortable walking shoes. You will be on the treadmill for this test. *If you use an inhaler, bring it along with you just in case. Please check in on the first floor at Radiology: [address]; [place] [address] * If you need to cancel or reschedule this test or have any questions regarding this test, please call [phone]. [facility] 09-12-2024 Miscellaneous Notes Patient called and the below instructions reviewed. Karena Baez RN You are scheduled for a stress test on 09/17/24. Please follow below instructions: *NOTHING BY MOUTH 4 HOURS prior to this test. (you may have sips of water) *NO CAFFEINE FOR 24 HOURS PRIOR TO TESTING (including TEA even decaf, COFFEE- even decaf, CHOCOLATE, SOHAM- even decaf) *Do NOT take MEDICATIONS CONTAINING CAFFEINE/XANTHINE for 24 HOURS prior to testing: Theophylline, Trental, Excedrin, Anacin, Goody Powders, No Doz, Vivarin, Midol, Diurex, Fiorinal, Fioricet, Esgic (butalbital) *Do NOT take Calcium Channel Blockers 24 HOURS prior to test. *Do NOT take Beta blockers 24 HOURS prior to test UNLESS your doctor tells you otherwise. *Do NOT use the following medications 48 HOURS prior to this test: Viagra(Sildenafil citrate), Cialis(Tadalafil), Vardenafil (Levitra, Stanyx), Avanfil (Stendra). *Do not take any of these meds prior to test unless provider directs you otherwise; Nitroglycerine (ex:Deponit, Nitrostat) Isosorbide (ex:Isordil, Sorbitrate,Imdur,Ismo). Medications on your list you should hold for 24 HOURS: None *All other medications may be taken as you normally would. *Guidelines for Diabetics: If you take insulin to control your blood sugar, ask you physician what amount you should take the day of the test. If you take pills to control blood sugar, on the day of the test, do NOT take them until AFTER the test. *FAILURE TO FOLLOW THESE INSTRUCTIONS WILL RESULT IN HAVING TO RESCHEDULE THE TEST. *Please wear comfortable clothes with a short-sleeved shirt and comfortable walking shoes. You will be on the treadmill for this test. *If you use an inhaler, bring it along with you just in case. Please check in on the first floor at Radiology: [address]; [place] [address] * If you need to cancel or reschedule this test or have any questions regarding this test, please call [phone]. documented in this encounter [facility] 09-11-2024 Note Patient Outreach ( [facility]) SHOSHANA TAMAYO ([id number]) 1970 F Date Time Provider Department 09/11/24 LINA HERNANDEZ [facility] During your visit today, we recorded the following information about you: Chayito Coombs 10/12/2024 3:10 AM Signed Patient has appt with PCP on 10/09-added to note to discuss Connie Alfred, STEVIE 10/01/2024 11:35 AM Signed COLONOSCOPY BOWEL PREPARATION INSTRUCTIONS MiraLAX? Your doctor has scheduled you for a colonoscopy. To have a successful colonoscopy, you must have a clean colon, that is empty. A clean colon allows your doctor to see the entire colon AND diagnose issues like polyps or cancer. For doctors, a clean colon is like driving on a parveen day; a dirty colon like driving in a storm. It is very important that you follow these instructions exactly, or your colonoscopy may not be as effective, could be canceled, and you may need to do the bowel prep and colonoscopy again. TRANSPORTATION REQUIREMENTS You are receiving IV sedation. For your safety, a responsible adult escort must accompany you to and from your procedure: Your adult escort MUST be present with you at check-in for your colonoscopy. Your adult escort MUST remain in the endoscopy area until you are discharged. Your adult escort MUST transport you home once you are discharged. You are NOT allowed to operate any form of transportation (i.e. drive a car, bicycle, etc) or leave the Endoscopy Center ALONE. It is not safe to do so. If you cannot meet these requirements, your procedure will be canceled. MEDICATION REQUIREMENTS For your safety, certain medications will need to be stopped or adjusted before you can have your procedure: BLOOD THINNERS: If you take blood thinners, such as Coumadin (warfarin), Plavix (clopidogrel), Ticlid (ticlopidine hydrochloride), Agrylin (anagrelide), Xarelto (Rivaroxaban), Pradaxa (Dabigatran), Eliquis (Apixaban), or Effient (Prasugrel), contact the physician who is prescribing these medications at least 2 weeks prior to your procedure to discuss any necessary adjustments. DIABETES: If you take medications for diabetes, your dosage may need to be adjusted. If you are being treated for diabetes with insulin, diabetic pills, or other injectable medications do not take your REGULAR dose after midnight on the day of your procedure. If you are taking any other types of insulin such as Lantus, Humalog, NPH (long-acting insulin), or 70/30 insulin, take half your normal dose the day before your procedure. DIABETES/WEIGHT MANAGEMENT: If you take medications for weight-loss, your dosage may need to be adjusted Contact the doctor who prescribes this medication for further instructions. If you take medications for weight-loss like semaglutide (Ozempic, Wegovy, Rybelsus), dulaglutide (Trulicity), liraglutide (Victoza, Saxenda), exenatide (Byetta, Bydureon), or lixisenatide (Adylyxin), stop your medication 1 week prior to your procedure. If you take medications like canagliflozin (Invokana), dapagliflozin (Farxiga, Forxiga), empagliflozin (Jardiance), stop your medication 3 days prior to your procedure. If you take ertugliflozin (Steglatro) stop your medication 4 days prior to your procedure. IRON: If you take iron pills, STOP them 1 week BEFORE your procedure, may resume after. OTHER MEDS: May take all other medications (including aspirin, antibiotics, water pills / diuretics like Lasix or Metolozone, blood pressure meds, etc.) at their usual scheduled time with water. DIET REQUIREMENTS The day before your colonoscopy, you may have a clear liquid diet (see below). The day of your colonoscopy, you may continue a clear liquid diet until 3 hours before your colonoscopy. Within 3 hours of your colonoscopy, take only any medications (as above) with a sip of water. Clear Liquid Diet Broth (chicken, beef or vegetable broth or bullion. Just the broth, no solids). Water Coffee or Tea (NO milk or creamer), but sugar and sugar substitutes are allowed. Clear liquids including clear, yellow, green, blue (NO red, NO orange, NO purple) Sodas / soft drinks; Gatorade or other sports drinks Fruit juice (strained; no-pulp); Moise-Aid or flavored drinks Plain Jell-O or other gelatins Popsicles or hard candy Bowel prep can work differently from person to person. ? Some people's bowels move slowly and they may need different instructions. Please see your doctor in office or virtually for personalized bowel prep instructions if you have: BOWEL PREPARATION (MIRALAX/GATORADE) Split Dosing Bowel Prep: This means drinking your bowel prep in two doses. Split dosing helps clean your colon better and makes it less likely that your procedure will be canceled. You will need to purchase the following (no prescriptions are needed): 64 ounces Gatorade, Propel, Crystal Lite or other (more content not included)... [facility] 08-25-2024 Note HNO ID: [id number] Author: NAHID PASTOR APRN.LIBRARY MANAGER Service: ? Author Type: Nurse Practitioner Type: Progress Notes Filed: 08/25/2024 12:31 Note Text: Patient came in with complaints of pain in front of her left ear and behind her left ear. Patient says there is a rash. Patient says there is also swelling. Patient says it hurts deep down inside. Patient denies any other symptoms. Patient says been about 3 days. Upon examination patient does have pain over the mastoid. At this time I do suspect shingles but cannot rule out mastoiditis. Patient was referred to the emergency room for an evaluation. Patient agreeable to care plan. [facility] 08-25-2024 History of Present illness Narrative Patient came in with complaints of pain in front of her left ear and behind her left ear. Patient says there is a rash. Patient says there is also swelling. Patient says it hurts deep down inside. Patient denies any other symptoms. Patient says been about 3 days. Upon examination patient does have pain over the mastoid. At this time I do suspect shingles but cannot rule out mastoiditis. Patient was referred to the emergency room for an evaluation. Patient agreeable to care plan. documented in this encounter [facility] 07-31-2024 Note Patient Outreach ([facility]) SHOSHANA TAMAYO ([id number]) 1970 F Date Time Provider Department 07/31/24 LINA HERNANDEZ [facility] During your visit today, we recorded the following information about you: Allergies As of Date: 07/31/2024 Noted Allergy Reaction SUDAFED (PSEUDOEPHEDRINE HCL) 10/12/2005 5 - Intolerance Comments: Jittery SULFA (SULFONAMIDE ANTIBIOTICS) 03/18/2005 4 - Hives Comments: elevated BP WELLBUTRIN (BUPROPION) 05/26/2020 1 - Mental Status Change Date Reviewed: 07/18/2024 Reviewed by: Mis Omer MA - Fully Assessed Visit Diagnosis:Encounter for screening mammogram for breast cancer [Z12.31] Order(s):[facility] SCREENING [facility] [[id number]] Order #: [id number] FUTURE Prescriptions as of 08/31/2024 - albuterol HFA (PROVENTIL HFA, VENTOLIN HFA) 90 mcg/actuation inhaler Inhale 2 Puffs as instructed every 4 hours as needed for wheezing/shortness of breath. - HYDROcodone-acetaminophen (NORCO) 5-325 mg per tablet Take 1 tablet by mouth four times a day as needed for pain for up to 30 days. Patient should start on September 13, 2024. - HYDROcodone-acetaminophen (NORCO) 5-325 mg per tablet Take 1 tablet by mouth every 6 hours as needed for pain for up to 30 days. Patient should start on August 14, 2024. - HYDROcodone-acetaminophen (NORCO) 5-325 mg per tablet Take 1 tablet by mouth four times a day as needed for pain for up to 30 days. Patient should start on July 15, 2024. - ARIPiprazole (ABILIFY) 5 mg tablet Take 1 tablet by mouth once daily. Take this in addition to 2 mg daily for a total of 7 mg daily - ARIPiprazole (ABILIFY) 2 mg tablet Take 1 tablet by mouth once daily. Take this in addition to 5 mg daily for a total of 7 mg daily - modafinil (PROVIGIL) 200 mg tablet Take 1 tablet by mouth two times a day for 180 days. - LORazepam (ATIVAN) 1 mg tablet Take 1-2 tablets by mouth once daily for 90 days. - terazosin (HYTRIN) 5 mg capsule Take 1 capsule by mouth daily at bedtime. - citalopram (CELEXA) 40 mg tablet Take 1 tablet by mouth every afternoon. - cholecalciferol (VITAMIN D-3) 5,000 unit tab Take 1 tablet by mouth once daily. - triamcinolone acetonide (KENALOG) 0.1 % cream Apply 1 application to affected area three times a day as needed. Apply sparingly to area for rash/itching, to affected ears - ibuprofen (MOTRIN) 200 mg tablet Take 3-4 tablets by mouth four times daily as needed for Pain (Take with food.). 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 Author Type: Nurse Practitioner Type: Progress Notes Filed: 07/18/2024 13:22 Note Text: Subjective HPI HPI Shoshana Tamayo is a 54 year old female who presents today for CC of cough, fever, chills. This started 3 days ago. Has tried otc medication for relief. Symptoms are worsened by nothing. Risk factors exposed to flu. smoker. .Patient presents with: Chest Congestion: cough, fever and chills x 3 days PAST MEDICAL HISTORY Diagnosis Date Anxiety state, unspecified 05/27/2005 Depression Detrusor sphincter dyssynergia Excessive daytime sleepiness 04/02/2014 Provigil was effective Female stress incontinence Lump or mass in breast 04/26/2009 Multiple sclerosis (HCC) Onset and diagnosis 1996 Phlebitis and thrombophlebitis of unspecified site Pulmonary embolus (HCC) Unspecified pruritic disorder 07/03/2008 XEROSIS///SEBACEOUS GLAND DIS NEC 07/03/2008 PAST SURGICAL HISTORY Procedure Laterality Date SECTION HX TONSILLECTOMY AND ADENOIDECTOMY HX TOTAL ABDOMINAL HYSTERECT W/WO RMVL TUBE OVARY 03/2005 BSO ALLERGIES Sudafed [Pseudoephedrine Hcl], Sulfa (Sulfonamide Antibiotics), and Wellbutrin [Bupropion] MEDICATIONS [START ON 09/13/2024] HYDROcodone-acetaminophen (NORCO) 5-325 mg per tablet Take 1 tablet by mouth four times a day as needed for pain for up to 30 days. Patient should start on September 13, 2024. [START ON 08/14/2024] HYDROcodone-acetaminophen (NORCO) 5-325 mg per tablet Take 1 tablet by mouth every 6 hours as needed for pain for up to 30 days. Patient should start on August 14, 2024. HYDROcodone-acetaminophen (NORCO) 5-325 mg per tablet Take 1 tablet by mouth four times a day as needed for pain for up to 30 days. Patient should start on July 15, 2024. ARIPiprazole (ABILIFY) 5 mg tablet Take 1 tablet by mouth once daily. Take this in addition to 2 mg daily for a total of 7 mg daily ARIPiprazole (ABILIFY) 2 mg tablet Take 1 tablet by mouth once daily. Take this in addition to 5 mg daily for a total of 7 mg daily modafinil (PROVIGIL) 200 mg tablet Take 1 tablet by mouth two times a day for 180 days. LORazepam (ATIVAN) 1 mg tablet Take 1-2 tablets by mouth once daily for 90 days. terazosin (HYTRIN) 5 mg capsule Take 1 capsule by mouth daily at bedtime. citalopram (CELEXA) 40 mg tablet Take 1 tablet by mouth every afternoon. cholecalciferol (VITAMIN D-3) 5,000 unit tab Take 1 tablet by mouth once daily. triamcinolone acetonide (KENALOG) 0.1 % cream Apply 1 application to affected area three times a day as needed. Apply sparingly to area for rash/itching, to affected ears ibuprofen (MOTRIN) 200 mg tablet Take 3-4 tablets by mouth four times daily as needed for Pain (Take with food.). Maximum 2400 mg per day doxycycline monohydrate 100 mg tablet Take 1 tablet by mouth two times a day for 7 days. albuterol HFA (PROVENTIL HFA, VENTOLIN HFA) 90 mcg/actuation inhaler Inhale 2 Puffs as instructed every 4 hours as needed for wheezing/shortness of breath. FAMILY HISTORY Problem Relation Age of Onset Hypertension Mother other (Crohns [Other]) Sister other (Pancreatic cancer [Other]) Maternal Grandfather other (Throat cancer [Other]) Paternal Grandfather other (Rheumatoid arthritis [Other]) Paternal Grandmother other (Scleroderma [Other]) Paternal Grandmother Multiple Sclerosis No Family History Social History Tobacco Use Smoking status: Every Day Current packs/day: 0.25 Average packs/day: 0.3 packs/day for 1.1 years (0.3 ttl pk-yrs) Types: Cigarettes Start date: 2023 Last attempt to quit: 2017 Smokeless tobacco: Never Tobacco comments: less than one half pack Vaping Use Vaping status: Never Used Substance Use Topics Alcohol use: Yes Comment: very rare Drug use: No Review of Systems Constitutional: Positive for fever. HENT: Positive for congestion. Negative for ear pain, nosebleeds and sore throat. Respiratory: Positive for cough. Negative for shortness of breath and wheezing. Musculoskeletal: Negative for neck pain. Objective Blood pressure 102/70, pulse 74, temperature 36.4 ?C (97.5 ?F), resp. rate 16, weight 88.3 kg (194 lb 10.7 oz), SpO2 95%. Physical Exam Constitutional: General: She is not in acute distress. Appearance: She is not toxic-appearing or diaphoretic. HENT: Head: Normocephalic and atraumatic. Cardiovascular: Rate and Rhythm: Normal rate and regular rhythm. Heart sounds: Normal heart sounds, S1 normal and S2 normal. Pulmonary: Effort: Pulmonary effort is normal. Breath sounds: Wheezing (scattered bilat) present. No decreased breath sounds, rhonchi or rales. Lymphadenopathy: Cervical: No cervical adenopathy. Right cervical: No superficial cervical adenopathy. Left cervical: No superficial cervical adenopathy. Neurological: Mental Status: She is alert and oriented to person, place, and time. Gait: Gai (more content not included)... [facility] 07-18-2024 History of Present illness Narrative Subjective HPI HPI Shoshana Tamayo is a 54 year old female who presents today for CC of cough, fever, chills. This started 3 days ago. Has tried otc medication for relief. Symptoms are worsened by nothing. Risk factors exposed to flu. smoker. .Patient presents with: Chest Congestion: cough, fever and chills x 3 days PAST MEDICAL HISTORY Diagnosis Date Anxiety state, unspecified 05/27/2005 Depression Detrusor sphincter dyssynergia Excessive daytime sleepiness 04/02/2014 Provigil was effective Female stress incontinence Lump or mass in breast 04/26/2009 Multiple sclerosis (HCC) Onset and diagnosis 1996 Phlebitis and thrombophlebitis of unspecified site Pulmonary embolus (HCC) Unspecified pruritic disorder 07/03/2008 XEROSIS///SEBACEOUS GLAND DIS NEC 07/03/2008 PAST SURGICAL HISTORY Procedure Laterality Date SECTION HX TONSILLECTOMY AND ADENOIDECTOMY HX TOTAL ABDOMINAL HYSTERECT W/WO RMVL TUBE OVARY 03/2005 BSO ALLERGIES Sudafed [Pseudoephedrine Hcl], Sulfa (Sulfonamide Antibiotics), and Wellbutrin [Bupropion] MEDICATIONS [START ON 09/13/2024] HYDROcodone-acetaminophen (NORCO) 5-325 mg per tablet Take 1 tablet by mouth four times a day as needed for pain for up to 30 days. Patient should start on September 13, 2024. [START ON 08/14/2024] HYDROcodone-acetaminophen (NORCO) 5-325 mg per tablet Take 1 tablet by mouth every 6 hours as needed for pain for up to 30 days. Patient should start on August 14, 2024. HYDROcodone-acetaminophen (NORCO) 5-325 mg per tablet Take 1 tablet by mouth four times a day as needed for pain for up to 30 days. Patient should start on July 15, 2024. ARIPiprazole (ABILIFY) 5 mg tablet Take 1 tablet by mouth once daily. Take this in addition to 2 mg daily for a total of 7 mg daily ARIPiprazole (ABILIFY) 2 mg tablet Take 1 tablet by mouth once daily. Take this in addition to 5 mg daily for a total of 7 mg daily modafinil (PROVIGIL) 200 mg tablet Take 1 tablet by mouth two times a day for 180 days. LORazepam (ATIVAN) 1 mg tablet Take 1-2 tablets by mouth once daily for 90 days. terazosin (HYTRIN) 5 mg capsule Take 1 capsule by mouth daily at bedtime. citalopram (CELEXA) 40 mg tablet Take 1 tablet by mouth every afternoon. cholecalciferol (VITAMIN D-3) 5,000 unit tab Take 1 tablet by mouth once daily. triamcinolone acetonide (KENALOG) 0.1 % cream Apply 1 application to affected area three times a day as needed. Apply sparingly to area for rash/itching, to affected ears ibuprofen (MOTRIN) 200 mg tablet Take 3-4 tablets by mouth four times daily as needed for Pain (Take with food.). Maximum 2400 mg per day doxycycline monohydrate 100 mg tablet Take 1 tablet by mouth two times a day for 7 days. albuterol HFA (PROVENTIL HFA, VENTOLIN HFA) 90 mcg/actuation inhaler Inhale 2 Puffs as instructed every 4 hours as needed for wheezing/shortness of breath. FAMILY HISTORY Problem Relation Age of Onset Hypertension Mother other (Crohns [Other]) Sister other (Pancreatic cancer [Other]) Maternal Grandfather other (Throat cancer [Other]) Paternal Grandfather other (Rheumatoid arthritis [Other]) Paternal Grandmother other (Scleroderma [Other]) Paternal Grandmother Multiple Sclerosis No Family History Social History Tobacco Use Smoking status: Every Day Current packs/day: 0.25 Average packs/day: 0.3 packs/day for 1.1 years (0.3 ttl pk-yrs) Types: Cigarettes Start date: 2023 Last attempt to quit: 2017 Smokeless tobacco: Never Tobacco comments: less than one half pack Vaping Use Vaping status: Never Used Substance Use Topics Alcohol use: Yes Comment: very rare Drug use: No Review of Systems Constitutional: Positive for fever. HENT: Positive for congestion. Negative for ear pain, nosebleeds and sore throat. Respiratory: Positive for cough. Negative for shortness of breath and wheezing. Musculoskeletal: Negative for neck pain. Objective Blood pressure 102/70, pulse 74, temperature 36.4 C (97.5 F), resp. rate 16, weight 88.3 kg (194 lb 10.7 oz), SpO2 95%. Physical Exam Constitutional: General: She is not in acute distress. Appearance: She is not toxic-appearing or diaphoretic. HENT: Head: Normocephalic and atraumatic. Cardiovascular: Rate and Rhythm: Normal rate and regular rhythm. Heart sounds: Normal heart sounds, S1 normal and S2 normal. Pulmonary: Effort: Pulmonary effort is normal. Breath sounds: Wheezing (scattered bilat) present. No decreased breath sounds, rhonchi or rales. Lymphadenopathy: Cervical: No cervical adenopathy. Right cervical: No superficial cervical adenopathy. Left cervical: No superficial cervical adenopathy. Neurological: Mental Status: She is alert and oriented to person, place, and time. Gait: Gait is intact. ASSESSMENT/PLAN: 1. Community acquired pneumonia, unspecified laterality - ICD9: 486, ICD10: J18.9 (primary diagnosis) - Discussed supportive care - Limit exposure to smoke and other inhaled irritants - Discussed possible red flags and when to seek medical attention - Follow up in 3-5 days or sooner if no better or worse -If you experience chest pain/shortness of breath go to ER - DOXYCYCLINE MONOHYDRATE 100 MG TABLET 2. Wheeze - ICD9: 786.07, ICD10: R06.2 - XR CHEST 2V FRONTAL/LAT IMPRESSION: Mild right middle lobe airspace opacity, atelectasis versus bronchopneumonia in the appropriate clinical setting. Dictated by : ABRAHAM KAHN MD - ALBUTEROL SULFATE HFA 90 MCG/ACTUATION AEROSOL INHALER Gilberto Durand APRN.LIBRARY MANAGER documented in this encounter [facility] 07-18-2024 History of Present illness Narrative Radiology Service Progress Note PATIENT NAME: Shoshana Tamayo DATE OF SERVICE: July 18, 2024 TIME: 12:58 PM PATIENT IDENTITY VERIFICATION COMPLETED USING TWO (2) IDENTIFIERS: Name and Date of confirmed by patient verbally. FALL SCREENING: Has the patient had 2 falls in the last year or 1 fall with injury or currently using an Ambulatory Assistive Device (Walker, Cane, Wheelchair, Crutches, etc.)? No PATIENT GENDER DATA: Assigned female at . status: : No status: NO. PATIENT RELEVANT IMPLANT DATA REVIEWED: Not Applicable PATIENT PRESENTS WITH AN IMPLANTABLE OR ATTACHED GUM SCORING MACHINE OPERATOR: No RADIOLOGY DEPARTMENT: General X-ray: Exam(s) Completed: Chest X-Ray PERIPHERAL IV DATA: Not applicable SIGNED BY: Tona Ott July 18, 2024 12:58 PM documented in this encounter [facility] 07-18-2024 Note HNO ID: [id number] Author: CARRIE DAVIS Tech Service: ? Author Type: Technologist Type: Progress Notes Filed: 07/18/2024 12:58 Note Text: Radiology Service Progress Note PATIENT NAME: Shoshana Tamayo DATE OF SERVICE: July 18, 2024 TIME: 12:58 PM PATIENT IDENTITY VERIFICATION COMPLETED USING TWO (2) IDENTIFIERS: Name and Date of confirmed by patient verbally. FALL SCREENING: Has the patient had 2 falls in the last year or 1 fall with injury or currently using an Ambulatory Assistive Device (Walker, Cane, Wheelchair, Crutches, etc.)? No PATIENT GENDER DATA: Assigned female at . status: : No status: NO. PATIENT RELEVANT IMPLANT DATA REVIEWED: Not Applicable PATIENT PRESENTS WITH AN IMPLANTABLE OR ATTACHED GUM SCORING MACHINE OPERATOR: No RADIOLOGY DEPARTMENT: General X-ray: Exam(s) Completed: Chest X-Ray PERIPHERAL IV DATA: Not applicable SIGNED BY: Tona Ott July 18, 2024 12:58 PM [facility] 07-17-2024 Telephone encounter Note Wellness form completed and mailed to address listed on form. [facility] 07-17-2024 Miscellaneous Notes Wellness form completed and mailed to address listed on form. documented in this encounter [facility] 07-10-2024 Instructions Lina Hernandez MD - 07/10/2024 11:06 AM EST - Complete your lab tests for cholesterol, HDL, triglycerides, LDL, glucose, and A1c as ordered. - A stress test has been ordered to evaluate chest pain and shortness of breath during exertion. - Continue taking all current medications as prescribed. - Monitor the numbness in your left leg. If it worsens, return for evaluation and possible steroid treatment. - Continue efforts to quit smoking by using vaping as a transition. documented in this encounter [facility] 07-10-2024 Note HNO ID: [id number] Author: LINA HERNANDEZ MD Service: ? Author Type: Physician Type: Progress Notes Filed: 07/10/2024 11:08 Note Text: This note was created using [employer]. Subjective Shoshana Tamayo is a 54 year old female. Patient presents with: F/U 3 Month SUBJECTIVE: Shoshana Tamayo is a 54 year old year old lady here today for 3 month follow up appointment for review of medical conditions. Shoshana Tamayo is a 54-year-old female with a history of MS, presenting for a yearly visit. Shoshana reports new onset of left leg numbness extending from the lower leg to the distal thigh over the past 2 weeks. She also reports intermittent chest pain and dyspnea on exertion for the past few months, which she attributes to anxiety. The chest pain radiates to her back and lasts approximately 30 minutes per episode. She notes that the pain and dyspnea occur both during periods of anxiety and physical activity, such as walking at her job, necessitating frequent breaks. She denies any tenderness upon palpation of the chest or back. She also reports occasional urinary incontinence, stating she has about 2 minutes to reach the bathroom once she feels the urge to urinate. She denies any issues with diarrhea. She is currently taking hydrocodone without experiencing constipation or feeling loopy. She is also taking ibuprofen, lorazepam, modafinil, and mirtazapine. She recently refilled her prescriptions for lorazepam and modafinil, and has a 3-month supply of mirtazapine from January. She is attempting to transition from smoking cigarettes to vaping. She received the 3-series hepatitis B vaccine in 1989. PAST MEDICAL HISTORY Diagnosis Date Anxiety state, unspecified 05/27/2005 Depression Detrusor sphincter dyssynergia Excessive daytime sleepiness 04/02/2014 Provigil was effective Female stress incontinence Lump or mass in breast 04/26/2009 Multiple sclerosis (HCC) Onset and diagnosis 1996 Phlebitis and thrombophlebitis of unspecified site Pulmonary embolus (HCC) Unspecified pruritic disorder 07/03/2008 XEROSIS///SEBACEOUS GLAND DIS NEC 07/03/2008 Current Outpatient Medications Medication Sig ARIPiprazole (ABILIFY) 5 mg tablet Take 1 tablet by mouth once daily. Take this in addition to 2 mg daily for a total of 7 mg daily ARIPiprazole (ABILIFY) 2 mg tablet Take 1 tablet by mouth once daily. Take this in addition to 5 mg daily for a total of 7 mg daily modafinil (PROVIGIL) 200 mg tablet Take 1 tablet by mouth two times a day for 180 days. LORazepam (ATIVAN) 1 mg tablet Take 1-2 tablets by mouth once daily for 90 days. HYDROcodone-acetaminophen (NORCO) 5-325 mg per tablet Take 1 tablet by mouth every 6 hours as needed for pain for up to 30 days. Patient should start on June 13, 2024. terazosin (HYTRIN) 5 mg capsule Take 1 capsule by mouth daily at bedtime. citalopram (CELEXA) 40 mg tablet Take 1 tablet by mouth every afternoon. cholecalciferol (VITAMIN D-3) 5,000 unit tab Take 1 tablet by mouth once daily. triamcinolone acetonide (KENALOG) 0.1 % cream Apply 1 application to affected area three times a day as needed. Apply sparingly to area for rash/itching, to affected ears ibuprofen (MOTRIN) 200 mg tablet Take 3-4 tablets by mouth four times daily as needed for Pain (Take with food.). Maximum 2400 mg per day HYDROcodone-acetaminophen (NORCO) 5-325 mg per tablet Take 1 tablet by mouth four times a day as needed for pain for up to 30 days. HYDROcodone-acetaminophen (NORCO) 5-325 mg per tablet Take 1 tablet by mouth four times a day as needed for pain for up to 30 days. Do not start before March 18, 2024. No current facility-administered medications for this visit. Review of Systems Objective BP 112/84 Pulse 90 Wt 88.5 kg (195 lb 1.7 oz) SpO2 98% BMI 33.49 kg/m? Waist circumference 41 Last 5 Encounter Wt Readings: Date: Wt: 07/10/2024 88.5 kg (195 lb 1.7 oz) 04/10/2024 87.5 kg (192 lb 14.4 oz) 03/21/2024 89.1 kg (196 lb 6.9 oz) 02/22/2024 89.1 kg (196 lb 6.9 oz) 12/28/2023 88.9 kg (196 lb) No waist measurement recorded Estimated body mass index is 33.49 kg/m? as calculated from the following: Height as of 03/16/22: 162.6 cm (5' 4). Weight as of this encounter: 88.5 kg (195 lb 1.7 oz). Last 5 Encounter BP Readings: Date: BP: 07/10/2024 112/84 04/10/2024 108/74 03/21/2024 118/80 02/22/2024 90/60 12/28/2023 122/82 07/10/24 1005 07/10/24 1011 07/10/24 1039 BP: 116/82 112/84 110/70 Pulse: 90 SpO2: 98% Weight: 88.5 kg (195 lb 1.7 oz) Physical Exam Labs ordered, not yet done. Labs on way out for employee health plan form completion Based on last labs: The 10-year ASCVD risk score (Kirstin LOVE, et al., 2019) is: 3.7% Values used to calculate the score: Age: 54 years Sex: Female Is Non- : No Diabetic: No Tobacco smoker: Yes Systolic Blood Pressure: 110 mmHg Is BP treated: No (more content not included)... [facility] 07-10-2024 History of Present illness Narrative This note was created using [employer]. Subjective Shoshana Tamayo is a 54 year old female. Patient presents with: F/U 3 Month SUBJECTIVE: Shoshana Tamayo is a 54 year old year old lady here today for 3 month follow up appointment for review of medical conditions. Shoshana Tamayo is a 54-year-old female with a history of MS, presenting for a yearly visit. Shoshana reports new onset of left leg numbness extending from the lower leg to the distal thigh over the past 2 weeks. She also reports intermittent chest pain and dyspnea on exertion for the past few months, which she attributes to anxiety. The chest pain radiates to her back and lasts approximately 30 minutes per episode. She notes that the pain and dyspnea occur both during periods of anxiety and physical activity, such as walking at her job, necessitating frequent breaks. She denies any tenderness upon palpation of the chest or back. She also reports occasional urinary incontinence, stating she has about 2 minutes to reach the bathroom once she feels the urge to urinate. She denies any issues with diarrhea. She is currently taking hydrocodone without experiencing constipation or feeling loopy. She is also taking ibuprofen, lorazepam, modafinil, and mirtazapine. She recently refilled her prescriptions for lorazepam and modafinil, and has a 3-month supply of mirtazapine from January. She is attempting to transition from smoking cigarettes to vaping. She received the 3-series hepatitis B vaccine in 1989. PAST MEDICAL HISTORY Diagnosis Date Anxiety state, unspecified 05/27/2005 Depression Detrusor sphincter dyssynergia Excessive daytime sleepiness 04/02/2014 Provigil was effective Female stress incontinence Lump or mass in breast 04/26/2009 Multiple sclerosis (HCC) Onset and diagnosis 1996 Phlebitis and thrombophlebitis of unspecified site Pulmonary embolus (HCC) Unspecified pruritic disorder 07/03/2008 XEROSIS///SEBACEOUS GLAND DIS NEC 07/03/2008 Current Outpatient Medications Medication Sig ARIPiprazole (ABILIFY) 5 mg tablet Take 1 tablet by mouth once daily. Take this in addition to 2 mg daily for a total of 7 mg daily ARIPiprazole (ABILIFY) 2 mg tablet Take 1 tablet by mouth once daily. Take this in addition to 5 mg daily for a total of 7 mg daily modafinil (PROVIGIL) 200 mg tablet Take 1 tablet by mouth two times a day for 180 days. LORazepam (ATIVAN) 1 mg tablet Take 1-2 tablets by mouth once daily for 90 days. HYDROcodone-acetaminophen (NORCO) 5-325 mg per tablet Take 1 tablet by mouth every 6 hours as needed for pain for up to 30 days. Patient should start on June 13, 2024. terazosin (HYTRIN) 5 mg capsule Take 1 capsule by mouth daily at bedtime. citalopram (CELEXA) 40 mg tablet Take 1 tablet by mouth every afternoon. cholecalciferol (VITAMIN D-3) 5,000 unit tab Take 1 tablet by mouth once daily. triamcinolone acetonide (KENALOG) 0.1 % cream Apply 1 application to affected area three times a day as needed. Apply sparingly to area for rash/itching, to affected ears ibuprofen (MOTRIN) 200 mg tablet Take 3-4 tablets by mouth four times daily as needed for Pain (Take with food.). Maximum 2400 mg per day HYDROcodone-acetaminophen (NORCO) 5-325 mg per tablet Take 1 tablet by mouth four times a day as needed for pain for up to 30 days. HYDROcodone-acetaminophen (NORCO) 5-325 mg per tablet Take 1 tablet by mouth four times a day as needed for pain for up to 30 days. Do not start before March 18, 2024. No current facility-administered medications for this visit. Review of Systems Objective BP 112/84 Pulse 90 Wt 88.5 kg (195 lb 1.7 oz) SpO2 98% BMI 33.49 kg/m Waist circumference 41 Last 5 Encounter Wt Readings: Date: Wt: 07/10/2024 88.5 kg (195 lb 1.7 oz) 04/10/2024 87.5 kg (192 lb 14.4 oz) 03/21/2024 89.1 kg (196 lb 6.9 oz) 02/22/2024 89.1 kg (196 lb 6.9 oz) 12/28/2023 88.9 kg (196 lb) No waist measurement recorded Estimated body mass index is 33.49 kg/m as calculated from the following: Height as of 03/16/22: 162.6 cm (5' 4). Weight as of this encounter: 88.5 kg (195 lb 1.7 oz). Last 5 Encounter BP Readings: Date: BP: 07/10/2024 112/84 04/10/2024 108/74 03/21/2024 118/80 02/22/2024 90/60 12/28/2023 122/82 07/10/24 1005 07/10/24 1011 07/10/24 1039 BP: 116/82 112/84 110/70 Pulse: 90 SpO2: 98% Weight: 88.5 kg (195 lb 1.7 oz) Physical Exam Labs ordered, not yet done. Labs on way out for employee health plan form completion Based on last labs: The 10-year ASCVD risk score (Kirstin LOVE, et al., 2019) is: 3.7% Values used to calculate the score: Age: 54 years Sex: Female Is Non- : No Diabetic: No Tobacco smoker: Yes Systolic Blood Pressure: 110 mmHg Is BP treated: No HDL Cholesterol: 54 mg/dL Total Cholesterol: 233 mg/dL Assessment and Plan # Routine medical exam (Z00.00) - Conducted annual preventive care examination. - Ordered laboratory tests including cholesterol, HDL, triglycerides, LDL, glucose, and A1c. - Blood pressure measured at 112/84 mmHg initially, rechecked at 110/70 mmHg. - Waist circumference measured at 41 inches. - Declined pneumonia vaccine. - Hepatitis B vaccination series completed in 1989. - Will fax completed forms to employer [facility] once lab results are available. # Precordial pain (R07.2) # CORTES (dyspnea on exertion) (R06.09) - Episodes of chest pain radiating to the back, lasting approximately 30 minutes, associated with anxiety and exertion. - Shortness of breath and need to stop during walking reported. - Performed EKG in office. - Ordered treadmill stress test to evaluate for cardiac etiology. - Advised patient to seek immediate medical attention if symptoms become more persistent or severe. # Multiple sclerosis (HCC) (G35) # Multiple sclerosis (HCC) (G35) - Numbness in left leg progressing proximally over the past two weeks. - Discussed possibility of initiating steroid treatment if numbness worsens. 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 # Nicotine dependence, cigarettes, uncomplicated (F17.210) - Currently smoking cigarettes and attempting to transition to vaping. - Encouraged continued efforts to quit smoking. Lina Hernandez MD documented in this encounter [facility] 07-06-2024 Telephone encounter Note Patient notified that labs have been ordered but she states she is working both Tuesday and Tuesday and will not be able to get them done until Tuesday morning. [facility] 07-06-2024 Miscellaneous Notes Patient notified that labs have been ordered but she states she is working both Tuesday and Tuesday and will not be able to get them done until Tuesday morning. Labs ordered. The following approved medication requests have been transmitted electronically. Requested Prescriptions Signed Prescriptions Disp Refills ARIPiprazole (ABILIFY) 5 mg tablet 30 tablet 5 Sig: Take 1 tablet by mouth once daily. Take this in addition to 2 mg daily for a total of 7 mg daily Authorizing Provider: LINA HERNANDEZ ARIPiprazole (ABILIFY) 2 mg tablet 30 tablet 5 Sig: Take 1 tablet by mouth once daily. Take this in addition to 5 mg daily for a total of 7 mg daily Authorizing Provider: LINA HERNANDEZ modafinil (PROVIGIL) 200 mg tablet 60 tablet 5 Sig: Take 1 tablet by mouth two times a day for 180 days. Authorizing Provider: LINA HERNANDEZ MD Prescription Refill Information The patient has been identified by name and date of : Yes Caregiver verified no other encounters exist for this prescription request: Yes Caregiver confirmed with patient/requestor that no other refills are due, in the near future, with this provider at this time: Yes The last office visit in the department: 04/10/24 Does the patient have a future office visit with this provider/department: Yes 07/10/24 Requested Prescriptions Pending Prescriptions Disp Refills ARIPiprazole (ABILIFY) 5 mg tablet 30 tablet 5 Sig: Take 1 tablet by mouth once daily. Take this in addition to 2 mg daily for a total of 7 mg daily ARIPiprazole (ABILIFY) 2 mg tablet 30 tablet 5 Sig: Take 1 tablet by mouth once daily. Take this in addition to 5 mg daily for a total of 7 mg daily modafinil (PROVIGIL) 200 mg tablet 60 tablet 5 Sig: Take 1 tablet by mouth two times a day for 180 days. Bernadette Gonzalez LPN July 06, 2024 8:10 AM documented in this encounter [facility] 07-06-2024 Telephone encounter Note The following approved medication requests have been transmitted electronically. Requested Prescriptions Signed Prescriptions Disp Refills LORazepam (ATIVAN) 1 mg tablet 60 tablet 2 Sig: Take 1-2 tablets by mouth once daily for 90 days. Authorizing Provider: LINA HERNANDEZ MD [facility] 07-06-2024 Miscellaneous Notes The following approved medication requests have been transmitted electronically. Requested Prescriptions Signed Prescriptions Disp Refills LORazepam (ATIVAN) 1 mg tablet 60 tablet 2 Sig: Take 1-2 tablets by mouth once daily for 90 days. Authorizing Provider: LINA HENRANDEZ MD Prescription Refill Information The patient has been identified by name and date of : Yes Caregiver verified no other encounters exist for this prescription request: Yes Caregiver confirmed with patient/requestor that no other refills are due, in the near future, with this provider at this time: Yes The last office visit in the department: 04/10/24 Does the patient have a future office visit with this provider/department: Yes 07/10/24 Requested Prescriptions Pending Prescriptions Disp Refills LORazepam (ATIVAN) 1 mg tablet 60 tablet 2 Sig: Take 1-2 tablets by mouth once daily for 90 days. Bernadette Gonzalez LPN July 06, 2024 8:15 AM documented in this encounter [facility] 07-06-2024 Telephone encounter Note Labs ordered. The following approved medication requests have been transmitted electronically. Requested Prescriptions Signed Prescriptions Disp Refills ARIPiprazole (ABILIFY) 5 mg tablet 30 tablet 5 Sig: Take 1 tablet by mouth once daily. Take this in addition to 2 mg daily for a total of 7 mg daily Authorizing Provider: LINA HERNANDEZ ARIPiprazole (ABILIFY) 2 mg tablet 30 tablet 5 Sig: Take 1 tablet by mouth once daily. Take this in addition to 5 mg daily for a total of 7 mg daily Authorizing Provider: LINA HERNANDEZ modafinil (PROVIGIL) 200 mg tablet 60 tablet 5 Sig: Take 1 tablet by mouth two times a day for 180 days. Authorizing Provider: LINA HERNANDEZ MD [facility] 07-06-2024 Telephone encounter Note Prescription Refill Information The patient has been identified by name and date of : Yes Caregiver verified no other encounters exist for this prescription request: Yes Caregiver confirmed with patient/requestor that no other refills are due, in the near future, with this provider at this time: Yes The last office visit in the department: 04/10/24 Does the patient have a future office visit with this provider/department: Yes 07/10/24 Requested Prescriptions Pending Prescriptions Disp Refills LORazepam (ATIVAN) 1 mg tablet 60 tablet 2 Sig: Take 1-2 tablets by mouth once daily for 90 days. Bernadette Gonzalez LPN July 06, 2024 8:15 AM [facility] 07-06-2024 Telephone encounter Note Prescription Refill Information The patient has been identified by name and date of : Yes Caregiver verified no other encounters exist for this prescription request: Yes Caregiver confirmed with patient/requestor that no other refills are due, in the near future, with this provider at this time: Yes The last office visit in the department: 04/10/24 Does the patient have a future office visit with this provider/department: Yes 07/10/24 Requested Prescriptions Pending Prescriptions Disp Refills ARIPiprazole (ABILIFY) 5 mg tablet 30 tablet 5 Sig: Take 1 tablet by mouth once daily. Take this in addition to 2 mg daily for a total of 7 mg daily ARIPiprazole (ABILIFY) 2 mg tablet 30 tablet 5 Sig: Take 1 tablet by mouth once daily. Take this in addition to 5 mg daily for a total of 7 mg daily modafinil (PROVIGIL) 200 mg tablet 60 tablet 5 Sig: Take 1 tablet by mouth two times a day for 180 days. Bernadette Gonzalez LPN July 06, 2024 8:10 AM [facility] 05-17-2024 Telephone encounter Note Rx sent. Defer to PCP review when returns to office [facility] 05-17-2024 Miscellaneous Notes Rx sent. Defer to PCP review when returns to office Pt called and wanted prescription to be sent to [facility] since [place] is giving her a hard time. Please advise pt when this has been sent. Estrella Bustos LPN Patient calling [facility] will not fill her [place] rx. Pharmacy wants office to call them. She said she is out of medication. I phoned [facility] and spoke to Benitez and he said the [facility] Board has been watching them with termite treater chronic pain patients getting controlled substance rx for long time from that office PCP and [facility]. He said patient needs to go to pain management and have PT. PCP and [facility] should not be giving retirement rx. He will not fill the rx, he would only give the patient one week amount of the [place] until something else is done. Aware PCP is out of the office. Please advise documented in this encounter [facility] 05-17-2024 Telephone encounter Note Pt called and wanted prescription to be sent to [facility] since [employer] is giving her a hard time. Please advise pt when this has been sent. Estrella Bustos LPN [facility] 05-17-2024 Telephone encounter Note Turned into a phone note and sent to [facility]. [facility] 05-17-2024 Miscellaneous Notes Turned into a phone note and sent to [facility]. documented in this encounter [facility] 05-17-2024 Telephone encounter Note Patient calling [facility] will not fill her [place] rx. Pharmacy wants office to call them. She said she is out of medication. I phoned [facility] and spoke to Benitez and he said the State Board has been watching them with termite treater chronic pain patients getting controlled substance rx for long time from that office PCP and [facility]. He said patient needs to go to pain management and have PT. PCP and [facility] should not be giving termite treater rx. He will not fill the rx, he would only give the patient one week amount of the [place] until something else is done. Aware PCP is out of the office. Please advise [facility] 04-10-2024 Note HNO ID: [id number] Author: MARY CASTELLANOS APRN.BUILDING ARCHITECTURAL DESIGNER Service: ? Author Type: Nurse Specialist Type: Progress Notes Filed: 04/10/2024 11:16 Note Text: SUBJECTIVE: Pneumococcal Vaccine(1 of 2 - PCV) Never done Anxiety Screening Never done Mammogram Screening due on 10/16/2016 Colorectal Cancer Screening Never done HPI Shoshana Tamayo is a 53 year old female. PMH significant for 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 Stress Incontinence Tobacco Use Disorder Reactive Depression Contact Dermatitis and Other Eczema, Due to Unspecified Cause Acute Pain of Left Knee Numbness in Left Leg Presents for routine follow-up visit. She notes that she is in her usual state of health. She notes that her medications seem to be doing well for her. No adverse effects. She reports continued fatigue, Provigil seems to help. Lorazepam for anxiety has been helpful. No adverse effects. She notes Abilify has helped with her mood, would like to continue current dose. No adverse effects are noted. Continues with [place] for chronic pain. No AEs noted. Has been effective. Notes took additional doses recently after canoeing due to discomfort. Continues to be interested in [facility] for MS but did not feel that the last provider was a good match for her. She notes neurogenic bladder, no recent urology visit, does note stress. She underwent bilateral oophorectomy for endometriosis and a ruptured ovarian cyst with acute abdominal pain in 2004. Surgical menopausal with postoperative pulmonary embolus. Estrogen treatment was not recommended at that time per PRODUCT DEVELOPER Dr Gonzalez. No current topical estrogen use. Has not been able to straight cath due to pain with cathing in the past, attributed to MS. Review of Systems Constitutional: Positive for fatigue. Negative for appetite change. Gastrointestinal: Negative for abdominal pain. Musculoskeletal: Positive for arthralgias and back pain. Psychiatric/Behavioral: Positive for dysphoric mood. The patient is not nervous/anxious. Objective BP 108/74 Pulse 81 Resp 16 Wt 87.5 kg (192 lb 14.4 oz) BMI 33.11 kg/m? Physical Exam Vitals and nursing note reviewed. Constitutional: Appearance: Normal appearance. HENT: Head: Normocephalic and atraumatic. Eyes: Conjunctiva/sclera: Conjunctivae normal. Neck: Thyroid: No thyroid mass or thyromegaly. Vascular: Normal carotid pulses. No JVD. Cardiovascular: Rate and Rhythm: Normal rate and regular rhythm. Pulses: Normal pulses. Carotid pulses are 2+ on the right side and 2+ on the left side. Radial pulses are 2+ on the right side and 2+ on the left side. Heart sounds: Normal heart sounds. Pulmonary: Effort: Pulmonary effort is normal. Breath sounds: Normal breath sounds. Abdominal: General: Bowel sounds are normal. Palpations: Abdomen is soft. Musculoskeletal: Right lower leg: No edema. Left lower leg: No edema. Skin: General: Skin is warm and dry. Neurological: Mental Status: She is alert. Mental status is at baseline. Psychiatric: Mood and Affect: Mood is depressed. Affect is tearful. ALLERGIES Allergen Reactions Sudafed [Pseudoephe* Intolerance Jittery Sulfa (Sulfonamide * Hives elevated BP Wellbutrin [Bupropi* Mental Status Change MEDICATIONS LORazepam (ATIVAN) 1 mg tablet Take 1-2 tablets by mouth once daily for 90 days. terazosin (HYTRIN) 5 mg capsule Take 1 capsule by mouth daily at bedtime. modafinil (PROVIGIL) 200 mg tablet Take 1 tablet by mouth two times a day for 180 days. ARIPiprazole (ABILIFY) 5 mg tablet Take 1 tablet by mouth once daily. Take this in addition to 2 mg daily for a total of 7 mg daily ARIPiprazole (ABILIFY) 2 mg tablet Take 1 tablet by mouth once daily. Take this in addition to 5 mg daily for a total of 7 mg daily citalopram (CELEXA) 40 mg tablet Take 1 tablet by mouth every afternoon. HYDROcodone-acetaminophen (NORCO) 5-325 mg per tablet Take 1 tablet by mouth four times a day as needed for pain for up to 30 days. Do not start before March 18, 2024. cholecalciferol (VITAMIN D-3) 5,000 unit tab Take 1 tablet by mouth once daily. triamcinolone acetonide (KENALOG) 0.1 % cream Apply 1 application to affected area three times a day as needed. Apply sparingly to area for rash/itching, to affected ears ibuprofen (MOTRIN) 200 mg tablet Take 3-4 tablets by mouth four times daily as needed for Pain (Take with food.). Maximum 2400 mg per day HYDROcodone-acetaminophen (NORCO) 5-325 mg per tablet Take 1 tablet by mouth four times a day as needed for pain for up to 30 days. Do not start before January 18, 2024. HYDROcodone-acetaminophen (NORCO) 5-325 mg per tablet Take 1 tablet by mouth four times a day as needed for pain for up to 30 days. Do not start before February 17, 2024. HYDROcodone-acetaminophen (NORCO) 5-325 mg per tablet Take 1 tablet by mouth every 6 hours as needed for (more content not included)... [facility] 04-10-2024 History of Present illness Narrative SUBJECTIVE: Pneumococcal Vaccine(1 of 2 - PCV) Never done Anxiety Screening Never done Mammogram Screening due on 10/16/2016 Colorectal Cancer Screening Never done HPI Shoshana Tamayo is a 53 year old female. PMH significant for 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 Stress Incontinence Tobacco Use Disorder Reactive Depression Contact Dermatitis and Other Eczema, Due to Unspecified Cause Acute Pain of Left Knee Numbness in Left Leg Presents for routine follow-up visit. She notes that she is in her usual state of health. She notes that her medications seem to be doing well for her. No adverse effects. She reports continued fatigue, Provigil seems to help. Lorazepam for anxiety has been helpful. No adverse effects. She notes Abilify has helped with her mood, would like to continue current dose. No adverse effects are noted. Continues with [place] for chronic pain. No AEs noted. Has been effective. Notes took additional doses recently after canoeing due to discomfort. Continues to be interested in [facility] for MS but did not feel that the last provider was a good match for her. She notes neurogenic bladder, no recent urology visit, does note stress. She underwent bilateral oophorectomy for endometriosis and a ruptured ovarian cyst with acute abdominal pain in 2004. Surgical menopausal with postoperative pulmonary embolus. Estrogen treatment was not recommended at that time per PRODUCT DEVELOPER Dr Gonzalez. No current topical estrogen use. Has not been able to straight cath due to pain with cathing in the past, attributed to MS. Review of Systems Constitutional: Positive for fatigue. Negative for appetite change. Gastrointestinal: Negative for abdominal pain. Musculoskeletal: Positive for arthralgias and back pain. Psychiatric/Behavioral: Positive for dysphoric mood. The patient is not nervous/anxious. Objective BP 108/74 Pulse 81 Resp 16 Wt 87.5 kg (192 lb 14.4 oz) BMI 33.11 kg/m Physical Exam Vitals and nursing note reviewed. Constitutional: Appearance: Normal appearance. HENT: Head: Normocephalic and atraumatic. Eyes: Conjunctiva/sclera: Conjunctivae normal. Neck: Thyroid: No thyroid mass or thyromegaly. Vascular: Normal carotid pulses. No JVD. Cardiovascular: Rate and Rhythm: Normal rate and regular rhythm. Pulses: Normal pulses. Carotid pulses are 2+ on the right side and 2+ on the left side. Radial pulses are 2+ on the right side and 2+ on the left side. Heart sounds: Normal heart sounds. Pulmonary: Effort: Pulmonary effort is normal. Breath sounds: Normal breath sounds. Abdominal: General: Bowel sounds are normal. Palpations: Abdomen is soft. Musculoskeletal: Right lower leg: No edema. Left lower leg: No edema. Skin: General: Skin is warm and dry. Neurological: Mental Status: She is alert. Mental status is at baseline. Psychiatric: Mood and Affect: Mood is depressed. Affect is tearful. ALLERGIES Allergen Reactions Sudafed [Pseudoephe* Intolerance Jittery Sulfa (Sulfonamide * Hives elevated BP Wellbutrin [Bupropi* Mental Status Change MEDICATIONS LORazepam (ATIVAN) 1 mg tablet Take 1-2 tablets by mouth once daily for 90 days. terazosin (HYTRIN) 5 mg capsule Take 1 capsule by mouth daily at bedtime. modafinil (PROVIGIL) 200 mg tablet Take 1 tablet by mouth two times a day for 180 days. ARIPiprazole (ABILIFY) 5 mg tablet Take 1 tablet by mouth once daily. Take this in addition to 2 mg daily for a total of 7 mg daily ARIPiprazole (ABILIFY) 2 mg tablet Take 1 tablet by mouth once daily. Take this in addition to 5 mg daily for a total of 7 mg daily citalopram (CELEXA) 40 mg tablet Take 1 tablet by mouth every afternoon. HYDROcodone-acetaminophen (NORCO) 5-325 mg per tablet Take 1 tablet by mouth four times a day as needed for pain for up to 30 days. Do not start before March 18, 2024. cholecalciferol (VITAMIN D-3) 5,000 unit tab Take 1 tablet by mouth once daily. triamcinolone acetonide (KENALOG) 0.1 % cream Apply 1 application to affected area three times a day as needed. Apply sparingly to area for rash/itching, to affected ears ibuprofen (MOTRIN) 200 mg tablet Take 3-4 tablets by mouth four times daily as needed for Pain (Take with food.). Maximum 2400 mg per day HYDROcodone-acetaminophen (NORCO) 5-325 mg per tablet Take 1 tablet by mouth four times a day as needed for pain for up to 30 days. Do not start before January 18, 2024. HYDROcodone-acetaminophen (NORCO) 5-325 mg per tablet Take 1 tablet by mouth four times a day as needed for pain for up to 30 days. Do not start before February 17, 2024. HYDROcodone-acetaminophen (NORCO) 5-325 mg per tablet Take 1 tablet by mouth every 6 hours as needed for pain for up to 30 days. aspirin (ASPIRIN CHILDRENS) 81 mg chewable tablet Take 81 mg by mouth once daily. (Patient not taking: Reported on 03/21/2024) tiZANidine (ZANAFLEX) 4 mg tablet Take 1 tablet by mouth every 8 hours as needed (muscle spasms). (Patient not taking: Reported on 02/22/2024) iv contrast (will be provided with radiology test) MRI Brain Inject, intravenously, once for 1 dose.No IV access, insert saline lock prior to beginning of sedation, infusion, injection of imaging exam.Discontinue saline lock post exam. If Pt. has a central line or IVAD, may access for administration according to line specific nursing protocol.Once exam is complete flush line and de-access according to line specific nursing protocol in the MR contrast administration guidelines link (Patient not taking: Reported on 04/10/2024) PAST MEDICAL HISTORY Diagnosis Date Anxiety state, unspecified 05/27/2005 Depression Detrusor sphincter dyssynergia Excessive daytime sleepiness 04/02/2014 Provigil was effective Female stress incontinence Lump or mass in breast 04/26/2009 Multiple sclerosis (HCC) Onset and diagnosis 1996 Phlebitis and thrombophlebitis of unspecified site Pulmonary embolus (HCC) Unspecified pruritic disorder 07/03/2008 XEROSIS///SEBACEOUS GLAND DIS NEC 07/03/2008 Social History Tobacco Use Smoking status: Every Day Current packs/day: 0.00 Types: Cigarettes Last attempt to quit: 2017 Years since quittin.9 Smokeless tobacco: Never Tobacco comments: less than one half pack Vaping Use Vaping status: Never Used Substance Use Topics Alcohol use: Yes Comment: very rare Drug use: No Latest Ref Rng 03/22/2022 06/28/2023 07/13/2023 08/02/2023 08/27/2023 WBC 3.70 - 11.00 k/uL 8.60 7.11 RBC 3.90 - 5.20 m/uL 4.46 4.58 Hemoglobin 11.5 - 15.5 g/dL 13.5 13.8 Hematocrit 36.0 - 46.0 % 40.0 43.3 MCV 80.0 - 100.0 fL 89.7 94.5 MCH 26.0 - 34.0 pg 30.3 30.1 MCHC 30.5 - 36.0 g/dL 33.8 31.9 RDW-CV 11.5 - 15.0 % 12.7 12.9 Platelet Count 150 - 400 k/uL 224 239 MPV 9.0 - 12.7 fL 9.0 9.5 Neut% % 59.3 Abs Neut (ANC) 1.45 - 7.50 k/uL 5.10 Lymph% % 31.4 Abs Lymph 1.00 - 4.00 k/uL 2.70 [place]% % 6.9 Abs [place] <0.87 k/uL 0.59 Eosin% % 1.4 Abs Eosin <0.46 k/uL 0.12 Baso% % 0.7 Abs Baso <0.11 k/uL 0.06 Immature Gran % % 0.3 IMMATURE GRANS (ABS) <0.10 k/uL 0.03 NRBC /100 WBC 0.0 Absolute nRBC <0.01 k/uL <0.01 <0.01 DTYPE Auto Protein, Total 6.3 - 8.0 g/dL 6.8 7.5 Albumin 3.9 - 4.9 g/dL 4.4 4.4 Calcium 8.5 - 10.2 mg/dL 9.5 9.7 Bilirubin, Total 0.2 - 1.3 mg/dL 0.5 0.3 Alkaline Phosphatase 34 - 123 U/L 70 73 AST 13 - 35 U/L 16 32 ALT 7 - 38 U/L 12 25 Glucose 74 - 99 mg/dL 100 (H) 98 BUN 7 - 21 mg/dL 13 17 Creatinine 0.58 - 0.96 mg/dL 0.68 0.76 Sodium 136 - 144 mmol/L 138 143 Potassium 3.7 - 5.1 mmol/L 3.9 4.7 Chloride 97 - 105 mmol/L 104 105 CO2 22 - 30 mmol/L 24 26 Anion Gap 9 - 18 mmol/L 10 12 eGFR >=60 mL/min/1.73m 107 95 Cholesterol, Total <200 mg/dL 233 (H) Triglyceride <150 mg/dL 72 HDL Cholesterol >39 mg/dL 54 Non HDL Cholesterol <130 mg/dL 179 (H) Fasting Time hrs 19 VLDL Cholesterol <30 mg/dL 14 TC:HDL Ratio <5.10 4.31 LDL Cholesterol <100 mg/dL 165 (H) LDL:HDL Ratio <2.54 3.06 (H) TB Nil <=8.00 IU/mL 0.01 TB Interpretation Infection with M. tuberculosis complex is unlikely. If latent tuberculosis infection is highly suspected, a negative result does not rule out the infection. Specimens from immunocompromised patients and those <5 years of age may show false negative results. In case of a contact investigation, please repeat 8-12 weeks after a known exposure. TB1 Ag minus Nil <0.35 IU/mL 0.04 TB2 Ag minus Nil <0.35 IU/mL 0.02 TB Result Negative Mitogen minus Nil >=0.50 IU/mL >9.99 HIV 12 Combo (Ag/Ab) Nonreactive Nonreactive HIV 1/2 Ab -- HIV Interpretation -- IgG 700 - 1,600 mg/dL 727 IgA 70 - 400 mg/dL 158 IgM 40 - 230 mg/dL 155 Hemoglobin A1C 4.3 - 5.6 % 5.1 5.1 Estimated Average Glucose mg/dL 100 100 INDEX VALUE 0.35 (H) JCV Antibody INDETERMINATE ! TSH 0.270 - 4.200 mIU/L 1.020 Free T4 0.9 - 1.7 ng/dL 1.2 Free T3 2.3 - 4.1 pg/mL 3.2 Magnesium 1.7 - 2.3 mg/dL 2.0 Vitamin D 25 Hydroxy 31.0 - 80.0 ng/mL 28.2 (L) 31.1 Varicella Zoster IgG, Qual Positive Positive Vitamin B12 232 - 1,245 pg/mL 1,280 (H) Hep C Antibody IA Negative Negative Hep B Surface Ag Negative Negative Hep B Surface Ab, Qual Negative Negative Hep B Core Ab, Total Negative Negative Stratify Jcv(Tm) Antibody Inhibition Assay FINAL RSLT: NEGATIVE Stool DNA N/A Sample Could Not Be Processed 7 No Result Obtained 3 Sample Could Not Be Processed 6 ASSESSMENT/PLAN: 1. Neurogenic bladder - ICD9: 596.54, ICD10: N31.9 (primary diagnosis) Neurogenic bladder related to multiple sclerosis with recent urology visit. She notes occasional stress incontinence. Recommendation to avoid estrogen due to history of PE following bilateral oophorectomy 2004. Notes history of post void residual in the past, but with pain on straight cathing attributed to multiple sclerosis. Recommend an appointment with urology to discuss options. - CONSULT TO UROLOGY 2. Encounter for immunization - ICD9: V03.89, ICD10: Z23 declines at this time 3. Encounter for screening examination for other mental health and behavioral disorders - ICD9: V79.8, ICD10: Z13.39 - ANXIETY SCREENING 4. 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 Multiple sclerosis (HCC) - ICD9: 340, ICD10: G35 Endorse following up with neurology, specialist with MS either at [facility] or [facility] or her preferred location.Endorse DMD to slow progression of disease. - HYDROCODONE 5 MG-ACETAMINOPHEN 325 MG TABLET 6. MULTIPLE SCLEROSIS - ICD9: 340, ICD10: G35 - HYDROCODONE 5 MG-ACETAMINOPHEN 325 MG TABLET - HYDROCODONE 5 MG-ACETAMINOPHEN 325 MG TABLET 7. 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 All prescriptions have been APPROPRIATELY filled. No suspicious activity was identified. 04/04/2024 by Allison Esqueda APRN.CNP [facility] 04-04-2024 Miscellaneous Notes PDMP website checked and validated. All prescriptions have been APPROPRIATELY filled. No suspicious activity was identified. 04/04/2024 by Allison Esqueda APRN.CNP The patient has been identified by name and date of : Yes Caregiver verified no other encounters exist for this prescription request: Yes Caregiver confirmed with patient/requestor that no other refills are due, in the near future, with this provider at this time: Yes The last office visit in the department: 02/22/2024 Does the patient have a future office visit with this provider/department: Yes 04/10/2024 Requested Prescriptions Pending Prescriptions Disp Refills LORazepam (ATIVAN) 1 mg tablet 60 tablet 2 Sig: Take 1-2 tablets by mouth once daily for 90 days. Estrella Bustos LPN April 04, 2024 2:46 PM documented in this encounter [facility] 04-04-2024 Telephone encounter Note The patient has been identified by name and date of : Yes Caregiver verified no other encounters exist for this prescription request: Yes Caregiver confirmed with patient/requestor that no other refills are due, in the near future, with this provider at this time: Yes The last office visit in the department: 02/22/2024 Does the patient have a future office visit with this provider/department: Yes 04/10/2024 Requested Prescriptions Pending Prescriptions Disp Refills LORazepam (ATIVAN) 1 mg tablet 60 tablet 2 Sig: Take 1-2 tablets by mouth once daily for 90 days. Estrella Bustos LPN April 04, 2024 2:46 PM [facility] 03-21-2024 History of Present illness Narrative Radiology Service Progress Note PATIENT NAME: Shoshana Tamayo DATE OF SERVICE: March 21, 2024 TIME: 12:44 PM PATIENT IDENTITY VERIFICATION COMPLETED USING TWO (2) IDENTIFIERS: Name and Date of confirmed by patient verbally. FALL SCREENING: Has the patient had 2 falls in the last year or 1 fall with injury or currently using an Ambulatory Assistive Device (Walker, Cane, Wheelchair, Crutches, etc.)? No PATIENT GENDER DATA: Female. status: : No status: NO. PATIENT RELEVANT IMPLANT DATA REVIEWED: Yes PATIENT PRESENTS WITH AN IMPLANTABLE OR ATTACHED GUM SCORING MACHINE OPERATOR: No RADIOLOGY DEPARTMENT: General X-ray: Exam(s) Completed: Chest X-Ray PERIPHERAL IV DATA: Not applicable SIGNED BY: RT Benny(R) March 21, 2024 12:44 PM documented in this encounter [facility] 03-21-2024 Note HNO ID: [id number] Author: ENRRIQUE DILLON RT(R) Service: ? Author Type: Machine Operator Assistant Type: Progress Notes Filed: 03/21/2024 12:50 Note Text: Radiology Service Progress Note PATIENT NAME: Shoshana Tamayo DATE OF SERVICE: March 21, 2024 TIME: 12:44 PM PATIENT IDENTITY VERIFICATION COMPLETED USING TWO (2) IDENTIFIERS: Name and Date of confirmed by patient verbally. FALL SCREENING: Has the patient had 2 falls in the last year or 1 fall with injury or currently using an Ambulatory Assistive Device (Walker, Cane, Wheelchair, Crutches, etc.)? No PATIENT GENDER DATA: Female. status: : No status: NO. PATIENT RELEVANT IMPLANT DATA REVIEWED: Yes PATIENT PRESENTS WITH AN IMPLANTABLE OR ATTACHED GUM SCORING MACHINE OPERATOR: No RADIOLOGY DEPARTMENT: General X-ray: Exam(s) Completed: Chest X-Ray PERIPHERAL IV DATA: Not applicable SIGNED BY: RT Benny(R) March 21, 2024 12:44 PM [facility] 03-21-2024 Note HNO ID: [id number] Author: NAHID PASTOR APRN.LIBRARY MANAGER Service: ? Author Type: Nurse Practitioner Type: Progress Notes Filed: 03/21/2024 12:58 Note Text: CC: Patient presents with: Chest Congestion: cough, sob and fatigue x 8 days HPI: Shoshana Tamayo is a 53 year old female who presents to the office with complaint of chest congestion and cough, productive for 8 days. Symptoms are staying the same. Associated symptoms includes wheezing and dyspnea. Denies nausea, vomiting , and diarrhea. Treatments tried include nothing so far. with no relief of symptoms. Sick contacts: unknown. History of asthma, frequent episodes of bronchitis, chronic bronchitis, bronchiectasis or COPD: No Smoker: No Seasonal/environmental allergies: No The ROS is otherwise negative. The patient's pmh, medications, allergies, and past visits are reviewed. PHYSICAL EXAM: BP 118/80 Pulse 108 Temp 36.9 ?C (98.4 ?F) Resp 20 Wt 89.1 kg (196 lb 6.9 oz) SpO2 96% BMI 33.72 kg/m? General appearance: alert, cooperative, pleasant, in no acute distress Head: Normocephalic Eyes: EOM's intact, conjunctiva pink and moist, no icterus, sclera white, non-injected Ears: Right ear: External ear/canal- Normal, TM - clear with good landmarks. Left ear: External ear/canal- Normal, TM - clear with good landmarks Oropharynx:moist without lesions, No erythema, exudates or tonsillar hypertrophy. Heart: Negative. RRR without obvious murmur, gallop, or rubs. No ectopy. Lungs: mild wheezing diffusely PAST MEDICAL HISTORY Diagnosis Date Anxiety state, unspecified 05/27/2005 Depression Detrusor sphincter dyssynergia Excessive daytime sleepiness 04/02/2014 Provigil was effective Female stress incontinence Lump or mass in breast 04/26/2009 Multiple sclerosis (HCC) Onset and diagnosis 1996 Phlebitis and thrombophlebitis of unspecified site Pulmonary embolus (HCC) Unspecified pruritic disorder 07/03/2008 XEROSIS///SEBACEOUS GLAND DIS NEC 07/03/2008 PAST SURGICAL HISTORY Procedure Laterality Date SECTION HX TONSILLECTOMY AND ADENOIDECTOMY HX TOTAL ABDOMINAL HYSTERECT W/WO RMVL TUBE OVARY 03/2005 BSO ALLERGIES Sudafed [Pseudoephedrine Hcl], Sulfa (Sulfonamide Antibiotics), and Wellbutrin [Bupropion] MEDICATIONS terazosin (HYTRIN) 5 mg capsule Take 1 capsule by mouth daily at bedtime. LORazepam (ATIVAN) 1 mg tablet Take 1-2 tablets by mouth once daily for 90 days. modafinil (PROVIGIL) 200 mg tablet Take 1 tablet by mouth two times a day for 180 days. ARIPiprazole (ABILIFY) 5 mg tablet Take 1 tablet by mouth once daily. Take this in addition to 2 mg daily for a total of 7 mg daily ARIPiprazole (ABILIFY) 2 mg tablet Take 1 tablet by mouth once daily. Take this in addition to 5 mg daily for a total of 7 mg daily citalopram (CELEXA) 40 mg tablet Take 1 tablet by mouth every afternoon. HYDROcodone-acetaminophen (NORCO) 5-325 mg per tablet Take 1 tablet by mouth four times a day as needed for pain for up to 30 days. Do not start before March 18, 2024. cholecalciferol (VITAMIN D-3) 5,000 unit tab Take 1 tablet by mouth once daily. triamcinolone acetonide (KENALOG) 0.1 % cream Apply 1 application to affected area three times a day as needed. Apply sparingly to area for rash/itching, to affected ears ibuprofen (MOTRIN) 200 mg tablet Take 3-4 tablets by mouth four times daily as needed for Pain (Take with food.). Maximum 2400 mg per day HYDROcodone-acetaminophen (NORCO) 5-325 mg per tablet Take 1 tablet by mouth four times a day as needed for pain for up to 30 days. Do not start before January 18, 2024. HYDROcodone-acetaminophen (NORCO) 5-325 mg per tablet Take 1 tablet by mouth four times a day as needed for pain for up to 30 days. Do not start before February 17, 2024. HYDROcodone-acetaminophen (NORCO) 5-325 mg per tablet Take 1 tablet by mouth every 6 hours as needed for pain for up to 30 days. aspirin (ASPIRIN CHILDRENS) 81 mg chewable tablet Take 81 mg by mouth once daily. (Patient not taking: Reported on 03/21/2024) tiZANidine (ZANAFLEX) 4 mg tablet Take 1 tablet by mouth every 8 hours as needed (muscle spasms). (Patient not taking: Reported on 02/22/2024) iv contrast (will be provided with radiology test) MRI Brain Inject, intravenously, once for 1 dose.No IV access, insert saline lock prior to beginning of sedation, infusion, injection of imaging exam.Discontinue saline lock post exam. If Pt. has a central line or IVAD, may access for administration according to line specific nursing protocol.Once exam is complete flush line and de-access according to line specific nursing protocol in the MR contrast administration guidelines link (Patient not taking: Reported on 12/28/2023) FAMILY HISTORY Problem Relation Age of Onset Hypertension Mother other (Crohns [Other]) Sister other (Pancreatic cancer [Other]) Maternal Grandfather other (Throat cancer [Other]) Paternal (more content not included)... [facility] 03-21-2024 History of Present illness Narrative CC: Patient presents with: Chest Congestion: cough, sob and fatigue x 8 days HPI: Shoshana Tamayo is a 53 year old female who presents to the office with complaint of chest congestion and cough, productive for 8 days. Symptoms are staying the same. Associated symptoms includes wheezing and dyspnea. Denies nausea, vomiting , and diarrhea. Treatments tried include nothing so far. with no relief of symptoms. Sick contacts: unknown. History of asthma, frequent episodes of bronchitis, chronic bronchitis, bronchiectasis or COPD: No Smoker: No Seasonal/environmental allergies: No The ROS is otherwise negative. The patient's pmh, medications, allergies, and past visits are reviewed. PHYSICAL EXAM: BP 118/80 Pulse 108 Temp 36.9 C (98.4 F) Resp 20 Wt 89.1 kg (196 lb 6.9 oz) SpO2 96% BMI 33.72 kg/m General appearance: alert, cooperative, pleasant, in no acute distress Head: Normocephalic Eyes: EOM's intact, conjunctiva pink and moist, no icterus, sclera white, non-injected Ears: Right ear: External ear/canal- Normal, TM - clear with good landmarks. Left ear: External ear/canal- Normal, TM - clear with good landmarks Oropharynx:moist without lesions, No erythema, exudates or tonsillar hypertrophy. Heart: Negative. RRR without obvious murmur, gallop, or rubs. No ectopy. Lungs: mild wheezing diffusely PAST MEDICAL HISTORY Diagnosis Date Anxiety state, unspecified 05/27/2005 Depression Detrusor sphincter dyssynergia Excessive daytime sleepiness 04/02/2014 Provigil was effective Female stress incontinence Lump or mass in breast 04/26/2009 Multiple sclerosis (HCC) Onset and diagnosis 1996 Phlebitis and thrombophlebitis of unspecified site Pulmonary embolus (HCC) Unspecified pruritic disorder 07/03/2008 XEROSIS///SEBACEOUS GLAND DIS NEC 07/03/2008 PAST SURGICAL HISTORY Procedure Laterality Date SECTION HX TONSILLECTOMY AND ADENOIDECTOMY HX TOTAL ABDOMINAL HYSTERECT W/WO RMVL TUBE OVARY 03/2005 BSO ALLERGIES Sudafed [Pseudoephedrine Hcl], Sulfa (Sulfonamide Antibiotics), and Wellbutrin [Bupropion] MEDICATIONS terazosin (HYTRIN) 5 mg capsule Take 1 capsule by mouth daily at bedtime. LORazepam (ATIVAN) 1 mg tablet Take 1-2 tablets by mouth once daily for 90 days. modafinil (PROVIGIL) 200 mg tablet Take 1 tablet by mouth two times a day for 180 days. ARIPiprazole (ABILIFY) 5 mg tablet Take 1 tablet by mouth once daily. Take this in addition to 2 mg daily for a total of 7 mg daily ARIPiprazole (ABILIFY) 2 mg tablet Take 1 tablet by mouth once daily. Take this in addition to 5 mg daily for a total of 7 mg daily citalopram (CELEXA) 40 mg tablet Take 1 tablet by mouth every afternoon. HYDROcodone-acetaminophen (NORCO) 5-325 mg per tablet Take 1 tablet by mouth four times a day as needed for pain for up to 30 days. Do not start before March 18, 2024. cholecalciferol (VITAMIN D-3) 5,000 unit tab Take 1 tablet by mouth once daily. triamcinolone acetonide (KENALOG) 0.1 % cream Apply 1 application to affected area three times a day as needed. Apply sparingly to area for rash/itching, to affected ears ibuprofen (MOTRIN) 200 mg tablet Take 3-4 tablets by mouth four times daily as needed for Pain (Take with food.). Maximum 2400 mg per day HYDROcodone-acetaminophen (NORCO) 5-325 mg per tablet Take 1 tablet by mouth four times a day as needed for pain for up to 30 days. Do not start before January 18, 2024. HYDROcodone-acetaminophen (NORCO) 5-325 mg per tablet Take 1 tablet by mouth four times a day as needed for pain for up to 30 days. Do not start before February 17, 2024. HYDROcodone-acetaminophen (NORCO) 5-325 mg per tablet Take 1 tablet by mouth every 6 hours as needed for pain for up to 30 days. aspirin (ASPIRIN CHILDRENS) 81 mg chewable tablet Take 81 mg by mouth once daily. (Patient not taking: Reported on 03/21/2024) tiZANidine (ZANAFLEX) 4 mg tablet Take 1 tablet by mouth every 8 hours as needed (muscle spasms). (Patient not taking: Reported on 02/22/2024) iv contrast (will be provided with radiology test) MRI Brain Inject, intravenously, once for 1 dose.No IV access, insert saline lock prior to beginning of sedation, infusion, injection of imaging exam.Discontinue saline lock post exam. If Pt. has a central line or IVAD, may access for administration according to line specific nursing protocol.Once exam is complete flush line and de-access according to line specific nursing protocol in the MR contrast administration guidelines link (Patient not taking: Reported on 12/28/2023) FAMILY HISTORY Problem Relation Age of Onset Hypertension Mother other (Crohns [Other]) Sister other (Pancreatic cancer [Other]) Maternal Grandfather other (Throat cancer [Other]) Paternal Grandfather other (Rheumatoid arthritis [Other]) Paternal Grandmother other (Scleroderma [Other]) Paternal Grandmother Multiple Sclerosis No Family History Social History Tobacco Use Smoking status: Every Day Current packs/day: 0.00 Types: Cigarettes Last attempt to quit: 2017 Years since quittin.9 Smokeless tobacco: Never Tobacco comments: less than one half pack Vaping Use Vaping status: Never Used Substance Use Topics Alcohol use: Yes Comment: very rare Drug use: No ASSESSMENT/PLAN: 1. Acute cough - ICD9: 786.2, ICD10: R05.1 - XR CHEST 2V FRONTAL/LAT * * * * Physician Interpretation * * * * EXAMINATION: CHEST RADIOGRAPH (2 VIEW FRONTAL & LATERAL) CLINICAL HISTORY: Acute cough MQ: [id number] EXAM DATE/TIME: 03/21/2024 12:51 PM COMPARISON: Chest x-ray dated 06/28/2018 RESULT: Lines, tubes, and devices: None. Lungs and pleura: No consolidation. No lung mass. No pleural effusion. No pneumothorax. Cardiomediastinal silhouette: Stable cardiomediastinal silhouette. Bones and soft tissues: Unremarkable. IMPRESSION IMPRESSION: No acute radiographic abnormality. Set Staff Fitter: GRADY Transcribe Date/Time: Mar 21 2024 12:52P Dictated by : ABRAHAM KAHN MD doxycycline and prednisone Prescription instructions reviewed with patient as applicable. Potential red flag symptoms discussed with the patient. Reviewed appropriate action plan to take if red flag symptoms occur. Patient agreeable to treatment plan. Nahid Pastor APRN.LIBRARY MANAGER documented in this encounter [facility] 02-22-2024 Note HNO ID: [id number] Author: ALLISON ESQUEDA APRN.[facility] Service: ? Author Type: Nurse Practitioner Type: Progress Notes Filed: 02/22/2024 10:12 Note Text: SUBJECTIVE Shoshana Tamayo is a 53 year old female here today for acute concerns. Chief Complaint Patient presents with: Flank Pain: right side HPI Shoshana Tamayo is a 53 year old female. She is an established patient of Lina Hernandez MD. Presents today acutely for concerns of possible urine infection. Onset about 4 days ago, not getting better. History of pyelonephritis. Dull aching. Constant pain. Feels like prior infections. Prone to infection with her MS. Notes trouble starting urine stream, frequency. Allergies to sulfas. Her medications were reviewed today and her list is now up to date. Medications Current Outpatient Medications Medication Sig terazosin (HYTRIN) 5 mg capsule Take 1 capsule by mouth daily at bedtime. LORazepam (ATIVAN) 1 mg tablet Take 1-2 tablets by mouth once daily for 90 days. modafinil (PROVIGIL) 200 mg tablet Take 1 tablet by mouth two times a day for 180 days. ARIPiprazole (ABILIFY) 5 mg tablet Take 1 tablet by mouth once daily. Take this in addition to 2 mg daily for a total of 7 mg daily ARIPiprazole (ABILIFY) 2 mg tablet Take 1 tablet by mouth once daily. Take this in addition to 5 mg daily for a total of 7 mg daily citalopram (CELEXA) 40 mg tablet Take 1 tablet by mouth every afternoon. HYDROcodone-acetaminophen (NORCO) 5-325 mg per tablet Take 1 tablet by mouth four times a day as needed for pain for up to 30 days. Do not start before February 17, 2024. aspirin (ASPIRIN CHILDRENS) 81 mg chewable tablet Take 81 mg by mouth once daily. cholecalciferol (VITAMIN D-3) 5,000 unit tab Take 1 tablet by mouth once daily. triamcinolone acetonide (KENALOG) 0.1 % cream Apply 1 application to affected area three times a day as needed. Apply sparingly to area for rash/itching, to affected ears ibuprofen (MOTRIN) 200 mg tablet Take 3-4 tablets by mouth four times daily as needed for Pain (Take with food.). Maximum 2400 mg per day ciprofloxacin HCl (CIPRO) 500 mg tablet Take 1 tablet by mouth two times a day for 7 days. HYDROcodone-acetaminophen (NORCO) 5-325 mg per tablet Take 1 tablet by mouth four times a day as needed for pain for up to 30 days. Do not start before January 18, 2024. [START ON 03/18/2024] HYDROcodone-acetaminophen (NORCO) 5-325 mg per tablet Take 1 tablet by mouth four times a day as needed for pain for up to 30 days. Do not start before March 18, 2024. HYDROcodone-acetaminophen (NORCO) 5-325 mg per tablet Take 1 tablet by mouth every 6 hours as needed for pain for up to 30 days. tiZANidine (ZANAFLEX) 4 mg tablet Take 1 tablet by mouth every 8 hours as needed (muscle spasms). (Patient not taking: Reported on 02/22/2024) iv contrast (will be provided with radiology test) MRI Brain Inject, intravenously, once for 1 dose.No IV access, insert saline lock prior to beginning of sedation, infusion, injection of imaging exam.Discontinue saline lock post exam. If Pt. has a central line or IVAD, may access for administration according to line specific nursing protocol.Once exam is complete flush line and de-access according to line specific nursing protocol in the MR contrast administration guidelines link (Patient not taking: Reported on 12/28/2023) No current facility-administered medications for this visit. 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 Cardiovascular: Negative. Genitourinary: Positive for dysuria, flank pain and frequency. Negative for hematuria. OBJECTIVE BP 90/60 Pulse 92 Temp (Src) 98 (Temporal) Wt 196 lb 6.9 oz (89.1kg) SpO2 97% Physical Exam Vitals and nursing note reviewed. Constitutional: General: She is awake. She is not in acute distress. Appearance: Normal appearance. She is well-developed and well-groomed. She is not ill-appearing, toxic-appearing or diaphoretic. HENT: Head: Normocephalic. Right Ear: External ear normal. Left Ear: External ear normal. Nose: Nose normal. (more content not included)... [facility] 02-22-2024 History of Present illness Narrative SUBJECTIVE Shoshana Tamayo is a 53 year old female here today for acute concerns. Chief Complaint Patient presents with: Flank Pain: right side HPI Shoshana Tamayo is a 53 year old female. She is an established patient of Lina Hernandez MD. Presents today acutely for concerns of possible urine infection. Onset about 4 days ago, not getting better. History of pyelonephritis. Dull aching. Constant pain. Feels like prior infections. Prone to infection with her MS. Notes trouble starting urine stream, frequency. Allergies to sulfas. Her medications were reviewed today and her list is now up to date. Medications Current Outpatient Medications Medication Sig terazosin (HYTRIN) 5 mg capsule Take 1 capsule by mouth daily at bedtime. LORazepam (ATIVAN) 1 mg tablet Take 1-2 tablets by mouth once daily for 90 days. modafinil (PROVIGIL) 200 mg tablet Take 1 tablet by mouth two times a day for 180 days. ARIPiprazole (ABILIFY) 5 mg tablet Take 1 tablet by mouth once daily. Take this in addition to 2 mg daily for a total of 7 mg daily ARIPiprazole (ABILIFY) 2 mg tablet Take 1 tablet by mouth once daily. Take this in addition to 5 mg daily for a total of 7 mg daily citalopram (CELEXA) 40 mg tablet Take 1 tablet by mouth every afternoon. HYDROcodone-acetaminophen (NORCO) 5-325 mg per tablet Take 1 tablet by mouth four times a day as needed for pain for up to 30 days. Do not start before February 17, 2024. aspirin (ASPIRIN CHILDRENS) 81 mg chewable tablet Take 81 mg by mouth once daily. cholecalciferol (VITAMIN D-3) 5,000 unit tab Take 1 tablet by mouth once daily. triamcinolone acetonide (KENALOG) 0.1 % cream Apply 1 application to affected area three times a day as needed. Apply sparingly to area for rash/itching, to affected ears ibuprofen (MOTRIN) 200 mg tablet Take 3-4 tablets by mouth four times daily as needed for Pain (Take with food.). Maximum 2400 mg per day ciprofloxacin HCl (CIPRO) 500 mg tablet Take 1 tablet by mouth two times a day for 7 days. HYDROcodone-acetaminophen (NORCO) 5-325 mg per tablet Take 1 tablet by mouth four times a day as needed for pain for up to 30 days. Do not start before January 18, 2024. [START ON 03/18/2024] HYDROcodone-acetaminophen (NORCO) 5-325 mg per tablet Take 1 tablet by mouth four times a day as needed for pain for up to 30 days. Do not start before March 18, 2024. HYDROcodone-acetaminophen (NORCO) 5-325 mg per tablet Take 1 tablet by mouth every 6 hours as needed for pain for up to 30 days. tiZANidine (ZANAFLEX) 4 mg tablet Take 1 tablet by mouth every 8 hours as needed (muscle spasms). (Patient not taking: Reported on 02/22/2024) iv contrast (will be provided with radiology test) MRI Brain Inject, intravenously, once for 1 dose.No IV access, insert saline lock prior to beginning of sedation, infusion, injection of imaging exam.Discontinue saline lock post exam. If Pt. has a central line or IVAD, may access for administration according to line specific nursing protocol.Once exam is complete flush line and de-access according to line specific nursing protocol in the MR contrast administration guidelines link (Patient not taking: Reported on 12/28/2023) No current facility-administered medications for this visit. 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 Cardiovascular: Negative. Genitourinary: Positive for dysuria, flank pain and frequency. Negative for hematuria. OBJECTIVE BP 90/60 Pulse 92 Temp (Src) 98 (Temporal) Wt 196 lb 6.9 oz (89.1kg) SpO2 97% Physical Exam Vitals and nursing note reviewed. Constitutional: General: She is awake. She is not in acute distress. Appearance: Normal appearance. She is well-developed and well-groomed. She is not ill-appearing, toxic-appearing or diaphoretic. HENT: Head: Normocephalic. Right Ear: External ear normal. Left Ear: External ear normal. Nose: Nose normal. Eyes: General: Vision grossly intact. Conjunctiva/sclera: Conjunctivae normal. Pupils: Pupils are equal, round, and reactive to light. Neck: Vascular: No JVD. Trachea: Trachea normal. Pulmonary: Effort: Pulmonary effort is normal. No accessory muscle usage, prolonged expiration or respiratory distress. Abdominal: Tenderness: There is right CVA tenderness. There is no left CVA tenderness. Musculoskeletal: Cervical back: Neck supple. Skin: General: Skin is warm and dry. Capillary Refill: Capillary refill takes less than 2 seconds. Neurological: General: No focal deficit present. Mental Status: She is alert and oriented to person, place, and time. Mental status is at baseline. Psychiatric: Attention and Perception: Attention and perception normal. Mood and Affect: Mood and affect normal. Speech: Speech normal. Behavior: Behavior normal. Behavior is cooperative. Thought Content: Thought content normal. Cognition and Memory: Cognition and memory normal. Judgment: Judgment normal. ASSESSMENT/PLAN: 1. Acute cystitis with hematuria - ICD9: 595.0, ICD10: N30.01 (primary diagnosis) Urine dip with trace blood, given her symptoms and history we will opt to treat, has taken cipro in the past and done well. - UA DIP, URINE (POC) - URINE CULTURE - CIPROFLOXACIN 500 MG TABLET 2. History of pyelonephritis - ICD9: V13.02, ICD10: Z87.448 See above. Portions of this note have been entered by ancillary staff. I have reviewed and when necessary edited, so that they are an adequate record of my encounter with this patient Please note that parts of this document were created using voice recognition software and therefore may contain grammatical errors. Patient verbalizes understanding of instructions from today's visit and in agreement with treatment plan. Questions answered. Agrees to call the office if questions, concerns of issues with acute symptoms not improving or if they worsen. See diagnoses and orders for additional plan(s). Allergies and medications were reviewed, list was updated, and refills given if needed. Past medical, surgical, social, and family history reviewed and updated as appropriate. Encouraged proper diet & exercise as well as compliance with taking medications. Age-appropriate health preventative measures were discussed. Return if symptoms worsen or fail to improve, for Keep next scheduled appointment.. Allison Esqueda APRN-XIOMARA documented in this encounter [facility] 02-22-2024 Telephone encounter Note Reason for Call: Flank pain and difficulty urinating Outcome: Patient was conferenced to Christy in [facility] for PCP scheduling within 4 hours and was advised to go to [facility], if needed. Reason for Disposition Fever > 100.4 F (38.0 C) Nurse discretion: no thermometer available, but patient has had chills off and on Answer Assessment - Initial Assessment Questions 1. LOCATION: right flank pain at waist and up a little bit 2. ONSET: 3-4 days ago 3. SEVERITY: rated 5/10 now when sitting, goes to 7/10 with movement. Described as achy, takes her breath away, hurts to take a deep breath. Took Vicodin at 0825 with no relief yet 4. PATTERN: constant 5. CAUSE: kidney; history of pyelonephritis and frequent bladder infections due to her MS 6. OTHER SYMPTOMS: difficulty urinating described as difficult to start stream, has to cough to get it out. Patient is drinking fluids and urinating less than expected, is urinating frequent but small amounts. 7. : no; postmenopausal Protocols used: Flank [id number] [facility] 02-22-2024 Miscellaneous Notes Reason for Call: Flank pain and difficulty urinating Outcome: Patient was conferenced to Christy in [facility] for PCP scheduling within 4 hours and was advised to go to [facility], if needed. Reason for Disposition Fever > 100.4 F (38.0 C) Nurse discretion: no thermometer available, but patient has had chills off and on Answer Assessment - Initial Assessment Questions 1. LOCATION: right flank pain at waist and up a little bit 2. ONSET: 3-4 days ago 3. SEVERITY: rated 5/10 now when sitting, goes to 7/10 with movement. Described as achy, takes her breath away, hurts to take a deep breath. Took Vicodin at 0825 with no relief yet 4. PATTERN: constant 5. CAUSE: kidney; history of pyelonephritis and frequent bladder infections due to her MS 6. OTHER SYMPTOMS: difficulty urinating described as difficult to start stream, has to cough to get it out. Patient is drinking fluids and urinating less than expected, is urinating frequent but small amounts. 7. : no; postmenopausal Protocols used: Flank [id number] documented in this encounter [facility] 02-10-2024 Telephone encounter Note Prescription Refill Information The patient has been identified by name and date of : Yes Caregiver verified no other encounters exist for this prescription request: Yes Caregiver confirmed with patient/requestor that no other refills are due, in the near future, with this provider at this time: Yes The last office visit in the department: 12/28/23 Does the patient have a future office visit with this provider/department: Yes Requested Prescriptions Pending Prescriptions Disp Refills terazosin (HYTRIN) 5 mg capsule 90 capsule 3 Sig: Take 1 capsule by mouth daily at bedtime. Minnie Almeida LPN February 10, 2024 8:14 AM [facility] 02-10-2024 Miscellaneous Notes Prescription Refill Information The patient has been identified by name and date of : Yes Caregiver verified no other encounters exist for this prescription request: Yes Caregiver confirmed with patient/requestor that no other refills are due, in the near future, with this provider at this time: Yes The last office visit in the department: 12/28/23 Does the patient have a future office visit with this provider/department: Yes Requested Prescriptions Pending Prescriptions Disp Refills terazosin (HYTRIN) 5 mg capsule 90 capsule 3 Sig: Take 1 capsule by mouth daily at bedtime. Minnie Almeida LPN February 10, 2024 8:14 AM documented in this encounter [facility] 01-18-2024 Telephone encounter Note Spoke to Dr. David Matute sent new prescriptions for [place] to start, 01/18/2024 & 02/17/2024 to [facility]. Patient will check with pharmacy. Mary Ellen Trimble LPN [facility] 01-18-2024 Miscellaneous Notes Spoke to Dr. David Matute sent new prescriptions for [place] to start, 01/18/2024 & 02/17/2024 to [facility]. Patient will check with pharmacy. Mary Ellen Trimble LPN documented in this encounter [facility] 01-11-2024 Telephone encounter Note The following approved medication requests have been transmitted electronically. Requested Prescriptions Signed Prescriptions Disp Refills LORazepam (ATIVAN) 1 mg tablet 60 tablet 2 Sig: Take 1-2 tablets by mouth once daily for 90 days. Authorizing Provider: LINA HERNANDEZ modafinil (PROVIGIL) 200 mg tablet 60 tablet 5 Sig: Take 1 tablet by mouth two times a day for 180 days. Authorizing Provider: LINA HERNANDEZ MD [facility] 01-11-2024 Miscellaneous Notes The following approved medication requests have been transmitted electronically. Requested Prescriptions Signed Prescriptions Disp Refills LORazepam (ATIVAN) 1 mg tablet 60 tablet 2 Sig: Take 1-2 tablets by mouth once daily for 90 days. Authorizing Provider: LINA HERNANDEZ modafinil (PROVIGIL) 200 mg tablet 60 tablet 5 Sig: Take 1 tablet by mouth two times a day for 180 days. Authorizing Provider: LINA HERNANDEZ MD The patient has been identified by name and date of : Yes Caregiver verified no other encounters exist for this prescription request: Yes Caregiver confirmed with patient/requestor that no other refills are due, in the near future, with this provider at this time: Yes The last office visit in the department: 12/28/2023 Does the patient have a future office visit with this provider/department: Yes 04/10/2024 Requested Prescriptions Pending Prescriptions Disp Refills LORazepam (ATIVAN) 1 mg tablet 60 tablet 2 Sig: Take 1-2 tablets by mouth once daily for 90 days. modafinil (PROVIGIL) 200 mg tablet 60 tablet 5 Sig: Take 1 tablet by mouth two times a day for 180 days. Asking for Modanifil script to be sent to BERENICE Swenson RN January 11, 2024 4:03 PM documented in this encounter [facility] 01-11-2024 Telephone encounter Note The patient has been identified by name and date of : Yes Caregiver verified no other encounters exist for this prescription request: Yes Caregiver confirmed with patient/requestor that no other refills are due, in the near future, with this provider at this time: Yes The last office visit in the department: 12/28/2023 Does the patient have a future office visit with this provider/department: Yes 04/10/2024 Requested Prescriptions Pending Prescriptions Disp Refills LORazepam (ATIVAN) 1 mg tablet 60 tablet 2 Sig: Take 1-2 tablets by mouth once daily for 90 days. modafinil (PROVIGIL) 200 mg tablet 60 tablet 5 Sig: Take 1 tablet by mouth two times a day for 180 days. Asking for Modanifil script to be sent to M Anjelica Swenson RN January 11, 2024 4:03 PM [facility] 12-28-2023 Instructions Lina Hernandez MD - 12/28/2023 12:32 PM EDT Resume Vitamin D Eat apples instead of bananas. Protein with every carbohydrate. documented in this encounter [facility] 12-28-2023 History of Present illness Narrative This note was created using Magixriter. Subjective Shoshana Tamayo is a 53 year old female. Patient presents with: F/U 3 Month SUBJECTIVE: Shoshana Tamayo is a 53 year old year old lady here today for 3 month follow up appointment for review of medical conditions. Wonders about meds for weight. Weight has gone up. On feet all day. Steps at [address]. Working 7AM to 7PM. Eats around 8PM. During day sandwich and applesauce or salad around 1PM. Not a breakfast person. Other medical isses stable on current meds. Chronic pain controlled so able to continue working. Depression stable on current meds considering. 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 citalopram (CELEXA) 40 mg tablet take 1 tablet by mouth once daily modafinil (PROVIGIL) 200 mg tablet Take 1 tablet by mouth two times a day for 180 days. aspirin (ASPIRIN CHILDRENS) 81 mg chewable tablet Take 81 mg by mouth once daily. ARIPiprazole (ABILIFY) 2 mg tablet Take 1 tablet by mouth once daily. Take this in addition to 5 mg daily for a total of 7 mg daily ARIPiprazole (ABILIFY) 5 mg tablet Take 1 tablet by mouth once daily. Take this in addition to 2 mg daily for a total of 7 mg daily terazosin (HYTRIN) 5 mg capsule Take 1 capsule by mouth daily at bedtime. cholecalciferol (VITAMIN D-3) 5,000 unit tab Take 1 tablet by mouth once daily. phenazopyridine (PYRIDIUM) 200 mg tablet Take 1 tablet by mouth three times a day as needed. triamcinolone acetonide (KENALOG) 0.1 % cream Apply 1 application to affected area three times a day as needed. Apply sparingly to area for rash/itching, to affected ears tiZANidine (ZANAFLEX) 4 mg tablet Take 1 tablet by mouth every 8 hours as needed (muscle spasms). ibuprofen (MOTRIN) 200 mg tablet Take 3-4 tablets by mouth four times daily as needed for Pain (Take with food.). Maximum 2400 mg per day HYDROcodone-acetaminophen (NORCO) 5-325 mg per tablet Take 1 tablet by mouth four times a day as needed for pain for up to 30 days. Do not start before November 18, 2023. HYDROcodone-acetaminophen (NORCO) 5-325 mg per tablet Take 1 tablet by mouth four times a day as needed for pain for up to 30 days. Do not start before October 19, 2023. HYDROcodone-acetaminophen (NORCO) 5-325 mg per tablet Take 1 tablet by mouth four times a day as needed for pain for up to 30 days. Do not start before September 19, 2023. cephALEXin (KEFLEX) 250 mg capsule Take 1 capsule by mouth once daily. For UTI prevention. (Patient not taking: Reported on 12/28/2023) meloxicam (MOBIC) 15 mg tablet Take 1 tablet by mouth once daily as needed for pain. for pain. Take with food. (Patient not taking: Reported on 09/27/2023) iv contrast (will be provided with radiology test) MRI Brain Inject, intravenously, once for 1 dose.No IV access, insert saline lock prior to beginning of sedation, infusion, injection of imaging exam.Discontinue saline lock post exam. If Pt. has a central line or IVAD, may access for administration according to line specific nursing protocol.Once exam is complete flush line and de-access according to line specific nursing protocol in the MR contrast administration guidelines link (Patient not taking: Reported on 12/28/2023) iv contrast (will be provided with radiology test) MRI CSP Inject, intravenously, once for 1 dose. No IV access, insert saline lock prior to the beginning of sedation, infusion, injection of imaging exam. Discontinue saline lock post exam. If Pt. has a central line or IVAD, may access for administration according to line specific nursing protocol. Once exam is complete flush line and de-access according to line specific nursing protocol in the MR contrast administration guidelines link. (Patient not taking: Reported on 12/28/2023) No current facility-administered medications for this visit. Review of Systems Objective BP 122/82 Pulse 71 Temp (!) 35.9 C (96.7 F) Resp 18 Wt 88.9 kg (196 lb) SpO2 99% BMI 33.64 kg/m Physical Exam Constitutional: Appearance: Normal appearance. HENT: Head: Normocephalic. Eyes: Conjunctiva/sclera: Conjunctivae normal. Cardiovascular: Rate and Rhythm: Normal rate and regular rhythm. Heart sounds: Normal heart sounds. Pulmonary: Effort: Pulmonary effort is normal. Breath sounds: Normal breath sounds. Musculoskeletal: Right lower leg: Edema (trace) present. Left lower leg: Edema (trace) present. Skin: General: Skin is warm and dry. Neurological: General: No focal deficit present. Mental Status: She is alert and oriented to person, place, and time. Psychiatric: Mood and Affect: Mood normal. Behavior: Behavior normal. Thought Content: Thought content normal. Judgment: Judgment normal. Assessment and Plan Encounter Diagnosis ICD-10-CM 1. 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 Continue present management 2. Class 1 obesity without serious comorbidity with body mass index (BMI) of 33.0 to 33.9 in adult, unspecified obesity type E66.9 Z68.33 Discussed diet and exercise for weight loss goals. 3. Reactive depression F32.9 ARIPiprazole (ABILIFY) 5 mg tablet ARIPiprazole (ABILIFY) 2 mg tablet Doing fair on current med management. Continue same 4. Recurrent UTI (urinary tract infection) N39.0 phenazopyridine (PYRIDIUM) 200 mg tablet No current issues. Refills for med for prn use 5. 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 Continue same 6. MULTIPLE SCLEROSIS G35 HYDROcodone-acetaminophen (NORCO) 5-325 mg per tablet HYDROcodone-acetaminophen (NORCO) 5-325 mg per tablet HYDROcodone-acetaminophen (NORCO) 5-325 mg per tablet Overall stable. Should follow up with specialist at some point. 7. Screening for colon cancer Z12.11 IMMUNOCHEMICAL FECAL OCCULT BLOOD TEST Above issues addressed with patient. Patient involved in shared decision making for management of medical issues. History and medications reviewed. Epic updated as needed Refills and/or prescriptions taken care of and meds adjusted as indicated after reviewed history, exam and labs. Health Maintenance reviewed. Updated record and/or ordered tests as recorded. Encouraged on efforts at healthy diet and regular exercise and adequate sleep. Stable with control of chronic pain. Able to continue working. At this time benefits outweigh risks. Continue to monitor for adverse effects and indications for decreasing dose or tapering off. . No signs of diversion or abuse of medication(s); no adverse effects. Continue present management. I spent a total of 31 minutes on the date of the service which included [id number] patient care, completing clinical documentation, obtaining and/or reviewing separately obtained history, performing a medically appropriate examination, counseling and educating the patient/family/caregiver, and ordering medications, tests, or procedures. Lina Hernandez MD documented in this encounter [facility] 12-19-2023 Telephone encounter Note ok [facility] 12-19-2023 Miscellaneous Notes ok Patient calling pharmacy told her they did not have her December [place] rx. I phoned pharmacy after their lunch break and pharmacist said they had the November rx, but do not have the December rx. Will not take a verbal asking to have rx escripted again. Reset rx to file to [facility] pharmacy. Phoned patient and aware rx needs resent again. Please advise documented in this encounter [facility] 12-19-2023 Telephone encounter Note Patient calling pharmacy told her they did not have her December [place] rx. I phoned pharmacy after their lunch break and pharmacist said they had the November rx, but do not have the December rx. Will not take a verbal asking to have rx escripted again. Reset rx to file to [facility] pharmacy. Phoned patient and aware rx needs resent again. Please advise [facility] 10-18-2023 Telephone encounter Note Will give more refills at [facility] appointment so can time refills with appointments The following approved medication requests have been transmitted electronically. Requested Prescriptions Prescriptions Disp Refills citalopram (CELEXA) 40 mg tablet [Pharmacy Med Name: CITALOPRAM HBR 40 MG TABLET] 180 tablet 0 Sig: take 1 tablet by mouth once daily Lina Hernandez MD [facility] 10-18-2023 Miscellaneous Notes Will give more refills at [facility] appointment so can time refills with appointments The following approved medication requests have been transmitted electronically. Requested Prescriptions Prescriptions Disp Refills citalopram (CELEXA) 40 mg tablet [Pharmacy Med Name: CITALOPRAM HBR 40 MG TABLET] 180 tablet 0 Sig: take 1 tablet by mouth once daily Lina Hernandez MD Patient has been identified by name and date of : Yes Patient phones for refill(s): Requested Prescriptions Pending Prescriptions Disp Refills citalopram (CELEXA) 40 mg tablet [Pharmacy Med Name: CITALOPRAM HBR 40 MG TABLET] 180 tablet Sig: take 1 tablet by mouth once daily Date of last office visit in primary care: 09/27/2023 Date of next office visit in primary care: 12/28/2023 Please advise. Thank you. Mary Ellen Trimble LPN. documented in this encounter [facility] 10-18-2023 Telephone encounter Note Patient has been identified by name and date of : Yes Patient phones for refill(s): Requested Prescriptions Pending Prescriptions Disp Refills citalopram (CELEXA) 40 mg tablet [Pharmacy Med Name: CITALOPRAM HBR 40 MG TABLET] 180 tablet Sig: take 1 tablet by mouth once daily Date of last office visit in primary care: 09/27/2023 Date of next office visit in primary care: 12/28/2023 Please advise. Thank you. Mary Ellen Trimble LPN. [facility] 09-28-2023 Miscellaneous Notes Pt notified via my chart. This was denied. MODAFINIL TAB 200MG is denied for not meeting the prior authorization requirement(s). Details of this decision are in the notice attached below or have been faxed to you. Drug Modafinil 200MG tablets Your request has been denied Request Reference Number: [id number]. MODAFINIL TAB 200MG is denied for not meeting the prior authorization requirement(s). Details of this decision are in the notice attached below or have been faxed to you. Fax rec'd says this same thing. Pt does not meet criteria. Dx given is not approved for this medicine Unable to complete PA electronically. Did completed via covermymeds shoshana tamayo ([place]: [id number]) Provigil 200MG tablets Status: New Created: September 27, 2023 documented in this encounter [facility] 09-27-2023 History of Present illness Narrative SUBJECTIVE: Pneumococcal Vaccine(1 of 2 - PCV) Never done Mammogram Screening due on 10/16/2016 Colorectal Cancer Screening Never done HPI Shoshana Tiwariman is a 52 year old female. PMH significant for 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 Stress Incontinence Tobacco Use Disorder Reactive Depression Contact Dermatitis and Other Eczema, Due to Unspecified Cause Acute Pain of Left Knee Numbness in Left Leg HPI excerpted from previous visits: Since last seen she had a visit at [facility] for multiple sclerosis March 16, 2022, seen by Dr.Justin Grisel MD. Impression was not having an MS flare, but musculoskeletal problem and recommended physical therapy and taking some time from work. X-ray for knee and PT orders placed. Tizanidine prescribed. She reported debilitating fatigue stress urinary symptoms that diminished quality of life. Endorsed follow-up at [facility]. Noted severe depression. Noted taking Celexa but with refractory symptoms including passive SI. Inpatient evaluation discussed but deferred. Noted some of her symptoms possibly related to polypharmacy with taking stimulant along with multiple sedating medications. Endorsed treatment with Ocrevus and 3-month follow-up if willing. She reports continued fatigue. She notes Provigil was not processed, not sure if prior Auth was completed. She has been drinking power drinks instead to help with fatigue. Presents for routine follow-up visit. She notes that she is in her usual state of health. She notes that her medications seem to be doing well for her. No adverse effects. Lorazepam for anxiety has been helpful. No adverse effects. She notes Abilify has helped with her mood, would like to continue current dose. No adverse effects are noted. Continues with [facility] for chronic pain. No AEs noted. Has been effective. Notes took additional doses recently after canoeing due to discomfort. Continues to be interested in Ocrevus for MS but did not feel that the last provider was a good match for her. She notes continued difficulties managing currently. Review of Systems Constitutional: Positive for fatigue. Negative for appetite change. Gastrointestinal: Negative for abdominal pain. Musculoskeletal: Positive for arthralgias and back pain. Psychiatric/Behavioral: Positive for dysphoric mood. The patient is not nervous/anxious. Objective BP 104/70 Pulse 84 Resp 16 Wt 87.1 kg (192 lb) BMI 32.96 kg/m Physical Exam Vitals and nursing note reviewed. Constitutional: Appearance: Normal appearance. HENT: Head: Normocephalic and atraumatic. Eyes: Conjunctiva/sclera: Conjunctivae normal. Neck: Thyroid: No thyroid mass or thyromegaly. Vascular: Normal carotid pulses. No JVD. Cardiovascular: Rate and Rhythm: Normal rate and regular rhythm. Pulses: Normal pulses. Carotid pulses are 2+ on the right side and 2+ on the left side. Radial pulses are 2+ on the right side and 2+ on the left side. Heart sounds: Normal heart sounds. Pulmonary: Effort: Pulmonary effort is normal. Breath sounds: Normal breath sounds. Abdominal: General: Bowel sounds are normal. Palpations: Abdomen is soft. Musculoskeletal: Right lower leg: No edema. Left lower leg: No edema. Skin: General: Skin is warm and dry. Neurological: Mental Status: She is alert. Mental status is at baseline. Psychiatric: Mood and Affect: Mood is depressed. Affect is tearful. ALLERGIES Allergen Reactions Sudafed [Pseudoephe* Intolerance Jittery Sulfa (Sulfonamide * Hives elevated BP Wellbutrin [Bupropi* Mental Status Change MEDICATIONS aspirin (ASPIRIN CHILDRENS) 81 mg chewable tablet Take 81 mg by mouth once daily. ARIPiprazole (ABILIFY) 2 mg tablet Take 1 tablet by mouth once daily. Take this in addition to 5 mg daily for a total of 7 mg daily ARIPiprazole (ABILIFY) 5 mg tablet Take 1 tablet by mouth once daily. Take this in addition to 2 mg daily for a total of 7 mg daily terazosin (HYTRIN) 5 mg capsule Take 1 capsule by mouth daily at bedtime. cholecalciferol (VITAMIN D-3) 5,000 unit tab Take 1 tablet by mouth once daily. HYDROcodone-acetaminophen (NORCO) 5-325 mg per tablet Take 1 tablet by mouth four times a day as needed for pain for up to 30 days. Do not start before September 19, 2023. phenazopyridine (PYRIDIUM) 200 mg tablet Take 1 tablet by mouth three times a day as needed. triamcinolone acetonide (KENALOG) 0.1 % cream Apply 1 application to affected area three times a day as needed. Apply sparingly to area for rash/itching, to affected ears cephALEXin (KEFLEX) 250 mg capsule Take 1 capsule by mouth once daily. For UTI prevention. tiZANidine (ZANAFLEX) 4 mg tablet Take 1 tablet by mouth every 8 hours as needed (muscle spasms). citalopram (CELEXA) 40 mg tablet Take 1 tablet by mouth once daily. ibuprofen (MOTRIN) 200 mg tablet Take 3-4 tablets by mouth four times daily as needed for Pain (Take with food.). Maximum 2400 mg per day modafinil (PROVIGIL) 200 mg tablet Take 1 tablet by mouth two times a day for 180 days. [START ON 12/18/2023] HYDROcodone-acetaminophen (NORCO) 5-325 mg per tablet Take 1 tablet by mouth every 6 hours as needed for pain for up to 30 days. Do not start before December 18, 2023. [START ON 11/18/2023] HYDROcodone-acetaminophen (NORCO) 5-325 mg per tablet Take 1 tablet by mouth four times a day as needed for pain for up to 30 days. Do not start before November 18, 2023. [START ON 10/19/2023] HYDROcodone-acetaminophen (NORCO) 5-325 mg per tablet Take 1 tablet by mouth four times a day as needed for pain for up to 30 days. Do not start before October 19, 2023. LORazepam (ATIVAN) 1 mg tablet Take 1-2 tablets by mouth once daily for 90 days. meloxicam (MOBIC) 15 mg tablet Take 1 tablet by mouth once daily as needed for pain. for pain. Take with food. (Patient not taking: Reported on 09/27/2023) iv contrast (will be provided with radiology test) MRI Brain Inject, intravenously, once for 1 dose.No IV access, insert saline lock prior to beginning of sedation, infusion, injection of imaging exam.Discontinue saline lock post exam. If Pt. has a central line or IVAD, may access for administration according to line specific nursing protocol.Once exam is complete flush line and de-access according to line specific nursing protocol in the MR contrast administration guidelines link iv contrast (will be provided with radiology test) MRI CSP Inject, intravenously, once for 1 dose. No IV access, insert saline lock prior to the beginning of sedation, infusion, injection of imaging exam. Discontinue saline lock post exam. If Pt. has a central line or IVAD, may access for administration according to line specific nursing protocol. Once exam is complete flush line and de-access according to line specific nursing protocol in the MR contrast administration guidelines link. PAST MEDICAL HISTORY Diagnosis Date Anxiety state, unspecified 05/27/2005 Depression Detrusor sphincter dyssynergia Excessive daytime sleepiness 04/02/2014 Provigil was effective Female stress incontinence Lump or mass in breast 04/26/2009 Multiple sclerosis (HCC) Onset and diagnosis 1996 Phlebitis and thrombophlebitis of unspecified site Pulmonary embolus (HCC) Unspecified pruritic disorder 07/03/2008 XEROSIS///SEBACEOUS GLAND DIS NEC 07/03/2008 Social History Tobacco Use Smoking status: Every Day Packs/day: 1 Types: Cigarettes Last attempt to quit: 2017 Years since quittin.4 Smokeless tobacco: Never Tobacco comments: less than one half pack Vaping Use Vaping Use: Never used Substance Use Topics Alcohol use: Yes Comment: very rare Drug use: No Latest Ref Rng 03/22/2022 06/28/2023 07/13/2023 08/02/2023 08/27/2023 WBC 3.70 - 11.00 k/uL 8.60 7.11 RBC 3.90 - 5.20 m/uL 4.46 4.58 Hemoglobin 11.5 - 15.5 g/dL 13.5 13.8 Hematocrit 36.0 - 46.0 % 40.0 43.3 MCV 80.0 - 100.0 fL 89.7 94.5 MCH 26.0 - 34.0 pg 30.3 30.1 MCHC 30.5 - 36.0 g/dL 33.8 31.9 RDW-CV 11.5 - 15.0 % 12.7 12.9 Platelet Count 150 - 400 k/uL 224 239 MPV 9.0 - 12.7 fL 9.0 9.5 Neut% % 59.3 Abs Neut (ANC) 1.45 - 7.50 k/uL 5.10 Lymph% % 31.4 Abs Lymph 1.00 - 4.00 k/uL 2.70 [place]% % 6.9 Abs [place] <0.87 k/uL 0.59 Eosin% % 1.4 Abs Eosin <0.46 k/uL 0.12 Baso% % 0.7 Abs Baso <0.11 k/uL 0.06 Immature Gran % % 0.3 IMMATURE GRANS (ABS) <0.10 k/uL 0.03 NRBC /100 WBC 0.0 Absolute nRBC <0.01 k/uL <0.01 <0.01 DTYPE Auto Protein, Total 6.3 - 8.0 g/dL 6.8 7.5 Albumin 3.9 - 4.9 g/dL 4.4 4.4 Calcium 8.5 - 10.2 mg/dL 9.5 9.7 Bilirubin, Total 0.2 - 1.3 mg/dL 0.5 0.3 Alkaline Phosphatase 34 - 123 U/L 70 73 AST 13 - 35 U/L 16 32 ALT 7 - 38 U/L 12 25 Glucose 74 - 99 mg/dL 100 (H) 98 BUN 7 - 21 mg/dL 13 17 Creatinine 0.58 - 0.96 mg/dL 0.68 0.76 Sodium 136 - 144 mmol/L 138 143 Potassium 3.7 - 5.1 mmol/L 3.9 4.7 Chloride 97 - 105 mmol/L 104 105 CO2 22 - 30 mmol/L 24 26 Anion Gap 9 - 18 mmol/L 10 12 eGFR >=60 mL/min/1.73m 107 95 Cholesterol, Total <200 mg/dL 233 (H) Triglyceride <150 mg/dL 72 HDL Cholesterol >39 mg/dL 54 Non HDL Cholesterol <130 mg/dL 179 (H) Fasting Time hrs 19 VLDL Cholesterol <30 mg/dL 14 TC:HDL Ratio <5.10 4.31 LDL Cholesterol <100 mg/dL 165 (H) LDL:HDL Ratio <2.54 3.06 (H) TB Nil <=8.00 IU/mL 0.01 TB Interpretation Infection with M. tuberculosis complex is unlikely. If latent tuberculosis infection is highly suspected, a negative result does not rule out the infection. Specimens from immunocompromised patients and those <5 years of age may show false negative results. In case of a contact investigation, please repeat 8-12 weeks after a known exposure. TB1 Ag minus Nil <0.35 IU/mL 0.04 TB2 Ag minus Nil <0.35 IU/mL 0.02 TB Result Negative Mitogen minus Nil >=0.50 IU/mL >9.99 HIV 12 Combo (Ag/Ab) Nonreactive Nonreactive HIV 1/2 Ab -- HIV Interpretation -- IgG 700 - 1,600 mg/dL 727 IgA 70 - 400 mg/dL 158 IgM 40 - 230 mg/dL 155 Hemoglobin A1C 4.3 - 5.6 % 5.1 5.1 Estimated Average Glucose mg/dL 100 100 INDEX VALUE 0.35 (H) JCV Antibody INDETERMINATE ! TSH 0.270 - 4.200 mIU/L 1.020 Free T4 0.9 - 1.7 ng/dL 1.2 Free T3 2.3 - 4.1 pg/mL 3.2 Magnesium 1.7 - 2.3 mg/dL 2.0 Vitamin D 25 Hydroxy 31.0 - 80.0 ng/mL 28.2 (L) 31.1 Varicella Zoster IgG, Qual Positive Positive Vitamin B12 232 - 1,245 pg/mL 1,280 (H) Hep C Antibody IA Negative Negative Hep B Surface Ag Negative Negative Hep B Surface Ab, Qual Negative Negative Hep B Core Ab, Total Negative Negative Stratify Jcv(Tm) Antibody Inhibition Assay FINAL RSLT: NEGATIVE Stool DNA N/A Sample Could Not Be Processed 7 No Result Obtained 3 Sample Could Not Be Processed 6 ASSESSMENT/PLAN: 1. MULTIPLE SCLEROSIS - ICD9: 340, ICD10: G35 (primary diagnosis) Endorse following up with neurology, specialist with MS either at [facility] or [facility] or her preferred location.Endorse DMD to slow progression of disease. - MODAFINIL 200 MG TABLET - HYDROCODONE 5 MG-ACETAMINOPHEN 325 MG TABLET - HYDROCODONE 5 MG-ACETAMINOPHEN 325 MG TABLET 2. Screening for colon cancer - ICD9: V76.51, ICD10: Z12.11 - COLOGUARD 3. Excessive daytime sleepiness - ICD9: 780.54, ICD10: G47.19 - MODAFINIL 200 MG TABLET 4. 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 Multiple sclerosis (HCC) - ICD9: 340, ICD10: G35 - HYDROCODONE 5 MG-ACETAMINOPHEN 325 MG TABLET 6. Insomnia secondary to depression with anxiety - ICD9: 300.4, 327.02, ICD10: F51.05, F41.8 - LORAZEPAM 1 MG TABLET Mary Castellanos APRN.BUILDING ARCHITECTURAL DESIGNER Medical Decision Making: Problems: Moderate: 2+ stable chronic illnesses Risk: Moderate: Drug management Medical Decision Making Level: 4 - Moderate PHQ-9 Score: 8 (Mild Depression) Continuing current treatment plan documented in this encounter [facility] 09-21-2023 History of Present illness Narrative 09-20 spoke with Patient she stated she does the Cologard declined my offer for colonoscopy. Not interested / IS Can file order after patient answers questionnaire documented in this encounter [facility] 2023 Miscellaneous Notes Pt was notified of the results. Pt verbalized understanding. Leah Guevara MA Please inform patient that her urine culture revealed mixed bacterial growth, can occur with contamination. She can complete the ATB if sx are improving. She will need to follow up with PCP to ensure blood in her urine has resolved. documented in this encounter [facility] 03-22-2023 History of Present illness Narrative SUBJECTIVE: Hepatitis B Vaccine(1 of 3 - 3-dose series) Never done Pneumococcal Vaccine(1 - PCV) Never done Mammogram Screening due on 10/16/2016 Colorectal Cancer Screening Never done Lipid Screening due on 05/23/2022 HPI Shoshana Tamayo is a 52 year old female. PMH significant for 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 Stress Incontinence Tobacco Use Disorder Reactive Depression Contact Dermatitis and Other Eczema, Due to Unspecified Cause Acute Pain of Left Knee Numbness in Left Leg HPI excerpted from previous visits: Patient of [facility] for multiple sclerosis, last seen by Dr. Garnett. Previously treated with Copaxone, Repatha, Betaseron and Gilenya. No current therapy. Most recent MRI brain 06/18/2020. No new lesions. Last seen 2020. Due for follow up. Today she notes significant grief following the loss of her daughter. 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 She reports grief counseling and psychologist with counseling weekly. Notes her thinks she should be admitted to psychiatric facility. She is not so sure. Has been consistently taking medication. HI/SI no voiced, notes she has thought about it but has no plans. Does not care much since her daughter . Notes difficulty with . Concern for her remaining children. They are having a difficult time. Taking provigil for excessive daytime sleepiness: Notes finding this effective. Hydrocodone for for bladder spasms along with Hytrin. Notes this is helpful. Lorazepam for anxiety and panic attacks. Without adverse effects of medication noted. Consistently taking. Celexa for depression. Notes little appetite and some weight loss. Recurrent UTI, taking Keflex; no recent infections. Since last seen she had a visit at [facility] for multiple sclerosis March 16, 2022, seen by Dr.Justin Grisel MD. Impression was not having an MS flare, but musculoskeletal problem and recommended physical therapy and taking some time from work. X-ray for knee and PT orders placed. Tizanidine prescribed. She reported debilitating fatigue stress urinary symptoms that diminished quality of life. Endorsed follow-up at [facility]. Noted severe depression. Noted taking Celexa but with refractory symptoms including passive SI. Inpatient evaluation discussed but deferred. Noted some of her symptoms possibly related to polypharmacy with taking stimulant along with multiple sedating medications. Endorsed treatment with Ocrevus and 3-month follow-up if willing. 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 Presents for routine follow-up visit. She notes that the medication is working unchanged. No adverse effects. Lorazepam for anxiety has been helpful. No adverse effects. She notes Abilify has helped with her mood, would like to continue current dose. No adverse effects are noted. Continues with counseling. Has cancelled appointment with Sherita Rapp [facility] psychiatry. Continues with [facility] for chronic pain. No AEs noted. Has been effective. Notes took additional doses recently after canoeing due to discomfort. Interested in Ocrevus and imaging for MS. Review of Systems Constitutional: Positive for fatigue. Negative for appetite change. Gastrointestinal: Negative for abdominal pain. Musculoskeletal: Positive for arthralgias and back pain. Psychiatric/Behavioral: Positive for dysphoric mood. The patient is not nervous/anxious. Objective BP 109/71 Pulse 80 Resp 16 Wt 78 kg (172 lb) BMI 29.52 kg/m Physical Exam Vitals and nursing note reviewed. Constitutional: Appearance: Normal appearance. HENT: Head: Normocephalic and atraumatic. Eyes: Conjunctiva/sclera: Conjunctivae normal. Neck: Thyroid: No thyroid mass or thyromegaly. Vascular: Normal carotid pulses. No JVD. Cardiovascular: Rate and Rhythm: Normal rate and regular rhythm. Pulses: Normal pulses. Carotid pulses are 2+ on the right side and 2+ on the left side. Radial pulses are 2+ on the right side and 2+ on the left side. Heart sounds: Normal heart sounds. Comments: TTP right side chest wall near sternum Pulmonary: Effort: Pulmonary effort is normal. Breath sounds: Normal breath sounds. Abdominal: General: Bowel sounds are normal. Palpations: Abdomen is soft. Musculoskeletal: Right lower leg: No edema. Left lower leg: No edema. Skin: General: Skin is warm and dry. Neurological: Mental Status: She is alert. Mental status is at baseline. Psychiatric: Mood and Affect: Mood is depressed. Affect is tearful. ALLERGIES Allergen Reactions Sudafed [Pseudoephe* Intolerance Jittery Sulfa (Sulfonamide * Hives elevated BP Wellbutrin [Bupropi* Mental Status Change MEDICATIONS modafinil (PROVIGIL) 200 mg tablet^Take 1 tablet by mouth twice daily for 180 days.^Disp: 60 tablet^Rfl: 5 HYDROcodone-acetaminophen (NORCO) 5-325 mg per tablet^Take 1 tablet by mouth four times daily as needed for pain for up to 30 days.^Disp: 110 tablet^Rfl: 0 cephALEXin (KEFLEX) 250 mg capsule^Take 1 capsule by mouth once daily. For UTI prevention.^Disp: 90 capsule^Rfl: 3 LORazepam (ATIVAN) 1 mg tablet^Take 1-2 tablets by mouth once daily as needed for anxiety for up to 90 days.^Disp: 60 tablet^Rfl: 2 tiZANidine (ZANAFLEX) 4 mg tablet^Take 1 tablet by mouth every 8 hours as needed (muscle spasms).^Disp: 30 tablet^Rfl: 0 ARIPiprazole (ABILIFY) 5 mg tablet^Take 1 tablet by mouth once daily. Take this in addition to 2 mg daily for a total of 7 mg daily^Disp: 30 tablet^Rfl: 2 ARIPiprazole (ABILIFY) 2 mg tablet^Take 1 tablet by mouth once daily. Take this in addition to 5 mg daily for a total of 7 mg daily^Disp: 30 tablet^Rfl: 2 meloxicam (MOBIC) 15 mg tablet^Take 1 tablet by mouth once daily as needed for pain. for pain. Take with food.^Disp: 30 tablet^Rfl: 0 citalopram (CELEXA) 40 mg tablet^Take 1 tablet by mouth once daily.^Disp: 90 tablet^Rfl: 3 terazosin (HYTRIN) 5 mg capsule^Take 1 capsule by mouth daily at bedtime.^Disp: 90 capsule^Rfl: 3 triamcinolone acetonide (KENALOG) 0.1 % cream^Apply 1 application to affected area three times daily as needed. Apply sparingly to area for rash/itching, to affected ears^Disp: 80 g^Rfl: 0 ibuprofen (MOTRIN) 200 mg tablet^Take 3-4 tablets by mouth four times daily as needed for Pain (Take with food.). Maximum 2400 mg per day^Disp: ^Rfl: cholecalciferol (VITAMIN D-3) 5,000 unit tab^Take 1 tablet by mouth once daily.^Disp: 90 tablet^Rfl: 3 iv contrast (will be provided with radiology test)^MRI Brain Inject, intravenously, once for 1 dose.No IV access, insert saline lock prior to beginning of sedation, infusion, injection of imaging exam.Discontinue saline lock post exam. If Pt. has a central line or IVAD, may access for administration according to line specific nursing protocol.Once exam is complete flush line and de-access according to line specific nursing protocol in the MR contrast administration guidelines link^Disp: 1 Each^Rfl: 0 iv contrast (will be provided with radiology test)^MRI CSP Inject, intravenously, once for 1 dose. No IV access, insert saline lock prior to the beginning of sedation, infusion, injection of imaging exam. Discontinue saline lock post exam. If Pt. has a central line or IVAD, may access for administration according to line specific nursing protocol. Once exam is complete flush line and de-access according to line specific nursing protocol in the MR contrast administration guidelines link.^Disp: 1 Each^Rfl: 0 PAST MEDICAL HISTORY Diagnosis Date Anxiety state, unspecified 05/27/2005 Depression Detrusor sphincter dyssynergia Excessive daytime sleepiness 04/02/2014 Provigil was effective Female stress incontinence Lump or mass in breast 04/26/2009 Multiple sclerosis (HCC) Onset and diagnosis 1996 Phlebitis and thrombophlebitis of unspecified site Pulmonary embolus (HCC) Unspecified pruritic disorder 07/03/2008 XEROSIS///SEBACEOUS GLAND DIS NEC 07/03/2008 Social History Tobacco Use Smoking status: Every Day Packs/day: 1 Types: Cigarettes Last attempt to quit: 2017 Years since quittin.9 Smokeless tobacco: Never Tobacco comments: less than one half pack Vaping Use Vaping Use: Never used Substance Use Topics Alcohol use: Yes Comment: very rare Drug use: No Component Latest Ref Rng & Units 03/22/2022 WBC 3.70 - 11.00 k/uL 8.60 RBC 3.90 - 5.20 m/uL 4.46 Hemoglobin 11.5 - 15.5 g/dL 13.5 Hematocrit 36.0 - 46.0 % 40.0 MCV 80.0 - 100.0 fL 89.7 MCH 26.0 - 34.0 pg 30.3 MCHC 30.5 - 36.0 g/dL 33.8 RDW-CV 11.5 - 15.0 % 12.7 Platelet Count 150 - 400 k/uL 224 MPV 9.0 - 12.7 fL 9.0 Neut% % 59.3 Abs Neut (ANC) 1.45 - 7.50 k/uL 5.10 Lymph% % 31.4 Abs Lymph 1.00 - 4.00 k/uL 2.70 [place]% % 6.9 Abs [place] <0.87 k/uL 0.59 Eosin% % 1.4 Abs Eosin <0.46 k/uL 0.12 Baso% % 0.7 Abs Baso <0.11 k/uL 0.06 Immature Gran % % 0.3 IMMATURE GRANS (ABS) <0.10 k/uL 0.03 NRBC /100 WBC 0.0 Absolute nRBC <0.01 k/uL <0.01 DTYPE Auto Protein, Total 6.3 - 8.0 g/dL 6.8 Albumin 3.9 - 4.9 g/dL 4.4 Calcium 8.5 - 10.2 mg/dL 9.5 Bilirubin, Total 0.2 - 1.3 mg/dL 0.5 Alkaline Phosphatase 34 - 123 U/L 70 AST 13 - 35 U/L 16 ALT 7 - 38 U/L 12 Glucose 74 - 99 mg/dL 100 (H) BUN 7 - 21 mg/dL 13 Creatinine 0.58 - 0.96 mg/dL 0.68 Sodium 136 - 144 mmol/L 138 Potassium 3.7 - 5.1 mmol/L 3.9 Chloride 97 - 105 mmol/L 104 CO2 22 - 30 mmol/L 24 Anion Gap 9 - 18 mmol/L 10 eGFR >=60 mL/min/1.73m 107 TB Nil <=8.00 IU/mL 0.01 TB Interpretation Infection with M. tuberculosis complex is unlikely. If latent tuberculosis infection is highly suspected, a negative result does not rule out the infection. Specimens from immunocompromised patients and those <5 years of age may show false negative results. In case of a contact investigation, please repeat 8-12 weeks after a known exposure. TB1 Ag minus Nil <0.35 IU/mL 0.04 TB2 Ag minus Nil <0.35 IU/mL 0.02 TB Result Negative Mitogen minus Nil >=0.50 IU/mL >9.99 HIV 12 Combo (Ag/Ab) Nonreactive Nonreactive HIV 1/2 Ab HIV Interpretation IgG 700 - 1,600 mg/dL 727 IgA 70 - 400 mg/dL 158 IgM 40 - 230 mg/dL 155 Hemoglobin A1C 4.3 - 5.6 % 5.1 Estimated Average Glucose mg/dL 100 INDEX VALUE 0.35 (H) JCV Antibody INDETERMINATE (A) TSH 0.270 - 4.200 mIU/L 1.020 Free T4 0.9 - 1.7 ng/dL 1.2 Free T3 2.3 - 4.1 pg/mL 3.2 Magnesium 1.7 - 2.3 mg/dL 2.0 Vitamin D 25 Hydroxy 31.0 - 80.0 ng/mL 28.2 (L) Varicella Zoster IgG, Qual Positive Positive Vitamin B12 232 - 1,245 pg/mL 1,280 (H) Hep C Antibody IA Negative Negative Hep B Surface Ag Negative Negative Hep B Surface Ab, Qual Negative Negative Hep B Core Ab, Total Negative Negative Stratify Jcv(Tm) Antibody Inhibition Assay FINAL RSLT: NEGATIVE ASSESSMENT/PLAN: 1. Encounter for immunization - ICD9: V03.89, ICD10: Z23 (primary diagnosis) - PNEUMOCOCCAL VACCINE (PREVNAR 20) 3. Screening for lipid disorders - ICD9: V77.91, ICD10: Z13.220 - LIPID PANEL BASIC 4. MULTIPLE SCLEROSIS - ICD9: 340, ICD10: G35 - HYDROCODONE 5 MG-ACETAMINOPHEN 325 MG TABLET - CONSULT TO NEUROLOGY - HYDROCODONE 5 MG-ACETAMINOPHEN 325 MG TABLET 5. Detrusor sphincter dyssynergia - ICD9: 596.55, ICD10: N36.44 - HYDROCODONE 5 MG-ACETAMINOPHEN 325 MG TABLET - HYDROCODONE 5 MG-ACETAMINOPHEN 325 MG TABLET - HYDROCODONE 5 MG-ACETAMINOPHEN 325 MG TABLET 6. Reactive depression - ICD9: 300.4, ICD10: F32.9 - ARIPIPRAZOLE 5 MG TABLET - ARIPIPRAZOLE 2 MG TABLET 7. Medication monitoring encounter - ICD9: V58.83, ICD10: Z51.81 - PAIN PANEL, UR QUANT - TOX SCREEN ROUT UR 8. Multiple sclerosis (HCC) - ICD9: 340, ICD10: G35 - HYDROCODONE 5 MG-ACETAMINOPHEN 325 MG TABLET 9. Insomnia secondary to depression with anxiety - ICD9: 300.4, 327.02, ICD10: F51.05, F41.8 - LORAZEPAM 1 MG TABLET Stable on current treatments. Endorse an appointment with Sherita Rapp CNP if willing Endorse appointment with other provider at [facility] provider, not last provider as she did not feel it was a good fit. She is interested in treating her MS with Ocrevus and following up imaging. Keep appt scheduled with MD Mary Cyr APRN.BUILDING ARCHITECTURAL DESIGNER Medical Decision Making: Problems: Moderate: 2+ stable chronic illnesses Data: Unique test(s) ordered: 2 Risk: Moderate: Drug management Medical Decision Making Level: 4 - Moderate documented in this encounter [facility] 02-25-2023 Miscellaneous Notes Clinton refill was addressed in a separate refill encounter. Modafinil sent. No RX was pended and this is under telephone encounter instead of RX refill encounter Patient has been identified by name and date of : Yes Last office visit in this department: Visit date not found RX INSTRUCTIONS: Patient aware RX will be sent to pharmacy. No need to notify patient. Patient phones requesting refills as follows: Clinton and the modafinil refilled please. Requested Prescriptions No prescriptions requested or ordered in this encounter Please review and advise. Geeta Bernabe documented in this encounter [facility] 01-21-2023 Miscellaneous Notes Patient has been identified by name and date of : Yes, Provider David Date 01/21/23 Time 1:55pm Patient phones for refill(s): Requested Prescriptions Pending Prescriptions Disp Refills cephALEXin (KEFLEX) 250 mg capsule 90 capsule 3 Sig: Take 1 capsule by mouth once daily. For UTI prevention. Date of last office visit in primary care: 12/21/22 Last 2 Encounter Wt Readings: Date: Wt: 12/21/2022 76.2 kg (168 lb) 09/28/2022 76.2 kg (168 lb) Please advise. Thank you. Columba Casey LPN documented in this encounter [facility] 12-21-2022 History of Present illness Narrative SUBJECTIVE: HEPATITIS B(1 of 3 - 3-dose series) Never done PNEUMOCOCCAL(1 - PCV) Never done MAMMOGRAM due on 10/16/2016 COLORECTAL CANCER SCREENING Never done LIPID SCREEN due on 05/23/2022 HPI Shoshana Tamayo is a 52 year old female. PMH significant for 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 Stress Incontinence Tobacco Use Disorder Reactive Depression Contact Dermatitis and Other Eczema, Due to Unspecified Cause Acute Pain of Left Knee Numbness in Left Leg HPI excerpted from previous visit: Patient of [facility] for multiple sclerosis, last seen by Dr. Garnett. Previously treated with Copaxone, Repatha, Betaseron and Gilenya. No current therapy. Most recent MRI brain 06/18/2020. No new lesions. Last seen 2020. Due for follow up. Today she notes significant grief following the loss of her daughter. 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 She reports grief counseling and psychologist with counseling weekly. Notes her thinks she should be admitted to psychiatric facility. She is not so sure. Has been consistently taking medication. HI/SI no voiced, notes she has thought about it but has no plans. Does not care much since her daughter . Notes difficulty with . Concern for her remaining children. They are having a difficult time. Taking provigil for excessive daytime sleepiness: Notes finding this effective. Hydrocodone for for bladder spasms along with Hytrin. Notes this is helpful. Lorazepam for anxiety and panic attacks. Without adverse effects of medication noted. Consistently taking. Celexa for depression. Notes little appetite and some weight loss. Recurrent UTI, taking Keflex; no recent infections. Presents for routine follow-up visit. She notes that the medication is working unchanged. No adverse effects. Lorazepam for anxiety has been helpful. No adverse effects. She notes chest discomfort after continuing a couple of weeks ago. She notes Abilify has helped with her mood, would like to try an increased dose. No adverse effects are noted. Continues with counseling. Continues with Clinton for chronic pain. No AEs noted. Has been effective. Notes took additional doses recently after canoeing due to discomfort. Review of Systems Constitutional: Positive for fatigue. Negative for appetite change. Gastrointestinal: Negative for abdominal pain. Musculoskeletal: Positive for arthralgias and back pain. Psychiatric/Behavioral: Positive for dysphoric mood. The patient is not nervous/anxious. Objective BP 102/80 Pulse 78 Resp 16 Wt 76.2 kg (168 lb) SpO2 98% BMI 28.84 kg/m Physical Exam Vitals and nursing note reviewed. Constitutional: Appearance: Normal appearance. HENT: Head: Normocephalic and atraumatic. Eyes: Conjunctiva/sclera: Conjunctivae normal. Neck: Thyroid: No thyroid mass or thyromegaly. Vascular: Normal carotid pulses. No JVD. Cardiovascular: Rate and Rhythm: Normal rate and regular rhythm. Pulses: Normal pulses. Carotid pulses are 2+ on the right side and 2+ on the left side. Radial pulses are 2+ on the right side and 2+ on the left side. Heart sounds: Normal heart sounds. Comments: TTP right side chest wall near sternum Pulmonary: Effort: Pulmonary effort is normal. Breath sounds: Normal breath sounds. Abdominal: General: Bowel sounds are normal. Palpations: Abdomen is soft. Musculoskeletal: Right lower leg: No edema. Left lower leg: No edema. Skin: General: Skin is warm and dry. Neurological: Mental Status: She is alert. Mental status is at baseline. Psychiatric: Mood and Affect: Mood is depressed. Affect is tearful. ALLERGIES Allergen Reactions Sudafed [Pseudoephe* Intolerance Jittery Sulfa (Sulfonamide * Hives elevated BP Wellbutrin [Bupropi* Mental Status Change MEDICATIONS HYDROcodone-acetaminophen (NORCO) 5-325 mg per tablet^Take 1 tablet by mouth four times daily as needed for pain for up to 30 days. Do not start before November 25, 2022.^Disp: 110 tablet^Rfl: 0 LORazepam (ATIVAN) 1 mg tablet^Take 1-2 tablets by mouth once daily as needed for anxiety for up to 90 days.^Disp: 60 tablet^Rfl: 2 citalopram (CELEXA) 40 mg tablet^Take 1 tablet by mouth once daily.^Disp: 90 tablet^Rfl: 3 ARIPiprazole (ABILIFY) 5 mg tablet^Take 1 tablet by mouth once daily.^Disp: 30 tablet^Rfl: 2 HYDROcodone-acetaminophen (NORCO) 5-325 mg per tablet^Take 1 tablet by mouth four times daily as needed for pain for up to 30 days. Do not start before November 25, 2022.^Disp: 110 tablet^Rfl: 0 [START ON 12/25/2022] HYDROcodone-acetaminophen (NORCO) 5-325 mg per tablet^Take 1 tablet by mouth four times daily as needed for pain for up to 30 days. Do not start before December 25, 2022.^Disp: 110 tablet^Rfl: 0 terazosin (HYTRIN) 5 mg capsule^Take 1 capsule by mouth daily at bedtime.^Disp: 90 capsule^Rfl: 3 modafinil (PROVIGIL) 200 mg tablet^Take 1 tablet by mouth twice daily for 180 days.^Disp: 60 tablet^Rfl: 5 cholecalciferol (VITAMIN D-3) 5,000 unit tab^Take 1 tablet by mouth once daily.^Disp: 90 tablet^Rfl: 3 cephALEXin (KEFLEX) 250 mg capsule^Take 1 capsule by mouth once daily. For UTI prevention.^Disp: 90 capsule^Rfl: 3 triamcinolone acetonide (KENALOG) 0.1 % cream^Apply 1 application to affected area three times daily as needed. Apply sparingly to area for rash/itching, to affected ears^Disp: 80 g^Rfl: 0 ibuprofen (MOTRIN) 200 mg tablet^Take 3-4 tablets by mouth four times daily as needed for Pain (Take with food.). Maximum 2400 mg per day^Disp: ^Rfl: tiZANidine (ZANAFLEX) 4 mg tablet^Take 1 tablet by mouth every 8 hours as needed (muscle spasms).^Disp: 30 tablet^Rfl: 0 HYDROcodone-acetaminophen (NORCO) 5-325 mg per tablet^Take 1 tablet by mouth four times daily as needed for pain for up to 30 days. Do not start before September 26, 2022.^Disp: 110 tablet^Rfl: 0 iv contrast (will be provided with radiology test)^MRI Brain Inject, intravenously, once for 1 dose.No IV access, insert saline lock prior to beginning of sedation, infusion, injection of imaging exam.Discontinue saline lock post exam. If Pt. has a central line or IVAD, may access for administration according to line specific nursing protocol.Once exam is complete flush line and de-access according to line specific nursing protocol in the MR contrast administration guidelines link^Disp: 1 Each^Rfl: 0 iv contrast (will be provided with radiology test)^MRI CSP Inject, intravenously, once for 1 dose. No IV access, insert saline lock prior to the beginning of sedation, infusion, injection of imaging exam. Discontinue saline lock post exam. If Pt. has a central line or IVAD, may access for administration according to line specific nursing protocol. Once exam is complete flush line and de-access according to line specific nursing protocol in the MR contrast administration guidelines link.^Disp: 1 Each^Rfl: 0 PAST MEDICAL HISTORY Diagnosis Date Anxiety state, unspecified 05/27/2005 Depression Detrusor sphincter dyssynergia Excessive daytime sleepiness 04/02/2014 Provigil was effective Female stress incontinence Lump or mass in breast 04/26/2009 Multiple sclerosis (HCC) Onset and diagnosis 1996 Phlebitis and thrombophlebitis of unspecified site Pulmonary embolus (HCC) Unspecified pruritic disorder 07/03/2008 XEROSIS///SEBACEOUS GLAND DIS NEC 07/03/2008 Social History Tobacco Use Smoking status: Every Day Packs/day: 1.00 Types: Cigarettes Last attempt to quit: 2017 Years since quittin.6 Smokeless tobacco: Never Tobacco comments: less than one half pack Vaping Use Vaping Use: Never used Substance Use Topics Alcohol use: Yes Comment: very rare Drug use: No Component Latest Ref Rng & Units 03/22/2022 WBC 3.70 - 11.00 k/uL 8.60 RBC 3.90 - 5.20 m/uL 4.46 Hemoglobin 11.5 - 15.5 g/dL 13.5 Hematocrit 36.0 - 46.0 % 40.0 MCV 80.0 - 100.0 fL 89.7 MCH 26.0 - 34.0 pg 30.3 MCHC 30.5 - 36.0 g/dL 33.8 RDW-CV 11.5 - 15.0 % 12.7 Platelet Count 150 - 400 k/uL 224 MPV 9.0 - 12.7 fL 9.0 Neut% % 59.3 Abs Neut (ANC) 1.45 - 7.50 k/uL 5.10 Lymph% % 31.4 Abs Lymph 1.00 - 4.00 k/uL 2.70 [place]% % 6.9 Abs [place] <0.87 k/uL 0.59 Eosin% % 1.4 Abs Eosin <0.46 k/uL 0.12 Baso% % 0.7 Abs Baso <0.11 k/uL 0.06 Immature Gran % % 0.3 IMMATURE GRANS (ABS) <0.10 k/uL 0.03 NRBC /100 WBC 0.0 Absolute nRBC <0.01 k/uL <0.01 DTYPE Auto Protein, Total 6.3 - 8.0 g/dL 6.8 Albumin 3.9 - 4.9 g/dL 4.4 Calcium 8.5 - 10.2 mg/dL 9.5 Bilirubin, Total 0.2 - 1.3 mg/dL 0.5 Alkaline Phosphatase 34 - 123 U/L 70 AST 13 - 35 U/L 16 ALT 7 - 38 U/L 12 Glucose 74 - 99 mg/dL 100 (H) BUN 7 - 21 mg/dL 13 Creatinine 0.58 - 0.96 mg/dL 0.68 Sodium 136 - 144 mmol/L 138 Potassium 3.7 - 5.1 mmol/L 3.9 Chloride 97 - 105 mmol/L 104 CO2 22 - 30 mmol/L 24 Anion Gap 9 - 18 mmol/L 10 eGFR >=60 mL/min/1.73m 107 TB Nil <=8.00 IU/mL 0.01 TB Interpretation Infection with M. tuberculosis complex is unlikely. If latent tuberculosis infection is highly suspected, a negative result does not rule out the infection. Specimens from immunocompromised patients and those <5 years of age may show false negative results. In case of a contact investigation, please repeat 8-12 weeks after a known exposure. TB1 Ag minus Nil <0.35 IU/mL 0.04 TB2 Ag minus Nil <0.35 IU/mL 0.02 TB Result Negative Mitogen minus Nil >=0.50 IU/mL >9.99 HIV 12 Combo (Ag/Ab) Nonreactive Nonreactive HIV 1/2 Ab HIV Interpretation IgG 700 - 1,600 mg/dL 727 IgA 70 - 400 mg/dL 158 IgM 40 - 230 mg/dL 155 Hemoglobin A1C 4.3 - 5.6 % 5.1 Estimated Average Glucose mg/dL 100 INDEX VALUE 0.35 (H) JCV Antibody INDETERMINATE (A) TSH 0.270 - 4.200 mIU/L 1.020 Free T4 0.9 - 1.7 ng/dL 1.2 Free T3 2.3 - 4.1 pg/mL 3.2 Magnesium 1.7 - 2.3 mg/dL 2.0 Vitamin D 25 Hydroxy 31.0 - 80.0 ng/mL 28.2 (L) Varicella Zoster IgG, Qual Positive Positive Vitamin B12 232 - 1,245 pg/mL 1,280 (H) Hep C Antibody IA Negative Negative Hep B Surface Ag Negative Negative Hep B Surface Ab, Qual Negative Negative Hep B Core Ab, Total Negative Negative Stratify Jcv(Tm) Antibody Inhibition Assay FINAL RSLT: NEGATIVE ASSESSMENT/PLAN: 1. Reactive depression - ICD9: 300.4, ICD10: F32.9 She would like to increase from 5 mg QD to 7 mg QD - ARIPIPRAZOLE 5 MG TABLET 2. MULTIPLE SCLEROSIS - ICD9: 340, ICD10: G35 3. 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 Chest wall discomfort R07.89 Reproducible on exam, occurred after canoeing Trial flexeril and meloxicam Let us know if not feeling improved Mary Castellanos APRN.BUILDING ARCHITECTURAL DESIGNER Medical Decision Making: Problems: Low: Acute, uncomplicated illness or injury Moderate: 2+ stable chronic illnesses Risk: Moderate: Drug management Medical Decision Making Level: 4 - Moderate documented in this encounter [facility] 10-20-2022 Miscellaneous Notes PDMP website checked and validated. All prescriptions have been APPROPRIATELY filled. No suspicious activity was identified. 10/20/2022 by Allison Esqueda APRN.LIBRARY MANAGER Patient phones requesting refills as follows: Requested Prescriptions Pending Prescriptions Disp Refills LORazepam (ATIVAN) 1 mg tablet 60 tablet 2 Sig: Take 1-2 tablets by mouth once daily as needed for anxiety for up to 90 days. citalopram (CELEXA) 40 mg tablet 90 tablet 3 Sig: Take 1 tablet by mouth once daily. OCTAVIO: 09/28/22 NOV: 12/21/22 Last Refill: Citalopram: 10/27/21 #90 3 refills Ativan: 07/23/22 #60 2 refills Madeleine Castro LPN documented in this encounter [facility] 09-28-2022 History of Present illness Narrative This note was created using [employer]. Subjective Shoshana Tamayo is a 52 year old female. Patient presents with: Recheck: 3 month SUBJECTIVE: Shoshana Tamayo is a 52 year old year old lady here today for 3 month follow up appointment for review of medical conditions. Ongoing depression symptoms. Going to counseling and grief meeting. Richter and ager issue, and then guilt issues. Sometimes trouble concentrating. Still not sleeping well consistently. Some good nights here and there. Would like to try Abilify. Pain med effective without adverse effects. Anxiety still along with depression issues. PAST MEDICAL HISTORY Diagnosis Date Anxiety state, unspecified 05/27/2005 Depression Detrusor sphincter dyssynergia Excessive daytime sleepiness 04/02/2014 Provigil was effective Female stress incontinence Lump or mass in breast 04/26/2009 Multiple sclerosis (HCC) Onset and diagnosis 1996 Phlebitis and thrombophlebitis of unspecified site Pulmonary embolus (HCC) Unspecified pruritic disorder 07/03/2008 XEROSIS///SEBACEOUS GLAND DIS NEC 07/03/2008 Current Outpatient Medications Medication Sig tiZANidine (ZANAFLEX) 4 mg tablet Take 1 tablet by mouth every 8 hours as needed (muscle spasms). terazosin (HYTRIN) 5 mg capsule Take 1 capsule by mouth daily at bedtime. modafinil (PROVIGIL) 200 mg tablet Take 1 tablet by mouth twice daily for 180 days. LORazepam (ATIVAN) 1 mg tablet Take 1-2 tablets by mouth once daily as needed for anxiety for up to 90 days. Do not start before July 23, 2022. HYDROcodone-acetaminophen (NORCO) 5-325 mg per tablet Take 1 tablet by mouth four times daily as needed for pain for up to 30 days. Do not start before September 26, 2022. cholecalciferol (VITAMIN D-3) 5,000 unit tab Take 1 tablet by mouth once daily. cephALEXin (KEFLEX) 250 mg capsule Take 1 capsule by mouth once daily. For UTI prevention. citalopram (CELEXA) 40 mg tablet Take 1 tablet by mouth once daily. triamcinolone acetonide (KENALOG) 0.1 % cream Apply 1 application to affected area three times daily as needed. Apply sparingly to area for rash/itching, to affected ears ibuprofen (MOTRIN) 200 mg tablet Take 3-4 tablets by mouth four times daily as needed for Pain (Take with food.). Maximum 2400 mg per day HYDROcodone-acetaminophen (NORCO) 5-325 mg per tablet Take 1 tablet by mouth four times daily as needed for pain for up to 30 days. Do not start before July 28, 2022. HYDROcodone-acetaminophen (NORCO) 5-325 mg per tablet Take 1 tablet by mouth four times daily as needed for pain for up to 30 days. Do not start before August 27, 2022. HYDROcodone-acetaminophen (NORCO) 5-325 mg per tablet Take 1 tablet by mouth four times daily as needed for pain for up to 30 days. Do not start before June 28, 2022. iv contrast (will be provided with radiology test) MRI Brain Inject, intravenously, once for 1 dose.No IV access, insert saline lock prior to beginning of sedation, infusion, injection of imaging exam.Discontinue saline lock post exam. If Pt. has a central line or IVAD, may access for administration according to line specific nursing protocol.Once exam is complete flush line and de-access according to line specific nursing protocol in the MR contrast administration guidelines link iv contrast (will be provided with radiology test) MRI CSP Inject, intravenously, once for 1 dose. No IV access, insert saline lock prior to the beginning of sedation, infusion, injection of imaging exam. Discontinue saline lock post exam. If Pt. has a central line or IVAD, may access for administration according to line specific nursing protocol. Once exam is complete flush line and de-access according to line specific nursing protocol in the MR contrast administration guidelines link. Current Facility-Administered Medications Medication Dose Route Frequency perflutren lipid microspheres 1.3 mL in NaCl (PF) 0.9% 10 mL injection (DEFINITY) INTRAVENOUS DIRECTED PRN sodium chloride 0.9 % (flush) 10 mL (BD POSIFLUSH) 10 mL INTRAVENOUS DIRECTED PRN Review of Systems Objective BP 106/70 Pulse 77 Resp 16 Wt 76.2 kg (168 lb) SpO2 97% BMI 28.84 kg/m Last 5 Encounter Wt Readings: Date: Wt: 09/28/2022 76.2 kg (168 lb) 07/06/2022 77.1 kg (170 lb) 04/13/2022 77.6 kg (171 lb) 03/16/2022 78.9 kg (174 lb) 03/03/2022 80.3 kg (177 lb) No waist measurement recorded Estimated body mass index is 28.84 kg/m as calculated from the following: Height as of 03/16/22: 162.6 cm (5' 4). Weight as of this encounter: 76.2 kg (168 lb). Last 5 Encounter BP Readings: Date: BP: 09/28/2022 106/70 07/06/2022 102/76 04/13/2022 102/68 03/16/2022 100/69 03/03/2022 122/72 Physical Exam Constitutional: Appearance: Normal appearance. HENT: Head: Normocephalic. Eyes: Conjunctiva/sclera: Conjunctivae normal. Cardiovascular: Rate and Rhythm: Normal rate and regular rhythm. Heart sounds: Normal heart sounds. Pulmonary: Effort: Pulmonary effort is normal. Breath sounds: Normal breath sounds. Skin: General: Skin is warm and dry. Neurological: General: No focal deficit present. Mental Status: She is alert and oriented to person, place, and time. Psychiatric: Mood and Affect: Mood is depressed. Behavior: Behavior normal. Thought Content: Thought content normal. Judgment: Judgment normal. Comments: Affect reactive. Tearful when discussing depression issues Assessment and Plan Encounter Diagnosis ICD-10-CM 1. MULTIPLE SCLEROSIS G35 HYDROcodone-acetaminophen (NORCO) 5-325 mg per tablet HYDROcodone-acetaminophen (NORCO) 5-325 mg per tablet HYDROcodone-acetaminophen (NORCO) 5-325 mg per tablet 2. Detrusor sphincter dyssynergia N36.44 HYDROcodone-acetaminophen (NORCO) 5-325 mg per tablet HYDROcodone-acetaminophen (NORCO) 5-325 mg per tablet HYDROcodone-acetaminophen (NORCO) 5-325 mg per tablet 3. Reactive depression F32.9 4. Panic attack F41.0 Above issues addressed with patient. Patient involved in shared decision making for management of medical issues. History and medications reviewed. Epic updated as needed Refills and/or prescriptions taken care of and meds adjusted as indicated after reviewed history, exam and labs. Health Maintenance reviewed. Updated record and/or ordered tests as recorded. Adding Abilify. Discussed depression symptoms ongoing. Emotional support given. Further evaluation and treatment as indicated. I spent a total of 40 minutes on the date of the service which included [id number] patient care, completing clinical documentation, performing a medically appropriate examination, counseling and educating the patient/family/caregiver, and ordering medications, tests, or procedures. Lina Hernandez MD documented in this encounter [facility] 09-23-2022 Miscellaneous Notes Patient has been identified by name and date of : Yes Requested Prescriptions Pending Prescriptions Disp Refills tiZANidine (ZANAFLEX) 4 mg tablet 30 tablet 0 Sig: Take 1 tablet by mouth every 8 hours as needed (muscle spasms). RX INSTRUCTIONS: Patient aware RX will be sent to pharmacy. No need to notify patient. Kaur Rodriguez Pss documented in this encounter [facility] 08-27-2022 History of Present illness Narrative Patient requested to reschedule her appointment because she was on her way to work and couldn't participate in intake today. She has been re-scheduled for February. documented in this encounter [facility] 07-22-2022 Miscellaneous Notes Okayed Patient has been identified by name and date of : Yes, Provider David Date 07/22/22 Time 4:30pm Patient phones for refill(s): Requested Prescriptions Pending Prescriptions Disp Refills terazosin (HYTRIN) 5 mg capsule 90 capsule 3 Sig: Take 1 capsule by mouth daily at bedtime. tiZANidine (ZANAFLEX) 4 mg tablet 30 tablet 0 Sig: Take 1 tablet by mouth every 8 hours as needed (muscle spasms). modafinil (PROVIGIL) 200 mg tablet 60 tablet 5 Sig: Take 1 tablet by mouth twice daily for 180 days. Date of last office visit in primary care: 07/06/22 Last 2 Encounter Wt Readings: Date: Wt: 07/06/2022 77.1 kg (170 lb) 04/13/2022 77.6 kg (171 lb) Please advise. Thank you. Columba Casey LPN documented in this encounter [facility] 01-25-2023 Miscellaneous Notes Seen in office for appt yesterday, see encounter note. documented in this encounter [facility] 07-06-2022 History of Present illness Narrative BEHAVIORAL HEALTH SOCIAL WORK QUICK NOTE Provider Action/FYI Chart review completed Patient needs appointment with Sherita Rapp APRN.CNP Patient identified for [facility] from: PCP Reason for referral: [facility] Behavioral Health Resources: Psychiatry med management [facility] encounter type: Chart Review Attempts to Outreach: 1 attempt Referral made: Psychiatry - Internal Psychiatry-Internal referral type: Medication Management Final Disposition: Resources given Patient Discharged?: Yes Patient reported that caregiver was able to meet their needs today?: N/A Pt identified by name and . PCP requesting patient see psychiatry at [facility], specifically Sherita Rapp APRN.CNP. Currently going to to counseling at [facility] and seeing Janis. SW will route chart to Sherita's nurse, Lauren Cueva LPN who can assist with patient scheduling. No needs further from this SW at this time. DARREN Nagy July 06, 2022 documented in this encounter [facility] 07-06-2022 History of Present illness Narrative This note was created using [employer]. Subjective Shoshana Tamayo is a 52 year old female. Patient presents with: F/U 3 Month SUBJECTIVE: Shoshana Tamayo is a 52 year old year old lady here today for 3 month follow up appointment for review of medical conditions. Seeing counselor. No SI. Severe depression Has [place] mountain dog. Also has Siberian Husky. Work helps. Works 3 [employer] Left leg is numb. No pain in knee anymore. Neurologist not helpful for this. He would not prescribed steroids. Last time used was 7 years ago. PAST MEDICAL HISTORY Diagnosis Date Anxiety state, unspecified 05/27/2005 Depression Detrusor sphincter dyssynergia Excessive daytime sleepiness 04/02/2014 Provigil was effective Female stress incontinence Lump or mass in breast 04/26/2009 Multiple sclerosis (HCC) Onset and diagnosis 1996 Phlebitis and thrombophlebitis of unspecified site Pulmonary embolus (HCC) Unspecified pruritic disorder 07/03/2008 XEROSIS///SEBACEOUS GLAND DIS NEC 07/03/2008 Current Outpatient Medications Medication Sig tiZANidine (ZANAFLEX) 4 mg tablet Take 1 tablet by mouth every 8 hours as needed (muscle spasms). HYDROcodone-acetaminophen (NORCO) 5-325 mg per tablet Take 1 tablet by mouth four times daily as needed for pain for up to 30 days. Do not start before June 28, 2022. HYDROcodone-acetaminophen (NORCO) 5-325 mg per tablet Take 1 tablet by mouth four times daily as needed for pain for up to 30 days. Do not start before May 29, 2022. HYDROcodone-acetaminophen (NORCO) 5-325 mg per tablet Take 1 tablet by mouth four times daily as needed for pain for up to 30 days. Do not start before April 29, 2022. LORazepam (ATIVAN) 1 mg tablet Take 1-2 tablets by mouth once daily as needed for anxiety for up to 90 days. Do not start before April 25, 2022. HYDROcodone-acetaminophen (NORCO) 5-325 mg per tablet Take 1 tablet by mouth four times daily as needed for pain for up to 30 days. cholecalciferol (VITAMIN D-3) 5,000 unit tab Take 1 tablet by mouth once daily. iv contrast (will be provided with radiology test) MRI Brain Inject, intravenously, once for 1 dose.No IV access, insert saline lock prior to beginning of sedation, infusion, injection of imaging exam.Discontinue saline lock post exam. If Pt. has a central line or IVAD, may access for administration according to line specific nursing protocol.Once exam is complete flush line and de-access according to line specific nursing protocol in the MR contrast administration guidelines link iv contrast (will be provided with radiology test) MRI CSP Inject, intravenously, once for 1 dose. No IV access, insert saline lock prior to the beginning of sedation, infusion, injection of imaging exam. Discontinue saline lock post exam. If Pt. has a central line or IVAD, may access for administration according to line specific nursing protocol. Once exam is complete flush line and de-access according to line specific nursing protocol in the MR contrast administration guidelines link. cephALEXin (KEFLEX) 250 mg capsule Take 1 capsule by mouth once daily. For UTI prevention. modafinil (PROVIGIL) 200 mg tablet Take 1 tablet by mouth twice daily for 180 days. citalopram (CELEXA) 40 mg tablet Take 1 tablet by mouth once daily. terazosin (HYTRIN) 5 mg capsule Take 1 capsule by mouth daily at bedtime. triamcinolone acetonide (KENALOG) 0.1 % cream Apply 1 application to affected area three times daily as needed. Apply sparingly to area for rash/itching, to affected ears ibuprofen (MOTRIN) 200 mg tablet Take 3-4 tablets by mouth four times daily as needed for Pain (Take with food.). Maximum 2400 mg per day Current Facility-Administered Medications Medication Dose Route Frequency perflutren lipid microspheres 1.3 mL in NaCl (PF) 0.9% 10 mL injection (DEFINITY) INTRAVENOUS DIRECTED PRN sodium chloride 0.9 % (flush) 10 mL (BD POSIFLUSH) 10 mL INTRAVENOUS DIRECTED PRN Review of Systems Objective BP 102/76 Pulse 88 Resp 12 Wt 77.1 kg (170 lb) BMI 29.18 kg/m Physical Exam Constitutional: Appearance: Normal appearance. HENT: Head: Normocephalic. Eyes: Conjunctiva/sclera: Conjunctivae normal. Cardiovascular: Rate and Rhythm: Normal rate and regular rhythm. Heart sounds: Normal heart sounds. Pulmonary: Effort: Pulmonary effort is normal. Breath sounds: Normal breath sounds. Skin: General: Skin is warm and dry. Neurological: General: No focal deficit present. Mental Status: She is alert and oriented to person, place, and time. Psychiatric: Mood and Affect: Mood normal. Behavior: Behavior normal. Thought Content: Thought content normal. Judgment: Judgment normal. Indicates numbness medial left leg. Assessment and Plan Encounter Diagnosis ICD-10-CM 1. Reactive depression F32.9 CONSULT TO PRIMARY CARE BEH[facility]IORAL HEALTH ADULT 2. 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 MULTIPLE SCLEROSIS G35 HYDROcodone-acetaminophen (NORCO) 5-325 mg per tablet HYDROcodone-acetaminophen (NORCO) 5-325 mg per tablet HYDROcodone-acetaminophen (NORCO) 5-325 mg per tablet 4. Detrusor sphincter dyssynergia N36.44 HYDROcodone-acetaminophen (NORCO) 5-325 mg per tablet HYDROcodone-acetaminophen (NORCO) 5-325 mg per tablet HYDROcodone-acetaminophen (NORCO) 5-325 mg per tablet Above issues addressed with patient. Patient involved in shared decision making for management of medical issues. Requests referral as noted above. Emotional support given. Continue seeing counselor. History and medications reviewed. Epic updated as needed Refills and/or prescriptions taken care of and meds adjusted as indicated after reviewed history, exam and labs. Stable with control of chronic pain and insomnia. No signs of diversion or abuse of medication(s); no adverse effects. Continue present management. Health Maintenance reviewed. Updated record and/or ordered tests as recorded. Encouraged on efforts at healthy diet and regular exercise and adequate sleep. I spent a total of 55 minutes on the date of the service which included [id number] patient care, completing clinical documentation, performing a medically appropriate examination, counseling and educating the patient/family/caregiver, and ordering medications, tests, or procedures. Lina Hernandez MD documented in this encounter [facility] 06-23-2022 Miscellaneous Notes The following approved medication requests have been transmitted electronically. Requested Prescriptions Signed Prescriptions Disp Refills tiZANidine (ZANAFLEX) 4 mg tablet 30 tablet 0 Sig: Take 1 tablet by mouth every 8 hours as needed (muscle spasms). Authorizing Provider: LINA HERNANDEZ Refused Prescriptions Disp Refills HYDROcodone-acetaminophen (NORCO) 5-325 mg per tablet 110 tablet 0 Sig: Take 1 tablet by mouth four times daily as needed for pain for up to 30 days. Refused By: DARNELL SNEED MA Reason for Refusal: Records indicate that there is a valid prescription at the pharmacy Lina Hernandez MD OCTAVIO: 04/13/2022 Last refill: 03/30/2022 QTY: 30 Refills: 0 Patient's request for medication is as follows: Requested Prescriptions Pending Prescriptions Disp Refills tiZANidine (ZANAFLEX) 4 mg tablet 30 tablet 0 Sig: Take 1 tablet by mouth every 8 hours as needed (muscle spasms). HYDROcodone-acetaminophen (NORCO) 5-325 mg per tablet 110 tablet 0 Sig: Take 1 tablet by mouth four times daily as needed for pain for up to 30 days. Please approve the above prescription(s) to electronically send to pharmacy. Darnell Sneed Ma documented in this encounter [facility] 04-23-2022 History of Present illness Narrative Episode Visit Count: 4 Therapist That Will Accept/Oversee The Plan Of Care: Spencer Grant Start of Care Date: 03/29/22 Onset Date: 02/27/22 REHABILITATION AND SPORTS THERAPY PHYSICAL THERAPY DISCONTINUANCE OF CARE PLAN OF CARE UPDATE: Assessment: Shoshana Tamayo is discontinued from Physical Therapy services due to Patient/Client declining further intervention.. Patient was seen for 4 visits from Start of Care Date: 03/29/22 to 04/23/2022 and treatment included: Therapeutic exercise and Manual therapy. Patient has seen improved pain levels and would like to return to work. Patient would still benefit from further strengthening to help return to prior level of function, but is declining at this time. Patient encouraged to contact me with any questions or concerns. Goals updated on 04/23/2022. Goals for Episode of Care: created on 03/29/22 through 05/29/22 [place] in home exercise program. Met Patient will decrease pain rating by 2 points to meet minimal clinical important difference for numeric pain rating scale. Met Patient will demonstrate increase in core and LLE strength to 4+/5 during manual muscle testing in order to improve function for basic self-care tasks, home management tasks, moderate to heavy functional tasks, prior functional tasks, and work tasks. Not met Perform work tasks with decreased report of symptoms/pain in 4-6 weeks. Not met (has not returned to work yet) Perform self care and ADLs without pain. 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 She seems to be managing her pain well with her HEP.. Pain: Pain Pain Level: 0 PROMIS Scales T-scores: mean of general population = 50. 5 points is clinically meaningfully difference Percentiles provide an indication of how the patient's score ranks in relation to the general population. Higher percentile rankings indicate better function/quality of life. 50th percentile is the average of the general population and indicates half of respondents had a worse score. T-scores: mean of general population = 50. 5 points is clinically meaningfully difference Percentiles provide an indication of how the patient's score ranks in relation to the general population. Higher percentile rankings indicate better function/quality of life. 50th percentile is the average of the general population and indicates half of respondents had a worse score. OBJECTIVE MEASURES WITH LEVEL OF FUNCTION: Lumbar Spine AROM Lumbar Flexion: Normal Lumbar Extension: Normal Lumbar R Side-Bend: Normal Lumbar L Side-Bend: Normal Lumbar R Rotation: Normal Lumbar L Rotation: Normal LE Strength Trunk Strength: 3+/5 L LE Strength: 4/5 grossly TREATMENT: Therapeutic Exercise: 1: SKC 3x30 sec on L 2: reviewed HEP 3: Gave progressions of step ups and mini squats, also discussed increasing reps of other exercises Skilled Intervention: Patient was educated in proper exercise technique and purpose for exercises. Skilled judgment was provided in selection of appropriate interventions. Provided written instruction for home exercise program to facilitate proper performance and compliance. Correct performance of therapeutic exercises was facilitated with verbal and visual cuing. Manual Therapy: 1: Manual lumbar traction x10 min Skilled Intervention: Manual skills to improve joint mobility, ROM, and decrease pain. Utilized anatomy knowledge of the therapist, and assessment of patient's response to intervention. Billing Therapeutic Exercise Treatment Minutes: 16 Manual TherapyTreatment Minutes: 10 Total Treatment Time Minutes (timed/untimed): 26 Spencer Grant PT documented in this encounter [facility] 04-15-2022 Miscellaneous Notes Per FCE provider at [place]: refer her to either [facility] or [facility]. Here are the therapists that do these exams at those locations: either Ayesha Small, OT at [place], or Keo Quiroz OT at the [facility] at [facility]. Please have her schedule with either one of these practitioners. Usually, I try to go for the [facility] with these patients because they have special testing that they complete specifically for MS patients. Left VM cancelling today's OT visit. Patient has an order for FCE and will need to reschedule with an FCE provider. Patient's information is being sent to [place]'s FCE provider and will be contacted with possible dates and time for evaluation. documented in this encounter [facility] 04-13-2022 History of Present illness Narrative Episode Visit Count: 3 Therapist That Will Accept/Oversee The Plan Of Care: Spencer Grant Start of Care Date: 03/29/22 Onset Date: 02/27/22 REHABILITATION AND SPORTS THERAPY PHYSICAL THERAPY TREATMENT NOTE ASSESSMENT: Shoshana Tamayo tolerated the session with decreased symptoms. She demonstrated improvements in back and LLE radicular pain. The patient will continue to benefit from ongoing skilled physical therapy to progress toward set goals. PLAN FOR NEXT VISIT: May try seated or standing strengthening with pallof press SUBJECTIVE: Patient Reason for Visit: Pt feels like she is finally making some progress. The knees to chest feels good. Currently some pain in the hip/buttocks and back Pain: Pain Pain Level: 3 Pain Location: Low Back/Lumbar Spine - Left;Hip - Left Description: Aching Frequency: Continuous OBJECTIVE MEASURES WITH LEVEL OF FUNCTION: Traction resolves pain today TREATMENT: Therapeutic Exercise: 1: SKC 3x30 sec on L 2: TA bracing x10, 5 sec holds 3: *TA bracing plus alt hip hikes 2x10/side 4: *TA bracing plus BKFO 2x10/side 5: SLR 2x5 6: SL hip abduction 2x10 Skilled Intervention: Patient was educated in proper exercise technique and purpose for exercises. Skilled judgment was provided in selection of appropriate interventions. Provided written instruction for home exercise program to facilitate proper performance and compliance. Correct performance of therapeutic exercises was facilitated with verbal, visual, and tactile cuing. Manual Therapy: 1: Manual lumbar traction x12 min Skilled Intervention: Manual skills to improve joint mobility, ROM, and decrease pain. Utilized anatomy knowledge of the therapist, and assessment of patient's response to intervention. Billing Therapeutic Exercise Treatment Minutes: 27 Manual TherapyTreatment Minutes: 12 Total Treatment Time Minutes (timed/untimed): 39 Spencer Grant PT documented in this encounter [facility] 04-05-2022 History of Present illness Narrative Episode Visit Count: 2 Therapist That Will Accept/Oversee The Plan Of Care: Spencer Grant Start of Care Date: 03/29/22 Onset Date: 02/27/22 Patient Identified by Name and Date of : Yes REHABILITATION AND SPORTS THERAPY PHYSICAL THERAPY TREATMENT NOTE ASSESSMENT: Shoshana Tamayo tolerated the session with decreased symptoms. She demonstrated difficulty with SLR and sidelying abduction and was unable to perform d/t weakness and pain . Advanced other exs with overall decreased pain . The patient will continue to benefit from ongoing skilled physical therapy to progress toward set goals. PLAN FOR NEXT VISIT: continue to advance core ex SUBJECTIVE: Patient Reason for Visit: Pt notes that she now has back pain and pain shoots into leg if she bends trunk to the left . did find the exs to be helpful. states that she is unable to do the leg lifts Pain: Pain Pain Level: 4 Pain Location: Low Back/Lumbar Spine - Left;Knee - Left Description: Aching (bruised feeling.) Post Treatment Pain Post Treatment Pain Level: 3 Post Treatment Pain Location: Low Back/Lumbar Spine - Left;Knee - Left Post Treatment Pain Description: Sore OBJECTIVE MEASURES WITH LEVEL OF FUNCTION: Pt unable to complete SLR. TREATMENT: Therapeutic Exercise: 1: *SKC 3x30 sec on L 2: *TA bracing in hooklying 1x10, 5 sec holds 3: *Quad sets 1x10, 5 sec holds 4: *Heel [id number], 5 sec holds 5: green rep band trunk flexion 2x10 6: unable to complete leg lifts sidelying and SLR d/t pain and lack of strength 7: hooklying TA with marches 1x10 8: education on centralization of sx. 9: SAQ 2x10 Skilled Intervention: Patient was educated in proper exercise technique and purpose for exercises. Reviewed and educated patient on additions/changes for home exercise program . Skilled judgment was provided in selection of appropriate interventions. Correct performance of therapeutic exercises was facilitated with verbal and visual cuing. Educated patient on rationale for performing exercises in regards to ROM and function . Patient education as noted. Home Exercise Program Assigned: 1: green rep band trunk flexion 2x10 2: SAQ 2x10 Billing Therapeutic Exercise Treatment Minutes: 40 Total Treatment Time Minutes (timed/untimed): 40 Karie Guy PT documented in this encounter [facility] 04-05-2022 History of Present illness Narrative Type of form: Disability form Form received via fax form is completed, Fax form to [phone] Form has been successfully FAXED to and scanned to chart BRANDT Atkins documented in this encounter [facility] 03-30-2022 Miscellaneous Notes The following approved medication requests have been transmitted electronically. Requested Prescriptions Signed Prescriptions Disp Refills HYDROcodone-acetaminophen (NORCO) 5-325 mg per tablet 110 tablet 0 Sig: Take 1 tablet by mouth four times daily as needed for pain for up to 30 days. Authorizing Provider: LINA HERNANDEZ MD Patient reports she is out of this medication. Please call patient when script has been sent. Thank you. Patient has been identified by name and date of : Yes Patient phones for refill(s): Requested Prescriptions Pending Prescriptions Disp Refills HYDROcodone-acetaminophen (NORCO) 5-325 mg per tablet 110 tablet 0 Sig: Take 1 tablet by mouth four times daily as needed for pain for up to 30 days. Date of last office visit in primary care: 03/03/22 next apt 04/13/22 Last 2 Encounter Wt Readings: Date: Wt: 03/16/2022 78.9 kg (174 lb) 03/03/2022 80.3 kg (177 lb) Previous labs/tests for medication: Not applicable Thank you. Estrella Bustos LPN documented in this encounter [facility] 03-30-2022 Miscellaneous Notes Patient reports she is out of this medication. (Pended) Please call patient when script has been sent. Thank you. Patient has been identified by name and date of : Yes Patient phones for refill(s): Requested Prescriptions Pending Prescriptions Disp Refills tiZANidine (ZANAFLEX) 4 mg tablet 30 tablet 0 Sig: Take 1 tablet by mouth every 8 hours as needed (muscle spasms). Date of last office visit in primary care: 03/03/22 next apt 04/13/22 Last 2 Encounter Wt Readings: Date: Wt: 03/16/2022 78.9 kg (174 lb) 03/03/2022 80.3 kg (177 lb) Previous labs/tests for medication: Not applicable Thank you. Estrella Bustos LPN documented in this encounter [facility] 03-16-2022 History of Present illness Narrative Images from the original note were not included. [facility] MULTIPLE SCLEROSIS NEW PATIENT EVALUATION/CONSULTATION Referral source: SELF Also followed by: Patient Care Team: Lina Hernandez MD as PCP - General (Internal Medicine) PRINCIPAL NEUROLOGIC DIAGNOSIS: RRMS DISEASE SUMMARY Date of onset: 1996 Date of diagnosis of MS: 1996 Disease course at onset: Relapsing-Remitting Current disease course: Relapsing-Remitting Previous disease therapies: Rebif, Copaxone, Betaseron, Gilenya Current disease therapy: none Most recent MRI brain: 06/18/20 Most recent MRI cervical spine: 06/18/20 CSF: unknown HISTORY OF ILLNESS: An opinion on this 51 year old right handed female was requested by the patient to re-establish care for MS at the [facility]. The patient was accompanied by , Hira. Previous records (physician notes, laboratory reports, and radiology reports) and imaging studies were reviewed and summarized. Past medical history includes depression, urinary retention, insomnia. Patient last seen at [facility] 01/05/16, previously followed by Dr. Pepe. Patient was diagnosed with MS in when she developed weakness/numbness in torso to right leg. She has undergone multiple MRI over the years but never had spinal tap. No known history of ON. Did have double vision at one point (Saw 5) in years past. No trigeminal neuralgia or Love's palsy history. Patient represents today due to significant left sided leg pain and numbness. [facility] down towards left side and got sudden shooting pain that went into back and lasted that evening. When she woke up then next day she had leg numbness from medial knee to ankle, with sensation of fire/burning. She does endorse weakness, as she feels she needs to pick it up leg with hands. She went to PCP as she wasn't thinking this was an MS flare because of how much pain she is in. Pain is also localized to medial knee and radiates outwards. They did lumbar XR which was unremarkable and rx'ed tizanidine. They wanted patient to see her neurologist given concern if MS flare was involved. Is more stressed this year, did not volunteer details initially. Then spoke of loss daughter one year ago which devastated her. She admits to severe depression, is seeing a counselor currently. Does not want to see a psychiatrist. Does endorse passive SI but denies any active plans. Does admit to having plan in past. Patient states she always gets MS flares when she is more stressed and just wants to get her IV steroids so she can feel better. Last MS flare with steroid treatment in 2016. Patient states she has not followed up in past given lives far away in [place] and is difficult to get to [place]. Also states with loss of daughter in past year has no desire for medical care. In terms of DMTs, there is past documentation that patient had adverse reactions with 2 interferons, glatimer acetate (tecfidera), and fingolimod (Gilenya). In 2014 plan was for patient to start Tecfidera, patient became bradycardic thus was stop. Has received multiple courses of steroids over the years which temporarily improves symptoms. Bladder: currently incontinent past 2 weeks, but overall fairly stable Bowels: + constipated (uses PRN OTC meds to help) Fatigue: yes, worsened Numbness: nothing out side of left leg currently Weakness: generalized weakness Sleep: wakes up frequently to use restroom Cognition: forgets some things, is bothersome Speech: word finding difficulties (parapharasic) Stiffness: denies Dizziness: still present, not too bothersome, if she gets up too fast happens Vision: just got glasses, vision getting a little worse x past month or two, states needs to go back to doctor Heat exacerbation: positive Mood: devastated from loss of daughter last year, sees a counselor Medications: Tizandine PRN (rx by PCP with left leg pain) oxycodone TID-QID for bladder spasms, has been on multiple decades, rx by PCP Modafinil 200mg BID Lorazepam 2mg qhs (anxiety) Hytrin (terazosin) Keflex (3 years) for recurrent UTIs Neuro-Qol Functions (higher = better functioning) 03/16/2022 Upper Extremity Domain T Score 42.18 03/16/2022 Lower Extremity Domain T Score 37.79 03/16/2022 Cognitive Function Domain T Score 41.36 03/16/2022 Ability To Participate In Social Roles T Score 38.36 03/16/2022 Satisfaction With Social Roles T Score 37.72 Neuro-Qol Symptoms (higher = worse symptoms) 03/16/2022 Sleep Domain T Score 62.91 03/16/2022 Fatigue Domain T Score 66.56 03/16/2022 Anxiety Domain T Score 61.92 03/16/2022 Depression Domain T Score 64.92 03/16/2022 Stigma Domain T Score 52.51 *NeuroQoL is a multi-domain patient-reported quality of life questionnaire. PHQ-9 Flowsheet Row Office Visit from 07/31/2018 in Internal Medicine [place] Office Visit from 04/16/2016 in Internal Medicine [place] PHQ-9 Score 0 0 *PHQ-9 is a questionnaire for depressive symptoms, with scores 0-4 indicating none, 5-9 mild, 10-14 moderate, 15-19 moderately severe, and 20-27 severe symptoms. *PROMIS-10 is a patient-reported quality of life measure, typically reported as physical and mental domains. Here scores are expressed as percentiles, where the lowest possible score is one, the highest possible score is 99, and 50 is average. PAST HISTORY: PAST MEDICAL HISTORY Diagnosis Date Anxiety state, unspecified 05/27/2005 Depression Detrusor sphincter dyssynergia Excessive daytime sleepiness 04/02/2014 Provigil was effective Female stress incontinence Lump or mass in breast 04/26/2009 Multiple sclerosis (HCC) Onset and diagnosis 1996 Phlebitis and thrombophlebitis of unspecified site Pulmonary embolus (HCC) Unspecified pruritic disorder 07/03/2008 XEROSIS///SEBACEOUS GLAND DIS NEC 07/03/2008 PAST SURGICAL HISTORY Procedure Laterality Date SECTION HX TONSILLECTOMY AND ADENOIDECTOMY HX TOTAL ABDOMINAL HYSTERECT W/WO RMVL TUBE OVARY 03/2005 BSO Transfusions: None Current Outpatient Medications Medication Sig tiZANidine (ZANAFLEX) 4 mg tablet Take 1 tablet by mouth every 8 hours as needed (muscle spasms). HYDROcodone-acetaminophen (NORCO) 5-325 mg per tablet Take 1 tablet by mouth four times daily as needed for pain for up to 30 days. Do not start before February 28, 2022. cephALEXin (KEFLEX) 250 mg capsule Take 1 capsule by mouth once daily. For UTI prevention. modafinil (PROVIGIL) 200 mg tablet Take 1 tablet by mouth twice daily for 180 days. LORazepam (ATIVAN) 1 mg tablet Take 1-2 tablets by mouth once daily as needed for anxiety for up to 90 days. Do not start before January 25, 2022. citalopram (CELEXA) 40 mg tablet Take 1 tablet by mouth once daily. terazosin (HYTRIN) 5 mg capsule Take 1 capsule by mouth daily at bedtime. triamcinolone acetonide (KENALOG) 0.1 % cream Apply 1 application to affected area three times daily as needed. Apply sparingly to area for rash/itching, to affected ears Cholecalciferol, Vitamin D3, 2,000 unit cap Take 4,000 Units by mouth once daily. ibuprofen (MOTRIN) 200 mg tablet Take 3-4 tablets by mouth four times daily as needed for Pain (Take with food.). Maximum 2400 mg per day Current Facility-Administered Medications Medication Dose Route Frequency perflutren lipid microspheres 1.3 mL in NaCl (PF) 0.9% 10 mL injection (DEFINITY) INTRAVENOUS DIRECTED PRN sodium chloride 0.9 % (flush) 10 mL (BD POSIFLUSH) 10 mL INTRAVENOUS DIRECTED PRN ALLERGIES Allergen Reactions Sudafed [Pseudoephe* Intolerance Jittery Sulfa (Sulfonamide * Hives elevated BP Wellbutrin [Bupropi* Mental Status Change Social History Tobacco Use Smoking status: Every Day Packs/day: 1.00 Types: Cigarettes Last attempt to quit: 2017 Years since quittin.9 Smokeless tobacco: Never Tobacco comments: less than one half pack Marital Status: FAMILY HISTORY Problem Relation Age of Onset Hypertension Mother other (Crohns [Other]) Sister other (Pancreatic cancer [Other]) Maternal Grandfather other (Throat cancer [Other]) Paternal Grandfather other (Rheumatoid arthritis [Other]) Paternal Grandmother other (Scleroderma [Other]) Paternal Grandmother Multiple Sclerosis No Family History REVIEW OF SYSTEMS: Comprehensive review of systems otherwise was negative, including constitutional, head and neck, cardiovascular, pulmonary, gastrointestinal, endocrine, urologic, reproductive, rheumatic, hematologic, immunologic, dermatologic, and psychiatric. PHYSICAL EXAM: BP 100/69 Pulse 78 Ht 162.6 cm (5' 4) Wt 78.9 kg (174 lb) BMI 29.87 kg/m Hair, skin, nails, and joints were normal. Neck without Lhermitte's phenomenon. Respiratory without distress and patient on room air. There was no peripheral edema. The patient was alert and oriented to person, place, and time with normal language, attention and concentration, recent and remote memory, praxis, and intellectual function. Affect was depressed. No attending to internal auditory or visual stimuli. Visual ramachandran were full to confrontation. Pupils were 3 mm and briskly reactive OU without a relative afferent pupillary defect. Ocular ductions were full without nystagmus or ataxia. Facial sensation was normal. Muscles of mastication and facial expression moved normally. Hearing was intact to finger rub bilaterally. Palatal movements were normal. Sternocleidomastoid and trapezius power were normal. Tongue movements were normal. There was no dysarthria. Motor Examination: There was no pronator drift. Right Upper Extremity: Left Upper Extremity: Deltoid 5/5 Deltoid 5/5 Biceps 5/5 Biceps 5/5 Triceps 5/5 Triceps 5/5 Wrist extensors 5/5 Wrist extensors 5/5 Wrist flexors 5/5 Wrist flexors 5/5 Dorsal interossei 5/5 Dorsal interossei 5/5 Abductor pollicis 5/5 Abductor pollicis 5/5 Tone (Amena scale) 0 Tone (Amena scale) 0 Right Lower Extremity: Left Lower Extremity: Hip flexors 5/5 Hip flexors 4/5 Knee flexors 5/5 Knee flexors 5/5 Knee extensors 5/5 Knee extensors 5/5 Dorsiflexors 5/5 Dorsiflexors 5/5 Plantarflexors 5/5 Plantarflexors 5/5 Tone (Amena scale) 1 Tone (Amena scale) 1 Reflexes: brachioradialis +++ brachioradialis +++ biceps +++ biceps +++ triceps ++ triceps ++ patellar +++ patellar +++ Achilles ++ Achilles ++ clonus absent clonus absent plantar response down plantar response down Coordination testing in the arms and legs was performed including [id number], rapid-alternating, and fine movements. Rapid movements were smooth with good saw and there was no dysmetria or ataxia. No signs of cerebellar dysfunction. Sensory examination: Light touch: abnormal left medial knee to ankle Vibration: Slightly diminished great toe bilaterally. Proprioception: Normal bilateral lower extremities. Pinprick: intact throughout, no sensory level posteriorly Gait was normal, including heel, toe, and tandem walking. REVIEW OF OUTSIDE RECORDS: N/A REVIEW OF IMAGING STUDIES: I personally reviewed the following images: MRI Brain w/wo & MRI C Spine w/wo 06/18/20: IMPRESSION: Multiple intracranial white matter lesions compatible with multiple sclerosis. No new T2 lesions and no new enhancing lesions. Mild parenchymal volume loss. Other Significant Intracranial Findings: None Few intramedullary lesions compatible with the clinical history of multiple sclerosis. No new T2 intramedullary lesions and no new enhancing intramedullary lesions. No significant volume loss of the upper spinal cord for age. Other Significant Cervical Spine Findings: Mild canal stenosis at C5-C6 and C6-C7 secondary to disc extrusions, similar to the 2015 exam ASSESSMENT: Patient is a 51 year old female with PMHx RRMS diagnosed in , never on consistent DMT, presenting with acute onset left sided leg (predominantly) knee pain, distal to knee numbness, and weakness. PCP had concern for possible MS flare given numbness. Overall clinical history (acuity of onset following bending down, predominant pain component) inconsistent with MS flare and feel more likely musculoskeletal in onset. While there was slight weakness in left hip flexor, distal strength was intact and neurologic exam seemed overall stable to ones documented in years past. Personally reviewed previous MRI imaging and agree with diagnosis of RRMS, but given lower concern for acute flare, explain to patient/ that steroid treatment is not warranted at this time. In discussion of symptomatic MS management, conversation evolved into understanding patient's deep depression. She lost daughter one year ago and states is severely depressed with previous thought/plan of suicide, no attempts. She denies any active plan or SI, and was present for this conversation and is well aware of the mental health struggles she has been dealing with. States she sees a counselor but unwilling to see a psychiatrist. Patient also mentions debilitating fatigue, stress, urinary symptoms that diminish her quality of life. Spent time with patient explaining that we feel regular follow-up with [facility] could be of great benefit for her, but patient seemed resistant to follow-up overall. She is agreeable to updated MRI surveillance imaging, however, and does mention openness to infusion DMTs, such as Ocrevus. PLAN: -no steroid treatment as new left leg pain unlikely to represent MS flare -for MSK pain, can continue prescribed tizanidine, will write rx for knee XR and PT -repeat MRI brain/cervical spine w/wo, which can be done locally in [place] -future considerations: DMT initiation (Ocrevus), urology referral, [facility] psychology pending patient follow-up -would like to see patient return in 3 months if patient amenable I spent a total of 90 minutes on the date of the service which included [id number] patient care, completing clinical documentation, obtaining and/or reviewing separately obtained history, performing a medically appropriate examination, and counseling and educating the patient/family/caregiver. Dulce Lorenzo, DO Adult Neuro PGY-4 In the service of staff, Dr. Mele Recinos [facility] NEUROLOGY STAFF ADDENDUM I have reviewed the history and physical examination obtained and documented by the resident and I personally participated in the jewell components of history and examination. I agree with the resident's plan as noted above which was formulated with my direct input. In summary, this is a 51 year old female with a past medical history of MS who presents for acute onset back/knee pain. She was seen briefly with Dr. Pepe in 2014 and 2015 but has deferred cares from the [facility] since that time. She does have clinically definite MS but has accumulate little disability since disease onset in 1996 despite not being on DMT. MRI in 2020 was stable dating back to [id number]. The clinical description for her most recent symptoms is not suggestive of a relapse given the acute onset and predominance of pain. Recommended PT while taking some time from work. In the meantime, discussed importance of regular follow-up at [place]. Shoshana endorsed severe depression and apathy especially around the of her daughter last year. She is enrolled with a counselor and taking Celexa but continues to have refractory symptoms including passive SI. No current plan and has protective features. We discuss a potential inpatient evaluation but Shoshana and her felt safe as these are long standing issues. Some of her symptoms are likely related to polypharmacy (concerning that she takes stimulant along with multiple sedating medications). I spent a total of 60 minutes on the date of the service which included preparing to see the patient, [id number] patient care, completing clinical documentation, obtaining and/or reviewing separately obtained history and counseling and educating the patient/family/caregiver. Mele Recinos MD Staff, Department of Neurology [facility] documented in this encounter [facility] 03-05-2022 Miscellaneous Notes Phoned patient and went over notes from Suzie ray NP with understanding. Patient said I have a lot of pain. Patient said when she gets home from her appt she will call her Neurologist to schedule appt. Scheduling: Please assist scheduling patient for Physical Therapy appt. Please let patient know I recommend physical therapy for the pain and she needs to schedule with specialist for her MS as the numbness may be related to this. If there is any other decrease neurologically or changes, she needs re-evaluated. Thank you Suzie Ray APRN.CNP Patient notified, states pain and numbness is the same, no improvement. Patient has not scheduled with MS specialist yet. Advised her to schedule. Please let patient know that the xray shows mild arthritis. How is the pain? How is the numbness? Has she scheduled with her multiple sclerosis specialist? Thank you Suzie Ray APRN.CNP documented in this encounter [facility] 03-03-2022 History of Present illness Narrative CC: Patient presents with: Back Pain: Low back pain, radiating down L leg, numb from knee down HPI Shoshana Tamayo is a 51 year old female who presents today for low back pain Leaned over at store to pick something up this past Tuesday. Had immediate pain to left lower back and then radiated to groin and left thigh. Noticed last night while shaving that she has numbness below her left knee. Fell last night while going up the steps because her leg became weak and gave out. Weakness has been present for the past few days. Pain is worse to her left thigh which is described as a severe burning and will turn into muscle spasms. Denies any groin numbness, abdominal pain, incontinence or difficulty with bowel/bladder. Does have intermittent incontinence of urine since being diagnosed with MS but there has been no change or increase to this. REVIEW OF SYSTEMS General: no fevers, no chills, no night sweats, no recurrent infections, no change in appetite, no change in energy, and no significant changes in weight Respiratory: no cough, no wheezing, no shortness of breath, no hemoptysis Cardiovascular: no chest pain, no chest pressure, no palpitations, and no swelling GI: No nausea, vomiting, or diarrhea : See HPI Skin: Negative for lesions, rash, and itching Neurologic: No headache, dizziness, syncope. PAST MEDICAL HISTORY Diagnosis Date Anxiety state, unspecified 05/27/2005 Depression Detrusor sphincter dyssynergia Excessive daytime sleepiness 04/02/2014 Provigil was effective Female stress incontinence Lump or mass in breast 04/26/2009 Multiple sclerosis (HCC) Onset and diagnosis 1996 Phlebitis and thrombophlebitis of unspecified site Pulmonary embolus (HCC) Unspecified pruritic disorder 07/03/2008 XEROSIS///SEBACEOUS GLAND DIS NEC 07/03/2008 PAST SURGICAL HISTORY Procedure Laterality Date SECTION HX TONSILLECTOMY AND ADENOIDECTOMY HX TOTAL ABDOMINAL HYSTERECT W/WO RMVL TUBE OVARY 03/2005 BSO ALLERGIES Sudafed [Pseudoephedrine Hcl], Sulfa (Sulfonamide Antibiotics), and Wellbutrin [Bupropion] MEDICATIONS HYDROcodone-acetaminophen (NORCO) 5-325 mg per tablet^Take 1 tablet by mouth four times daily as needed for pain for up to 30 days. Do not start before February 28, 2022.^Disp: 110 tablet^Rfl: 0 cephALEXin (KEFLEX) 250 mg capsule^Take 1 capsule by mouth once daily. For UTI prevention.^Disp: 90 capsule^Rfl: 3 modafinil (PROVIGIL) 200 mg tablet^Take 1 tablet by mouth twice daily for 180 days.^Disp: 60 tablet^Rfl: 5 LORazepam (ATIVAN) 1 mg tablet^Take 1-2 tablets by mouth once daily as needed for anxiety for up to 90 days. Do not start before January 25, 2022.^Disp: 60 tablet^Rfl: 2 citalopram (CELEXA) 40 mg tablet^Take 1 tablet by mouth once daily.^Disp: 90 tablet^Rfl: 3 terazosin (HYTRIN) 5 mg capsule^Take 1 capsule by mouth daily at bedtime.^Disp: 90 capsule^Rfl: 3 triamcinolone acetonide (KENALOG) 0.1 % cream^Apply 1 application to affected area three times daily as needed. Apply sparingly to area for rash/itching, to affected ears^Disp: 80 g^Rfl: 0 Cholecalciferol, Vitamin D3, 2,000 unit cap^Take 4,000 Units by mouth once daily.^Disp: ^Rfl: ibuprofen (MOTRIN) 200 mg tablet^Take 3-4 tablets by mouth four times daily as needed for Pain (Take with food.). Maximum 2400 mg per day^Disp: ^Rfl: FAMILY HISTORY Problem Relation Age of Onset Hypertension Mother other (Crohns [Other]) Sister other (Pancreatic cancer [Other]) Maternal Grandfather other (Throat cancer [Other]) Paternal Grandfather other (Rheumatoid arthritis [Other]) Paternal Grandmother other (Scleroderma [Other]) Paternal Grandmother Multiple Sclerosis No Family History Social History Tobacco Use Smoking status: Every Day Packs/day: 1.00 Types: Cigarettes Last attempt to quit: 2017 Years since quittin.8 Smokeless tobacco: Never Tobacco comments: less than one half pack Substance Use Topics Alcohol use: Yes Comment: very rare Drug use: No PHYSICAL EXAM BP 122/72 Pulse 80 Resp 16 Wt 80.3 kg (177 lb) BMI 30.38 kg/m General Appearance: well appearing, in no acute distress, alert Skin: Skin color, texture, turgor normal for age; Eyes: conjunctiva pink and moist, no icterus, sclera white, non-injected Back: Full and painless ROM for extension, lateral side bending and rotation, Reflexes 2+ and symmetric, pain with palpation of lower lumber sacral spine but not elsewhere, no abnormalities noted. Does report pain with flexion. Lungs: Lungs clear to auscultation. No wheezing, rhonchi, rales. Heart: RRR without murmur, gallop, or rubs. No ectopy Abdomen: Abdomen soft, non-tender. Bowel sounds normal. No masses, organomegaly Extremities: No deformities, edema, skin discoloration, clubbing or cyanosis. Good capillary refill. Neurological:speech normal, mental status intact, muscle tone normal. SLR both supine and sitting positive on left side. Gait slow related to pain. Strength 5/5 to RLE and 4/5 to LLE Health maintenance reviewed with patient: PNEUMOCOCCAL(1 - PCV) Never done HEPATITIS C SCREENING Never done HIV SCREENING Never done MAMMOGRAM due on 10/16/2016 COLORECTAL CANCER SCREENING due on 09/28/2022 LIPID SCREEN due on 05/23/2022 DIABETES SCREEN due on 06/02/2023 DTAP,TDAP,TD Discontinued PAP TESTING Discontinued HPV TESTING Discontinued INFLUENZA Discontinued COVID-19 VACCINE Discontinued DATA REVIEWED: No new labs ASSESSMENT/PLAN: 1. Acute left-sided low back pain with left-sided sciatica - ICD9: 724.2, 724.3, ICD10: M54.42 (primary diagnosis) - prednisone and tizanidine as ordered. With the weakness, numbness, and point tenderness, needs an xray for further evaluation - XR LUMBAR GENERAL 3V AP/LAT/L5-S1 - no red flag symptoms note - saddle anesthesia, incontinence with bowel/bladder - go to ER if this occurs 2. Left leg weakness - ICD9: 729.89, ICD10: R29.898 As above - XR LUMBAR GENERAL 3V AP/LAT/L5-S1 3. Numbness - ICD9: 782.0, ICD10: R20.0 - as above - XR LUMBAR GENERAL 3V AP/LAT/L5-S1 4. Multiple sclerosis (HCC) - ICD9: 340, ICD10: G35 - Discussed with patient the weakness and numbness might be related to her back pain, but MS being the cause of these is also a possibility. Has not bee to the [facility] since 2016. Needs to reschedule with them. - is not currently on any treatment for MS - CONSULT TO [facility] Prescription instructions reviewed with patient as applicable. Potential red flag symptoms discussed with the patient. Reviewed appropriate action plan to take if red flag symptoms occur. Patient agreeable to treatment plan. Suzie Ray APRN.CNP documented in this encounter [facility] 02-25-2022 Miscellaneous Notes The following approved medication requests have been transmitted electronically. Requested Prescriptions Signed Prescriptions Disp Refills HYDROcodone-acetaminophen (NORCO) 5-325 mg per tablet 110 tablet 0 Sig: Take 1 tablet by mouth four times daily as needed for pain for up to 30 days. Do not start before February 28, 2022. Authorizing Provider: LINA HERNANDEZ MD Patient has been identified by name and date of : Yes Patient phones for refill(s): Requested Prescriptions Pending Prescriptions Disp Refills HYDROcodone-acetaminophen (NORCO) 5-325 mg per tablet 110 tablet 0 Sig: Take 1 tablet by mouth four times daily as needed for pain for up to 30 days. Date of last office visit in primary care: 01/05/2022 3 month follow-up: 04/13/2022 Last 2 Encounter Wt Readings: Date: Wt: 01/05/2022 77.5 kg (170 lb 12.8 oz) 09/28/2021 79.4 kg (175 lb) Previous labs/tests for medication: Not applicable Please advise. Thank you. Mary Ellen Trimble LPN documented in this encounter [facility] 01-29-2022 Miscellaneous Notes The following approved medication requests have been transmitted electronically. Requested Prescriptions Signed Prescriptions Disp Refills HYDROcodone-acetaminophen (NORCO) 5-325 mg per tablet 110 tablet 0 Sig: Take 1 tablet by mouth four times daily as needed for pain for up to 30 days. Authorizing Provider: LINA HERNANDEZ MD Patient has been identified by name and date of : Yes Patient phones for refill(s): Requested Prescriptions Pending Prescriptions Disp Refills HYDROcodone-acetaminophen (NORCO) 5-325 mg per tablet 110 tablet 0 Sig: Take 1 tablet by mouth four times daily as needed for pain for up to 30 days. Date of last office visit in primary care: 01/05/22 Last 2 Encounter Wt Readings: Date: Wt: 01/05/2022 77.5 kg (170 lb 12.8 oz) 09/28/2021 79.4 kg (175 lb) Please advise. Thank you. Columba Casey LPN documented in this encounter [facility] 01-23-2022 Miscellaneous Notes The following approved medication requests have been transmitted electronically. Requested Prescriptions Signed Prescriptions Disp Refills cephALEXin (KEFLEX) 250 mg capsule 90 capsule 3 Sig: Take 1 capsule by mouth once daily. For UTI prevention. Authorizing Provider: LINA HERNANDEZ MD Patient has been identified by name and date of : Yes Patient phones for refill(s): Requested Prescriptions Pending Prescriptions Disp Refills cephALEXin (KEFLEX) 250 mg capsule 90 capsule 3 Sig: Take 1 capsule by mouth once daily. For UTI prevention. Date of last office visit in primary care: 01/05/2022 3 month follow-up: 04/13/2022 Last 2 Encounter Wt Readings: Date: Wt: 01/05/2022 77.5 kg (170 lb 12.8 oz) 09/28/2021 79.4 kg (175 lb) Previous labs/tests for medication: Not applicable Please advise. Thank you. Mary Ellen Trimble LPN documented in this encounter [facility] 01-05-2022 History of Present illness Narrative SUBJECTIVE: PNEUMOCOCCAL(1 - PCV) Never done HEPATITIS C SCREENING Never done HIV SCREENING Never done MAMMOGRAM due on 10/16/2016 LUCAS Tamayo is a 51 year old female. PMH significant for 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 Stress Incontinence Tobacco Use Disorder Reactive Depression Contact Dermatitis and Other Eczema, Due to Unspecified Cause Patient of [facility] for multiple sclerosis, last seen by Dr. Garnett. Previously treated with Copaxone, Repatha, Betaseron and Gilenya. No current therapy. Most recent MRI brain 06/18/2020. No new lesions. Last seen 2020. Due for follow up. Today she notes significant grief following the loss of her daughter. 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 She reports grief counseling and psychologist with counseling weekly. Notes her thinks she should be admitted to psychiatric facility. She is not so sure. Has been consistently taking medication. HI/SI no voiced, notes she has thought about it but has no plans. Does not care much since her daughter . Notes difficulty with . Concern for her remaining children. They are having a difficult time. Taking provigil for excessive daytime sleepiness: Notes finding this effective. Hydrocodone for for bladder spasms along with Hytrin. Notes this is helpful. Lorazepam for anxiety and panic attacks. Without adverse effects of medication noted. Consistently taking. Celexa for depression. Notes little appetite and some weight loss. Recurrent UTI, taking Keflex; no recent infections. Review of Systems Constitutional: Positive for appetite change and fatigue. Gastrointestinal: Negative for abdominal pain. Psychiatric/Behavioral: Positive for dysphoric mood. The patient is not nervous/anxious. Objective There were no vitals taken for this visit. Physical Exam Vitals and nursing note reviewed. Constitutional: Appearance: Normal appearance. HENT: Head: Normocephalic and atraumatic. Eyes: Conjunctiva/sclera: Conjunctivae normal. Neck: Thyroid: No thyroid mass or thyromegaly. Vascular: Normal carotid pulses. No JVD. Cardiovascular: Rate and Rhythm: Normal rate and regular rhythm. Pulses: Normal pulses. Carotid pulses are 2+ on the right side and 2+ on the left side. Radial pulses are 2+ on the right side and 2+ on the left side. Heart sounds: Normal heart sounds. Pulmonary: Effort: Pulmonary effort is normal. Breath sounds: Normal breath sounds. Abdominal: General: Bowel sounds are normal. Palpations: Abdomen is soft. Musculoskeletal: Right lower leg: No edema. Left lower leg: No edema. Skin: General: Skin is warm and dry. Neurological: Mental Status: She is alert. Mental status is at baseline. Psychiatric: Mood and Affect: Mood is depressed. Affect is tearful. ALLERGIES Allergen Reactions Sudafed [Pseudoephe* Intolerance Jittery Sulfa (Sulfonamide * Hives elevated BP Wellbutrin [Bupropi* Mental Status Change MEDICATIONS HYDROcodone-acetaminophen (NORCO) 5-325 mg per tablet, Take 1 tablet by mouth four times daily as needed for pain for up to 30 days. citalopram (CELEXA) 40 mg tablet, Take 1 tablet by mouth once daily. LORazepam (ATIVAN) 1 mg tablet, Take 1-2 tablets by mouth once daily as needed for anxiety for up to 90 days. terazosin (HYTRIN) 5 mg capsule, Take 1 capsule by mouth daily at bedtime. modafinil (PROVIGIL) 200 mg tablet, Take 1 tablet by mouth twice daily for 180 days. cephALEXin (KEFLEX) 250 mg capsule, Take 1 capsule by mouth once daily. For UTI prevention. triamcinolone acetonide (KENALOG) 0.1 % cream, Apply 1 application to affected area three times daily as needed. Apply sparingly to area for rash/itching, to affected ears Cholecalciferol, Vitamin D3, 2,000 unit cap, Take 4,000 Units by mouth once daily. ibuprofen (MOTRIN) 200 mg tablet, Take 3-4 tablets by mouth four times daily as needed for Pain (Take with food.). Maximum 2400 mg per day PAST MEDICAL HISTORY Diagnosis Date Anxiety state, unspecified 05/27/2005 Depression Detrusor sphincter dyssynergia Excessive daytime sleepiness 04/02/2014 Provigil was effective Female stress incontinence Lump or mass in breast 04/26/2009 Multiple sclerosis (HCC) Onset and diagnosis 1996 Phlebitis and thrombophlebitis of unspecified site Pulmonary embolus (HCC) Unspecified pruritic disorder 07/03/2008 XEROSIS///SEBACEOUS GLAND DIS NEC 07/03/2008 Social History Tobacco Use Smoking status: Current Every Day Smoker Packs/day: 1.00 Types: Cigarettes Last attempt to quit: 2017 Years since quittin.7 Smokeless tobacco: Never Used Tobacco comment: less than one half pack Substance Use Topics Alcohol use: Yes Comment: very rare Drug use: No ASSESSMENT/PLAN: 1. Grief reaction - ICD9: 309.0, ICD10: F43.21 (primary diagnosis) Notes continues to not do well. Reports crying daily. Taking all medications as prescribed. Going to counseling weekly. Not interested in admission at this time. 2. Excessive daytime sleepiness - ICD9: 780.54, ICD10: G47.19 3. Multiple sclerosis G35 Endorse follow-up with [facility], resume disease modifying therapy if indicated. 2. Grief reaction - ICD9: 309.0, ICD10: F43.21 Has gone to grief counseling in the past and found it helpful 3. Excessive daytime sleepiness - ICD9: 780.54, ICD10: G47.19 - MODAFINIL 200 MG TABLET 4. Special screening examination for viral disease - ICD9: V73.99, ICD10: Z11.59 - HEP C AB IA W/CONF SCRN 5. MULTIPLE SCLEROSIS - ICD9: 340, ICD10: G35 - MODAFINIL 200 MG TABLET 6. Encounter for immunization - ICD9: V03.89, ICD10: Z23 - PNEUMOCOCCAL VACCINE (PREVNAR 20) 7. Screening for HIV (human immunodeficiency virus) - ICD9: V73.89, ICD10: Z11.4 - HIV 1 2 COMBO(AG/AB),WITH REFLEX TO DIFFERENTIATION 8. Insomnia secondary to depression with anxiety - ICD9: 300.4, 327.02, ICD10: F51.05, F41.8 - LORAZEPAM 1 MG TABLET 9. Chest pain, unspecified type - ICD9: 786.50, ICD10: R07.9 10. SOBOE (shortness of breath on exertion) - ICD9: 786.05, ICD10: R06.02 She notes chest discomfort related to her grief and occasional shortness of breath, concerned she may have stress cardiomyopathy/Takotsubo - ECHO - PERFLUTREN LIPID MICROSPHERES 1.1 MG/ML INJECTION IN NS 10 ML - SODIUM CHLORIDE 0.9 % (FLUSH) INJECTION SYRINGE PDMP website checked and validated. All prescriptions have been APPROPRIATELY filled. No suspicious activity was identified. 01/05/2022 by Mary Castellanos APRN.BUILDING ARCHITECTURAL DESIGNER Continued on all treatments unchanged for now. She will let us know if wanting to do anything additional or different. Recommend echocardiogram to check for stress cardiomyopathy. Mary Castellanos APRN.CNS Medical Decision Making: Problems: Moderate: 2+ stable chronic illnesses Data: Unique test(s) ordered: 3+ Risk: Moderate: Drug management Medical Decision Making Level: 4 - Moderate documented in this encounter [facility] 12-30-2021 Miscellaneous Notes The following approved medication requests have been transmitted electronically. Signed Prescriptions Disp Refills HYDROcodone-acetaminophen (NORCO) 5-325 mg per tablet 110 tablet 0 Sig: Take 1 tablet by mouth four times daily as needed for pain for up to 30 days. BRE Class: C-II NOELLE: No Authorizing Provider: LINA HERNANDEZ MD See MyChart reply I sent. Patient called to check on status of refill request. Said she only has 1 pill left. Would like to be called at [phone] or a mychart message sent to let her know when rx has been sent to pharmacy. OCTAVIO: 09/28/2021 Last refill: 11/30/2021 QTY: 110 Refills: 0 Patient's request for medication is as follows: Pending Prescriptions Disp Refills HYDROCODONE 5 MG-ACETAMINOPHEN 325 MG TABLET 110 tablet 0 Sig: Take 1 tablet by mouth four times daily as needed for pain for up to 30 days. BRE Class: C-II NOELLE: No Please approve the above prescription(s) to electronically send to pharmacy. Darnell Sneed Ma documented in this encounter [facility] 11-26-2021 Miscellaneous Notes The following approved medication requests have been transmitted electronically. Signed Prescriptions Disp Refills HYDROcodone-acetaminophen (NORCO) 5-325 mg per tablet 110 tablet 0 Sig: Take 1 tablet by mouth four times daily as needed for pain for up to 30 days. Do not start before November 30, 2021. BRE Class: C-II NOELLE: No Authorizing Provider: LINA HERNANDEZ MD Last filled 10/31 so wrote for filling 11/30 Sent a MyChart message asking pt to call the office to schedule fasting lab and urine testing. Patient has been identified by name and date of : Yes Patient phones for refill(s): Pending Prescriptions Disp Refills HYDROCODONE 5 MG-ACETAMINOPHEN 325 MG TABLET 110 tablet 0 Sig: Take 1 tablet by mouth four times daily as needed for pain for up to 30 days. BRE Class: C-II NOELLE: No Date of last office visit in primary care: 09/28/21 next apt 01/05/22 Last 2 Encounter Wt Readings: Date: Wt: 09/28/2021 79.4 kg (175 lb) 10/31/2020 84.4 kg (186 lb) Previous labs/tests for medication: Not applicable Please advise. Thank you. Estrella Bustos LPN documented in this encounter [facility] 10-28-2021 Miscellaneous Notes Patient returned call and went over notes below that rx is on file at pharmacy to be filled on 10/31 for the Clinton with understanding. She is aware that she has 4 appts scheduled with [facility] and PCP already, reminder of dates and times given. documented in this encounter [facility] 10-28-2021 Miscellaneous Notes Spoke to [facility], Patient does have RX for Clinton to be filled on 10/31/2021. Solartrecg sent to Patient: Our office did receive your refill request for Clinton, however you have an RX on file at [facility], to be filled on 10/31/2021. Please check with your pharmacy. Mary Ellen Trimble LPN She has a RX for hydrocodone for 10/31--make sure pharmacy has the RX on file then once verified, let patient know. If none on file despite being on out medlist, let me know so can file RX (looks like picked up 10/02 then would be due to get 11/01 as pended in this case) Patient has been identified by name and date of : Yes Patient phones for refill(s): Pending Prescriptions Disp Refills HYDROCODONE 5 MG-ACETAMINOPHEN 325 MG TABLET 110 tablet 0 Sig: Take 1 tablet by mouth four times daily as needed for pain for up to 30 days. BRE Class: C-II NOELLE: No Date of last office visit in primary care: 09/28/2021 No future appt scheduled. Last 2 Encounter Wt Readings: Date: Wt: 09/28/2021 79.4 kg (175 lb) 10/31/2020 84.4 kg (186 lb) Previous labs/tests for medication: Not applicable Please advise. Thank you. Mary Ellen Trimble LPN documented in this encounter [facility] 10-26-2021 Miscellaneous Notes Images from the original note were not included. MD Brie Cyr LPN; Sarah Jose Ma Saw Mary in September. Still needs December and March, etc 3 month follow ups made. Thanks, Lina documented in this encounter [facility] 10-07-2021 Miscellaneous Notes rec'd denial for qty of 110 for 30 days. Shoshana Tamayo (Jewell: [id number]) [id number] HYDROcodone-Acetaminophen 5-325MG tablets Outcome: N/A Created: October 02, 2021 Sent: October 02, 2021 documented in this encounter [facility] 09-28-2021 History of Present illness Narrative SUBJECTIVE: HEPATITIS C SCREENING Never done HIV SCREENING Never done MAMMOGRAM due on 10/16/2016 COLORECTAL CANCER SCREENING Never done HPI Shoshana Tamayo is a 51 year old female. PMH significant for 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 Stress Incontinence Tobacco Use Disorder Reactive Depression Contact Dermatitis and Other Eczema, Due to Unspecified Cause Patient of [facility] for multiple sclerosis. Due for follow up. Previous colon cancer screening no, defers for now Mammogram : due for screening Recent labwork: none Current smoker yes Distance visit with PCP 07/31/2021. Noted grief reaction with father, stepfather and daughter dying recently. Labs ordered. Not yet completed. Today she notes significant grief following the loss of her daughter. 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 She notes this is been therapeutic for her. She reports end-of-life care grief counseling and psychologist with [facility] but do not seem to be helping much. Has been consistently taking medication. HI/SI no voiced, notes she does not care much since her daughter . Taking provigil for excessive daytime sleepiness: Notes finding this effective. Hydrocodone for for bladder spasms along with Hytrin. Notes this is helpful. Lorazepam for anxiety and panic attacks. Without adverse effects of medication noted. Consistently taking. Celexa for depression. Notes little appetite and some weight loss. Recurrent UTI, taking Keflex; no recent infections. Review of Systems Constitutional: Positive for appetite change and fatigue. Gastrointestinal: Positive for abdominal pain. Psychiatric/Behavioral: Positive for dysphoric mood. The patient is nervous/anxious. Objective BP 118/78 Pulse (!) 56 Wt 79.4 kg (175 lb) SpO2 99% BMI 30.04 kg/m Physical Exam Vitals and nursing note reviewed. Constitutional: Appearance: Normal appearance. HENT: Head: Normocephalic and atraumatic. Eyes: Conjunctiva/sclera: Conjunctivae normal. Neck: Thyroid: No thyroid mass or thyromegaly. Vascular: Normal carotid pulses. No JVD. Cardiovascular: Rate and Rhythm: Normal rate and regular rhythm. Pulses: Carotid pulses are 2+ on the right side and 2+ on the left side. Radial pulses are 2+ on the right side and 2+ on the left side. Heart sounds: Normal heart sounds. Pulmonary: Effort: Pulmonary effort is normal. Breath sounds: Normal breath sounds. Abdominal: General: Bowel sounds are normal. Palpations: Abdomen is soft. Musculoskeletal: Right lower leg: No edema. Left lower leg: No edema. Skin: General: Skin is warm and dry. Neurological: Mental Status: She is alert. Mental status is at baseline. ALLERGIES Allergen Reactions Sudafed [Pseudoephe* Intolerance Jittery Sulfa (Sulfonamide * Hives elevated BP Wellbutrin [Bupropi* Mental Status Change MEDICATIONS HYDROcodone-acetaminophen (NORCO) 5-325 mg per tablet Take 1 tablet by mouth four times daily as needed for pain for up to 30 days. terazosin (HYTRIN) 5 mg capsule Take 1 capsule by mouth daily at bedtime. modafinil (PROVIGIL) 200 mg tablet Take 1 tablet by mouth twice daily for 180 days. LORazepam (ATIVAN) 1 mg tablet Take 1-2 tablets by mouth once daily as needed for anxiety for up to 90 days. HYDROcodone-acetaminophen (NORCO) 5-325 mg per tablet Take 1 tablet by mouth four times daily as needed for pain for up to 30 days. HYDROcodone-acetaminophen (NORCO) 5-325 mg per tablet Take 1 tablet by mouth three times daily as needed for pain for up to 30 days. cephALEXin (KEFLEX) 250 mg capsule Take 1 capsule by mouth once daily. For UTI prevention. citalopram (CELEXA) 40 mg tablet Take 1 tablet by mouth once daily. triamcinolone acetonide (KENALOG) 0.1 % cream Apply 1 application to affected area three times daily as needed. Apply sparingly to area for rash/itching, to affected ears Cholecalciferol, Vitamin D3, 2,000 unit cap Take 4,000 Units by mouth once daily. ibuprofen (MOTRIN) 200 mg tablet Take 3-4 tablets by mouth four times daily as needed for Pain (Take with food.). Maximum 2400 mg per day PAST MEDICAL HISTORY Diagnosis Date Anxiety state, unspecified 05/27/2005 Depression Detrusor sphincter dyssynergia Excessive daytime sleepiness 04/02/2014 Provigil was effective Female stress incontinence Lump or mass in breast 04/26/2009 Multiple sclerosis (HCC) Onset and diagnosis 1996 Phlebitis and thrombophlebitis of unspecified site Pulmonary embolus (HCC) Unspecified pruritic disorder 07/03/2008 XEROSIS///SEBACEOUS GLAND DIS NEC 07/03/2008 Social History Tobacco Use Smoking status: Current Every Day Smoker Packs/day: 1.00 Types: Cigarettes Last attempt to quit: 2017 Years since quittin.4 Smokeless tobacco: Never Used Tobacco comment: less than one half pack Substance Use Topics Alcohol use: Yes Comment: very rare Drug use: No ASSESSMENT/PLAN: 1. Grief reaction - ICD9: 309.0, ICD10: F43.21 (primary diagnosis) - TOX SCREEN ROUT UR - PAIN PANEL, UR QUANT - COMP METABOLIC PANEL - CBC + DIFF 2. Excessive daytime sleepiness - ICD9: 780.54, ICD10: G47.19 - COMP METABOLIC PANEL - CBC + DIFF - TSH BLD - T4 FREE/FREE THYROX - T3 FREE BLD 3. Insomnia secondary to depression with anxiety - ICD9: 300.4, 327.02, ICD10: F51.05, F41.8 4. Vitamin D deficiency - ICD9: 268.9, ICD10: E55.9 - VITAMIN D 25 HYDROXY 5. Elevated glucose - ICD9: 790.29, ICD10: R73.09 - HGB A1C 6. Encounter for long-term (current) use of medications - ICD9: V58.69, ICD10: Z79.899 - TOX SCREEN ROUT UR - PAIN PANEL, UR QUANT 7. Panic attack - ICD9: 300.01, ICD10: F41.0 - TOX SCREEN ROUT UR - PAIN PANEL, UR QUANT 8. Multiple sclerosis (HCC) - ICD9: 340, ICD10: G35 - VITAMIN D 25 HYDROXY 9. Encounter for screening mammogram for malignant neoplasm of breast - ICD9: V76.12, ICD10: Z12.31 Routine self-exam endorsed, schedule screening mammogram 10. Depression, unspecified depression type - ICD9: 311, ICD10: F32.A 11. Anxiety - ICD9: 300.00, ICD10: F41.9 She notes grief with passing of her daughter, went to grief counseling and psychologist but not helping much. Stable on current medications. - TOX SCREEN ROUT UR - PAIN PANEL, UR QUANT - COMP METABOLIC PANEL - CBC + DIFF 12. Screening for lipid disorders - ICD9: V77.91, ICD10: Z13.220 - LIPID PANEL BASIC 13. MULTIPLE SCLEROSIS - ICD9: 340, ICD10: G35 - HYDROCODONE 5 MG-ACETAMINOPHEN 325 MG TABLET - HYDROCODONE 5 MG-ACETAMINOPHEN 325 MG TABLET 14. Detrusor sphincter dyssynergia - ICD9: 596.55, ICD10: N36.44 - HYDROCODONE 5 MG-ACETAMINOPHEN 325 MG TABLET - HYDROCODONE 5 MG-ACETAMINOPHEN 325 MG TABLET PDMP website checked and validated. All prescriptions have been APPROPRIATELY filled. No suspicious activity was identified. 09/28/2021 by Mary Castellanos APRN.BUILDING ARCHITECTURAL DESIGNER Screening mammogram recommended, labs today. Every 3 month visits for long-term medication monitoring. Schedule follow-up with [facility]. Mary Castellanos APRN.CNS Medical Decision Making: Problems: Moderate: 2+ stable chronic illnesses Data: Unique test(s) ordered: 3+ Risk: Moderate: Drug management Medical Decision Making Level: 4 - Moderate documented in this encounter [facility] 07-31-2021 History of Present illness Narrative VIRTUAL VISIT PROGRESS NOTE This is a virtual visit using Audio only. It required patient-provider interaction for the medical decision making as documented below. Shoshana Tamayo is a 51 year old female seen for follow upp. Back to old job and works every other Tuesday. Dad (leanne) beginning of June and step dad after that. Daughter had last year. Needs lorazepam still to help with panic attacks, anxiety and insomnia. No adverse effects noted, Not taking at same time as pain med. No adverse interactions, Working 3 twelves. Off for 4 days but the long days are hard. Gets emotional after 7 hours. HISTORY REVIEWED (electronic chart updated): PAST MEDICAL HISTORY Diagnosis Date Anxiety state, unspecified 05/27/2005 Depression Detrusor sphincter dyssynergia Excessive daytime sleepiness 04/02/2014 Provigil was effective Female stress incontinence Lump or mass in breast 04/26/2009 Multiple sclerosis (HCC) Onset and diagnosis 1996 Phlebitis and thrombophlebitis of unspecified site Pulmonary embolus (HCC) Unspecified pruritic disorder 07/03/2008 XEROSIS///SEBACEOUS GLAND DIS NEC 07/03/2008 PAST SURGICAL HISTORY Procedure Laterality Date SECTION HX TONSILLECTOMY AND ADENOIDECTOMY HX TOTAL ABDOM HYSTERECTOMY 03/2005 BSO FAMILY HISTORY Problem Relation Age of Onset Hypertension Mother other (Crohns [Other]) Sister other (Pancreatic cancer [Other]) Maternal Grandfather other (Throat cancer [Other]) Paternal Grandfather other (Rheumatoid arthritis [Other]) Paternal Grandmother other (Scleroderma [Other]) Paternal Grandmother Multiple Sclerosis No Family History Social History Tobacco Use Smoking status: Current Every Day Smoker Packs/day: 1.00 Types: Cigarettes Last attempt to quit: 2017 Years since quittin.2 Smokeless tobacco: Never Used Tobacco comment: less than one half pack Substance Use Topics Alcohol use: Yes Comment: very rare Drug use: No Current Outpatient Medications Medication Sig terazosin (HYTRIN) 5 mg capsule Take 1 capsule by mouth daily at bedtime. modafinil (PROVIGIL) 200 mg tablet Take 1 tablet by mouth twice daily for 180 days. LORazepam (ATIVAN) 1 mg tablet Take 1-2 tablets by mouth once daily as needed for anxiety for up to 90 days. HYDROcodone-acetaminophen (NORCO) 5-325 mg per tablet Take 1 tablet by mouth four times daily as needed for pain for up to 30 days. HYDROcodone-acetaminophen (NORCO) 5-325 mg per tablet Take 1 tablet by mouth four times daily as needed for pain for up to 30 days. HYDROcodone-acetaminophen (NORCO) 5-325 mg per tablet Take 1 tablet by mouth three times daily as needed for pain for up to 30 days. cephALEXin (KEFLEX) 250 mg capsule Take 1 capsule by mouth once daily. For UTI prevention. citalopram (CELEXA) 40 mg tablet Take 1 tablet by mouth once daily. triamcinolone acetonide (KENALOG) 0.1 % cream Apply 1 application to affected area three times daily as needed. Apply sparingly to area for rash/itching, to affected ears Cholecalciferol, Vitamin D3, 2,000 unit cap Take 4,000 Units by mouth once daily. ibuprofen (MOTRIN) 200 mg tablet Take 3-4 tablets by mouth four times daily as needed for Pain (Take with food.). Maximum 2400 mg per day No current facility-administered medications for this visit. ALLERGIES Allergen Reactions Sudafed [Pseudoephe* Intolerance Jittery Sulfa (Sulfonamide * Hives elevated BP Wellbutrin [Bupropi* Mental Status Change REVIEW OF SYSTEMS: As noted in HPI PHYSICAL EXAMINATION: VIDEO EXAM: (if completed, performed via video enabled technology) Not applicable. Needed to do telephone visit. ASSESSMENT/PLAN: 1. Grief reaction - ICD9: 309.0, ICD10: F43.21 (primary diagnosis) Still needing lorazepam to help dealing with of her daughter, plus dad and step dad. Emotional support given. Continue Celexa. At this time benefits outweigh risks. Continue to monitor for adverse effects and indications for decreasing dose or tapering off. No signs of diversion or abuse of medication(s); no adverse effects. Continue present management. 2. Detrusor sphincter dyssynergia - ICD9: 596.55, ICD10: N36.44 Continue present management. 3. Multiple sclerosis (HCC) - ICD9: 340, ICD10: G35 Stable clinically. Declines follow up at [facility] for [facility]. 4. Excessive daytime sleepiness - ICD9: 780.54, ICD10: G47.19 Continue Provigil. Further evaluation and treatment as indicated. 5. Insomnia secondary to depression with anxiety - ICD9: 300.4, 327.02, ICD10: F51.05, F41.8 lorazepam helping. Continues present management. Further evaluation and treatment as indicated. 6. Panic attack - ICD9: 300.01, ICD10: F41.0 Needing lorazepam as noted above. As she is able process and mourn loss of her daughter, will work on titrating down med when able. - COMP METABOLIC PANEL - CBC - TSH BLD - T4 FREE/FREE THYROX - T3 FREE BLD - HGB A1C - MAGNESIUM BLD - VITAMIN D 25 HYDROXY 7. Encounter for long-term current use of medication - ICD9: V58.69, ICD10: Z79.899 - COMP METABOLIC PANEL - CBC - TSH BLD - T4 FREE/FREE THYROX - T3 FREE BLD - HGB A1C - MAGNESIUM BLD - VITAMIN D 25 HYDROXY 8. Vitamin D deficiency - ICD9: 268.9, ICD10: E55.9 Adjust replacement as indicatd. - VITAMIN D 25 HYDROXY 9. Elevated glucose - ICD9: 790.29, ICD10: R73.09 Needs to keep working on diet and exercise with lifestyle changes for effective weight loss as well as control of DM, and control of BP and lipids. - COMP METABOLIC PANEL - HGB A1C Lina Hernandez MD There are no Patient Instructions on file for this visit. It was necessary to convert the virtual visit to a telephone encounter due to technical difficulties. At least 25 minutes. I spent a total of at least 25 minutes on the date of the service which included preparing to see the patient, completing clinical documentation, obtaining and/or reviewing separately obtained history, counseling and educating the patient/family/caregiver and ordering medications, tests, or procedures. Lina Hernandez MD documented in this encounter [facility] 07-03-2008 History of Past i llness Narrative Problem Noted Date Resolved Date EXCORIATIONS//SUPERFICIAL INJURY NEC 07/03/2008 04/29/2014 Scabies 07/03/2008 04/29/2014 documented as of this encounter (statuses as of 09/28/2021) [facility] History of Past illness Narrative* Problem Noted Date Resolved Date EXCORIATIONS//SUPERFICIAL INJURY NEC 07/03/2008 04/29/2014 Scabies 07/03/2008 04/29/2014 documented as of this encounter (statuses as of 10/07/2021) [facility] History of Past illness Narrative* Problem Noted Date Resolved Date EXCORIATIONS//SUPERFICIAL INJURY NEC 07/03/2008 04/29/2014 Scabies 07/03/2008 04/29/2014 documented as of this encounter (statuses as of 10/12/2021) [facility] History of Past illness Narrative* Problem Noted Date Resolved Date EXCORIATIONS//SUPERFICIAL INJURY NEC 07/03/2008 04/29/2014 Scabies 07/03/2008 04/29/2014 documented as of this encounter (statuses as of 10/26/2021) [facility] History of Past illness Narrative* Problem Noted Date Resolved Date EXCORIATIONS//SUPERFICIAL INJURY NEC 07/03/2008 04/29/2014 Scabies 07/03/2008 04/29/2014 documented as of this encounter (statuses as of 10/27/2021) [facility] History of Past illness Narrative* Problem Noted Date Resolved Date EXCORIATIONS//SUPERFICIAL INJURY NEC 07/03/2008 04/29/2014 Scabies 07/03/2008 04/29/2014 documented as of this encounter (statuses as of 10/28/2021) [address]21-2009 History of Past illness Narrative* Problem Noted Date Resolved Date EXCORIATIONS//SUPERFICIAL INJURY NEC 07/03/2008 04/29/2014 Scabies 07/03/2008 04/29/2014 documented as of this encounter (statuses as of 10/28/2021) [address]-2009 History of Past illness Narrative* Problem Noted Date Resolved Date EXCORIATIONS//SUPERFICIAL INJURY NEC 07/03/2008 04/29/2014 Scabies 07/03/2008 04/29/2014 documented as of this encounter (statuses as of 11/27/2021) [address]-2009 History of Past illness Narrative* Problem Noted Date Resolved Date EXCORIATIONS//SUPERFICIAL INJURY NEC 07/03/2008 04/29/2014 Scabies 07/03/2008 04/29/2014 documented as of this encounter (statuses as of 12/31/2021) [address]-2009 History of Past illness Narrative* Problem Noted Date Resolved Date EXCORIATIONS//SUPERFICIAL INJURY NEC 07/03/2008 04/29/2014 Scabies 07/03/2008 04/29/2014 documented as of this encounter (statuses as of 01/05/2022) [address]-2009 History of Past illness Narrative* Problem Noted Date Resolved Date EXCORIATIONS//SUPERFICIAL INJURY NEC 07/03/2008 04/29/2014 Scabies 07/03/2008 04/29/2014 documented as of this encounter (statuses as of 01/25/2022) [address]-2009 History of Past illness Narrative* Problem Noted Date Resolved Date EXCORIATIONS//SUPERFICIAL INJURY NEC 07/03/2008 04/29/2014 Scabies 07/03/2008 04/29/2014 documented as of this encounter (statuses as of 02/01/2022) [address]-2009 History of Past illness Narrative* Problem Noted Date Resolved Date EXCORIATIONS//SUPERFICIAL INJURY NEC 07/03/2008 04/29/2014 Scabies 07/03/2008 04/29/2014 documented as of this encounter (statuses as of 02/25/2022) [facility] History of Past illness Narrative* Problem Noted Date Resolved Date EXCORIATIONS//SUPERFICIAL INJURY NEC 07/03/2008 04/29/2014 Scabies 07/03/2008 04/29/2014 documented as of this encounter (statuses as of 03/03/2022) [address]-2009 History of Past illness Narrative* Problem Noted Date Resolved Date EXCORIATIONS//SUPERFICIAL INJURY NEC 07/03/2008 04/29/2014 Scabies 07/03/2008 04/29/2014 documented as of this encounter (statuses as of 03/17/2022) [facility] History of Past illness Narrative* Problem Noted Date Resolved Date EXCORIATIONS//SUPERFICIAL INJURY NEC 07/03/2008 04/29/2014 Scabies 07/03/2008 04/29/2014 documented as of this encounter (statuses as of 03/25/2022) [facility] History of Past illness Narrative* Problem Noted Date Resolved Date EXCORIATIONS//SUPERFICIAL INJURY NEC 07/03/2008 04/29/2014 Scabies 07/03/2008 04/29/2014 documented as of this encounter (statuses as of 03/30/2022) [facility] History of Past illness Narrative* Problem Noted Date Resolved Date EXCORIATIONS//SUPERFICIAL INJURY NEC 07/03/2008 04/29/2014 Scabies 07/03/2008 04/29/2014 documented as of this encounter (statuses as of 03/30/2022) [facility] [facility] of Past illness Narrative* Problem Noted Date Resolved Date EXCORIATIONS//SUPERFICIAL INJURY NEC 07/03/2008 04/29/2014 Scabies 07/03/2008 04/29/2014 documented as of this encounter (statuses as of 04/05/2022) [facility]01-21-2009 History of Past illness Narrative* Problem Noted Date Resolved Date EXCORIATIONS//SUPERFICIAL INJURY NEC 07/03/2008 04/29/2014 Scabies 07/03/2008 04/29/2014 documented as of this encounter (statuses as of 04/07/2022) [facility] History of Past illness Narrative* Problem Noted Date Resolved Date EXCORIATIONS//SUPERFICIAL INJURY NEC 07/03/2008 04/29/2014 Scabies 07/03/2008 04/29/2014 documented as of this encounter (statuses as of 04/08/2022) [address]21-2009 History of Past illness Narrative* Problem Noted Date Resolved Date EXCORIATIONS//SUPERFICIAL INJURY NEC 07/03/2008 04/29/2014 Scabies 07/03/2008 04/29/2014 documented as of this encounter (statuses as of 04/13/2022) [address]21-2009 History of Past illness Narrative* Problem Noted Date Resolved Date EXCORIATIONS//SUPERFICIAL INJURY NEC 07/03/2008 04/29/2014 Scabies 07/03/2008 04/29/2014 documented as of this encounter (statuses as of 04/15/2022) [address]21-2009 History of Past illness Narrative* Problem Noted Date Resolved Date EXCORIATIONS//SUPERFICIAL INJURY NEC 07/03/2008 04/29/2014 Scabies 07/03/2008 04/29/2014 documented as of this encounter (statuses as of 04/23/2022) [address]21-2009 History of Past illness Narrative* Problem Noted Date Resolved Date EXCORIATIONS//SUPERFICIAL INJURY NEC 07/03/2008 04/29/2014 Scabies 07/03/2008 04/29/2014 documented as of this encounter (statuses as of 05/27/2022) [address]21-2009 History of Past illness Narrative* Problem Noted Date Resolved Date EXCORIATIONS//SUPERFICIAL INJURY NEC 07/03/2008 04/29/2014 Scabies 07/03/2008 04/29/2014 documented as of this encounter (statuses as of 06/24/2022) [address]21-2009 History of Past illness Narrative* Problem Noted Date Resolved Date EXCORIATIONS//SUPERFICIAL INJURY NEC 07/03/2008 04/29/2014 Scabies 07/03/2008 04/29/2014 documented as of this encounter (statuses as of 07/06/2022) [address]21-2009 History of Past illness Narrative* Problem Noted Date Resolved Date EXCORIATIONS//SUPERFICIAL INJURY NEC 07/03/2008 04/29/2014 Scabies 07/03/2008 04/29/2014 documented as of this encounter (statuses as of 07/07/2022) [facility] History of Past illness Narrative* Problem Noted Date Resolved Date EXCORIATIONS//SUPERFICIAL INJURY NEC 07/03/2008 04/29/2014 Scabies 07/03/2008 04/29/2014 documented as of this encounter (statuses as of 07/22/2022) [facility] History of Past illness Narrative* Problem Noted Date Resolved Date EXCORIATIONS//SUPERFICIAL INJURY NEC 07/03/2008 04/29/2014 Scabies 07/03/2008 04/29/2014 documented as of this encounter (statuses as of 07/23/2022) [facility] History of Past illness Narrative* Problem Noted Date Resolved Date EXCORIATIONS//SUPERFICIAL INJURY NEC 07/03/2008 04/29/2014 Scabies 07/03/2008 04/29/2014 documented as of this encounter (statuses as of 08/04/2022) [address]21-2009 History of Past illness Narrative* Problem Noted Date Resolved Date EXCORIATIONS//SUPERFICIAL INJURY NEC 07/03/2008 04/29/2014 Scabies 07/03/2008 04/29/2014 documented as of this encounter (statuses as of 08/15/2022) [facility] History of Past illness Narrative* Problem Noted Date Resolved Date EXCORIATIONS//SUPERFICIAL INJURY NEC 07/03/2008 04/29/2014 Scabies 07/03/2008 04/29/2014 documented as of this encounter (statuses as of 08/27/2022) [facility] History of Past illness Narrative* Problem Noted Date Resolved Date EXCORIATIONS//SUPERFICIAL INJURY NEC 07/03/2008 04/29/2014 Scabies 07/03/2008 04/29/2014 documented as of this encounter (statuses as of 09/24/2022) [facility] History of Past illness Narrative* Problem Noted Date Resolved Date EXCORIATIONS//SUPERFICIAL INJURY NEC 07/03/2008 04/29/2014 Scabies 07/03/2008 04/29/2014 documented as of this encounter (statuses as of 10/20/2022) [facility] History of Past illness Narrative* Problem Noted Date Resolved Date EXCORIATIONS//SUPERFICIAL INJURY NEC 07/03/2008 04/29/2014 Scabies 07/03/2008 04/29/2014 documented as of this encounter (statuses as of 10/20/2022) [address]21-2009 History of Past illness Narrative* Problem Noted Date Resolved Date EXCORIATIONS//SUPERFICIAL INJURY NEC 07/03/2008 04/29/2014 Scabies 07/03/2008 04/29/2014 documented as of this encounter (statuses as of 10/25/2022) [address]21-2009 History of Past illness Narrative* Problem Noted Date Diagnosed Date Resolved Date EXCORIATIONS//SUPERFICIAL INJURY NEC 07/03/2008 04/29/2014 Scabies 07/03/2008 04/29/2014 documented as of this encounter (statuses as of 12/22/2022) [address]21-2009 History of Past illness Narrative* Problem Noted Date Diagnosed Date Resolved Date EXCORIATIONS//SUPERFICIAL INJURY NEC 07/03/2008 04/29/2014 Scabies 07/03/2008 04/29/2014 documented as of this encounter (statuses as of 01/17/2023) [address]21-2009 History of Past illness Narrative* Problem Noted Date Diagnosed Date Resolved Date EXCORIATIONS//SUPERFICIAL INJURY NEC 07/03/2008 04/29/2014 Scabies 07/03/2008 04/29/2014 documented as of this encounter (statuses as of 01/22/2023) [address]21-2009 History of Past illness Narrative* Problem Noted Date Diagnosed Date Resolved Date EXCORIATIONS//SUPERFICIAL INJURY NEC 07/03/2008 04/29/2014 Scabies 07/03/2008 04/29/2014 documented as of this encounter (statuses as of 02/25/2023) [facility] History of Past illness Narrative* Problem Noted Date Diagnosed Date Resolved Date EXCORIATIONS//SUPERFICIAL INJURY NEC 07/03/2008 04/29/2014 Scabies 07/03/2008 04/29/2014 documented as of this encounter (statuses as of 03/23/2023) [facility] History of Past illness Narrative* Problem Noted Date Diagnosed Date Resolved Date EXCORIATIONS//SUPERFICIAL INJURY NEC 07/03/2008 04/29/2014 Scabies 07/03/2008 04/29/2014 documented as of this encounter (statuses as of 04/17/2023) [address]21-2009 History of Past illness Narrative* Problem Noted Date Diagnosed Date Resolved Date EXCORIATIONS//SUPERFICIAL INJURY NEC 07/03/2008 04/29/2014 Scabies 07/03/2008 04/29/2014 documented as of this encounter (statuses as of 2023) [address]21-2009 History of Past illness Narrative* Problem Noted Date Diagnosed Date Resolved Date EXCORIATIONS//SUPERFICIAL INJURY NEC 07/03/2008 04/29/2014 Scabies 07/03/2008 04/29/2014 documented as of this encounter (statuses as of 07/21/2023) [facility] History of Past illness Narrative* Problem Noted Date Diagnosed Date Resolved Date EXCORIATIONS//SUPERFICIAL INJURY NEC 07/03/2008 04/29/2014 Scabies 07/03/2008 04/29/2014 documented as of this encounter (statuses as of 08/29/2023) [facility]01[facility] History of Past illness Narrative* Problem Noted Date Diagnosed Date Resolved Date EXCORIATIONS//SUPERFICIAL INJURY NEC 07/03/2008 04/29/2014 Scabies 07/03/2008 04/29/2014 documented as of this encounter (statuses as of 09/28/2023) [facility] History of Past illness Narrative* Problem Noted Date Diagnosed Date Resolved Date EXCORIATIONS//SUPERFICIAL INJURY NEC 07/03/2008 04/29/2014 Scabies 07/03/2008 04/29/2014 documented as of this encounter (statuses as of 09/28/2023) [facility] Grief reaction- Primary Adjustment disorder with depressed mood Excessive daytime sleepiness Insomnia secondary to depression with anxiety Dysthymic disorder Vitamin D deficiency Unspecified vitamin D deficiency Elevated glucose Other abnormal glucose Encounter for long-term (current) use of medications Encounter for long-term (current) use of other medications Panic attack Panic disorder without agoraphobia MULTIPLE SCLEROSIS Multiple sclerosis Encounter for screening mammogram for malignant neoplasm of breast Other screening mammogram Depression, unspecified depression type Anxiety Anxiety state, unspecified Screening for lipid disorders Detrusor sphincter dyssynergia [facility] En[facility] for screening mammogram for breast cancer [facility] Diagnosis Grief reaction- Primary Adjustment disorder with depressed mood Detrusor sphincter dyssynergia Multiple sclerosis (HCC) Multiple sclerosis Excessive daytime sleepiness Insomnia secondary to depression with anxiety Dysthymic disorder Panic attack Panic disorder without agoraphobia Encounter for long-term current use of medication Vitamin D deficiency Unspecified vitamin D deficiency Elevated glucose Other abnormal glucose [facility] Diagnosis MULTIPLE SCLEROSIS Multiple sclerosis Detrusor sphincter dyssynergia [facility] Diagnosis MULTIPLE SCLEROSIS Multiple sclerosis Detrusor sphincter dyssynergia [facility] Diagnosis MULTIPLE SCLEROSIS Multiple sclerosis Detrusor sphincter dyssynergia [facility] Diagnosis Reactive depression- Primary Dysthymic disorder Grief reaction Adjustment disorder with depressed mood Excessive daytime sleepiness Special screening examination for viral disease Special screening examination for unspecified viral disease MULTIPLE SCLEROSIS Multiple sclerosis Encounter for immunization Need for other specified prophylactic vaccination against single bacterial disease Screening for HIV (human immunodeficiency virus) Special screening examination for other specified viral diseases Insomnia secondary to depression with anxiety Dysthymic disorder Chest pain, unspecified type SOBOE (shortness of breath on exertion) Shortness of breath [facility] Diagnosis MULTIPLE SCLEROSIS Multiple sclerosis Detrusor sphincter dyssynergia [facility] Diagnosis Acute left-sided low back pain with left-sided sciatica- Primary Left leg weakness Other musculoskeletal symptoms referable to limbs Numbness Disturbance of skin sensation Multiple sclerosis (HCC) Multiple sclerosis [facility] Diagnosis Multiple sclerosis (HCC)- Primary Multiple sclerosis Demyelinating disease of central nervous system (HCC) Demyelinating disease of central nervous system, unspecified Other symptoms and signs involving the nervous system Acute pain of left knee Numbness in left leg Disturbance of skin sensation [facility] Diagnosis MULTIPLE SCLEROSIS Multiple sclerosis Detrusor sphincter dyssynergia [facility] Diagnosis Numbness in left leg- Primary Disturbance of skin sensation Acute left-sided low back pain with left-sided sciatica Multiple sclerosis (HCC) Multiple sclerosis Acute pain of left knee [facility] Diagnosis Multiple sclerosis (HCC)- Primary Multiple sclerosis [facility] Diagnosis Numbness in left leg- Primary Disturbance of skin sensation Multiple sclerosis (HCC) Multiple sclerosis Acute pain of left knee [facility] Diagnosis Numbness in left leg- Primary Disturbance of skin sensation Multiple sclerosis (HCC) Multiple sclerosis Acute pain of left knee [facility] Diagnosis MULTIPLE SCLEROSIS Multiple sclerosis Detrusor sphincter dyssynergia [facility] Diagnosis MULTIPLE SCLEROSIS Multiple sclerosis Detrusor sphincter dyssynergia [facility]* Diagnosis Excessive daytime sleepiness MULTIPLE SCLEROSIS Multiple sclerosis [facility]* Diagnosis Detrusor sphincter dyssynergia Excessive daytime sleepiness MULTIPLE SCLEROSIS Multiple sclerosis [facility] Diagnosis Reactive depression- Primary Dysthymic disorder Insomnia secondary to depression with anxiety Dysthymic disorder MULTIPLE SCLEROSIS Multiple sclerosis Detrusor sphincter dyssynergia [facility] Diagnosis Acute left-sided low back pain with left-sided sciatica- Primary [facility]* Diagnosis APPOINTMENT CANCELLED- Primary [facility]* Diagnosis Insomnia secondary to depression with anxiety Dysthymic disorder [facility] Diagnosis MULTIPLE SCLEROSIS- Primary Multiple sclerosis Detrusor sphincter dyssynergia Reactive depression Dysthymic disorder Panic attack Panic disorder without agoraphobia [facility] Diagnosis Chest wall discomfort- Primary Painful respiration Reactive depression Dysthymic disorder MULTIPLE SCLEROSIS Multiple sclerosis Detrusor sphincter dyssynergia [facility] Diagnosis Insomnia secondary to depression with anxiety Dysthymic disorder [facility] Diagnosis Excessive daytime sleepiness MULTIPLE SCLEROSIS Multiple sclerosis [facility] Diagnosis Encounter for immunization- Primary Need for other specified prophylactic vaccination against single bacterial disease Screening for colon cancer Special screening for malignant neoplasms, colon Screening for lipid disorders MULTIPLE SCLEROSIS Multiple sclerosis Detrusor sphincter dyssynergia Reactive depression Dysthymic disorder Medication monitoring encounter Encounter for therapeutic drug monitoring Insomnia secondary to depression with anxiety Dysthymic disorder [facility] Diagnosis Demyelinating disease of central nervous system (HCC) Demyelinating disease of central nervous system, unspecified Other symptoms and signs involving the nervous system Multiple sclerosis (HCC) Multiple sclerosis Acute pain of left knee Numbness in left leg Disturbance of skin sensation [facility] Diagnosis Encounter for screening mammogram for breast cancer [facility] Diagnosis MULTIPLE SCLEROSIS- Primary Multiple sclerosis Screening for colon cancer Special screening for malignant neoplasms, colon Excessive daytime sleepiness 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 Dysthymic disorder [facility] Diagnosis Insomnia secondary to depression with anxiety Dysthymic disorder [facility] Diagnosis Colon cancer screening- Primary Special screening for malignant neoplasms, colon [facility]* Diagnosis MULTIPLE SCLEROSIS Multiple sclerosis Detrusor sphincter dyssynergia [facility] Diagnosis Detrusor sphincter dyssynergia Multiple sclerosis (HCC) Multiple [facility] Diagnosis Insomnia secondary to depression with anxiety Dysthymic disorder Excessive daytime sleepiness MULTIPLE SCLEROSIS Multiple sclerosis [facility] Diagnosis MULTIPLE SCLEROSIS Multiple sclerosis Detrusor sphincter dyssynergia [facility] Diagnosis Detrusor sphincter dyssynergia- Primary Class 1 obesity without serious comorbidity with body mass index (BMI) of 33.0 to 33.9 in adult, unspecified obesity type Reactive depression Dysthymic disorder Recurrent UTI (urinary tract infection) Urinary tract infection, site not specified Insomnia secondary to depression with anxiety Dysthymic disorder MULTIPLE SCLEROSIS Multiple sclerosis Screening for colon cancer Special screening for malignant neoplasms, colon [facility] Diagnosis Detrusor sphincter dyssynergia [facility] Diagnosis Acute cystitis with hematuria- Primary Acute cystitis History of pyelonephritis Personal history of urinary (tract) infection [facility] Diagnosis Acute left-sided low back pain with left-sided sciatica Left leg weakness Other musculoskeletal symptoms referable to limbs Numbness Disturbance of skin sensation [facility] Diagnosis Acute cough- Primary Respiratory infection Other diseases of respiratory system, not elsewhere classified Acute cough [facility] Diagnosis Acute cough [facility] Diagnosis Insomnia secondary to depression with anxiety Dysthymic disorder [facility] Diagnosis Neurogenic bladder- Primary Neurogenic bladder, NOS Encounter for immunization Need for other specified prophylactic vaccination against single bacterial disease Encounter for screening examination for other mental health and behavioral disorders Detrusor sphincter dyssynergia MULTIPLE SCLEROSIS Multiple sclerosis [facility] Diagnosis MULTIPLE SCLEROSIS Multiple sclerosis Detrusor sphincter dyssynergia [facility] Diagnosis Insomnia secondary to depression with anxiety Dysthymic disorder [facility] Diagnosis Vitamin D deficiency- Primary Unspecified vitamin D deficiency Reactive depression Dysthymic disorder Excessive daytime sleepiness MULTIPLE SCLEROSIS Multiple sclerosis Elevated glucose Other abnormal glucose Encounter for long-term current use of medication Elevated LDL cholesterol level Pure hypercholesterolemia [facility] Diagnosis Routine medical exam- Primary Routine general medical examination at a health care facility Precordial pain MULTIPLE SCLEROSIS Multiple sclerosis Detrusor sphincter dyssynergia CORTES (dyspnea on exertion) Other dyspnea and respiratory abnormality Nicotine dependence, cigarettes, uncomplicated documented [facility] Diagnosis Community acquired pneumonia, unspecified laterality- Primary Wheeze Wheezing documented [facility] Diagnosis Pain- Primary Generalized pain [facility] Diagnosis Encounter for screening mammogram for breast cancer [facility] Diagnosis Urinary frequency- Primary Acute UTI Urinary tract infection, site not specified documented [facility] Diagnosis Recurrent UTI (urinary tract infection)- Primary Urinary tract infection, site not specified documented [facility] Diagnosis MULTIPLE SCLEROSIS- Primary Multiple sclerosis Encounter for screening mammogram for breast cancer Detrusor sphincter dyssynergia MCC (current) use of opiate analgesic Moderate mixed hyperlipidemia not requiring statin therapy Acute cystitis without hematuria Acute cystitis Chronic nasal congestion Other diseases of nasal cavity and sinuses documented [facility] Diagnosis Encounter for screening mammogram for breast cancer [facility] Diagnosis Screening for colorectal cancer- Primary Special screening for malignant neoplasms, colon [facility] Diagnosis Insomnia secondary to depression with anxiety Dysthymic disorder documented in this encounter [facility]* Diagnosis Insomnia secondary to depression with anxiety Dysthymic disorder documented in this encounter [facility] note* Diagnosis Insomnia secondary to depression with anxiety Dysthymic disorder documented in this encounter [facility] note* Diagnosis Reactive depression Dysthymic disorder Excessive daytime sleepiness MULTIPLE SCLEROSIS Multiple sclerosis documented in this encounter [facility] note* Diagnosis MULTIPLE SCLEROSIS Multiple sclerosis documented in this encounter [facility] note* Diagnosis Screening for colorectal cancer- Primary Special screening for malignant neoplasms, colon documented in this encounter [facility] note* Diagnosis Insomnia secondary to depression with anxiety Dysthymic disorder documented in this encounter [facility] for referral (narrative)* Diagnostic Procedure Only (Routine) - Pending Review Specialty Diagnoses / Procedures Referred By Sumi tomlinson Referred To Contact [facility] Diagnoses Encounter for screening mammogram for breast cancer Procedures KENDALL SCREENING SCREENING MAMMOGRAPHY BI 2-VIEW BREAST INC CAD Lina Hernandez MD [address] [place] [address] [facility] [address] [place] [id number] Referral ID Status Reason Start Date Expiration Date Visits Requested Visits Authorized [id number] Pending Review Auto-Generat ed Referral 10/07/2021 11/06/2022 1 1 [facility] for referral (narrative)* Outpatient Procedure (Routine) - Pending Review Specialty Diagnoses / Procedures Referred By Sumi tomlinson Ref[facility] To Contact [facility] Diagnoses Chest pain, unspecified type SOBOE (shortness of breath on exertion) Procedures ECHO ECHO TTHRC R-T 2D W/WOM-MODE COMPL SPEC&COLR D Mary Castellanos, FIELD MAP TECHNICIAN.BUILDING ARCHITECTURAL DESIGNER [address] [place] [address] [facility] [address] [place] [address] Referral ID Status Reason Start Date Expiration Date Visits Requested Visits Authorized [id number] Pending Review Auto-Generat ed Referral 01/05/2022 01/05/2023 1 1 * Medication Prior Authorization - Closed Specialty Diagnoses / Procedures Referred By Contac t Referred To Contact Diagnoses Excessive daytime sleepiness Multiple sclerosis (HCC) Mary Castellanos APRN.BUILDING ARCHITECTURAL DESIGNER [address] [place] [address] Referral ID Status Reason Start Date Expiration Date Visits Re quested Visits Authorized [id number] Closed 1 1 [facility] for referral (narrative)* Diagnostic Procedure Only (Routine) - Closed Specialty Diagnoses / Procedures Referred By Contac t Referred To Contact XR IMAGING Diagnoses Acute left-sided low back pain with left-sided sciatica Left leg weakness Numbness Procedures XR LUMBAR GENERAL 3V AP/LAT/L5-S1 RADEX SPINE LUMBOSACRAL 2/3 VIEWS Suzie Ray APRN.LIBRARY MANAGER [address] [place] [address] Xr Imaging Referral ID Status Reason Start Date Expiration Date V isits Requested Visits Authorized [id number] Closed Auto-Generate d Referral 03/03/2022 04/02/2023 1 1 * Consult, Test, Treat (Routine) - Authorized Specialty Diagnoses / Procedures Referred By Contac t Referred To Contact Diagnoses Multiple sclerosis (HCC) Procedures CONSULT TO [facility] OFFICE/OUTPATIENT [facility] 60-74 MINUTES Suzie Ray APRN.LIBRARY MANAGER [address] [place] [address] Referral ID Status Reason Start Date Expiration Date Visits Requested Visits Authorized [id number] Authorized PCP Requested Referral 03/03/2022 03/03/2023 1 1 [facility] for referral (narrative)* Diagnostic Procedure Only (Routine) - Pending Review Specialty Diagnoses / Procedures Referred By Contac t Referred To Contact XR IMAGING Diagnoses Acute pain of left knee Procedures XR KNEE INJURY 4V AP/LAT/OBLS LEFT RADIOLOGIC EXAM KNEE COMPLETE 4/MORE VIEWS Mele Recinos MD [address] [place] [address] Xr Imaging Referral ID Status Reason Start Date Expiration Date Visits Requested Visits Authorized [id number] Pending Review Auto-Generat ed Referral 03/16/2022 04/15/2023 1 1 * Physical Therapy (Routine) - Pending Review Specialty Diagnoses / Procedures Referred By Sumi tomlinson Referred To Contact [facility] Diagnoses Demyelinating disease of central nervous system (HCC) Other symptoms and signs involving the nervous system Multiple sclerosis (HCC) Acute pain of left knee Numbness in left leg Procedures CONSULT TO PHYSICAL THERAPY PHYSICAL THERAPY EVALUATION HIGH COMPLEX 45 MINS Mele Recinos MD [address] [place] [address] [facility] [place] [address] [place] [address] Referral ID Status Reason Start Date Expiration Date Visits Requested Visits Authorized [id number] Pending Review Auto-Generat ed Referral 03/16/2022 03/16/2023 1 1 * MRI/CT (Routine) - Pending Review Specialty Diagnoses / Procedures Referred By Sumi tomlinson Referred To Contact MR IMAGING Diagnoses Demyelinating disease of central nervous system (HCC) Other symptoms and signs involving the nervous system Multiple sclerosis (HCC) Acute pain of left knee Numbness in left leg Procedures MRI CERVICAL SPINE WO/W IVCON MRI SPINAL CANAL CERVICAL W/O & W/CONTR MATRL Mele Recinos MD [address] [place] [address] Mr Imaging Referral ID Status Reason Start Date Expiration Date Visits Requested Visits Authorized [id number] Pending Review Auto-Generat ed Referral 04/15/2023 1 1 * MRI/CT (Routine) - Pending Review Specialty Diagnoses / Procedures Referred By Sumi tomlinson Referred To Contact MR IMAGING Diagnoses Demyelinating disease of central nervous system (HCC) Other symptoms and signs involving the nervous system Multiple sclerosis (HCC) Acute pain of left knee Numbness in left leg Procedures MRI BRAIN WO/W IVCON MRI BRAIN BRAIN STEM W/O W/CONTRAST MATERIAL Mele Recinos MD [address] [place] [address] Mr Imaging Referral ID Status Reason Start Date Expiration Date Visits Requested Visits Authorized [id number] Pending Review Auto-Generat ed Referral 2 04/15/2023 1 1 [facility] for referral (narrative)* Diagnostic Procedure Only (Routine) - Pending Review Specialty Diagnoses / Procedures Referred By Sumi tomlinson Referred To Contact BR IMAGING Diagnoses Encounter for screening mammogram for breast cancer Procedures KENDALL SCREENING SCREENING MAMMOGRAPHY BI 2-VIEW BREAST INC CAD Lina Hernandez MD [address] [place] [address] Br Imaging [facility] [place] [address] Referral ID Status Reason Start Date Expiration Date Visits Requested Visits Authorized [id number] Pending Review Auto-Generat ed Referral 08/24/2023 09/22/2024 1 1 [facility] for referral (narrative)* Diagnostic Procedure Only (Routine) - Closed Specialty Diagnoses / Procedures Referred By Sumi tomlinson Referred To Contact XR IMAGING Diagnoses Acute left-sided low back pain with left-sided sciatica Left leg weakness Numbness Procedures XR LUMBAR GENERAL 3V AP/LAT/L5-S1 RADEX SPINE LUMBOSACRAL 2/3 VIEWS Suzie Ray APRN.LIBRARY MANAGER [address] [place] [address] Xr Imaging [id number] Referral ID Status Reason Start Date Expiration Date V isits Requested Visits Authorized [id number] Closed Auto-Generate d Referral 03/03/2022 04/02/2023 1 1 [facility] for referral (narrative)* Outpatient Procedure (Routine) - Authorized Specialty Diagnoses / Procedures Referred By Contac t Referred To Contact [facility] Diagnoses Precordial pain CORTES (dyspnea on exertion) Procedures STRESS ECHO TREADMILL ECHO TTHRC R-T 2D W/WO M-MODE COMPLETE REST&ST Lina Hernandez MD [address] [place] [address] [facility] [place] [id number] Referral ID Status Reason Start Date Expiration Date Visits Requested Visits Authorized [id number] Authorized Auto-Generat ed Referral 07/10/2024 07/10/2025 1 1 * Outpatient Procedure (Routine) - New Request Specialty Diagnoses / Procedures Referred By Contac t Referred To Contact [facility] [place] Diagnoses Precordial pain CORTES (dyspnea on exertion) Procedures ECG COMPLETE ECG ROUTINE ECG W/LEAST 12 LDS W/I&R Lina Hernandez MD [address] [place] [address] [facility] V[facility] [place] [id number] [place] [id number] Referral ID Status Reason Start Date Expiration Date Visits Requested Visits Authorized [id number] New Request Auto-Generat ed Referral 07/10/2024 07/10/2025 1 1 [facility] for visit Narrative* Diagnostic Procedure Only (Routine) - Closed Specialty Diagnoses / Procedures Referred By Contac t Referred To Contact XR IMAGING Diagnoses Acute left-sided low back pain with left-sided sciatica Left leg weakness Numbness Procedures XR LUMBAR GENERAL 3V AP/LAT/L5-S1 RADEX SPINE LUMBOSACRAL 2/3 VIEWS Suzie Ray APRN.LIBRARY MANAGER [address] [place] [address] [place] [address] Referral ID Status Reason Start Date Expiration Date V isits Requested Visits Authorized [id number] Closed Auto-Generate d Referral 03/03/2022 04/02/2023 1 [facility] Consult, Test, Treat (Routine) - Closed Specialty Diagnoses / Procedures Referred By Sumi tomlinson Referred To Contact BR IMAGING Diagnoses Encounter for screening mammogram for breast cancer Procedures KENDALL SCREENING W KIERRA SCREENING DIGITAL BREAST TOMOSYNTHESIS BI SCREENING MAMMOGRAPHY BI 2-VIEW BREAST INC CAD Allison Esqueda, FIELD MAP TECHNICIAN.LIBRARY MANAGER [address] [place] [address] Phone: tel: fax: [facility] [address] [place] [address] Referral ID Status Reason Start Date Expiration Date V isits Requested Visits Authorized [id number] Closed Auto-Generate d Referral 10/09/2024 06/12/2025 1 1 [facility] Advance Directives Documents on File Type Date Recorded Patient Chief Talent Officer Expl anation Advance Directive(s) Documents on File Type Date Recorded Patient Chief Talent Officer Expl anation Advance Directive(s) Reason for Referral Specialty Diagnoses / Procedures Referred By Sumi tomlinson Referred To Contact [facility] Diagnoses Multiple sclerosis (HCC) Procedures CONSULT TO COMMUNICATIONS STATION MANAGER OCCUPATIONAL THERAPY EVAL HIGH COMPLEX 60 MINS Mele Recinos MD [address] [place] [address] [facility] [address] [address] Referral ID Status Reason Start Date Expiration Date Visits Requested Visits Authorized [id number] Pending Review Auto-Generat ed Referral 04/07/2023 1 1 Specialty Diagnoses / Procedures Referred By Sumi tomlinson Referred To Contact [facility] Diagnoses Acute left-sided low back pain with left-sided sciatica Procedures CONSULT TO PHYSICAL THERAPY PHYSICAL THERAPY EVALUATION HIGH COMPLEX 45 MINS Suzie Ray APRN.LIBRARY MANAGER [address] [place] [address] [facility] [place] [facility] [place] [address] Referral ID Status Reason Start Date Expiration Date Visits Re quested Visits Authorized [id number] Closed 06/13/2021 06/12/2022 20 20 Specialty Diagnoses / Procedures Referred By Contac t Referred To Contact Neurology Diagnoses Multiple sclerosis (HCC) Procedures CONSULT TO NEUROLOGY OFFICE/OUTPATIENT [facility] HIGH MDM 60-74 MINUTES Mary Castellanos, FIELD MAP TECHNICIAN.BUILDING ARCHITECTURAL DESIGNER [address] [place] [address] Referral ID Status Reason Start Date Expiration Date Visits Requested Visits Authorized [id number] Authorized PCP Requested Referral 03/21/2024 1 1 Specialty Diagnoses / Procedures Referred By Contac t Referred To Contact MR IMAGING Diagnoses Demyelinating disease of central nervous system (HCC) Other symptoms and signs involving the nervous system Multiple sclerosis (HCC) Acute pain of left knee Numbness in left leg Procedures MRI BRAIN WO/W IVCON MRI BRAIN BRAIN STEM W/O W/CONTRAST MATERIAL Mele Recinos MD [address] [place] [address] Mr Imaging [id number] Referral ID Status Reason Start Date Expiration Date V isits Requested Visits Authorized [id number] Closed Auto-Generate d Referral 03/30/2022 04/15/2023 1 1 Specialty Diagnoses / Procedures Referred By Contac t Referred To Contact Diagnoses Excessive daytime sleepiness Multiple sclerosis (HCC) Mary Castellanos, FIELD MAP TECHNICIAN.BUILDING ARCHITECTURAL DESIGNER [address] [place] [address] Referral ID Status Reason Start Date Expiration Date V isits Requested Visits Authorized [id number] Pending Review 1 1 Specialty Diagnoses / Procedures Referred By Contac t Referred To Contact Diagnoses Excessive daytime sleepiness Multiple sclerosis (HCC) Lina Hernandez MD [address] [place] [address] Referral ID Status Reason Start Date Expiration Date Visits Re quested Visits Authorized [id number] Closed 1 1 Specialty Diagnoses / Procedures Referred By Contac t Referred To Contact Urology Diagnoses Neurogenic bladder Procedures CONSULT TO UROLOGY OFFICE/OUTPATIENT [facility] 60 MINUTES Mary Castellanos, LISA.BUILDING ARCHITECTURAL DESIGNER [address] [place] [address] Referral ID Status Reason Start Date Expiration Date Visits Requested Visits Authorized [id number] Authorized PCP Requested Referral 4 04/10/2025 1 1 Referral ID Status Reason Start Date Expiration Date Visits Re quested Visits Authorized [id number] Closed 1 1 Summary Purpose Family History No Family History Records FoundNo Family History Records FoundNo Family History Records Found Additional Source Comments Source Comments (unrecognize d section and content) In the event this informatio n is protected by the Federal Confidentiality of Alcohol and Drug Abuse Patient Records regulations: The Federal rules restrict any use of the information to criminally investigate or prosecute any alcohol or drug abuse patient.[facility] the event this information is protected by the Federal Confidentiality of Alcohol and Drug Abuse Patient Records regulations: The Federal rules restrict any use of the information to criminally investigate or prosecute any alcohol or drug abuse patient.[facility] the event this information is protected by the Federal Confidentiality of Alcohol and Drug Abuse Patient Records regulations: The Federal rules restrict any use of the information to criminally investigate or prosecute any alcohol or drug abuse patient.[facility] the event this information is protected by the Federal Confidentiality of Alcohol and Drug Abuse Patient Records regulations: The Federal rules restrict any use of the information to criminally investigate or prosecute any alcohol or drug abuse patient.[facility] the event this information is protected by the Federal Confidentiality of Alcohol and Drug Abuse Patient Records regulations: The Federal rules restrict any use of the information to criminally investigate or prosecute any alcohol or drug abuse patient.[facility] the event this information is protected by the Federal Confidentiality of Alcohol and Drug Abuse Patient Records regulations: The Federal rules restrict any use of the information to criminally investigate or prosecute any alcohol or drug abuse patient.[facility] the event this information is protected by the Federal Confidentiality of Alcohol and Drug Abuse Patient Records regulations: The Federal rules restrict any use of the information to criminally investigate or prosecute any alcohol or drug abuse patient.[facility] HospitalIn the event this information is protected by the Federal Confidentiality of Alcohol and Drug Abuse Patient Records regulations: The Federal rules restrict any use of the information to criminally investigate or prosecute any alcohol or drug abuse patient.[facility] HospitalIn the event this information is protected by the Federal Confidentiality of Alcohol and Drug Abuse Patient Records regulations: The Federal rules restrict any use of the information to criminally investigate or prosecute any alcohol or drug abuse patient.[facility] HospitalIn the event this information is protected by the Federal Confidentiality of Alcohol and Drug Abuse Patient Records regulations: The Federal rules restrict any use of the information to criminally investigate or prosecute any alcohol or drug abuse patient.[facility] Hospital[facility] the event this information is protected by the Federal Confidentiality of Alcohol and Drug Abuse Patient Records regulations: The Federal rules restrict any use of the information to criminally investigate or prosecute any alcohol or drug abuse patient.[facility] HospitalIn the event this information is protected by the Federal Confidentiality of Alcohol and Drug Abuse Patient Records regulations: The Federal rules restrict any use of the information to criminally investigate or prosecute any alcohol or drug abuse patient.[facility] HospitalIn the event this information is protected by the Federal Confidentiality of Alcohol and Drug Abuse Patient Records regulations: The Federal rules restrict any use of the information to criminally investigate or prosecute any alcohol or drug abuse patient.[facility] HospitalIn the event this information is protected by the Federal Confidentiality of Alcohol and Drug Abuse Patient Records regulations: The Federal rules restrict any use of the information to criminally investigate or prosecute any alcohol or drug abuse patient.[facility] HospitalIn the event this information is protected by the Federal Confidentiality of Alcohol and Drug Abuse Patient Records regulations: The Federal rules restrict any use of the information to criminally investigate or prosecute any alcohol or drug abuse patient.[facility] the event this information is protected by the Federal Confidentiality of Alcohol and Drug Abuse Patient Records regulations: The Federal rules restrict any use of the information to criminally investigate or prosecute any alcohol or drug abuse patient.[facility] HospitalIn the event this information is protected by the Federal Confidentiality of Alcohol and Drug Abuse Patient Records regulations: The Federal rules restrict any use of the information to criminally investigate or prosecute any alcohol or drug abuse patient.[facility] HospitalIn the event this information is protected by the Federal Confidentiality of Alcohol and Drug Abuse Patient Records regulations: The Federal rules restrict any use of the information to criminally investigate or prosecute any alcohol or drug abuse patient.[facility] HospitalIn the event this information is protected by the Federal Confidentiality of Alcohol and Drug Abuse Patient Records regulations: The Federal rules restrict any use of the information to criminally investigate or prosecute any alcohol or drug abuse patient.[facility] HospitalIn the event this information is protected by the Federal Confidentiality of Alcohol and Drug Abuse Patient Records regulations: The Federal rules restrict any use of the information to criminally investigate or prosecute any alcohol or drug abuse patient.[facility] HospitalIn the event this information is protected by the Federal Confidentiality of Alcohol and Drug Abuse Patient Records regulations: The Federal rules restrict any use of the information to criminally investigate or prosecute any alcohol or drug abuse patient.[facility] HospitalIn the event this information is protected by the Federal Confidentiality of Alcohol and Drug Abuse Patient Records regulations: The Federal rules restrict any use of the information to criminally investigate or prosecute any alcohol or drug abuse patient.[facility] HospitalIn the event this information is protected by the Federal Confidentiality of Alcohol and Drug Abuse Patient Records regulations: The Federal rules restrict any use of the information to criminally investigate or prosecute any alcohol or drug abuse patient.[facility] HospitalIn the event this information is protected by the Federal Confidentiality of Alcohol and Drug Abuse Patient Records regulations: The Federal rules restrict any use of the information to criminally investigate or prosecute any alcohol or drug abuse patient.[facility] HospitalIn the event this information is protected by the Federal Confidentiality of Alcohol and Drug Abuse Patient Records regulations: The Federal rules restrict any use of the information to criminally investigate or prosecute any alcohol or drug abuse patient.[facility] HospitalIn the event this information is protected by the Federal Confidentiality of Alcohol and Drug Abuse Patient Records regulations: The Federal rules restrict any use of the information to criminally investigate or prosecute any alcohol or drug abuse patient.[facility] HospitalIn the event this information is protected by the Federal Confidentiality of Alcohol and Drug Abuse Patient Records regulations: The Federal rules restrict any use of the information to criminally investigate or prosecute any alcohol or drug abuse patient.[facility] HospitalIn the event this information is protected by the Federal Confidentiality of Alcohol and Drug Abuse Patient Records regulations: The Federal rules restrict any use of the information to criminally investigate or prosecute any alcohol or drug abuse patient.[facility] HospitalIn the event this information is protected by the Federal Confidentiality of Alcohol and Drug Abuse Patient Records regulations: The Federal rules restrict any use of the information to criminally investigate or prosecute any alcohol or drug abuse patient.[facility] HospitalIn the event this information is protected by the Federal Confidentiality of Alcohol and Drug Abuse Patient Records regulations: The Federal rules restrict any use of the information to criminally investigate or prosecute any alcohol or drug abuse patient.[facility] HospitalIn the event this information is protected by the Federal Confidentiality of Alcohol and Drug Abuse Patient Records regulations: The Federal rules restrict any use of the information to criminally investigate or prosecute any alcohol or drug abuse patient.[facility] HospitalIn the event this information is protected by the Federal Confidentiality of Alcohol and Drug Abuse Patient Records regulations: The Federal rules restrict any use of the information to criminally investigate or prosecute any alcohol or drug abuse patient.[facility] HospitalIn the event this information is protected by the Federal Confidentiality of Alcohol and Drug Abuse Patient Records regulations: The Federal rules restrict any use of the information to criminally investigate or prosecute any alcohol or drug abuse patient.[facility] HospitalIn the event this information is protected by the Federal Confidentiality of Alcohol and Drug Abuse Patient Records regulations: The Federal rules restrict any use of the information to criminally investigate or prosecute any alcohol or drug abuse patient.[facility] HospitalIn the event this information is protected by the Federal Confidentiality of Alcohol and Drug Abuse Patient Records regulations: The Federal rules restrict any use of the information to criminally investigate or prosecute any alcohol or drug abuse patient.[facility] HospitalIn the event this information is protected by the Federal Confidentiality of Alcohol and Drug Abuse Patient Records regulations: The Federal rules restrict any use of the information to criminally investigate or prosecute any alcohol or drug abuse patient.[facility] HospitalIn the event this information is protected by the Federal Confidentiality of Alcohol and Drug Abuse Patient Records regulations: The Federal rules restrict any use of the information to criminally investigate or prosecute any alcohol or drug abuse patient.[facility] HospitalIn the event this information is protected by the Federal Confidentiality of Alcohol and Drug Abuse Patient Records regulations: The Federal rules restrict any use of the information to criminally investigate or prosecute any alcohol or drug abuse patient.[facility] HospitalIn the event this information is protected by the Federal Confidentiality of Alcohol and Drug Abuse Patient Records regulations: The Federal rules restrict any use of the information to criminally investigate or prosecute any alcohol or drug abuse patient.[facility] HospitalIn the event this information is protected by the Federal Confidentiality of Alcohol and Drug Abuse Patient Records regulations: The Federal rules restrict any use of the information to criminally investigate or prosecute any alcohol or drug abuse patient.[facility] HospitalIn the event this information is protected by the Federal Confidentiality of Alcohol and Drug Abuse Patient Records regulations: The Federal rules restrict any use of the information to criminally investigate or prosecute any alcohol or drug abuse patient.[facility] HospitalIn the event this information is protected by the Federal Confidentiality of Alcohol and Drug Abuse Patient Records regulations: The Federal rules restrict any use of the information to criminally investigate or prosecute any alcohol or drug abuse patient.[facility] HospitalIn the event this information is protected by the Federal Confidentiality of Alcohol and Drug Abuse Patient Records regulations: The Federal rules restrict any use of the information to criminally investigate or prosecute any alcohol or drug abuse patient.[facility] HospitalIn the event this information is protected by the Federal Confidentiality of Alcohol and Drug Abuse Patient Records regulations: The Federal rules restrict any use of the information to criminally investigate or prosecute any alcohol or drug abuse patient.[facility] HospitalIn the event this information is protected by the Federal Confidentiality of Alcohol and Drug Abuse Patient Records regulations: The Federal rules restrict any use of the information to criminally investigate or prosecute any alcohol or drug abuse patient.[facility] HospitalIn the event this information is protected by the Federal Confidentiality of Alcohol and Drug Abuse Patient Records regulations: The Federal rules restrict any use of the information to criminally investigate or prosecute any alcohol or drug abuse patient.[facility] HospitalIn the event this information is protected by the Federal Confidentiality of Alcohol and Drug Abuse Patient Records regulations: The Federal rules restrict any use of the information to criminally investigate or prosecute any alcohol or drug abuse patient.[facility] HospitalIn the event this information is protected by the Federal Confidentiality of Alcohol and Drug Abuse Patient Records regulations: The Federal rules restrict any use of the information to criminally investigate or prosecute any alcohol or drug abuse patient.[facility] HospitalIn the event this information is protected by the Federal Confidentiality of Alcohol and Drug Abuse Patient Records regulations: The Federal rules restrict any use of the information to criminally investigate or prosecute any alcohol or drug abuse patient.[facility] HospitalIn the event this information is protected by the Federal Confidentiality of Alcohol and Drug Abuse Patient Records regulations: The Federal rules restrict any use of the information to criminally investigate or prosecute any alcohol or drug abuse patient.[facility] HospitalIn the event this information is protected by the Federal Confidentiality of Alcohol and Drug Abuse Patient Records regulations: The Federal rules restrict any use of the information to criminally investigate or prosecute any alcohol or drug abuse patient.[facility] HospitalIn the event this information is protected by the Federal Confidentiality of Alcohol and Drug Abuse Patient Records regulations: The Federal rules restrict any use of the information to criminally investigate or prosecute any alcohol or drug abuse patient.[facility] HospitalIn the event this information is protected by the Federal Confidentiality of Alcohol and Drug Abuse Patient Records regulations: The Federal rules restrict any use of the information to criminally investigate or prosecute any alcohol or drug abuse patient.[facility] HospitalIn the event this information is protected by the Federal Confidentiality of Alcohol and Drug Abuse Patient Records regulations: The Federal rules restrict any use of the information to criminally investigate or prosecute any alcohol or drug abuse patient.[facility] HospitalIn the event this information is protected by the Federal Confidentiality of Alcohol and Drug Abuse Patient Records regulations: The Federal rules restrict any use of the information to criminally investigate or prosecute any alcohol or drug abuse patient.[facility] HospitalIn the event this information is protected by the Federal Confidentiality of Alcohol and Drug Abuse Patient Records regulations: The Federal rules restrict any use of the information to criminally investigate or prosecute any alcohol or drug abuse patient.[facility] HospitalIn the event this information is protected by the Federal Confidentiality of Alcohol and Drug Abuse Patient Records regulations: The Federal rules restrict any use of the information to criminally investigate or prosecute any alcohol or drug abuse patient.[facility] HospitalIn the event this information is protected by the Federal Confidentiality of Alcohol and Drug Abuse Patient Records regulations: The Federal rules restrict any use of the information to criminally investigate or prosecute any alcohol or drug abuse patient.[facility] HospitalIn the event this information is protected by the Federal Confidentiality of Alcohol and Drug Abuse Patient Records regulations: The Federal rules restrict any use of the information to criminally investigate or prosecute any alcohol or drug abuse patient.[facility] HospitalIn the event this information is protected by the Federal Confidentiality of Alcohol and Drug Abuse Patient Records regulations: The Federal rules restrict any use of the information to criminally investigate or prosecute any alcohol or drug abuse patient.[facility] HospitalIn the event this information is protected by the Federal Confidentiality of Alcohol and Drug Abuse Patient Records regulations: The Federal rules restrict any use of the information to criminally investigate or prosecute any alcohol or drug abuse patient.[facility] HospitalIn the event this information is protected by the Federal Confidentiality of Alcohol and Drug Abuse Patient Records regulations: The Federal rules restrict any use of the information to criminally investigate or prosecute any alcohol or drug abuse patient.[facility] HospitalIn the event this information is protected by the Federal Confidentiality of Alcohol and Drug Abuse Patient Records regulations: The Federal rules restrict any use of the information to criminally investigate or prosecute any alcohol or drug abuse patient.[facility] HospitalIn the event this information is protected by the Federal Confidentiality of Alcohol and Drug Abuse Patient Records regulations: The Federal rules restrict any use of the information to criminally investigate or prosecute any alcohol or drug abuse patient.[facility] HospitalIn the event this information is protected by the Federal Confidentiality of Alcohol and Drug Abuse Patient Records regulations: The Federal rules restrict any use of the information to criminally investigate or prosecute any alcohol or drug abuse patient.[facility] the event this information is protected by the Federal Confidentiality of Alcohol and Drug Abuse Patient Records regulations: The Federal rules restrict any use of the information to criminally investigate or prosecute any alcohol or drug abuse patient.[facility] HospitalIn the event this information is protected by the Federal Confidentiality of Alcohol and Drug Abuse Patient Records regulations: The Federal rules restrict any use of the information to criminally investigate or prosecute any alcohol or drug abuse patient.[facility] HospitalIn the event this information is protected by the Federal Confidentiality of Alcohol and Drug Abuse Patient Records regulations: The Federal rules restrict any use of the information to criminally investigate or prosecute any alcohol or drug abuse patient.[facility] HospitalIn the event this information is protected by the Federal Confidentiality of Alcohol and Drug Abuse Patient Records regulations: The Federal rules restrict any use of the information to criminally investigate or prosecute any alcohol or drug abuse patient.[facility] HospitalIn the event this information is protected by the Federal Confidentiality of Alcohol and Drug Abuse Patient Records regulations: The Federal rules restrict any use of the information to criminally investigate or prosecute any alcohol or drug abuse patient.[facility] HospitalIn the event this information is protected by the Federal Confidentiality of Alcohol and Drug Abuse Patient Records regulations: The Federal rules restrict any use of the information to criminally investigate or prosecute any alcohol or drug abuse patient.[facility] HospitalIn the event this information is protected by the Federal Confidentiality of Alcohol and Drug Abuse Patient Records regulations: The Federal rules restrict any use of the information to criminally investigate or prosecute any alcohol or drug abuse patient.[facility] HospitalIn the event this information is protected by the Federal Confidentiality of Alcohol and Drug Abuse Patient Records regulations: The Federal rules restrict any use of the information to criminally investigate or prosecute any alcohol or drug abuse patient.[facility] HospitalIn the event this information is protected by the Federal Confidentiality of Alcohol and Drug Abuse Patient Records regulations: The Federal rules restrict any use of the information to criminally investigate or prosecute any alcohol or drug abuse patient.[facility] HospitalIn the event this information is protected by the Federal Confidentiality of Alcohol and Drug Abuse Patient Records regulations: The Federal rules restrict any use of the information to criminally investigate or prosecute any alcohol or drug abuse patient.[facility] HospitalIn the event this information is protected by the Federal Confidentiality of Alcohol and Drug Abuse Patient Records regulations: The Federal rules restrict any use of the information to criminally investigate or prosecute any alcohol or drug abuse patient.[facility] HospitalIn the event this information is protected by the Federal Confidentiality of Alcohol and Drug Abuse Patient Records regulations: The Federal rules restrict any use of the information to criminally investigate or prosecute any alcohol or drug abuse patient.[facility] HospitalIn the event this information is protected by the Federal Confidentiality of Alcohol and Drug Abuse Patient Records regulations: The Federal rules restrict any use of the information to criminally investigate or prosecute any alcohol or drug abuse patient.[facility] HospitalIn the event this information is protected by the Federal Confidentiality of Alcohol and Drug Abuse Patient Records regulations: The Federal rules restrict any use of the information to criminally investigate or prosecute any alcohol or drug abuse patient.[facility] HospitalIn the event this information is protected by the Federal Confidentiality of Alcohol and Drug Abuse Patient Records regulations: The Federal rules restrict any use of the information to criminally investigate or prosecute any alcohol or drug abuse patient.[facility] HospitalIn the event this information is protected by the Federal Confidentiality of Alcohol and Drug Abuse Patient Records regulations: The Federal rules restrict any use of the information to criminally investigate or prosecute any alcohol or drug abuse patient.[facility] HospitalIn the event this information is protected by the Federal Confidentiality of Alcohol and Drug Abuse Patient Records regulations: The Federal rules restrict any use of the information to criminally investigate or prosecute any alcohol or drug abuse patient.[facility] HospitalIn the event this information is protected by the Federal Confidentiality of Alcohol and Drug Abuse Patient Records regulations: The Federal rules restrict any use of the information to criminally investigate or prosecute any alcohol or drug abuse patient.[facility] HospitalIn the event this information is protected by the Federal Confidentiality of Alcohol and Drug Abuse Patient Records regulations: The Federal rules restrict any use of the information to criminally investigate or prosecute any alcohol or drug abuse patient.[facility] HospitalIn the event this information is protected by the Federal Confidentiality of Alcohol and Drug Abuse Patient Records regulations: The Federal rules restrict any use of the information to criminally investigate or prosecute any alcohol or drug abuse patient.[facility] HospitalIn the event this information is protected by the Federal Confidentiality of Alcohol and Drug Abuse Patient Records regulations: The Federal rules restrict any use of the information to criminally investigate or prosecute any alcohol or drug abuse patient.[facility] HospitalIn the event this information is protected by the Federal Confidentiality of Alcohol and Drug Abuse Patient Records regulations: The Federal rules restrict any use of the information to criminally investigate or prosecute any alcohol or drug abuse patient.[facility] HospitalIn the event this information is protected by the Federal Confidentiality of Alcohol and Drug Abuse Patient Records regulations: The Federal rules restrict any use of the information to criminally investigate or prosecute any alcohol or drug abuse patient.[facility] HospitalIn the event this information is protected by the Federal Confidentiality of Alcohol and Drug Abuse Patient Records regulations: The Federal rules restrict any use of the information to criminally investigate or prosecute any alcohol or drug abuse patient.[facility] HospitalIn the event this information is protected by the Federal Confidentiality of Alcohol and Drug Abuse Patient Records regulations: The Federal rules restrict any use of the information to criminally investigate or prosecute any alcohol or drug abuse patient.[facility] HospitalIn the event this information is protected by the Federal Confidentiality of Alcohol and Drug Abuse Patient Records regulations: The Federal rules restrict any use of the information to criminally investigate or prosecute any alcohol or drug abuse patient.[facility] HospitalIn the event this information is protected by the Federal Confidentiality of Alcohol and Drug Abuse Patient Records regulations: The Federal rules restrict any use of the information to criminally investigate or prosecute any alcohol or drug abuse patient.[facility] Reason for Visit (unrecogniz ed section and content) Reason Comments PT Discharge Specialty Diagnoses / Procedures Referred By Contac t Referred To Contact [facility] Diagnoses Acute left-sided low back pain with left-sided sciatica Procedures CONSULT TO PHYSICAL THERAPY PHYSICAL THERAPY EVALUATION HIGH COMPLEX 45 MINS Older, LISA Larsen.LIBRARY MANAGER [address] [place] [address] [facility] [place] [address] [place] [address] Referral ID Status Reason Start Date Expiration Date V isits Requested Visits Authorized [id number] Authorized 06/13/2021 06/12/2022 20 20 Reason Comments Follow Up Reason Comments Insurance Authorization Reason Onset Date Comments Refill Request 10/26/2021 Reason Onset Date Comments Refill Request 11/26/2021 Reason Onset Date Comments Refill Request 12/29/2021 Reason Comments F/U 3 Month Reason Onset Date Comments Refill Request 01/22/2022 Reason Onset Date Comments Refill Request 01/28/2022 Reason Onset Date Comments Refill Request 02/24/2022 Reason Comments Back Pain Low back pain, radia ting down L leg, numb from knee down Reason Comments New Patient Evaluation Reason Onset Date Comments Refill Request 03/27/2022 Reason Comments Physical Therapy Reason Comments Forms Vo Physicians Stat ement Reason Comments Appointment Cancelled Reason Onset Date Comments Refill Request 05/27/2022 Reason Onset Date Comments Refill Request 06/23/2022 Reason Comments Behavioral Health Social Work Reason Onset Date Comments Refill Request 07/22/2022 Reason Comments F/U 3 Month Reason Comments Results Reason Comments New Patient Evaluation Appointment Cancelled Reason Onset Date Comments Refill Request 09/23/2022 Reason Onset Date Comments Refill Request 10/20/2022 Reason Comments Recheck 3 month Reason Comments Follow Up Pain R side of chest x 3 weeks on/off Reason Comments Refill Request Reason Onset Date Comments Refill Request 01/20/2023 Reason Comments Orders Reason Comments F/U 3 Month Specialty Diagnoses / Procedures Referred By Sumi t Referred To Contact [facility] Diagnoses Demyelinating disease of central nervous system (HCC) Other symptoms and signs involving the nervous system Multiple sclerosis (HCC) Acute pain of left knee Numbness in left leg Procedures MRI BRAIN WO/W IVCON MRI BRAIN BRAIN STEM W/O W/CONTRAST MATERIAL Mele Recinos MD [address] [place] [id number] [id number] Referral ID Status Reason Start Date Expiration Date V isits Requested Visits Authorized [id number] Closed Auto-Generate d Referral 03/30/2022 04/15/2023 1 1 Reason Comments Results Reason Onset Date Comments colorectal cancer screening 09/19/2023 Reason Onset Date Comments Refill Request 12/16/2023 Reason Onset Date Comments Refill Request 12/19/2023 Reason Onset Date Comments Refill Request 01/11/2024 Reason Onset Date Comments Refill Request 01/18/2024 Reason Onset Date Comments Refill Request 02/10/2024 Reason Comments Flank Pain Reason Comments Flank Pain right side Reason Comments Chest Congestion cough, sob and fatig ue x 8 days Reason Onset Date Comments Refill Request 04/04/2024 Reason Comments Medication Problem Reason Onset Date Comments Refill Request 07/05/2024 Reason Onset Date Comments Refill Request 07/05/2024 Reason Comments Forms Wellness form Reason Comments Chest Congestion cough, fever and chi lls x 3 days Reason Comments Stress Test Instructions for 09/17/24 Reason Comments Urinary Frequency Low back pain x2 day s Reason Comments UTI Reason Comments Patient Update Reason Comments Recheck stuffy nose for abou t 1 week with moist productive coughhas been trying mucinex and saline nose spray. Did find that Aki rub does help Reason Onset Date Comments Outpatient Colonoscopy 09/11/2024 .coloncon Patient is overdue for colorectal cancer screening (has never done). Patient will need consult with Bradford Max CNP prior to colorectal cancer screening. Reason Onset Date Comments Refill Request 11/03/2024 Reason Onset Date Comments Refill Request 12/04/2024 Reason Onset Date Comments Refill Request 01/04/2025 Reason Onset Date Comments Refill Request 01/07/2025 Reason Onset Date Comments Outpatient Colonoscopy 01/14/2025 Patient i s overdue for colorectal cancer screening. She has a + family history of colon cancer, and has never had a colonoscopy.. Patient will need consult with Bradford Max CNP prior to colorectal cancer screening. Reason Onset Date Comments Refill Request 01/26/2025 Care Teams (unrecognized sec tion and content) Wood Finisher Relationship Specialty Start Date End Date Lina Hernandez MD [address] [facility] [place] [address] PCP - General Internal Medicine 02/26/13 Wood Finisher Relationship Specialty Start Date End Date Lina Hernandez MD [address] [place] [address] [place] [address] PCP - General Internal Medicine 02/26/13 Wood Finisher Relationship Specialty Start Date End Date Lina Hernandez MD [address] [place] [id number] PCP - General Internal Medicine 02/26/13 Wood Finisher Relationship Specialty Start Date End Date Lina Hernandez MD [address] [place] [address], [place] [address] PCP - General Internal Medicine 02/26/13 Wood Finisher Relationship Specialty Start Date End Date Lina Hernandez MD [address] [place] [address] [place] [address] PCP - General Internal Medicine 02/26/13 Wood Finisher Relationship Specialty Start Date End Date Lina Hernandez MD [address] [place] [address], [place] [address] PCP - General Internal Medicine 02/26/13 Wood Finisher Relationship Specialty Start Date End Date Lina Hernandez MD [address] [place] [address] [place] [address] PCP - General Internal Medicine 02/26/13 Wood Finisher Relationship Specialty Start Date End Date Lina Hernandez MD [address] [facility] [place] [address] PCP - General Internal Medicine 02/26/13 Wood Finisher Relationship Specialty Start Date End Date Lina Hernandez MD [address] [facility] [place] [address] PCP - General Internal Medicine 02/26/13 Wood Finisher Relationship Specialty Start Date End Date Lina Hernandez MD [address] [facility] [place] [address] PCP - General Internal Medicine 02/26/13 Wood Finisher Relationship Specialty Start Date End Date Lina Hernandez MD [facility] [place] [address] PCP - General Internal Medicine 02/26/13 Wood Finisher Relationship Specialty Start Date End Date Lina Hernandez MD [address] [facility] [place] [address] PCP - General Internal Medicine 02/26/13 Wood Finisher Relationship Specialty Start Date End Date Lina Hernandez MD [address] [facility] [place] [address] PCP - General Internal Medicine 02/26/13 Wood Finisher Relationship Specialty Start Date End Date Lina Hernandez MD [address] [facility] [place] [address] PCP - General Internal Medicine 02/26/13 Wood Finisher Relationship Specialty Start Date End Date Lina Hernandez MD [facility] [place] [address] PCP - General Internal Medicine 02/26/13 Wood Finisher Relationship Specialty Start Date End Date Lina Hernandez MD [facility] [place] [address] PCP - General Internal Medicine 02/26/13 Wood Finisher Relationship Specialty Start Date End Date Lina Hernandez MD [address] [facility] [place] [address] PCP - General Internal Medicine 02/26/13 Wood Finisher Relationship Specialty Start Date End Date Lina Hernandez MD [address] [facility] [place] [address] PCP - General Internal Medicine 02/26/13 Wood Finisher Relationship Specialty Start Date End Date Lina Hernandez MD [address] [place] [address], [place] [address] PCP - General Internal Medicine 02/26/13 Wood Finisher Relationship Specialty Start Date End Date Lina Hernandez MD [address] [place] [address], [place] [address] PCP - General Internal Medicine 02/26/13 Wood Finisher Relationship Specialty Start Date End Date Lina Hernandez MD [address] [facility] [place] [address] PCP - General Internal Medicine 02/26/13 Wood Finisher Relationship Specialty Start Date End Date Lina Hernandez MD [facility] [place] [address] PCP - General Internal Medicine 02/26/13 Wood Finisher Relationship Specialty Start Date End Date Lina Hernandez MD [address] [facility] [place] [address] PCP - General Internal Medicine 02/26/13 Wood Finisher Relationship Specialty Start Date End Date Lina Hernandez MD [address] [facility] [place] [address] PCP - General Internal Medicine 02/26/13 Wood Finisher Relationship Specialty Start Date End Date Lina Hernnadez MD [address] [facility] [place] [address] PCP - General Internal Medicine 02/26/13 Wood Finisher Relationship Specialty Start Date End Date Lina Hernandez MD [address] [facility] [place] [address] PCP - General Internal Medicine 02/26/13 Wood Finisher Relationship Specialty Start Date End Date Lina Hernandez MD [address] [facility] [place] [address] PCP - General Internal Medicine 02/26/13 Wood Finisher Relationship Specialty Start Date End Date Lina Hernandez MD [address] [facility] [place] [address] PCP - General Internal Medicine 02/26/13 Wood Finisher Relationship Specialty Start Date End Date Lina Hernandez MD [address] [facility] [place] [address] PCP - General Internal Medicine 02/26/13 Wood Finisher Relationship Specialty Start Date End Date Lina Hernandez MD [address] [facility] [place] [address] PCP - General Internal Medicine 02/26/13 Wood Finisher Relationship Specialty Start Date End Date Lina Hernandez MD [address] [facility] [place] [address] PCP - General Internal Medicine 02/26/13 Wood Finisher Relationship Specialty Start Date End Date Lina Hernandez MD [address] [facility] [place] [address] PCP - General Internal Medicine 02/26/13 Wood Finisher Relationship Specialty Start Date End Date Lina Hernandez MD [address] [place] [address] PCP - General Internal Medicine 02/26/13 Wood Finisher Relationship Specialty Start Date End Date Lina Hernandez MD [address] [place] [address] PCP - General Internal Medicine 02/26/13 Wood Finisher Relationship Specialty Start Date End Date Lina Hernandez MD [address] [place] [address] PCP - General Internal Medicine 02/26/13 Wood Finisher Relationship Specialty Start Date End Date Lina Hernandez MD [address] [place] [address] PCP - General Internal Medicine 02/26/13 Wood Finisher Relationship Specialty Start Date End Date Lina Hernandez MD [address] [place] [address] PCP - General Internal Medicine 02/26/13 Wood Finisher Relationship Specialty Start Date End Date Lina Hernandez MD [address] [place] [address] PCP - General Internal Medicine 02/26/13 Wood Finisher Relationship Specialty Start Date End Date Lina Hernandez MD [address] [place] [address] PCP - General Internal Medicine 02/26/13 Wood Finisher Relationship Specialty Start Date End Date Lina Hernandez MD [address] [place] [address] PCP - General Internal Medicine 02/26/13 Wood Finisher Relationship Specialty Start Date End Date Lina Hernandez MD [address] [facility] [place] [address] PCP - General Internal Medicine 02/26/13 Wood Finisher Relationship Specialty Start Date End Date Lina Hernandez MD [address] [facility] [place] [place] [address] PCP - General Internal Medicine 02/26/13 Wood Finisher Relationship Specialty Start Date End Date Lina Hernandez MD [address] [facility] [place] [place] [address] PCP - General Internal Medicine 02/26/13 Wood Finisher Relationship Specialty Start Date End Date Lina Hernandez MD [address] [facility] [place] [place] [address] PCP - General Internal Medicine 02/26/13 Wood Finisher Relationship Specialty Start Date End Date Lina Hernandez MD [address] [facility] [place] [place] [address] PCP - General Internal Medicine 02/26/13 Wood Finisher Relationship Specialty Start Date End Date Lina Hernandez MD [address] [facility] [place] [address] PCP - General Internal Medicine 02/26/13 Wood Finisher Relationship Specialty Start Date End Date Lina Hernandez MD [address] [facility] [place] [address] PCP - General Internal Medicine 02/26/13 Wood Finisher Relationship Specialty Start Date End Date Lina Hernandez MD [address] [facility] [place] [address] PCP - General Internal Medicine 02/26/13 Wood Finisher Relationship Specialty Start Date End Date Lina Hernandez MD [address] [facility] [place] [address] PCP - General Internal Medicine 02/26/13 Wood Finisher Relationship Specialty Start Date End Date Lina Hernandez MD [address] [facility] [place] [address] PCP - General Internal Medicine 02/26/13 Wood Finisher Relationship Specialty Start Date End Date Lina Hernandez MD [address] [facility] [place] [place] [address] PCP - General Internal Medicine 02/26/13 Mary Castellanos, FIELD MAP TECHNICIAN.BUILDING ARCHITECTURAL DESIGNER [address] [facility] [place] [address] Healthcare Marketer Internal Medicine 05/21/24 Allison Esqueda FIELD MAP TECHNICIAN.LIBRARY MANAGER [address] [facility] [place] [address] [facility] Internal Medicine 05/21/24 Wood Finisher Relationship Specialty Start Date End Date Lina Hernandez MD [address] [facility] [place] [address] PCP - General Internal Medicine 02/26/13 Mary Castellanos FIELD MAP TECHNICIAN.BUILDING ARCHITECTURAL DESIGNER [address] [facility] [place] [address] Healthcare Mark[facility] Internal Medicine 05/21/24 Allison Esqueda FIELD MAP TECHNICIAN.LIBRARY MANAGER [address] [place] [address] [facility] Internal Medicine 05/21/24 Wood Finisher Relationship Specialty Start Date End Date Lina Hernandez MD [address] [place] [address] PCP - General Internal Medicine 02/26/13 Mary Castellanos, FIELD MAP TECHNICIAN.BUILDING ARCHITECTURAL DESIGNER [address] [place] [address] [facility] Internal Medicine 05/21/24 Allison Esqueda FIELD MAP TECHNICIAN.LIBRARY MANAGER [address] [place] [address] [facility] Internal Medicine 05/21/24 Wood Finisher Relationship Specialty Start Date End Date Lina Hernandez MD [address] [place] [address] PCP - General Internal Medicine 02/26/13 Mary Castellanos, FIELD MAP TECHNICIAN.BUILDING ARCHITECTURAL DESIGNER [address] [place] [address] Healthcare [facility] Internal Medicine 05/21/24 Allison Esqueda FIELD MAP TECHNICIAN.LIBRARY MANAGER [address] [place] [address] [facility] Internal Medicine 05/21/24 Wood Finisher Relationship Specialty Start Date End Date Lina Hernandez MD [address] [place] [address] PCP - General Internal Medicine 02/26/13 Mary Castellanos, FIELD MAP TECHNICIAN.BUILDING ARCHITECTURAL DESIGNER [address] [place] [address] [facility] Internal Medicine 05/21/24 Allison Esqueda APRN.LIBRARY MANAGER [address] [place] [address] [facility] Internal Medicine 05/21/24 Wood Finisher Relationship Specialty Start Date End Date Lina Hernandez MD [address] [place] [address] PCP - General Internal Medicine 02/26/13 Mary Castellanos, FIELD MAP TECHNICIAN.BUILDING ARCHITECTURAL DESIGNER [address] [place] [address] [facility] Internal Medicine 05/21/24 Allison Esqueda FIELD MAP TECHNICIAN.LIBRARY MANAGER [address] [place] [address] [facility] Internal Medicine 05/21/24 Wood Finisher Relationship Specialty Start Date End Date Lina Hernandez MD [address] [place] [address] PCP - General Internal Medicine 02/26/13 Mary Castellanos, FIELD MAP TECHNICIAN.BUILDING ARCHITECTURAL DESIGNER [address] [place] [address] [facility] Internal Medicine 05/21/24 Allison Esqueda FIELD MAP TECHNICIAN.LIBRARY MANAGER [address] [place] [address] [facility] Internal Medicine 05/21/24 Wood Finisher Relationship Specialty Start Date End Date Lina Hernandez MD [address] [place] [address] PCP - General Internal Medicine 02/26/13 Mary Castellanos, FIELD MAP TECHNICIAN.BUILDING ARCHITECTURAL DESIGNER [address] [facility] [place] [address] Healthcare Mark[facility] Internal Medicine 05/21/24 Allison Esqueda FIELD MAP TECHNICIAN.LIBRARY MANAGER [address] [facility] [place] [address] Healthcare Marketer Internal Medicine 05/21/24 Wood Finisher Relationship Specialty Start Date End Date Lina Hernandez MD [address] [facility] [place] [address] PCP - General Internal Medicine 02/26/13 Mary Castellanos, FIELD MAP TECHNICIAN.BUILDING ARCHITECTURAL DESIGNER [address] [facility] [address] Healthcare Marketer Internal Medicine 05/21/24 Allison Esqueda FIELD MAP TECHNICIAN.LIBRARY MANAGER [address] [facility] [place] [address] [facility] Internal Medicine 09/04/24 Wood Finisher Relationship Specialty Start Date End Date Lina Hernandez MD [address] [facility] [place] [address] PCP - General Internal Medicine 02/26/13 Mary Castellanos, FIELD MAP TECHNICIAN.BUILDING ARCHITECTURAL DESIGNER [address] [facility] [place] [address] [facility] Internal Medicine 05/21/24 Allison Esqueda FIELD MAP TECHNICIAN.LIBRARY MANAGER [address] [facility] [place] [address] [facility] Internal Medicine 09/04/24 Wood Finisher Relationship Specialty Start Date End Date Lina Hernandez MD [address] [place] [address] PCP - General Internal Medicine 02/26/13 Mary Castellanos, FIELD MAP TECHNICIAN.BUILDING ARCHITECTURAL DESIGNER [address] [place] [address] [facility] Internal Medicine 05/21/24 Allison Esqueda FIELD MAP TECHNICIAN.LIBRARY MANAGER [address] [place] [address] [facility] Internal Medicine 09/04/24 Wood Finisher Relationship Specialty Start Date End Date Lina Hernandez MD [address] [place] [address] PCP - General Internal Medicine 02/26/13 Mary Castellanos, FIELD MAP TECHNICIAN.BUILDING ARCHITECTURAL DESIGNER [address] [place] [address] [facility] Internal Medicine 05/21/24 Allison Esqueda APRN.LIBRARY MANAGER [address] [place] [address] [facility] Internal Medicine 09/04/24 Wood Finisher Relationship Specialty Start Date End Date Lina Hernandez MD [address] [place] [address] PCP - General Internal Medicine 02/26/13 Mary Castellanos, FIELD MAP TECHNICIAN.BUILDING ARCHITECTURAL DESIGNER [address] [place] [address] [facility] Internal Medicine 05/21/24 Allison Esqueda FIELD MAP TECHNICIAN.LIBRARY MANAGER [address] [place] [address] [facility] Internal Medicine 09/04/24 Wood Finisher Relationship Specialty Start Date End Date Lina Hernandez MD [address] [place] [address] PCP - General Internal Medicine 02/26/13 Mary Castellanos, FIELD MAP TECHNICIAN.BUILDING ARCHITECTURAL DESIGNER [address] [place] [address] [facility] Internal Medicine 05/21/24 Allison Esqueda FIELD MAP TECHNICIAN.LIBRARY MANAGER [address] [place] [address] [facility] Internal Medicine 09/04/24 Wood Finisher Relationship Specialty Start Date End Date Lina Hernandez MD [address] [place] [address] PCP - General Internal Medicine 02/26/13 Mary Castellanos, FIELD MAP TECHNICIAN.BUILDING ARCHITECTURAL DESIGNER [address] [place] [address] [facility] Internal Medicine 05/21/24 lAlison Esqueda, FIELD MAP TECHNICIAN.LIBRARY MANAGER [address] [place] [address] [facility] Internal Medicine 09/04/24 Wood Finisher Relationship Specialty Start Date End Date Lina Hernandez MD [address] [place] [address] PCP - General Internal Medicine 02/26/13 Mary Castellanos, FIELD MAP TECHNICIAN.BUILDING ARCHITECTURAL DESIGNER [address] [place] [address] [facility] Internal Medicine 05/21/24 Allison Esqueda, FIELD MAP TECHNICIAN.LIBRARY MANAGER [address] [facility] [place] [address] [facility] Internal Medicine 09/04/24 Wood Finisher Relationship Specialty Start Date End Date Lina Hernandez MD [address] [facility] [place] [address] PCP - General Internal Medicine 02/26/13 Mary Castellanos, FIELD MAP TECHNICIAN.BUILDING ARCHITECTURAL DESIGNER [address] [place] [address] [facility] Internal Medicine 05/21/24 Allison Esqueda FIELD MAP TECHNICIAN.LIBRARY MANAGER [address] [place] [address] [facility] Internal Medicine 09/04/24 Wood Finisher Relationship Specialty Start Date End Date Lina Hernandez MD [address] [place] [address] PCP - General Internal Medicine 02/26/13 Mary Castellanos, FIELD MAP TECHNICIAN.BUILDING ARCHITECTURAL DESIGNER [address] [place] [address] [facility] Internal Medicine 05/21/24 Allison Esqueda FIELD MAP TECHNICIAN.LIBRARY MANAGER [address] [place] [address] [facility] Internal Medicine 09/04/24 Wood Finisher Relationship Specialty Start Date End Date Lina Hernandez MD [address] [place] [address] PCP - General Internal Medicine 02/26/13 Allison Esqueda FIELD MAP TECHNICIAN.LIBRARY MANAGER [address] [facility] [place] [address] [facility] Internal Medicine 09/04/24 Mary Castellanos, FIELD MAP TECHNICIAN.BUILDING ARCHITECTURAL DESIGNER [address] [facility] [place] [address] [facility] Internal Medicine 10/31/24 Wood Finisher Relationship Specialty Start Date End Date Lina Hernandez MD [address] [facility] [place] [address] PCP - General Internal Medicine 02/26/13 Allison Esqueda APRN.LIBRARY MANAGER [address] [facility] [place] [address] [facility] Internal Medicine 09/04/24 Mary Castellanos, FIELD MAP TECHNICIAN.BUILDING ARCHITECTURAL DESIGNER [address] [facility] [place] [address] [facility] Internal Medicine 10/31/24 Wood Finisher Relationship Specialty Start Date End Date Lina Hernandez MD [address] [facility] [place] [address] PCP - General Internal Medicine 02/26/13 Mary Castellanos, FIELD MAP TECHNICIAN.BUILDING ARCHITECTURAL DESIGNER [address] [facility] [place] [address] [facility] Internal Medicine 05/21/24 10/30/24 Allison Esqueda FIELD MAP TECHNICIAN.LIBRARY MANAGER [address] [facility] [place] [address] [facility] Internal Medicine 09/04/24 Mary Castellanos, FIELD MAP TECHNICIAN.BUILDING ARCHITECTURAL DESIGNER [address] [facility] [place] [address] [facility] Internal Medicine 10/31/24 Wood Finisher Relationship Specialty Start Date End Date Lina Hernandez MD [address] [place] [address] PCP - General Internal Medicine 02/26/13 Allison Esqueda APRN.LIBRARY MANAGER [address] [facility] [place] [address] [facility] Internal Medicine 09/04/24 Mary Castellanos APRN.BUILDING ARCHITECTURAL DESIGNER [address] [facility] [place] [address] [facility] Internal Medicine 10/31/24 Wood Finisher Relationship Specialty Start Date End Date Lina Hernandez MD [address] [facility] [place] [address] PCP - General Internal Medicine 02/26/13 Allison Esqueda APRN.LIBRARY MANAGER [address] [facility] [place] [address] [facility] Internal Medicine 09/04/24 Mary Castellanos, FIELD MAP TECHNICIAN.BUILDING ARCHITECTURAL DESIGNER [address] [facility] [place] [address] [facility] Internal Medicine 10/31/24 Wood Finisher Relationship Specialty Start Date End Date Lina Hernandez MD [address] [facility] [place] [address] PCP - General Internal Medicine 02/26/13 Allison Esqueda APRN.LIBRARY MANAGER [address] [facility] [place] [address] [facility] Internal Medicine 09/04/24 Mary Castellanos, FIELD MAP TECHNICIAN.BUILDING ARCHITECTURAL DESIGNER [address] [place] [address] [facility] Internal Medicine 10/31/24 Wood Finisher Relationship Specialty Start Date End Date Lina Hernandez MD [address] [place] [address] PCP - General Internal Medicine 02/26/13 Allison Esqueda FIELD MAP TECHNICIAN.LIBRARY MANAGER [address] [place] [address] [facility] Internal Medicine 09/04/24 Mary Castellanos, FIELD MAP TECHNICIAN.BUILDING ARCHITECTURAL DESIGNER [address] [place] [address] [facility] Internal Medicine 10/31/24 Wood Finisher Relationship Specialty Start Date End Date Lina Hernandez MD [address] [place] [address] PCP - General Internal Medicine 02/26/13 Allison Esqueda FIELD MAP TECHNICIAN.LIBRARY MANAGER [address] [place] [address] [facility] Internal Medicine 09/04/24 Mary Castellanos, FIELD MAP TECHNICIAN.BUILDING ARCHITECTURAL DESIGNER [address] [place] [address] [facility] [employer] Internal Medicine 10/31/24 INFORMATION SOURCE (unrecogn ized section and content) DATE CREATED AUTHOR 04/16/2022 [facility] DATE CREATED AUTHOR AUTHOR'S ORGANIZ ATION 09/02/2024 [facility] DATE CREATED AUTHOR AUTHOR'S ORGANIZ ATION 01/16/2025 [facility] FOR RECORDS PERTAINING TO PATIENTS WHO ARE OR HAVE BEEN ENROLLED IN A CHEMICAL DEPENDENCY/SUBSTANCEABUSE PROGRAM, SOME INFORMATION MAY BE OMITTED. This clinical summary was aggregated from multiple sources. Caution should be exercised in using it in the provision of clinical care. This summary normalizes information from multiple sources, and as a consequence, information in this document may materially change the coding, format and clinical context of patient data. In addition, data may be omitted in some cases. CLINICAL DECISIONS SHOULD BE BASED ON THE PRIMARY CLINICAL RECORDS. [facility]. provides no warranty or guarantee of the accuracy or completeness of information in this document.
== END | disposition home or self-care (01) ==
LOC: MRI 07:03
PROVIDERS: PCP Internal Medicine; Referring Provider Psychiatry & Neurology Neurology; Visit Provider Psychiatry & Neurology Neurology
DX: G35 Multiple sclerosis (principal)
CPT/HCPCS: 70553; 72156; 72157; A9575